=== PATIENT | female | born 1960 | race Caucasian/White ===

== ENCOUNTER 2019-12-18 11:04 | Emergency (ER) | payer OTHER, SELFPAY ==
--- NOTE | ~2019-12-18 | XR_ITS ---
EXAMINATION: XR chest 2V DATE: 12/18/2019 12:10 INDICATION: Cough and fever. TECHNIQUE: Frontal and lateral views of the chest were obtained. COMPARISON: Chest 2 views 09/20/2019 FINDINGS: The chest demonstrates clear lungs without pneumonia, pleural effusion, or pneumothorax. Th e heart size is normal. Surgical clips in the right upper quadrant are likely from cholecystectomy. IMPRESSION: 1. No acute cardiopulmonary disease. Reviewed, dictated and finalized at location A.
[2019-12-18 11:15] VITALS: BP 146/87; PULSE 72; RESP 18; TEMP 37.2; O2SAT 100
--- NOTE | 2019-12-18 12:04 | ED.URI ---
HPI - URI/Sore Throat General Chief Complaint: Upper Respiratory Infection Stated Complaint: Cough and URI Symptoms Source: patient Mode of arrival: ambulatory Limitations: no limitations History of Present Illness HPI Narrative: Patient is a 59-year-old female who presents with complaints of cough, congestion, shortness of breath, fever, chills, body aches x2 days. Patient reports boss diagnosis of influenza A. Patient reports taking Tylenol with limited relief. Patient reports a history of PE, asthma and bronchitis. MD elicited complaint: fever and cough Related Data Home Medications Medication Instructions Recorded Confirmed albuterol sulfate 90 mcg/actuation 1 puff INHALATION Q4H PRN 09/04/19 aerosol inhaler atorvastatin 20 mg tablet 20 mg PO DAILY 09/04/19 fluticasone furoate 100 1 inhalation INHALATION Q24H 09/04/19 mcg-vilanterol 25 mcg/dose inhalation powder isometheptene 65 mg-caffeine 100 cap PO 09/04/19 mg-acetaminophen 325 mg capsule omeprazole 40 mg capsule,delayed 40 mg PO BID 09/04/19 release amitriptyline 12/18/19 fluticasone furoate-vilanterol INHALATION 12/18/19 [Breo Ellipta] montelukast mg 12/18/19 rivaroxaban [Xarelto] mg 12/18/19 triamterene-hydrochlorothiazid tablet 12/18/19 Allergies Allergy/AdvReac Type Severity Reaction Status Date / Time divalproex sodium [Depakote] Allergy Unknown Psychosis Verified 12/18/19 11:07 morphine Allergy Unknown unk Verified 12/18/19 11:07 mycophenolate mofetil Allergy Unknown unk Verified 12/18/19 11:07 Penicillins Allergy Unknown unk Verified 12/18/19 11:07 prednisone Allergy Unknown Psychosis Verified 12/18/19 11:07 Sulfa (Sulfonamide Allergy Unknown unk Verified 12/18/19 11:07 Antibiotics) Review of Systems Review of Systems: Narrative: CONSTITUTIONAL: Reports fever, chills, or sweats. EYES: Denies visual changes, redness, or discharge. ENT: Reports rhinorrhea, congestion, denies sore throat, or otalgia. CARDIOVASCULAR: Denies chest pain, palpitations, or edema. RESPIRATORY: Reports cough and dyspnea. GASTROINTESTINAL: Denies abdominal pain, nausea, vomiting, or diarrhea. GENITOURINARY: Denies dysuria or hematuria. SKIN: Denies rash or itching. MUSCULOSKELETAL: Denies back pain, joint pain, or myalgia. NEUROLOGIC: Denies headache, numbness, dizziness, or weakness. PSYCHIATRIC: Denies anxiety or depression. [facility] Past Medical History Medical History Protein C deficiency Protein S deficiency Pulmonary embolus (2003) with DVT Surgical History Surgical History H/O: hysterectomy (1997) Hx of cholecystectomy (2009) Family History Family History Mother Diabetes mellitus Family history of primary malignant neoplasm of liver Asthma Family history of chronic obstructive pulmonary disease Father Family history of cardiovascular disease Family history of chronic obstructive pulmonary disease Family history of lung cancer Family history of primary malignant neoplasm of liver Grandparent Family history of lung cancer Family history of coronary artery disease Acute myocardial infarction Social History Social History Smoking status: Never smoker Alcohol intake: current Exam Narrative: Exam Narrative: GENERAL: Well-appearing, well-nourished, and in no acute distress. HEAD: Normocephalic, atraumatic. EYES: EOMI. No redness or drainage. Conjunctiva are normal. ENT: Mucous membranes pink and moist. Nares clear. No rhinorrhea. TMs normal bilaterally. Throat normal. Uvula midline. NECK: AROM. Supple. No lymphadenopathy. CHEST: No respiratory distress. Decreased lung sounds on right lower lobe HEART: Regular rate and rhythm. No murmur appreciated. Normal peripheral pulses. EXTREMITIES
[2019-12-18 12:45] VITALS: PULSE 80; RESP 18; TEMP 36.7
[2019-12-18] MEDS: ALBUTEROL SULFATE NEB 2.5 MG/3 ML INH INHALATION (13:12)
[2019-12-18] MEDS: IPRATROPIUM BR 0.02% INH SOLN 0.5 MG/2.5 ML VIAL INHALATION (13:12)
[2019-12-18 13:30] VITALS: PULSE 77; O2SAT 100
[2019-12-18 14:17] VITALS: PULSE 77; RESP 18; O2SAT 100
== END 2019-12-18 14:00 | disposition home or self-care (01) ==
PROVIDERS: Emergency Provider Nurse Practitioner; PCP Physician Assistant
DX: R05 Cough (principal); R06.02 Shortness of breath; R50.9 Fever, unspecified; R52 Pain, unspecified; J45.909 Unspecified asthma, uncomplicated; Z86.711 Personal history of pulmonary embolism; D68.59 Other primary thrombophilia
CPT/HCPCS: 71046; 87804; 94640; 99213; G0463

== ENCOUNTER 2019-12-22 08:05 | Outpatient (CLI) | payer OTHER, SELFPAY ==
[2019-12-22 08:54] LABS: Alanine Aminotransferase 49 U/L (4-35); Aspartate Amino Transferase 39 U/L (14-36); Blood Urea Nitrogen 14 mg/dL (7-17); Calcium 9.1 mg/dL (8.4-10.2); Carbon Dioxide 30 mmol/L (22-30); Chloride 100 mmol/L (98-107); Cholesterol 156 mg/dL (0-200); Estimated Glomerular Filt Rate > 60; Glucose 105 mg/dL (65-105); HDL Direct 51 mg/dL; Potassium 3.5 mmol/L (3.4-5.0); Sodium 138 mmol/L (137-145); Triglycerides 128 mg/dL (<150)
[2019-12-22 09:04] LABS: LDL Cholesterol Direct 83 mg/dL
== END 2019-12-22 08:06 | disposition home or self-care (01) ==
PROVIDERS: PCP Physician Assistant; Visit Provider Physician Assistant
DX: I10 Essential (primary) hypertension (principal); E78.5 Hyperlipidemia, unspecified; Z79.899 Other long term (current) drug therapy
CPT/HCPCS: 36415; 80048; 80061; 84450; 84460

== ENCOUNTER 2020-01-04 11:15 | Outpatient (CLI) | payer OTHER, SELFPAY ==
--- NOTE | ~2020-01-04 | MMUS_ITS ---
CORRECTED REPORT Order corrected. 01/04/20 sef EXAMINATION: MM diagnostic mammo BI, US breast RT limited HISTORY: Palpable right breast lump TECHNIQUE: Additional 3-D tomosynthesis images of were performed and synthetic 2-D images were generated. CAD analysis was submitted and interpreted. High resolution right breast ultrasound was performed. COMPARISON: Comparison to multiple prior studies sequentially, with oldest reviewed study dated 01/14/2015. FINDINGS: MAMMOGRAPHIC FINDINGS: Breast composed of scattered areas of fibroglandular density. There are no suspicious masses, calcifications or architectural distortion in either breast to suggest malignancy. ULTRASOUND: In the area of palpable concern in the right breast at 9:00, 8 cm from the nipple there is normal heterogeneous soft tissue. No discrete mass. Superior to the area of palpable concern at 10:00, 9 cm from the nipple are 2 normal- appearing intramammary lymph nodes measuring 1.9 and 1.7 cm respectively. IMPRESSION: 1. No evidence for malignancy in either breast. 2. Routine yearly screening mammogram and regular clinical breast examination are recommended. BI-RADS Category 2: Benign finding(s). Reviewed, dictated and finalized at location A. MTDD IMPRESSION: 1. No evidence for malignancy in either breast. 2. Routine yearly screening mammogram and regular clinical breast examination a re recommended. BI-RADS Category 2: Benign finding(s).
== END 2020-01-04 11:16 | disposition home or self-care (01) ==
PROVIDERS: PCP Physician Assistant; Visit Provider Physician Assistant
DX: N63.10 Unspecified lump in the right breast, unspecified quadrant (principal)
CPT/HCPCS: 76642; 77066

== ENCOUNTER 2020-01-19 07:10 | Outpatient (CLI) | payer OTHER, SELFPAY ==
[2020-01-19 07:33] LABS: Alanine Aminotransferase 28 U/L (4-35); Albumin Level 4.1 g/dL (3.5-5.1); Alkaline Phosphatase 97 U/L (38-126); Aspartate Amino Transferase 26 U/L (14-36); Bilirubin,Total 0.3 mg/dL (0.2-1.3)
== END 2020-01-19 07:11 | disposition home or self-care (01) ==
PROVIDERS: PCP Physician Assistant; Visit Provider Physician Assistant
DX: R74.8 Abnormal levels of other serum enzymes (principal)
CPT/HCPCS: 36415; 80076

== ENCOUNTER 2020-03-05 07:21 | Outpatient (CLI) | payer OTHER, SELFPAY ==
[2020-03-05 08:00] LABS: Alanine Aminotransferase 33 U/L (4-35); Albumin Level 4.2 g/dL (3.5-5.1); Alkaline Phosphatase 89 U/L (38-126); Aspartate Amino Transferase 31 U/L (14-36); Bilirubin,Total 0.4 mg/dL (0.2-1.3); Blood Urea Nitrogen 17 mg/dL (7-17); Calcium 9.3 mg/dL (8.4-10.2); Carbon Dioxide 33 mmol/L (22-30); Chloride 100 mmol/L (98-107); Cholesterol 162 mg/dL (0-200); Estimated Glomerular Filt Rate 57; Glucose 105 mg/dL (65-105); HDL Direct 48 mg/dL; Potassium 3.7 mmol/L (3.4-5.0); Sodium 137 mmol/L (137-145); Triglycerides 182 mg/dL (<150)
[2020-03-05 08:11] LABS: LDL Cholesterol Direct 77 mg/dL
[2020-03-07 09:28] LABS: Vitamin D 1,25 (OH)2 Total 41 pg/mL (18-72); Vitamin D2 1,25 (OH)2 <8 pg/mL; Vitamin D3 1,25 (OH)2 41 pg/mL
== END 2020-03-05 07:22 | disposition home or self-care (01) ==
PROVIDERS: PCP Physician Assistant; Visit Provider Family Medicine
DX: E55.9 Vitamin D deficiency, unspecified (principal); E78.2 Mixed hyperlipidemia; I10 Essential (primary) hypertension; Z79.899 Other long term (current) drug therapy
CPT/HCPCS: 36415; 80053; 80061; 82652

== ENCOUNTER 2020-03-21 12:54 | Outpatient (CLI) | payer OTHER, SELFPAY ==
--- NOTE | ~2020-03-21 | CT_ITS ---
EXAMINATION:CT chest wo con DATE: 03/21/2020 13:26 INDICATION: Chronic bronchitis. TECHNIQUE: Computed tomography (CT) of the chest was performed without intravenous contrast. Automate d exposure control and iterative reconstruction technique were employed. The dose-length product (DLP ) was 85.52 mGy-cm. COMPARISON: Chest CT 10/12/2019 FINDINGS: There is mild scarring at the lung apices. A calcified right lung nodule and calcified righ t hilar and mediastinal lymph nodes are consistent with old granulomatous disease. There is mild scar ring in paraspinal right lower lobe. There is mild bronchiectasis in lingula. There is mild atelectas is bilaterally. No pleural effusion. The heart size is normal. There are coronary artery calcificatio ns. No pericardial effusion. There is a small sliding hiatal hernia. There are changes of cholecystec leonidas. Calcifications in the spleen are consistent with old granulomatous disease. There is severe cer vical and thoracic spondylosis. IMPRESSION: 1. Mild scarring in the lungs. Mild bronchiectasis in lingula. 2. Small sliding hiatal hernia. Reviewed, dictated and finalized at location A.
== END 2020-03-21 12:55 | disposition home or self-care (01) ==
PROVIDERS: PCP Family Medicine
DX: J42 Unspecified chronic bronchitis (principal); R91.8 Other nonspecific abnormal finding of lung field; K44.9 Diaphragmatic hernia without obstruction or gangrene
CPT/HCPCS: 71250

== ENCOUNTER 2020-04-15 10:14 | Outpatient (CLI) | payer OTHER, SELFPAY ==
--- NOTE | 2020-04-17 11:08 | PFT_ITS ---
This report was moved to the correct visit, [id number], on April 26, 2020. Original report was signed by Dr. Solorzano on April 17, 2020 at 1210. PFT Interpretation PFT Interpretation: DOS: 04/15/2020 REQUESTING: Ariel Valera REASON FOR TESTING: Chronic bronchitis PULMONARY FUNCTION TESTS The results are reliable and reproducible. Spirometry: FEV1 is 95%, 1.68 L, normal. FVC is 88%, normal. FEV1% is normal 79% predicted. No bronchodilator was given. Lung volumes: TLC 89%, normal. RV 86%, normal Normal airway resistance. Diffusion: DLCO is mildly decreased 67%. Flow volume loop: attenuation of the second portion of the inspiratory loop. IMPRESSION: This study shows normal spirometry, lung volumes with a mild decrease in diffusion. Compared to a prior study 12/27/2018, values are similar. ON the prior study, air trapping was noted with and increased RV/TLC ration 48%, and this is not seen on the current study. The DLCO is similar, now 69%, previously 67%. The change in the flow volume loop is new. Love Solorzano MD Report Initialized date/time: Love Solorzano MD 04/17/20 / 1108 Electronically signed by: Love Solorzano MD 04/17/20 1210 [facility]
== END 2020-04-15 10:15 | disposition home or self-care (01) ==
PROVIDERS: PCP Family Medicine
DX: J42 Unspecified chronic bronchitis (principal); R91.8 Other nonspecific abnormal finding of lung field
CPT/HCPCS: 94375; 94726; 94729

== ENCOUNTER 2020-05-30 07:32 | Outpatient (RCR) | payer OTHER, SELFPAY ==
[2020-04-15 11:53] LABS: Hematocrit 41.5 % (37.0-47.0); Hemoglobin 13.9 g/dL (12.0-15.0); Mean Corpuscular HGB Conc 33.5 g/dl (32-36); Mean Corpuscular Hemoglobin 30.1 pg (26-34); Mean Corpuscular Volume 89.8 fl (80-100); Mean Platelet Volume 9.4 fl (7.4-10.4); Platelet Count Result 227 k/mm3 (150-375); Red Blood Count 4.62 M/mm3 (4.2-5.4); Red Cell Distribution Width 13.1 % (11.5-14.5); White Blood Count 5.8 K/mm3 (4.5-10.0)
[2020-04-15 12:08] LABS: Albumin Level 4.6 g/dL (3.5-5.1); Blood Urea Nitrogen 12 mg/dL (7-17); Calcium 9.4 mg/dL (8.4-10.2); Carbon Dioxide 31 mmol/L (22-30); Chloride 99 mmol/L (98-107); Estimated Glomerular Filt Rate > 60; Glucose 95 mg/dL (65-105); Phosphorus 4.1 mg/dL (2.5-4.5); Potassium 3.9 mmol/L (3.4-5.0); Sodium 135 mmol/L (137-145)
--- NOTE | 2020-04-17 11:06 | WPDPFTINT ---
PFT Interpretation PFT Interpretation: DOS: 04/15/2020 REQUESTING: Ariel Valera REASON FOR TESTING: Chronic bronchitis PULMONARY FUNCTION TESTS The results are reliable and reproducible. Spirometry: FEV1 is 95%, 1.68 L, normal. FVC is 88%, normal. FEV1% is normal 79% predicted. No bronchodilator was given. Lung volumes: TLC 89%, normal. RV 86%, normal Normal airway resistance. Diffusion: DLCO is mildly decreased 67%. Flow volume loop: attenuation of the second portion of the inspiratory loop. IMPRESSION: This study shows normal spirometry, lung volumes with a mild decrease in diffusion. Compared to a prior study 12/27/2018, values are similar. ON the prior study, air trapping was noted with and increased RV/TLC ration 48%, and this is not seen on the current study. The DLCO is similar, now 69%, previously 67%. The change in the flow volume loop is new. Love Solorzano MD
[2020-04-26 07:30] LABS: Hematocrit 39.9 % (37.0-47.0); Hemoglobin 13.4 g/dL (12.0-15.0); Mean Corpuscular HGB Conc 33.6 g/dl (32-36); Mean Corpuscular Hemoglobin 29.9 pg (26-34); Mean Corpuscular Volume 89.1 fl (80-100); Mean Platelet Volume 9.6 fl (7.4-10.4); Platelet Count Result 209 k/mm3 (150-375); Red Blood Count 4.48 M/mm3 (4.2-5.4); Red Cell Distribution Width 13.3 % (11.5-14.5); White Blood Count 4.5 K/mm3 (4.5-10.0)
[2020-04-26 07:46] LABS: Alanine Aminotransferase 19 U/L (4-35); Alkaline Phosphatase 82 U/L (38-126); Aspartate Amino Transferase 24 U/L (14-36); Bilirubin,Total 0.2 mg/dL (0.2-1.3); Blood Urea Nitrogen 15 mg/dL (7-17); Calcium 9.1 mg/dL (8.4-10.2); Carbon Dioxide 30 mmol/L (22-30); Chloride 103 mmol/L (98-107); Estimated Glomerular Filt Rate > 60; Glucose 103 mg/dL (65-105); Phosphorus 3.5 mg/dL (2.5-4.5); Potassium 4.2 mmol/L (3.4-5.0); Sodium 138 mmol/L (137-145)
[2020-05-10 07:27] LABS: Hematocrit 38.3 % (37.0-47.0); Mean Corpuscular HGB Conc 33.9 g/dl (32-36); Mean Corpuscular Hemoglobin 30.2 pg (26-34); Mean Corpuscular Volume 89.1 fl (80-100); Mean Platelet Volume 9.4 fl (7.4-10.4); Platelet Count Result 203 k/mm3 (150-375); Red Cell Distribution Width 13.4 % (11.5-14.5); White Blood Count 4.9 K/mm3 (4.5-10.0)
[2020-05-10 07:38] LABS: Albumin Level 4.1 g/dL (3.5-5.1); Blood Urea Nitrogen 13 mg/dL (7-17); Calcium 9.1 mg/dL (8.4-10.2); Carbon Dioxide 33 mmol/L (22-30); Chloride 101 mmol/L (98-107); Estimated Glomerular Filt Rate > 60; Glucose 108 mg/dL (65-105); Phosphorus 3.7 mg/dL (2.5-4.5); Sodium 137 mmol/L (137-145)
[2020-05-30 08:23] LABS: Alanine Aminotransferase 21 U/L (4-35); Albumin Level 3.9 g/dL (3.5-5.1); Alkaline Phosphatase 74 U/L (38-126); Anion Gap 4 mmol/L (8-16); Aspartate Amino Transferase 25 U/L (14-36); Bilirubin,Total 0.2 mg/dL (0.2-1.3); Blood Urea Nitrogen 14 mg/dL (7-17); Calcium 9.1 mg/dL (8.4-10.2); Carbon Dioxide 31 mmol/L (22-30); Chloride 103 mmol/L (98-107); Estimated Glomerular Filt Rate > 60; Glucose 102 mg/dL (65-105); Potassium 4.3 mmol/L (3.4-5.0); Sodium 138 mmol/L (137-145)
== END 2020-07-14 23:59 | disposition home or self-care (01) ==
LOC: ANHLAB 07:32
PROVIDERS: PCP Family Medicine
DX: Z51.81 Encounter for therapeutic drug level monitoring (principal); N03.9 Chronic nephritic syndrome with unspecified morphologic changes; Z79.899 Other long term (current) drug therapy
CPT/HCPCS: 36415; 80053; 80069; 84100; 85027

== ENCOUNTER 2020-07-12 06:42 | Outpatient (CLI) | payer OTHER, SELFPAY ==
[2020-07-12 07:30] LABS: Alanine Aminotransferase 20 U/L (4-35); Albumin Level 4.2 g/dL (3.5-5.1); Alkaline Phosphatase 83 U/L (38-126); Anion Gap 3 mmol/L (8-16); Aspartate Amino Transferase 25 U/L (14-36); Bilirubin,Total 0.3 mg/dL (0.2-1.3); Blood Urea Nitrogen 16 mg/dL (7-17); Calcium 9.4 mg/dL (8.4-10.2); Carbon Dioxide 36 mmol/L (22-30); Chloride 102 mmol/L (98-107); Cholesterol 174 mg/dL (0-200); Estimated Glomerular Filt Rate > 60; Glucose 109 mg/dL (65-105); HDL Direct 51 mg/dL; Potassium 4.3 mmol/L (3.4-5.0); Sodium 141 mmol/L (137-145); Triglycerides 127 mg/dL (<150)
[2020-07-12 07:41] LABS: LDL Cholesterol Direct 87 mg/dL
== END 2020-07-12 06:43 | disposition home or self-care (01) ==
PROVIDERS: PCP Family Medicine; Visit Provider Physician Assistant
DX: E78.2 Mixed hyperlipidemia (principal); E88.81 Metabolic syndrome and other insulin resistance
CPT/HCPCS: 36415; 80053; 80061

== ENCOUNTER 2020-09-24 10:18 | Outpatient (CLI) | payer OTHER, SELFPAY ==
[2020-09-24 07:43] LABS: Add Urine Microscopic? NO; Appearance Urine Clear (Clear); Bilirubin Urine Negative (Negative); Blood Urine Negative (Negative); Color Urine Yellow (Yellow); Creatinine Urine 126.4 mg/dL; Glucose Urine UA Negative (Negative); Ketones Urine Negative (Negative); Leukocyte Esterase Ur Negative LEU/UL (Negative); Nitrate Urine Negative (Negative); Protein Urine Negative (Negative); Specific Grav Ur 1.015 (1.001-1.035); Total Protein Urine Random 11 mg/dL; Ur Ttl Prot Creatinine Ratio 0.09 mg/mg (0-0.20); Urobilinogen Urine Negative mg/dL (<2.0)
[2020-09-24 07:45] LABS: Anion Gap 4 mmol/L (8-16); Blood Urea Nitrogen 16 mg/dL (7-17); Calcium 9.4 mg/dL (8.4-10.2); Carbon Dioxide 36 mmol/L (22-30); Chloride 100 mmol/L (98-107); Estimated Glomerular Filt Rate > 60; Glucose 103 mg/dL (65-105); Phosphorus 4.2 mg/dL (2.5-4.5); Potassium 3.9 mmol/L (3.4-5.0); Sodium 140 mmol/L (137-145)
== END 2020-09-24 10:19 | disposition home or self-care (01) ==
PROVIDERS: PCP Family Medicine
DX: N03.9 Chronic nephritic syndrome with unspecified morphologic changes (principal)
CPT/HCPCS: 36415; 80069; 81003; 82570; 84156

== ENCOUNTER 2020-09-25 15:43 | Outpatient (CLI) | payer OTHER, SELFPAY ==
--- NOTE | ~2020-09-25 | XR_ITS ---
EXAMINATION: XR hand RT min 3V EXAM DATE: 09/25/2020 16:13 INDICATION: Right thumb pain, vomiting. TECHNIQUE: Right hand frontal, lateral and oblique projections obtained and reviewed. There is no pr ior study for comparison. FINDINGS: Right metacarpal bones are unremarkable. There is mild to moderate 1st CMC, MCP and IP [place] osteoarthritis. There is mild to moderate 2nd and 3rd DIP primary osteoarthritis. Subchondral c ysts in the right 1st proximal phalangeal base and in the lunate. Scapholunate joint space is normal. The soft tissue is unremarkable. There are no acute fractures identified. No radiopaque foreign bodi es identified. 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 Reviewed, dictated and finalized at location A. [employer]
== END 2020-09-25 15:44 | disposition home or self-care (01) ==
PROVIDERS: PCP Family Medicine; Visit Provider Orthopaedic Surgery Hand Surgery
DX: M18.11 Unilateral primary osteoarthritis of first carpometacarpal joint, right hand (principal); M19.041 Primary osteoarthritis, right hand
CPT/HCPCS: 73130

== ENCOUNTER 2020-10-26 13:31 | Emergency (ER) | payer OTHER, SELFPAY ==
--- NOTE | 2020-10-26 13:35 | ED.SKABFB ---
HPI - Skin/Abscess/Foreign Bdy General Chief complaint: Skin/Abscess/Foreign Body Stated complaint: rash Time Seen by Provider: 10/26/20 13:36 Source: patient and RN notes reviewed History of Present Illness HPI narrative: Patient is a 60-year-old female who presents the urgent care with complaints of an itchy rash. Patient states that it started yesterday on bilateral arms and is now traveled to her upper thighs, torso and back. Patient denies any new use of detergents, creams, lotions, foods. States that she is used [id number] Benadryl and hydrocortisone cream without any relief. No other acute complaints. No acute distress noted. Patient aware of the plan of care. Some parts of this dictation were generated by voice recognition software and may contain typographical and/or grammatical inaccuracies. Related Data Home Medications Medication Instructions Recorded Confirmed isometheptene 65 mg-caffeine 100 cap PO 09/04/19 07/15/20 mg-acetaminophen 325 mg capsule omeprazole 40 mg capsule,delayed 40 mg PO BID 09/04/19 07/15/20 release amitriptyline 12/18/19 07/15/20 rivaroxaban [Xarelto] mg 12/18/19 07/15/20 azithromycin 500 mg tablet 500 mg PO .COMPLEX 07/15/20 07/15/20 ethambutol 400 mg tablet 1,600 mg PO tablet 07/15/20 07/15/20 rifampin 300 mg capsule 600 mg PO .COMPLEX cap 07/15/20 07/15/20 Allergies Allergy/AdvReac Type Severity Reaction Status Date / Time divalproex sodium [Depakote] Allergy Unknown Psychosis Verified 07/15/20 09:11 morphine Allergy Unknown unk Verified 07/15/20 09:11 mycophenolate mofetil Allergy Unknown unk Verified 07/15/20 09:11 Penicillins Allergy Unknown unk Verified 07/15/20 09:11 prednisone Allergy Unknown Psychosis Verified 07/15/20 09:11 Sulfa (Sulfonamide Allergy Unknown unk Verified 07/15/20 09:11 Antibiotics) Review of Systems Review of Systems: Narrative: CONSTITUTIONAL: Denies fever, chills, or sweats. EYES: Denies visual changes, redness, or discharge. ENT: Denies rhinorrhea, congestion, sore throat, or otalgia. CARDIOVASCULAR: Denies chest pain, palpitations, or edema. RESPIRATORY: Denies cough or dyspnea. GASTROINTESTINAL: Denies abdominal pain, nausea, vomiting, or diarrhea. GENITOURINARY: Denies dysuria or hematuria. SKIN: Reports of itchy red rash to torso, back, bilateral arms and inner thighs MUSCULOSKELETAL: Denies back pain, joint pain, or myalgia. NEUROLOGIC: Denies headache, numbness, or weakness. All other systems reviewed are negative, except as documented in HPI. [facility] Past Medical History Medical History (Updated 10/26/20 @ 13:51 by VANNESA Ackerman) Protein C deficiency Protein S deficiency Pulmonary embolus (2003) with DVT Surgical History Surgical History H/O: hysterectomy (1997) Hx of cholecystectomy (2009) Family History Family History Mother Diabetes mellitus Family history of primary malignant neoplasm of liver Asthma Family history of chronic obstructive pulmonary disease Father Family history of cardiovascular disease Family history of chronic obstructive pulmonary disease Family history of lung cancer Family history of primary malignant neoplasm of liver Grandparent Family history of lung cancer Family history of coronary artery disease Acute myocardial infarction Social History Social History Smoking status: Never smoker Alcohol intake: current Gender identity (if verbalized by the patient): Female Comments At the time of my signature, I reviewed and agree with the nursing past medical, surgical, social, and family history. There is no relevant family history pertinent to the patient complaint. Exam Narrative: Exam Narrative: GENERAL: This is a well-nourished, well-developed patient, in no apparent distress. HEAD: normocephal
[2020-10-26 13:39] VITALS: BP 123/67; PULSE 67; RESP 20; TEMP 36.6; O2SAT 98
== END 2020-10-26 13:55 | disposition home or self-care (01) ==
PROVIDERS: Emergency Provider Nurse Practitioner Family
DX: L23.9 Allergic contact dermatitis, unspecified cause (principal); D68.59 Other primary thrombophilia; Z86.711 Personal history of pulmonary embolism; Z86.718 Personal history of other venous thrombosis and embolism; Z79.01 Long term (current) use of anticoagulants
CPT/HCPCS: 99213; G0463

== ENCOUNTER 2021-01-06 08:29 | Outpatient (CLI) | payer OTHER, SELFPAY ==
--- NOTE | ~2021-01-06 | MM_ITS ---
EXAMINATION: MM screening [facility] BI w [place] HISTORY: Screening mammogram TECHNIQUE: Craniocaudal and mediolateral oblique 3-D tomosynthesis images were obtained and synthetic 2-D images were generated. CAD analysis was submitted and interpreted. COMPARISON: 01/04/2020, 01/11/2019, 01/06/2018 BREAST PARENCHYMAL COMPOSITION: There are scattered areas of fibroglandular density. FINDINGS: There is no evidence of suspicious mass, calcification, or architectural distortion to sugg est malignancy in either breast. There has been no suspicious interval change. IMPRESSION: 1. No mammographic evidence of malignancy. 2. Recommend routine screening mammography in one year. BI-RADS Category 1: Negative Reviewed, dictated and finalized at location A.
== END 2021-01-06 08:30 | disposition home or self-care (01) ==
LOC: ANHIMG 08:33
PROVIDERS: PCP Family Medicine; Visit Provider Family Medicine
DX: Z12.31 Encounter for screening mammogram for malignant neoplasm of breast (principal)
CPT/HCPCS: 77063; 77067

== ENCOUNTER 2021-01-29 12:55 | Outpatient (CLI) | payer OTHER, SELFPAY ==
--- NOTE | 2021-01-29 | ECG_ITS ---
Measurements Intervals [place] Rate: 66 P: 34 CT: 136 QRS: -23 QRSD: 93 T: 42 QT: 402 QTc: 422 Interpretive Statements SINUS RHYTHM RSR' IN V1 OR V2, CONSIDER RIGHT VENTRICULAR HYPERTROPHY OR RIGHT VCD DELAYED PRECORDIAL R/S TRANSITION MINIMAL Q WAVES- HIGH LATERAL LEADS BASELINE ARTIFACT- V2 BORDERLINE ECG Electronically Signed On 01-29-2021 14:53:40 CDT by Skip Sterling D.O.
[2021-01-29 13:38] LABS: Anion Gap 6 mmol/L (8-16); Blood Urea Nitrogen 16 mg/dL (7-17); Calcium 9.5 mg/dL (8.4-10.2); Carbon Dioxide 33 mmol/L (22-30); Chloride 100 mmol/L (98-107); Estimated Glomerular Filt Rate > 60; Glucose 123 mg/dL (65-105); Potassium 3.5 mmol/L (3.4-5.0); Sodium 139 mmol/L (137-145)
== END 2021-01-29 12:56 | disposition home or self-care (01) ==
PROVIDERS: PCP Family Medicine; Visit Provider Specialist
DX: G56.02 Carpal tunnel syndrome, left upper limb (principal); I10 Essential (primary) hypertension; R94.31 Abnormal electrocardiogram [ECG] [EKG]
CPT/HCPCS: 36415; 80048; 93005

== ENCOUNTER → 2021-02-03 06:40 | Outpatient (CLI) | payer OTHER, SELFPAY ==
[2021-02-03 19:58] LABS: SARS-CoV-2 RNA PCR Negative
== END ==
PROVIDERS: PCP Family Medicine; Visit Provider Orthopaedic Surgery Hand Surgery
DX: Z01.812 Encounter for preprocedural laboratory examination (principal); Z20.822 Contact with and (suspected) exposure to COVID-19
CPT/HCPCS: C9803; U0003; U0005

== ENCOUNTER 2021-03-11 07:25 | Outpatient (CLI) | payer OTHER, SELFPAY ==
[2021-03-11 08:16] LABS: Alanine Aminotransferase 27 U/L (4-35); Albumin Level 4.1 g/dL (3.5-5.1); Alkaline Phosphatase 75 U/L (38-126); Anion Gap 5 mmol/L (8-16); Aspartate Amino Transferase 27 U/L (14-36); Bilirubin,Total 0.4 mg/dL (0.2-1.3); Blood Urea Nitrogen 13 mg/dL (7-17); Calcium 9.5 mg/dL (8.4-10.2); Carbon Dioxide 31 mmol/L (22-30); Chloride 104 mmol/L (98-107); Cholesterol 205 mg/dL (0-200); Estimated Glomerular Filt Rate > 60; Glucose 103 mg/dL (65-105); HDL Direct 67 mg/dL; Potassium 3.8 mmol/L (3.4-5.0); Sodium 140 mmol/L (137-145); Triglycerides 124 mg/dL (<150)
[2021-03-11 08:26] LABS: Hemoglobin A1C 5.6 % (<5.7)
[2021-03-11 08:27] LABS: LDL Cholesterol Direct 86 mg/dL
== END 2021-03-11 07:26 | disposition home or self-care (01) ==
PROVIDERS: PCP Family Medicine; Visit Provider Family Medicine
DX: R73.03 Prediabetes (principal); Z79.899 Other long term (current) drug therapy; E88.81 Metabolic syndrome and other insulin resistance; E78.2 Mixed hyperlipidemia; I10 Essential (primary) hypertension
CPT/HCPCS: 36415; 80053; 80061; 83036

== ENCOUNTER 2021-03-14 12:14 | Outpatient (CLI) | payer OTHER, SELFPAY ==
--- NOTE | ~2021-03-14 | XR_ITS ---
EXAMINATION: XR chest 2V DATE: 03/14/2021 12:36 INDICATION: Abnormal weight loss. TECHNIQUE: Frontal and lateral views of the chest were obtained. COMPARISON: Chest 2 views 12/18/2019 FINDINGS: Again seen is eventration of anterior right hemidiaphragm. Calcified pulmonary nodules are consistent with old granulomatous disease. No pleural effusion or pneumothorax. The heart size is nor mal. Surgical clips in the right upper quadrant are likely from cholecystectomy. There are surgical c hanges in right shoulder. IMPRESSION: 1. No acute cardiopulmonary disease. Reviewed, dictated and finalized at location A.
== END 2021-03-14 12:15 | disposition home or self-care (01) ==
PROVIDERS: PCP Family Medicine; Visit Provider Family Medicine
DX: R63.4 Abnormal weight loss (principal); Z80.1 Family history of malignant neoplasm of trachea, bronchus and lung
CPT/HCPCS: 71046

== ENCOUNTER 2021-03-24 08:35 | Outpatient (CLI) | payer OTHER, SELFPAY ==
--- NOTE | 2021-03-28 15:13 | WPDPFTINT ---
PFT Procedure Performed PFT Procedure Performed Spirometry with Pre/Post Bronchodilator Plethysmography (Lung Vol) Diffusing Cap (DLCO) PFT Interpretation DOS: 03/24/2021 REQUESTING: Dr Valera REASON FOR TESTING: Mycobacterium avium PULMONARY FUNCTION TESTS Results are reliable and reproducible. Spirometry: FEV1 is 86% predicted, 1.73 L. FVC is 87% predicted. FEV1/FVC ratio is 79% normal. There is no significant response to bronchodilator. Lung volumes: Total lung capacity 85% normal. Residual volume 77% normal. There is no air trapping. Airway resistance is 114%, normal. Diffusion: DLCO 61%. Flow volume loop: Unremarkable. IMPRESSION: Normal spirometry, normal lung volumes, mild decrease in diffusion. The diffusion on a previous study 12/27/2018 showed DLCO 69%, and now is 61%. This may not be statistically significant. TLC was 117%, now 85%, still normal however closer to lower limit of normal. Air trapping was present on the prior study, and now this is gone. This might be a results of decreasing lung volumes. Love Solorzano MD
== END 2021-03-24 08:36 | disposition home or self-care (01) ==
PROVIDERS: PCP Family Medicine; Visit Provider Student in an Organized Health Care Education/Training Program
DX: A31.0 Pulmonary mycobacterial infection (principal)
CPT/HCPCS: 94060; 94726; 94729

== ENCOUNTER 2021-04-25 07:08 | Outpatient (CLI) | payer OTHER, SELFPAY ==
[2021-04-25 08:05] LABS: Alanine Aminotransferase 22 U/L (4-35); Albumin Level 4.1 g/dL (3.5-5.1); Alkaline Phosphatase 73 U/L (38-126); Anion Gap 4 mmol/L (8-16); Aspartate Amino Transferase 30 U/L (14-36); Bilirubin,Total 0.4 mg/dL (0.2-1.3); Blood Urea Nitrogen 12 mg/dL (7-17); Calcium 9.3 mg/dL (8.4-10.2); Carbon Dioxide 30 mmol/L (22-30); Chloride 104 mmol/L (98-107); Estimated Glomerular Filt Rate > 60; Glucose 100 mg/dL (65-105); Potassium 3.4 mmol/L (3.4-5.0); Sodium 138 mmol/L (137-145)
[2021-04-25 08:11] LABS: Immunoglobulin A 120 mg/dL (70-400); Immunoglobulin G 953 mg/dL (700-1600); Immunoglobulin M 50 mg/dL (40-230)
[2021-04-25 08:45] LABS: Absolute Eosinophil Count 0.2 K/mm3 (0.0-0.3)
[2021-04-27 12:06] LABS: Immunoglobulin G, Serum 881 mg/dL (600-1640); Immunoglobulin G1 542 mg/dL (382-929); Immunoglobulin G2 236 mg/dL (241-700); Immunoglobulin G3 22 mg/dL (22-178); Immunoglobulin G4 21.8 mg/dL (4.0-86.0)
== END 2021-04-25 07:09 | disposition home or self-care (01) ==
PROVIDERS: PCP Family Medicine; Visit Provider Student in an Organized Health Care Education/Training Program
DX: J30.89 Other allergic rhinitis (principal); A31.0 Pulmonary mycobacterial infection; J42 Unspecified chronic bronchitis
CPT/HCPCS: 36415; 80053; 82784; 82785; 82787; 85048; 86003

== ENCOUNTER 2021-06-24 07:56 | Outpatient (CLI) | payer OTHER, SELFPAY ==
[2021-06-24 10:03] LABS: Add Urine Microscopic? YES; Appearance Urine Clear (Clear); Bilirubin Urine Negative (Negative); Blood Urine 1+ (Negative); Color Urine Colorless (Yellow); Glucose Urine UA Negative (Negative); Ketones Urine Negative (Negative); Leukocyte Esterase Ur Negative LEU/UL (NEGATIVE); Nitrate Urine Negative (Negative); Protein Urine Negative (Negative); RBC Urine 0-2 /hpf (0-2); Specific Grav Ur 1.009 (1.001-1.035); Urobilinogen Urine Negative mg/dL (<2.0)
== END 2021-06-24 07:57 | disposition home or self-care (01) ==
LOC: ANHLAB 08:00
PROVIDERS: PCP Family Medicine; Visit Provider Family Medicine
DX: R30.0 Dysuria (principal)
CPT/HCPCS: 81001

== ENCOUNTER 2021-07-11 07:07 | Outpatient (CLI) | payer OTHER, SELFPAY ==
[2021-07-11 08:12] LABS: Alanine Aminotransferase 35 U/L (4-35); Albumin Level 4.5 g/dL (3.5-5.1); Alkaline Phosphatase 74 U/L (38-126); Anion Gap 5 mmol/L (8-16); Aspartate Amino Transferase 33 U/L (14-36); Bilirubin,Total 0.6 mg/dL (0.2-1.3); Blood Urea Nitrogen 17 mg/dL (7-17); Calcium 9.6 mg/dL (8.4-10.2); Carbon Dioxide 33 mmol/L (22-30); Chloride 102 mmol/L (98-107); Cholesterol 158 mg/dL (0-200); Estimated Glomerular Filt Rate > 60; Glucose 105 mg/dL (65-110); HDL Direct 53 mg/dL; Potassium 4.3 mmol/L (3.4-5.0); Sodium 140 mmol/L (137-145); Triglycerides 115 mg/dL (<150)
[2021-07-11 08:23] LABS: LDL Cholesterol Direct 76 mg/dL
[2021-07-11 08:34] LABS: Add Urine Microscopic? YES; Appearance Urine Clear (Clear); Bilirubin Urine Negative (Negative); Blood Urine 1+ (Negative); Color Urine Yellow (Yellow); Glucose Urine UA Negative (Negative); Ketones Urine Negative (Negative); Leukocyte Esterase Ur Trace LEU/UL (NEGATIVE); Mucus Urine Rare /lpf; Nitrate Urine Negative (Negative); Protein Urine Negative (Negative); Squamous Epithelial Cell Urine Moderate /hpf (Few); Urobilinogen Urine Negative mg/dL (<2.0); WBC Urine 0-3 /hpf (0-3)
== END 2021-07-11 07:08 | disposition home or self-care (01) ==
PROVIDERS: PCP Family Medicine; Visit Provider Family Medicine
DX: E78.2 Mixed hyperlipidemia (principal); E88.81 Metabolic syndrome and other insulin resistance; I10 Essential (primary) hypertension; R30.0 Dysuria
CPT/HCPCS: 36415; 80053; 80061; 81001

== ENCOUNTER 2021-12-24 07:17 | Outpatient (CLI) | payer OTHER, SELFPAY ==
[2021-12-24 07:54] LABS: Alanine Aminotransferase 44 U/L (4-35); Albumin Level 4.4 g/dL (3.5-5.1); Alkaline Phosphatase 82 U/L (38-126); Anion Gap 4 mmol/L (8-16); Aspartate Amino Transferase 39 U/L (14-36); Bilirubin,Total 0.5 mg/dL (0.2-1.3); Blood Urea Nitrogen 17 mg/dL (7-17); Calcium 9.2 mg/dL (8.4-10.2); Carbon Dioxide 35 mmol/L (22-30); Chloride 100 mmol/L (98-107); Cholesterol 167 mg/dL (0-200); Estimated Glomerular Filt Rate > 60; Glucose 102 mg/dL (65-110); HDL Direct 49 mg/dL; Potassium 3.6 mmol/L (3.4-5.0); Sodium 139 mmol/L (137-145); Triglycerides 120 mg/dL (<150)
[2021-12-24 08:05] LABS: LDL Cholesterol Direct 74 mg/dL
== END 2021-12-24 07:18 | disposition home or self-care (01) ==
LOC: ANHLAB 07:19
PROVIDERS: PCP Family Medicine; Visit Provider Family Medicine
DX: E78.2 Mixed hyperlipidemia (principal); E88.81 Metabolic syndrome and other insulin resistance; I10 Essential (primary) hypertension
CPT/HCPCS: 36415; 80053; 80061

== ENCOUNTER 2022-01-12 07:36 | Outpatient (CLI) | payer OTHER, SELFPAY ==
--- NOTE | ~2022-01-12 | MR_ITS ---
EXAMINATION: MR hip RT wo con DATE: 01/12/2022 08:44 INDICATION: Right hip pain TECHNIQUE: Magnetic resonance imaging (MRI) of the right hip was performed without intravenous contr ast. Sequences included full-field axial PD-weighted FS FSE and T1-weighted FSE, coronal of the pelvi s with PD-weighted FS FSE, T2-weighted FSE and T1-weighted FSE, small field of view of the right hip with axial PD-weighted FS FSE, sagittal PD-weighted FS FSE, coronal PD-weighted FS FSE and coronal T2 weighted FSE. Additional radial T1-weighted FGR oriented orthogonal to the acetabular rim were obt ained for evaluation of the labrum. COMPARISON: None FINDINGS: Bones/labrum/cartilage: Alignment is normal. No fracture, avascular necrosis or pathologic marrow replacing process. Tear of the anterosuperior to posterior superior right acetabular labrum. Mild right hip osteoarthritis with relatively preserved cartilage thickness but with chondral surface regularity at the anterosuperior aspect of the joint space. Tiny subarticular cyst at the posterior superior rim of the acetabulum. Se ana disc height loss at L5-S1 with fibrofatty degenerative endplate changes. Fluid: Symmetric physiologic amount of fluid within both hip joints. Soft tissues: No asymmetric muscular atrophy in the pelvis and proximal thighs. Mild tendinopathy without discrete tear at the bilateral ischial tuberosity origins of the proximal hamstring tendons on both the left a nd right. There is edema at the bilateral quadratus femoris muscle bellies centered between the anter olateral margins of the ischial tuberosities and the lateral lesser trochanters which can be seen wit h ischiofemoral impingement syndrome. There is mild tendinopathy and small enthesophytes at the great er trochanteric insertions of the left and right gluteus medius and minimus tendons. No discrete tend on tear The uterus is not identified and has likely been surgically resected. Limited evaluation of v isceral organs of the pelvis is otherwise unremarkable. No pathologically enlarged pelvic/inguinal l ymphadenopathy. IMPRESSION: 1. Mild right hip osteoarthritis with labral tear. 2. 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 3. Mild bilateral gluteus minimus and medius tendinopathy with associated greater trochanteric enthes ophytes but without tear. 4. Mild tendinopathy without discrete tear at the bilateral proximal hamstring tendons. Reviewed, dictated and finalized at location B. IMPRESSION: 1. Mild right hip osteoarthritis with labral tear. 2. Edema at the bilateral quadratus femoris muscles with distribution suggestiv e of ischiofemoral impingement syndrome. 3. Mild bilateral gluteus minimus and medius tendinopathy with associated great er trochanteric enthesophytes but without tear. 4. Mild tendinopathy without discrete tear at the bilateral proximal hamstring tendons.
== END 2022-01-12 07:37 | disposition home or self-care (01) ==
LOC: ANHIMG 07:37
PROVIDERS: PCP Family Medicine; Visit Provider Family Medicine
DX: M16.11 Unilateral primary osteoarthritis, right hip (principal)
CPT/HCPCS: 73721

== ENCOUNTER 2022-01-15 07:33 | Outpatient (CLI) | payer OTHER, SELFPAY ==
--- NOTE | ~2022-01-15 | MM_ITS ---
EXAMINATION: MM screening [facility] BI w [place] HISTORY: Screening TECHNIQUE: Craniocaudal and mediolateral oblique 3-D tomosynthesis images were obtained and synthetic 2-D images were generated. CAD analysis was submitted and interpreted. COMPARISON: Comparison to multiple prior studies sequentially, with oldest reviewed study dated 04/2016. BREAST PARENCHYMAL COMPOSITION: There are scattered areas of fibroglandular density. FINDINGS: There is no evidence of suspicious mass, calcification, or architectural distortion to sugg est malignancy in either breast. There has been no suspicious interval change. IMPRESSION: 1. No mammographic evidence of malignancy. 2. Recommend routine screening mammography in one year. BI-RADS Category 1: Negative Reviewed, dictated and finalized at location A.
== END 2022-01-15 07:34 | disposition home or self-care (01) ==
LOC: ANHIMG 07:35
PROVIDERS: PCP Family Medicine; Visit Provider Family Medicine
DX: Z12.31 Encounter for screening mammogram for malignant neoplasm of breast (principal)
CPT/HCPCS: 77063; 77067

== ENCOUNTER 2022-01-18 10:04 | Emergency (ER) | payer OTHER, SELFPAY ==
--- NOTE | 2022-01-18 10:05 | ED.URI ---
HPI - URI/Sore Throat General Chief Complaint: Upper Respiratory Infection Stated Complaint: Cough,Runny Nose Time Seen by Provider: 01/18/22 10:15 Source: patient Mode of arrival: ambulatory Limitations: no limitations History of Present Illness HPI Narrative: is a 61-year-old female patient presenting to the clinic today with complaints of cough and runny nose since . She reports no fever, chills, sinus pressure, or sore throat. No known exposure to anyone with Covid, influenza, or strep. Reports that she is coughing up some green thick sputum. She denies any chest pain or shortness of breath. MD elicited complaint: cough, rhinorrhea and nasal congestion Related Data Home Medications Medication Instructions Recorded Confirmed omeprazole 40 mg capsule,delayed 40 mg PO BID 09/04/19 12/29/21 release rivaroxaban [Xarelto] mg 12/18/19 12/29/21 cetirizine 10 mg tablet 10 mg PO DAILY PRN 03/14/21 12/29/21 Allergies Allergy/AdvReac Type Severity Reaction Status Date / Time divalproex sodium [Depakote] Allergy Unknown Psychosis Verified 01/18/22 10:17 morphine Allergy Unknown unk Verified 01/18/22 10:17 mycophenolate mofetil Allergy Unknown unk Verified 01/18/22 10:17 Penicillins Allergy Unknown unk Verified 01/18/22 10:17 prednisone Allergy Unknown Psychosis Verified 01/18/22 10:17 Sulfa (Sulfonamide Allergy Unknown unk Verified 01/18/22 10:17 Antibiotics) Review of Systems Review of Systems: Pertinent positives per HPI. Patient denies any fever, chills, rash, headache, visual changes, dizziness, sore throat, shortness of breath, chest pain, palpitations, nausea, vomiting, diarrhea, constipation, abdominal pain, or any urinary issues. [facility] Past Medical History Medical History (Updated 01/18/22 @ 10:35 by Santos Kumar APRN) Protein C deficiency Protein S deficiency Pulmonary embolus (2003) with DVT Surgical History Surgical History H/O: hysterectomy (1997) Hx of cholecystectomy (2009) Family History Family History Mother Diabetes mellitus Family history of primary malignant neoplasm of liver Asthma Family history of chronic obstructive pulmonary disease Father Family history of cardiovascular disease Family history of chronic obstructive pulmonary disease Family history of lung cancer Family history of primary malignant neoplasm of liver Grandparent Family history of lung cancer Family history of coronary artery disease Acute myocardial infarction Social History Social History Alcohol intake: current Gender identity (if verbalized by the patient): Female Comments At the time of my signature, I reviewed and agree with the nursing past medical, surgical, social, and family history. There is no relevant family history pertinent to the patient complaint. Exam Narrative: General: Well-developed, well nourished, in no apparent distress Head: Normocephalic, atraumatic Eyes: Pupils equally round and reactive to light bilaterally, EOM intact, sclera and conjunctive clear, no discharge, lids normal Ears: TMs intact and clear, ear canals clear, no drainage, grossly hearing normal. Nose: Nares patent, green nasal discharge, mild inflammation, no sinus tenderness. Mouth: Oral pharynx without lesions or masses, good dentition, MMM. PND Neck: Supple, trachea midline, no enlargement of anterior or posterior cervical nodes, no thyroid masses or goiter palpable. Cardio: Regular rate and rhythm, s1 and s2 normal, no murmur appreciated. Resp: Clear to auscultation bilaterally, no rhonchi, rales, wheezing or rubs Course Course Emergency Course: Portions of this record may have been created with voice recognition software. Level of Care: Express Care Visit Vital Signs Vital signs: V
[2022-01-18 10:13] VITALS: BP 130/82; PULSE 72; RESP 18; TEMP 37.2; O2SAT 96
== END 2022-01-18 10:39 | disposition home or self-care (01) ==
PROVIDERS: Emergency Provider Nurse Practitioner Family; PCP Family Medicine
DX: R09.82 Postnasal drip (principal); J06.9 Acute upper respiratory infection, unspecified; Z86.718 Personal history of other venous thrombosis and embolism; Z86.711 Personal history of pulmonary embolism; D68.59 Other primary thrombophilia
CPT/HCPCS: 99211; G0463

== ENCOUNTER 2022-01-21 08:23 | Outpatient (CLI) | payer OTHER, SELFPAY | END 2022-01-21 08:24 | disposition home or self-care (01) | LOC: ANHLAB 08:26 | PROVIDERS: PCP Family Medicine; Visit Provider Student in an Organized Health Care Education/Training Program | DX: A31.0 Pulmonary mycobacterial infection (principal) | CPT/HCPCS: 87015; 87070; 87116; 87205; 87206 ==

== ENCOUNTER 2022-02-02 12:42 | Outpatient (CLI) | payer OTHER, SELFPAY ==
--- NOTE | ~2022-02-02 | DEXA_ITS ---
Bone Density Report Name: BRYCE BALLARD Age: 61 Sex: Female Ethnicity: White Date of : 1960 Indication: postmenopausal; screening for osteoporosis; height loss; prior fracture; asthma or emphysema; hysterectomy; Referring Provider: JONATHON GUILLORY Study: Bone densitometry was performed. Exam Date: February 02, 2022 Accession number: [id number] Bone Density: Region BMD T-score Z-score Classification AP Spine(L1-L4) 0.937 -1.0 0.5 Normal Femoral Neck (Left) 0.762 -0.8 0.6 Normal Total Hip (Left) 0.969 0.2 1.3 Normal Femoral Neck (Right) 0.777 -0.6 0.7 Normal Total Hip (Right) 0.936 0.0 1.0 Normal Total Hip Mean 0.952 0.1 1.2 Normal World Health Organization criteria for BMD impression classify patients as: Normal (T-score at or above -1.0), Osteopenia (T-score between -1.0 and -2.5), or Osteoporosis (T-score at or below -2.5). 10-year Fracture Risk: FRAX not reported because: All T-scores for Spine Total, Hip Total, Femoral Neck at or above -1.0 Treated for osteoporosis Clinical Information Provided by Patient: Has had a low trauma fracture Is being treated for osteoporosis Has used the following medications: Forteo (i.e. parathyroid hormone), Reclast (i.e. zoledronate) Has the following medical conditions: Asthma or Emphysema, Hysterectomy Patient maximum height was 60 Menopause Age: 28 Drinks caffeinated beverages Onset of menses at age 10 Number of children 2 Impression: The patient has normal bone mass. The patient has risk factors, including: previous fracture. Discussion: It is important to ask patients whether they are taking their medications and to encourage continued and appropriate compliance with their osteoporosis therapies to reduce fracture risk. It is also important to review their risk factors and encourage appropriate calcium and vitamin D intakes, exercise, fall prevention and other lifestyle measures. Follow-Up: Consider a repeat BMD and Vertebral Fracture Assessment (VFA) exam in 2 years or sooner if medically necessary, to reassess this patient's status. Reported by: ADDIS on 02/10/2022 12:51:00 PM. Reviewed, dictated and finalized at location A.
== END 2022-02-02 12:43 | disposition home or self-care (01) ==
LOC: ANHIMG 12:45
PROVIDERS: PCP Family Medicine; Visit Provider Family Medicine
DX: Z13.820 Encounter for screening for osteoporosis (principal); Z78.0 Asymptomatic menopausal state
CPT/HCPCS: 77080

== ENCOUNTER 2022-03-02 07:03 | Outpatient (CLI) | payer OTHER, SELFPAY ==
--- NOTE | 2022-03-02 | ECG_ITS ---
Measurements Intervals [place] Rate: 59 P: 31 OR: 135 QRS: -11 QRSD: 93 T: 20 QT: 413 QTc: 411 Interpretive Statements SINUS BRADYCARDIA RSR' IN V1 OR V2, CONSIDER RIGHT VENTRICULAR HYPERTROPHY OR RIGHT VCD MINIMAL Q WAVES- HIGH LATERAL LEADS BORDERLINE T WAVE ABNORMALITY- ANTERIOR LEADS BASELINE ARTIFACT- II, III, AVR, AVF BORDERLINE ECG Electronically Signed On 03-02-2022 7:58:13 CDT by Skip Sterling D.O.
[2022-03-02 08:07] LABS: Anion Gap 7 mmol/L (8-16); Blood Urea Nitrogen 16 mg/dL (7-17); Calcium 8.9 mg/dL (8.4-10.2); Carbon Dioxide 30 mmol/L (22-30); Chloride 101 mmol/L (98-107); Estimated Glomerular Filt Rate > 60; Glucose 108 mg/dL (65-110); Sodium 138 mmol/L (137-145)
== END 2022-03-02 07:04 | disposition home or self-care (01) ==
PROVIDERS: PCP Family Medicine; Visit Provider Orthopaedic Surgery Hand Surgery
DX: I10 Essential (primary) hypertension (principal); Z01.818 Encounter for other preprocedural examination; R94.31 Abnormal electrocardiogram [ECG] [EKG]
CPT/HCPCS: 36415; 80048; 93005

== ENCOUNTER 2022-07-30 07:12 | Outpatient (CLI) | payer OTHER, SELFPAY ==
[2022-07-30 07:56] LABS: Alanine Aminotransferase 39 U/L (6-35); Albumin Level 4.4 g/dL (3.5-5.1); Alkaline Phosphatase 92 U/L (38-126); Anion Gap 6 mmol/L (8-16); Aspartate Amino Transferase 36 U/L (14-36); Bilirubin,Total 0.7 mg/dL (0.2-1.3); Blood Urea Nitrogen 18 mg/dL (7-17); Calcium 9.3 mg/dL (8.4-10.2); Carbon Dioxide 30 mmol/L (22-30); Chloride 103 mmol/L (98-107); Cholesterol 166 mg/dL (0-200); Estimated Glomerular Filt Rate > 60; Glucose 108 mg/dL (65-110); HDL Direct 53 mg/dL; Potassium 4.2 mmol/L (3.4-5.0); Sodium 139 mmol/L (137-145); Triglycerides 133 mg/dL (<150)
[2022-07-30 08:07] LABS: LDL Cholesterol Direct 77 mg/dL
== END 2022-07-30 07:13 | disposition home or self-care (01) ==
PROVIDERS: PCP Family Medicine; Visit Provider Family Medicine
DX: E78.2 Mixed hyperlipidemia (principal); I10 Essential (primary) hypertension; E88.81 Metabolic syndrome and other insulin resistance
CPT/HCPCS: 36415; 80053; 80061

== ENCOUNTER 2022-09-06 10:01 | Emergency (ER) | payer OTHER, SELFPAY ==
--- NOTE | ~2022-09-06 | XR_ITS ---
XR foot RT min 3V DATE: 09/06/2022 10:28 INDICATION: Dropped a cutting board on the distal fourth and fifth metatarsal area of the foot TECHNIQUE: 4 views COMPARISON: None FINDINGS: Mild osteoarthritis at first metatarsophalangeal joint. No fracture or dislocation, periosteal reaction or bone destruction. IMPRESSION: No fracture or dislocation Reviewed, dictated and finalized at location A. [employer] DES[employer] IMPRESSION: No fracture or dislocation
[2022-09-06 10:12] VITALS: BP 145/89; PULSE 73; RESP 18; TEMP 36.1; O2SAT 99
--- NOTE | 2022-09-06 10:21 | ED.LOWEXIN ---
HPI - Extremity Injury (Lower) General Chief Complaint: Extremity Injury, Lower Stated Complaint: rt foot injury Time Seen by Provider: 09/06/22 10:17 Source: patient Mode of arrival: ambulatory Limitations: no limitations History of Present Illness HPI Narrative: Patient presents today complaining of right foot pain. Two days ago she dropped a cutting board on her foot. Reports some tingling in her 5th toe. She is on a blood thinner. Currently rates pain 5/10 and has been taking Tylenol without relief. She has been ambulatory since the injury. Related Data Home Medications Medication Instructions Recorded Confirmed omeprazole 40 mg capsule,delayed 40 mg PO BID 09/04/19 09/06/22 release rivaroxaban 20 mg tablet (Xarelto) 20 mg PO DAILY 12/18/19 09/06/22 cetirizine 10 mg tablet (Zyrtec) 10 mg PO DAILY 03/14/21 09/06/22 Allergies Allergy/AdvReac Type Severity Reaction Status Date / Time divalproex sodium [Depakote] Allergy Unknown Psychosis Verified 09/06/22 10:10 morphine Allergy Unknown unk Verified 09/06/22 10:10 mycophenolate mofetil Allergy Unknown unk Verified 09/06/22 10:10 Penicillins Allergy Unknown unk Verified 09/06/22 10:10 prednisone Allergy Unknown Psychosis Verified 09/06/22 10:10 Sulfa (Sulfonamide Allergy Unknown unk Verified 09/06/22 10:10 Antibiotics) Review of Systems Review of Systems: CONSTITUTIONAL: Denies body aches, fever, chills, or sweats. EYES: Denies visual changes, redness, or discharge. ENT: Denies rhinorrhea, congestion, sore throat, or otalgia. CARDIOVASCULAR: Denies chest pain, palpitations, or edema. RESPIRATORY: Denies cough or dyspnea. GASTROINTESTINAL: Denies abdominal pain, nausea, vomiting, or diarrhea. GENITOURINARY: Denies dysuria or hematuria. SKIN: Denies rash, itching, or wounds. MUSCULOSKELETAL: Denies back pain, or myalgia.+ Right foot injury NEUROLOGIC: Denies headache, numbness, or weakness.+ tingling to right 5th toe PSYCH: Denies depression or anxiety. PMFSH Past Medical History Medical History Protein C deficiency Protein S deficiency Pulmonary embolus (2003) with DVT Surgical History Surgical History H/O: hysterectomy (1997) Hx of cholecystectomy (2009) Family History Family History Mother Diabetes mellitus Family history of primary malignant neoplasm of liver Asthma Family history of chronic obstructive pulmonary disease Father Family history of cardiovascular disease Family history of chronic obstructive pulmonary disease Family history of lung cancer Family history of primary malignant neoplasm of liver Grandparent Family history of lung cancer Family history of coronary artery disease Acute myocardial infarction Social History Social History Smoking status: Never smoker Alcohol intake: current Lack of Transportation: No Lack of Food: Never True Current Housing: I Have Housing Concerned About Future Housing: No Difficulty Paying Gas/Electric Bills: No Difficulty Paying for Meds: No Currently Unemployed: No Education: Trade/Vocational Certificate Difficulty w/ Childcare or Family Care: No Gender identity (if verbalized by the patient): Female Comments At time of signature, I have reviewed and agree with nursing past medical, surgical, social and family history unless otherwise noted. Please see nursing chart for further information. There is no relevant family history pertinent to the presenting complaint Exam Narrative: GENERAL: Well-appearing, well-nourished, and in no acute distress. HEAD: Normocephalic, atraumatic. EYES: EOMI. No redness or drainage. Conjunctivae normal. ENT: Mucous membranes pink and moist. NECK: Normal AROM. CHEST: No
== END 2022-09-06 10:35 | disposition home or self-care (01) ==
PROVIDERS: Emergency Provider Nurse Practitioner; PCP Family Medicine
DX: S90.31XA Contusion of right foot, initial encounter (principal); W20.8XXA Other cause of strike by thrown, projected or falling object, initial encounter; D68.59 Other primary thrombophilia; Z86.711 Personal history of pulmonary embolism; Z79.01 Long term (current) use of anticoagulants
CPT/HCPCS: 73630; 99213; G0463

== ENCOUNTER 2022-09-08 12:21 | Outpatient (CLI) | payer OTHER, SELFPAY ==
--- NOTE | ~2022-09-08 | MMUS_ITS ---
EXAMINATION: MM diagnostic levon RT w salvador, US breast RT limited HISTORY: Pain and itching in the lateral aspect of the right breast TECHNIQUE: Craniocaudal, mediolateral, and mediolateral oblique 3-D tomosynthesis images of the right breast were performed and synthetic 2-D images were generated. CAD analysis was submitted and interp reted. High resolution limited right breast ultrasound was performed. COMPARISON: 01/15/2022, 01/06/2021, 01/04/2020 BREAST PARENCHYMAL COMPOSITION: There are scattered areas of fibroglandular density. FINDINGS: MAMMOGRAPHIC FINDINGS: No suspicious mass, calcification, or architectural distortion are identified to suggest malignancy. There has been no suspicious interval change. No mammographic correlate is identified for the patient 's reported right breast pain. ULTRASOUND: There is no evidence of focal abnormal solid or cystic mass in the vicinity of the patient's right br east pain. IMPRESSION: 1. No specific mammographic or sonographic correlate is identified for the patient's right breast patricia n. Further evaluation at this time should be based on clinical assessment. Continued follow-up physic al examination is recommended. 2. Routine screening mammography is recommended. BI-RADS Category 1: Negative Reviewed, dictated and finalized at location F. TUTOR IMPRESSION: 1. No specific mammographic or sonographic correlate is identified for the meena ent's right breast pain. Further evaluation at this time should be based on cli nical assessment. Continued follow-up physical examination is recommended. 2. Routine screening mammography is recommended. BI-RADS Category 1: Negative
== END 2022-09-08 12:22 | disposition home or self-care (01) ==
LOC: ANHIMG 12:25
PROVIDERS: PCP Family Medicine; Visit Provider Family Medicine
DX: N64.4 Mastodynia (principal); N64.59 Other signs and symptoms in breast
CPT/HCPCS: 76642; 77061; 77065; G0279

== ENCOUNTER 2022-11-13 07:02 | Outpatient (CLI) | payer OTHER, SELFPAY ==
[2022-11-13 08:15] LABS: Hematocrit 39.2 % (37.0-47.0); Hemoglobin 12.8 g/dL (12.0-15.0); Mean Corpuscular HGB Conc 32.7 g/dl (32-36); Mean Corpuscular Hemoglobin 29.2 pg (26-34); Mean Corpuscular Volume 89.3 fl (80-100); Platelet Count Result 221 k/mm3 (150-375); Red Blood Count 4.39 M/mm3 (4.2-5.4); Red Cell Distribution Width 14.1 % (11.5-14.5); White Blood Count 4.8 K/mm3 (4.5-10.0)
[2022-11-13 08:30] LABS: Alanine Aminotransferase 73 U/L (6-35); Albumin Level 4.1 g/dL (3.5-5.1); Alkaline Phosphatase 86 U/L (38-126); Anion Gap 4 mmol/L (8-16); Aspartate Amino Transferase 50 U/L (14-36); Bilirubin,Total 0.7 mg/dL (0.2-1.3); Blood Urea Nitrogen 17 mg/dL (7-17); Calcium 8.9 mg/dL (8.4-10.2); Carbon Dioxide 33 mmol/L (22-30); Chloride 104 mmol/L (98-107); Cholesterol 158 mg/dL (0-200); Estimated Glomerular Filt Rate > 60; Glucose 99 mg/dL (65-110); HDL Direct 50 mg/dL; Sodium 141 mmol/L (137-145); Triglycerides 102 mg/dL (<150)
[2022-11-13 08:36] LABS: LDL Cholesterol Direct 71 mg/dL
[2022-11-17 11:59] LABS: Vitamin D 1,25 (OH)2 Total 49 pg/mL (18-72); Vitamin D2 1,25 (OH)2 <8 pg/mL; Vitamin D3 1,25 (OH)2 49 pg/mL
== END 2022-11-13 07:03 | disposition home or self-care (01) ==
LOC: ANHLAB 07:04
PROVIDERS: PCP Family Medicine; Visit Provider Family Medicine
DX: E55.9 Vitamin D deficiency, unspecified (principal); E78.2 Mixed hyperlipidemia; E88.81 Metabolic syndrome and other insulin resistance; I10 Essential (primary) hypertension
CPT/HCPCS: 36415; 80053; 80061; 82652; 84443; 85027

== ENCOUNTER 2022-12-24 23:02 | Outpatient (NON) | payer OTHER, SELFPAY | END 2022-12-24 23:03 | disposition home or self-care (01) | LOC: ANHLAB 23:04 | PROVIDERS: PCP Family Medicine; Visit Provider Family Medicine | DX: N39.0 Urinary tract infection, site not specified (principal); R35.0 Frequency of micturition | CPT/HCPCS: 87086; 87088 ==

== ENCOUNTER 2023-01-12 09:09 | Outpatient (CLI) | payer OTHER, SELFPAY ==
--- NOTE | ~2023-01-12 | XR_ITS ---
EXAMINATION: XR foot RT min 3V DATE: 01/12/2023 09:33 INDICATION: Right foot pain TECHNIQUE: Dorsoplantar, lateral, and 2 oblique views of the right foot were obtained. COMPARISON: 09/06/2022 FINDINGS: Bone alignment is normal. There is no fracture. There is mild osteoarthritis of multiple in terphalangeal joints. There is chronic fusion of the fourth and fifth distal interphalangeal joints. IMPRESSION: 1. No acute osseous abnormality. Reviewed, dictated and finalized at location L.
--- NOTE | ~2023-01-12 | MR_ITS ---
EXAMINATION: MR cervical spine wo con DATE: 01/12/2023 10:14 INDICATION: Right arm numbness. TECHNIQUE: Magnetic resonance imaging (MRI) of the cervical spine was performed without intravenous c ontrast. COMPARISON: None FINDINGS: Bone alignment is normal. Vertebral body heights are normal. There is mildly decreased disc height at C3-C4, moderately decreased disc height at C4-C5, severely decreased disc height at C5-C6 and C6-C7. The spinal cord signal intensity is normal. The following disc levels are specifically dis cussed: C2-C3: There is a left central extrusion. There is no uncovertebral joint osteoarthritis. There is se ana bilateral facet joint osteoarthritis. There is mild left neural foraminal stenosis. There is no central canal stenosis. C3-C4: The disc is bulging. There is mild right and moderate left uncovertebral joint osteoarthritis. There is severe bilateral facet joint osteoarthritis. There is moderate left neural foraminal stenos is. There is mild central canal stenosis. C4-C5: There is a left central protrusion. There is severe bilateral uncovertebral joint osteoarthrit is. There is severe bilateral facet joint osteoarthritis. There is mild bilateral neural foraminal st enosis. There is mild central canal stenosis. C5-C6: The disc is bulging. There is severe bilateral uncovertebral joint osteoarthritis. There is mi ld bilateral facet joint osteoarthritis. There is mild right and moderate left neural foraminal steno sis. There is mild central canal stenosis. C6-C7: The disc is bulging. There is severe bilateral uncovertebral joint osteoarthritis. There is mo derate and mild left facet joint osteoarthritis. There is moderate bilateral neural foraminal stenosi s. There is mild central canal stenosis. C7-T1: There is a central protrusion. There is no uncovertebral joint osteoarthritis. There is modera te right and severe left facet joint osteoarthritis. There is mild left neural foraminal stenosis. Th ere is no central canal stenosis. IMPRESSION: 1. Severe cervical spondylosis. Reviewed, dictated and finalized at location A.
--- NOTE | ~2023-01-12 | US_ITS ---
EXAMINATION: US right upper quadrant DATE: 01/12/2023 09:47 INDICATION: R74.8 - Abnormal levels of other serum enzymes TECHNIQUE: Multiple grayscale and Doppler ultrasound images of the right upper quadrant were obtained . COMPARISON: None available. FINDINGS: The visualized portions of the pancreas are normal. The liver is normal with normal echogen icity and echotexture. No surface nodularity. Normal hepatopetal flow in the main portal vein. The ga llbladder is surgically absent. The common bile duct measures 3 mm. There was no sonographic Chaney s ign. IMPRESSION: Cholecystectomy. Otherwise normal right upper quadrant ultrasound findings. Reviewed, dictated and finalized at location K.
== END 2023-01-12 09:10 | disposition home or self-care (01) ==
LOC: ANHIMG 09:11
PROVIDERS: PCP Family Medicine; Visit Provider Family Medicine
DX: R74.8 Abnormal levels of other serum enzymes (principal); R20.0 Anesthesia of skin; M79.671 Pain in right foot; M47.892 Other spondylosis, cervical region; Z90.49 Acquired absence of other specified parts of digestive tract
CPT/HCPCS: 72141; 73630; 76705

== ENCOUNTER 2023-02-15 13:44 | Outpatient (CLI) | payer OTHER, SELFPAY ==
[2023-02-15 14:36] LABS: Strep Group A RT-PCR NOT DETECTED (Negative)
== END 2023-02-15 13:45 | disposition home or self-care (01) ==
LOC: ANHLAB 13:45
PROVIDERS: PCP Family Medicine; Visit Provider Family Medicine
DX: J02.9 Acute pharyngitis, unspecified (principal)
CPT/HCPCS: 87651

== ENCOUNTER 2023-03-18 15:30 | Outpatient (CLI) | payer OTHER, SELFPAY ==
--- NOTE | ~2023-03-18 | MM_ITS ---
EXAMINATION: MM screening levon BI w salvador HISTORY: Screening TECHNIQUE: Craniocaudal and mediolateral oblique 3-D tomosynthesis images were obtained and synthetic 2-D images were generated. CAD analysis was submitted and interpreted. COMPARISON: Comparison to multiple prior studies sequentially, with oldest reviewed study dated 01/06. BREAST PARENCHYMAL COMPOSITION: There are scattered areas of fibroglandular density. FINDINGS: There is no evidence of suspicious mass, calcification, or architectural distortion to sugg est malignancy in either breast. There has been no suspicious interval change. IMPRESSION: 1. No mammographic evidence of malignancy. 2. Recommend routine screening mammography in one year. BI-RADS Category 1: Negative Reviewed, dictated and finalized at location A.
== END 2023-03-18 15:31 | disposition home or self-care (01) ==
PROVIDERS: PCP Family Medicine; Visit Provider Family Medicine
DX: Z12.31 Encounter for screening mammogram for malignant neoplasm of breast (principal)
CPT/HCPCS: 77063; 77067

== ENCOUNTER 2023-03-26 07:03 | Outpatient (CLI) | payer OTHER, SELFPAY ==
[2023-03-26 07:38] LABS: Hematocrit 37.7 % (37.0-47.0); Hemoglobin 12.2 g/dL (12.0-15.0); Mean Corpuscular HGB Conc 32.4 g/dl (32-36); Mean Corpuscular Hemoglobin 28.4 pg (26-34); Mean Corpuscular Volume 87.7 fl (80-100); Mean Platelet Volume 9.6 fl (7.4-10.4); Platelet Count Result 213 k/mm3 (150-375); Red Cell Distribution Width 13.7 % (11.5-14.5); White Blood Count 4.5 K/mm3 (4.5-10.0)
[2023-03-26 07:55] LABS: Alanine Aminotransferase 53 U/L (6-35); Alkaline Phosphatase 75 U/L (38-126); Anion Gap 4 mmol/L (8-16); Aspartate Amino Transferase 48 U/L (14-36); Bilirubin,Total 0.6 mg/dL (0.2-1.3); Blood Urea Nitrogen 18 mg/dL (7-17); Calcium 8.9 mg/dL (8.4-10.2); Carbon Dioxide 35 mmol/L (22-30); Chloride 101 mmol/L (98-107); Estimated Glomerular Filt Rate > 60; Glucose 97 mg/dL (65-110); Potassium 3.1 mmol/L (3.4-5.0); Sodium 140 mmol/L (137-145)
== END 2023-03-26 07:04 | disposition home or self-care (01) ==
LOC: ANHLAB 07:05
PROVIDERS: PCP Family Medicine; Visit Provider Family Medicine
DX: R53.83 Other fatigue (principal); I10 Essential (primary) hypertension
CPT/HCPCS: 36415; 80053; 84443; 85027

== ENCOUNTER 2023-03-30 14:57 | Outpatient (CLI) | payer OTHER, SELFPAY ==
--- NOTE | ~2023-03-30 | XR_ITS ---
AP and lateral views of the neck CLINICAL HISTORY: Swelling/mass FINDINGS: There is moderate to advanced degenerative disc narrowing at C5-C6 and C6-C7. There are ext ensive anterior osteophytes extending from C3 through C7. No prevertebral soft tissue swelling. No de finite radiopaque foreign body seen. Visualized aerodigestive tract grossly unremarkable. No definite soft tissue abnormality seen. Epiglottis unremarkable. IMPRESSION: Moderate degenerative spondylosis of the cervical spine, as noted above. No other significant findings identified. Consider cross-sectional imaging to further evaluate for so ft tissue mass. Reviewed, dictated and finalized at location . IMPRESSION: Moderate degenerative spondylosis of the cervical spine, as noted above. No other significant findings identified. Consider cross-sectional imaging to f urther evaluate for soft tissue mass.
--- NOTE | ~2023-03-30 | US_ITS ---
US soft tissue head and neck INDICATION: Left neck swelling TECHNIQUE: Real-time sonographic images of the thyroid gland were obtained. COMPARISON: No prior studies for comparison. FINDINGS: The right thyroid lobe measures 4.3 x 1.1 x 1.4 cm. The left thyroid lobe measures 4.1 x 0 .6 x 1.4 cm. There is normal echotexture and echogenicity throughout the thyroid gland. In the right lobe there is an oval solid hypoechoic, wider than tall, smoothly marginated mass without echogenic f oci measuring 9 mm, TR 4. Left thyroid gland is unremarkable. No extrathyroidal soft tissue masses or fluid collections are seen. Normal vascular flow is present. IMPRESSION: 1. Right thyroid mass measuring 9 mm, TR 4, likely benign. Reviewed, dictated and finalized at location []
== END 2023-03-30 14:58 | disposition home or self-care (01) ==
LOC: ANHIMG 14:59
PROVIDERS: PCP Family Medicine; Visit Provider Family Medicine
DX: R22.1 Localized swelling, mass and lump, neck (principal); M47.892 Other spondylosis, cervical region
CPT/HCPCS: 70360; 76536

== ENCOUNTER 2023-04-07 14:58 | Outpatient (CLI) | payer OTHER, SELFPAY ==
--- NOTE | ~2023-04-07 | CT_ITS ---
CT scan of the Neck Technique: 2.5 mm axial scans were obtained through the neck after intravenous administration of 75 c c Omnipaque 350. Coronal and sagittal reconstructions of the neck were obtained. Dose reduction techn ique was used on this scan by utilizing automated exposure control and iterative reconstruction techn ique. The dose-length product (DLP) was 617.87 mGy-cm. Clinical History: Thyroid nodule Findings: There is no evidence of any significant cervical lymphadenopathy. Several small, nonenlarged jugulo- digastric and posterior cervical lymph nodes are noted bilaterally. Parapharyngeal spaces appear norm al bilaterally. The parotid and submandibular glands appear normal. The pharyngeal mucosal spaces appear normal. No soft tissue masses are seen in the neck. There are probably 2 subcentimeter hypodense thyroid nodules, measuring up to 4 mm in maximum diamete r.. Images of the lung apices reveal no abnormalities. Impression: Tiny right thyroid lobe nodules, as detailed above. Reviewed, dictated and finalized at location . Impression: Tiny right thyroid lobe nodules, as detailed above.
== END 2023-04-07 14:59 | disposition home or self-care (01) ==
LOC: ANHIMG 14:59
PROVIDERS: PCP Family Medicine; Visit Provider Family Medicine
DX: E04.1 Nontoxic single thyroid nodule (principal); R22.1 Localized swelling, mass and lump, neck
CPT/HCPCS: 70491; Q9967

== ENCOUNTER 2023-04-08 07:06 | Outpatient (CLI) | payer OTHER, SELFPAY ==
[2023-04-08 07:36] LABS: Alanine Aminotransferase 50 U/L (6-35); Albumin Level 4.2 g/dL (3.5-5.1); Alkaline Phosphatase 71 U/L (38-126); Anion Gap 4 mmol/L (8-16); Aspartate Amino Transferase 42 U/L (14-36); Bilirubin,Total 0.5 mg/dL (0.2-1.3); Blood Urea Nitrogen 14 mg/dL (7-17); Calcium 9.4 mg/dL (8.4-10.2); Carbon Dioxide 33 mmol/L (22-30); Chloride 102 mmol/L (98-107); Cholesterol 145 mg/dL (0-200); Estimated Glomerular Filt Rate > 60; Glucose 107 mg/dL (65-110); HDL Direct 51 mg/dL; Potassium 3.6 mmol/L (3.4-5.0); Sodium 139 mmol/L (137-145); Triglycerides 92 mg/dL (<150)
[2023-04-08 07:46] LABS: LDL Cholesterol Direct 70 mg/dL
== END 2023-04-08 07:07 | disposition home or self-care (01) ==
LOC: ANHLAB 07:07
PROVIDERS: PCP Family Medicine; Visit Provider Family Medicine
DX: E78.2 Mixed hyperlipidemia (principal); I10 Essential (primary) hypertension; E87.6 Hypokalemia
CPT/HCPCS: 36415; 80053; 80061

== ENCOUNTER 2023-04-30 07:10 | Outpatient (CLI) | payer OTHER, SELFPAY ==
[2023-04-30 08:26] LABS: Iron 59 ug/dL (37-170)
[2023-04-30 08:27] LABS: Percent Iron Saturation 15 % (20-50)
== END 2023-04-30 07:11 | disposition home or self-care (01) ==
PROVIDERS: PCP Family Medicine; Referring Provider Nurse Practitioner; Visit Provider Family Medicine
DX: D64.9 Anemia, unspecified (principal)
CPT/HCPCS: 36415; 83540; 83550; 84132

== ENCOUNTER 2023-06-15 06:47 | Outpatient (CLI) | payer OTHER, SELFPAY ==
[2023-06-15 07:17] LABS: Appearance Urine Clear (Clear); Bacteria Urine None Seen /hpf; Bilirubin Urine Negative (Negative); Blood Urine Trace (Negative); Color Urine Yellow (Yellow); Glucose Urine UA Negative (Negative); Ketones Urine Negative (Negative); Leukocyte Esterase Ur Negative LEU/UL (NEGATIVE); Nitrate Urine Negative (Negative); Non Pathogenic Casts 0-2; Protein Urine Negative (Negative); RBC Urine 0-2 /hpf (0-2); Specific Grav Ur 1.015 (1.001-1.035); Squamous Epithelial Cell Urine Occasional /hpf (Few); Urobilinogen Urine 0.2 mg/dL (<2.0); WBC Urine 0-5 /hpf (0-3)
[2023-06-15 07:18] LABS: Add Urine Microscopic? YES
== END 2023-06-15 06:48 | disposition home or self-care (01) ==
PROVIDERS: PCP Family Medicine; Visit Provider Family Medicine
DX: N23 Unspecified renal colic (principal); N39.0 Urinary tract infection, site not specified
CPT/HCPCS: 81001

== ENCOUNTER 2023-06-23 07:08 | Outpatient (CLI) | payer OTHER, SELFPAY ==
[2023-06-23 08:52] LABS: Hematocrit 38.7 % (37.0-47.0); Hemoglobin 12.4 g/dL (12.0-15.0); Mean Corpuscular Hemoglobin 29.3 pg (26-34); Mean Corpuscular Volume 91.5 fl (80-100); Mean Platelet Volume 10.2 fl (7.4-10.4); Platelet Count Result 244 k/mm3 (150-375); Red Blood Count 4.23 M/mm3 (4.2-5.4); Red Cell Distribution Width 14.8 % (11.5-14.5)
[2023-06-23 09:07] LABS: Alanine Aminotransferase 53 U/L (6-35); Albumin Level 4.3 g/dL (3.5-5.1); Alkaline Phosphatase 83 U/L (38-126); Anion Gap 2 mmol/L (8-16); Aspartate Amino Transferase 46 U/L (14-36); Bilirubin,Total 0.4 mg/dL (0.2-1.3); Blood Urea Nitrogen 16 mg/dL (7-17); Calcium 9.1 mg/dL (8.4-10.2); Carbon Dioxide 32 mmol/L (22-30); Chloride 105 mmol/L (98-107); Estimated Glomerular Filt Rate > 60; Glucose 94 mg/dL (65-110); Potassium 3.5 mmol/L (3.4-5.0); Sodium 139 mmol/L (137-145)
[2023-06-23 09:10] LABS: Iron 130 ug/dL (37-170)
[2023-06-23 09:20] LABS: Percent Iron Saturation 37 % (20-50)
== END 2023-06-23 07:09 | disposition home or self-care (01) ==
PROVIDERS: PCP Family Medicine; Visit Provider Family Medicine
DX: D64.9 Anemia, unspecified (principal); Z79.899 Other long term (current) drug therapy
CPT/HCPCS: 36415; 80053; 82728; 83540; 83550; 85027

== ENCOUNTER 2023-06-28 16:05 | Outpatient (NON) | payer OTHER, SELFPAY | END 2023-06-28 16:06 | disposition home or self-care (01) | PROVIDERS: PCP Family Medicine; Visit Provider Nurse Practitioner | DX: N23 Unspecified renal colic (principal) | CPT/HCPCS: 87086 ==

== ENCOUNTER 2023-07-06 08:03 | Outpatient (CLI) | payer OTHER, SELFPAY ==
--- NOTE | ~2023-07-06 | US_ITS ---
EXAMINATION: US renal BI DATE: 07/06/2023 08:36 INDICATION: Unspecified renal colic. TECHNIQUE: Multiple ultrasound grayscale images of the kidneys were obtained. COMPARISON: None. FINDINGS: The right kidney measures 9.6 x 4.4 x 4.5 cm. The left kidney measures 10.5 x 5.3 x 4.3 cm. The kidne ys demonstrate normal parenchymal echogenicity. There is no hydronephrosis. The bladder is normal. IMPRESSION: 1. Normal kidneys. No hydronephrosis. Reviewed, dictated and finalized at location A.
== END 2023-07-06 08:04 | disposition home or self-care (01) ==
LOC: ANHIMG 08:04
PROVIDERS: PCP Family Medicine; Visit Provider Nurse Practitioner
DX: N23 Unspecified renal colic (principal)
CPT/HCPCS: 76775

== ENCOUNTER 2023-08-02 06:35 | Outpatient (CLI) | payer OTHER, SELFPAY ==
--- NOTE | ~2023-08-02 | CT_ITS ---
EXAMINATION: CT abdomen pelvis wo con DATE: 08/02/2023 07:11 INDICATION: Abdominal pain TECHNIQUE: Computed tomography (CT) of the abdomen and pelvis was performed without intravenous contr ast. The dose-length product was 346.76 mGy-cm. Automated exposure control and iterative reconstructi on technique were employed. COMPARISON: None. FINDINGS: There is developing bibasilar atelectasis. There is small hiatal hernia. Heart size normal. No significant pleural or pericardial effusion. Status post cholecystectomy. The liver, spleen, panc reas, adrenal glands and right kidney are unremarkable. Small exophytic left renal cyst colonic diver ticulosis without evidence for diverticulitis. No abnormal pelvic masses or fluid collections. Mild a therosclerosis. No aneurysm. No lymphadenopathy. No free air or free fluid. Moderate lower thoracic a nd lumbar spondylosis. IMPRESSION: 1. No acute abdominal abnormality. Reviewed, dictated and finalized at location B.
== END 2023-08-02 06:36 | disposition home or self-care (01) ==
PROVIDERS: PCP Family Medicine; Visit Provider Nurse Practitioner
DX: R10.9 Unspecified abdominal pain (principal)
CPT/HCPCS: 74176

== ENCOUNTER 2023-09-07 07:03 | Outpatient (CLI) | payer OTHER, SELFPAY ==
[2023-09-07 07:39] LABS: Basophils Absolute Auto 0.1 K/mm3 (0.0-0.1); Basophils Percent Auto 1.4 % (0.2-1.2); Eosinophils Absolute Auto 0.2 K/mm3 (0-0.3); Eosinophils Percent Auto 3.9 % (0-4.4); Immature Granulocyte Absolute 0.01 K/mm3 (0.00-0.031); Immature Granulocyte Percent A 0.2 % (0-0.5); Lymphocytes Absolute Auto 1.02 K/mm3 (0.9-3.2); Mean Corpuscular HGB Conc 32.5 g/dl (32-36); Mean Corpuscular Hemoglobin 29.2 pg (26-34); Mean Corpuscular Volume 89.9 fl (80-100); Mean Platelet Volume 9.3 fl (7.4-10.4); Monocytes Absolute Auto 0.4 K/mm3 (0.1-0.6); Monocytes Percent Auto 8.6 % (2.6-8.5); Neutrophils Absolute Auto 3.4 K/mm3 (1.3-6.7); Neutrophils Percent Auto 65.9 % (45.5-73.1); Platelet Count Result 261 k/mm3 (150-375); Red Blood Count 4.45 M/mm3 (4.2-5.4); Red Cell Distribution Width 13.2 % (11.5-14.5); White Blood Count 5.1 K/mm3 (4.5-10.0)
[2023-09-07 07:54] LABS: Alanine Aminotransferase 46 U/L (6-35); Albumin Level 4.4 g/dL (3.5-5.1); Alkaline Phosphatase 83 U/L (38-126); Anion Gap 7 mmol/L (8-16); Aspartate Amino Transferase 48 U/L (14-36); Bilirubin,Total 0.6 mg/dL (0.2-1.3); Blood Urea Nitrogen 16 mg/dL (7-17); Calcium 9.5 mg/dL (8.4-10.2); Carbon Dioxide 32 mmol/L (22-30); Chloride 100 mmol/L (98-107); Estimated Glomerular Filt Rate > 60; Glucose 107 mg/dL (65-110); Potassium 3.6 mmol/L (3.4-5.0); Sodium 139 mmol/L (137-145)
[2023-09-07 08:50] LABS: Appearance Urine Clear (Clear); Bacteria Urine None Seen /hpf; Bilirubin Urine Negative (Negative); Blood Urine Negative (Negative); Color Urine Dark Yellow (Yellow); Glucose Urine UA Negative (Negative); Ketones Urine Negative (Negative); Leukocyte Esterase Ur 1+ LEU/UL (Negative); Nitrate Urine Negative (Negative); Non Pathogenic Casts 0-2; Protein Urine Negative (Negative); Squamous Epithelial Cell Urine Few /hpf (Few); Urobilinogen Urine 0.2 mg/dL (<2.0); WBC Urine 0-5 /hpf
[2023-09-07 08:58] LABS: Add Urine Microscopic? YES
[2023-09-07 10:28] LABS: Iron 164 ug/dL (37-170)
[2023-09-07 10:45] LABS: Percent Iron Saturation 52 % (20-50)
[2023-09-07 12:52] LABS: Hemoglobin A1C 5.4 % (<5.7)
== END 2023-09-07 07:04 | disposition home or self-care (01) ==
PROVIDERS: PCP Family Medicine; Visit Provider Nurse Practitioner
DX: R53.83 Other fatigue (principal); R30.0 Dysuria; R73.01 Impaired fasting glucose
CPT/HCPCS: 36415; 80053; 81001; 82607; 83036; 83540; 83550; 85025

== ENCOUNTER 2023-11-29 11:40 | Outpatient (CLI) | payer OTHER, SELFPAY ==
[2023-11-29 13:06] LABS: Alanine Aminotransferase 45 U/L (6-35); Albumin Level 4.4 g/dL (3.5-5.1); Alkaline Phosphatase 84 U/L (38-126); Anion Gap 3 mmol/L (8-16); Aspartate Amino Transferase 51 U/L (14-36); Bilirubin,Total 0.5 mg/dL (0.2-1.3); Blood Urea Nitrogen 20 mg/dL (7-17); Calcium 9.7 mg/dL (8.4-10.2); Carbon Dioxide 34 mmol/L (22-30); Chloride 99 mmol/L (98-107); Estimated Glomerular Filt Rate > 60; Glucose 80 mg/dL (65-110); Potassium 3.5 mmol/L (3.4-5.0); Sodium 136 mmol/L (137-145)
== END 2023-11-29 11:41 | disposition home or self-care (01) ==
PROVIDERS: PCP Family Medicine; Visit Provider Family Medicine
DX: Z79.899 Other long term (current) drug therapy (principal)
CPT/HCPCS: 36415; 80053

== ENCOUNTER 2023-11-29 14:56 | Outpatient (CLI) | payer OTHER, SELFPAY ==
[2023-11-29 16:31] LABS: Hepatitis B Surface Antigen Negative (Negative)
[2023-11-29 16:37] LABS: HAV RESULT Negative (Negative); Hepatitis B Core IgM Result Negative (Negative)
[2023-11-29 16:49] LABS: Hepatitis C Virus Antibody Negative (Negative)
[2023-12-07 08:33] LABS: Reference Lab Test Name Autoimmune Hepatitis
== END 2023-11-29 14:57 | disposition home or self-care (01) ==
LOC: ANHLAB 14:57
PROVIDERS: PCP Family Medicine; Visit Provider Family Medicine
DX: R74.8 Abnormal levels of other serum enzymes (principal); Z79.899 Other long term (current) drug therapy
CPT/HCPCS: 36415; 80053; 80074

== ENCOUNTER 2023-12-18 09:53 | Emergency (ER) | payer OTHER, SELFPAY ==
--- NOTE | ~2023-12-18 | XR_ITS ---
XR foot RT min 3V DATE: 12/18/2023 10:35 INDICATION: Lateral right foot pain. No injury. TECHNIQUE: 4 views COMPARISON: January 12, 2023 right foot FINDINGS: No fracture or dislocation, periosteal reaction or bone destruction. IMPRESSION: Negative Reviewed, dictated and finalized at location A. PATROL DIRECTOR IMPRESSION: Negative
[2023-12-18 10:01] VITALS: BP 134/71; PULSE 84; RESP 16; TEMP 36.9; O2SAT 100
--- NOTE | 2023-12-18 10:03 | ED.LOWEXIN ---
HPI - Extremity Injury (Lower) General Chief Complaint: Extremity Problem,Nontraumatic Stated Complaint: Rt Ankle Pain Time Seen by Provider: 12/18/23 09:55 Source: patient Mode of arrival: ambulatory Limitations: no limitations History of Present Illness HPI Narrative: Patient is a 63-year-old female that presents with right but pain that started Wednesday. Denies any trauma to foot. States this started on the bottom of her foot then moved to lateral and medial side of foot. Reports tenderness on palpation to the lateral side and sharp shooting pain when rotating foot medially. Has been is a physical therapist and has tried different treatments with no relief. Reports mild swelling but no redness or bruising. Patient able to walk with cane. Related Data Home Medications Medication Instructions Recorded Confirmed omeprazole 40 mg capsule,delayed 40 mg PO BID 09/04/19 12/18/23 release rivaroxaban 20 mg tablet (Xarelto) 20 mg PO DAILY 12/18/19 12/18/23 cetirizine 10 mg tablet (Zyrtec) 10 mg PO DAILY 03/14/21 12/18/23 cholecalciferol (vitamin D3) 10 10 mcg PO DAILY 11/03/22 12/18/23 mcg (400 unit) capsule gabapentin 100 mg capsule 100 mg PO HS 03/25/23 12/18/23 ferrous sulfate 325 mg (65 mg 325 mg PO DAILY 06/28/23 12/18/23 iron) tablet hydrochlorothiazide 12.5 mg tablet 25 mg PO DAILY 11/29/23 12/18/23 sumatriptan succinate 50 mg tablet 50 mg PO DAILY 12/18/23 12/18/23 Allergies Allergy/AdvReac Type Severity Reaction Status Date / Time morphine AdvReac Intermediate Nausea and Verified 12/18/23 10:57 Vomiting Penicillins AdvReac Intermediate Headache Verified 12/18/23 10:57 mycophenolate mofetil AdvReac Mild Rash Verified 12/18/23 10:57 Sulfa (Sulfonamide AdvReac Mild Rash Verified 12/18/23 10:57 Antibiotics) divalproex sodium [Depakote] AdvReac Unknown Psychosis Verified 12/18/23 10:57 prednisone AdvReac Unknown Other Verified 12/18/23 10:57 Review of Systems Review of Systems: All systems reviewed & are unremarkable except as noted in HPI and below Constitutional: Constitutional: Denies body ache(s), Denies chills, Denies fatigue, Denies fever(s), Denies headache(s), Denies malaise and Denies weakness Eyes: Eyes: Denies blurry vision, Denies irritation and Denies loss of vision ENT: Denies otalgia, Denies headache(s), Denies nasal discharge, Denies sinus pain and Denies sore throat Cardiovascular: Cardiovascular: Denies chest pain, Denies irregular heart rhythm and Denies dyspnea Respiratory: Respiratory: Denies dyspnea Gastrointestinal: Gastrointestinal: Denies abdominal pain, Denies melena, Denies hematochezia, Denies diarrhea, Denies nausea and Denies vomiting Musculoskeletal: Musculoskeletal: Denies back pain, Denies myalgias and Reports arthralgias Integumentary/Breasts: Skin/Breast: Denies pruritus and Denies rash Neurologic: Denies headache(s), Denies loss of vision and Denies weakness Psychiatric: Psychiatric: Reports no additional psychiatric complaints Endocrine: Endocrine: Denies fatigue PMFSH Past Medical History Medical History Blood clots in biliary tract following procedure Kidney disease Protein C deficiency Protein S deficiency Pulmonary embolus (2003) with DVT Surgical History Surgical History H/O: hysterectomy (1997) Hx of cholecystectomy (2009) Family History Family History Mother Diabetes mellitus Family history of primary malignant neoplasm of liver Asthma Family history of chronic obstructive pulmonary disease Thyroid disorder Father Family history of cardiovascular disease Family history of chronic obstructive pulmonary disease Family history of lung cancer Family history of primary malignant neoplasm of liver Grandparent Family history of lung cancer Family history of coronary
== END 2023-12-18 11:05 | disposition home or self-care (01) ==
PROVIDERS: Emergency Provider Nurse Practitioner Family; PCP Family Medicine
DX: M10.9 Gout, unspecified (principal); D68.59 Other primary thrombophilia; N28.9 Disorder of kidney and ureter, unspecified; Z86.711 Personal history of pulmonary embolism; Z86.718 Personal history of other venous thrombosis and embolism; Z86.2 Personal history of diseases of the blood and blood-forming organs and certain disorders involving the immune mechanism
CPT/HCPCS: 73630; 99213; G0463

== ENCOUNTER 2023-12-22 06:56 | Outpatient (CLI) | payer OTHER, SELFPAY ==
[2023-12-22 08:07] LABS: Uric Acid 4.5 mg/dL (2.5-7.5)
== END 2023-12-22 06:57 | disposition home or self-care (01) ==
LOC: ANHLAB 06:59
PROVIDERS: PCP Family Medicine; Visit Provider Nurse Practitioner
DX: M10.9 Gout, unspecified (principal)
CPT/HCPCS: 36415; 84550

== ENCOUNTER 2023-12-24 06:48 | Outpatient (CLI) | payer OTHER, SELFPAY ==
[2023-12-24 07:27] LABS: LDL Cholesterol Direct 85 mg/dL
[2023-12-24 07:50] LABS: Hematocrit 38.3 % (37.0-47.0); Hemoglobin 12.7 g/dL (12.0-15.0); Mean Corpuscular HGB Conc 33.2 g/dl (32-36); Mean Corpuscular Hemoglobin 29.7 pg (26-34); Mean Corpuscular Volume 89.5 fl (80-100); Mean Platelet Volume 9.8 fl (7.4-10.4); Platelet Count Result 278 k/mm3 (150-375); Red Blood Count 4.28 M/mm3 (4.2-5.4); White Blood Count 6.9 K/mm3 (4.5-10.0)
[2023-12-24 08:13] LABS: Alanine Aminotransferase 47 U/L (6-35); Alkaline Phosphatase 112 U/L (38-126); Anion Gap 5 mmol/L (8-16); Aspartate Amino Transferase 30 U/L (14-36); Bilirubin,Total 0.4 mg/dL (0.2-1.3); Blood Urea Nitrogen 21 mg/dL (7-17); Calcium 9.7 mg/dL (8.4-10.2); Carbon Dioxide 33 mmol/L (22-30); Chloride 100 mmol/L (98-107); Cholesterol 158 mg/dL (0-200); Estimated Glomerular Filt Rate > 60; Glucose 96 mg/dL (65-110); HDL Direct 51 mg/dL; Potassium 2.6 mmol/L (3.4-5.0); Sodium 138 mmol/L (137-145); Triglycerides 164 mg/dL (<150)
[2023-12-24 08:30] LABS: Iron 247 ug/dL (37-170)
[2023-12-24 08:44] LABS: Percent Iron Saturation 82 % (20-50)
[2023-12-24 08:55] LABS: Vitamin D 25 Hydroxy 61.5 ng/mL
== END 2023-12-24 06:49 | disposition home or self-care (01) ==
LOC: ANHLAB 06:49
PROVIDERS: PCP Family Medicine; Visit Provider Nurse Practitioner
DX: Z00.00 Encounter for general adult medical examination without abnormal findings (principal); E55.9 Vitamin D deficiency, unspecified
CPT/HCPCS: 36415; 80053; 80061; 82306; 83540; 83550; 84443; 85027

== ENCOUNTER 2023-12-27 06:38 | Outpatient (CLI) | payer OTHER, SELFPAY | END 2023-12-27 06:39 | disposition home or self-care (01) | LOC: ANHLAB 06:39 | PROVIDERS: PCP Family Medicine; Visit Provider Family Medicine | DX: E87.6 Hypokalemia (principal) | CPT/HCPCS: 36415; 84132 ==

== ENCOUNTER 2023-12-29 06:43 | Outpatient (NON) | payer OTHER, SELFPAY ==
[2024-01-05 14:44] LABS: Uric Acid, 24-Hour Urine 440 mg/24 h (65-630)
== END 2023-12-29 06:44 | disposition home or self-care (01) ==
LOC: ANHLAB 06:45
PROVIDERS: PCP Family Medicine; Visit Provider Family Medicine
DX: M10.9 Gout, unspecified (principal); N05.1 Unspecified nephritic syndrome with focal and segmental glomerular lesions
CPT/HCPCS: 84560

== ENCOUNTER 2023-12-30 06:38 | Outpatient (CLI) | payer OTHER, SELFPAY ==
[2023-12-30 10:09] LABS: Potassium 3.7 mmol/L (3.4-5.0)
== END 2023-12-30 06:39 | disposition home or self-care (01) ==
PROVIDERS: PCP Family Medicine; Visit Provider Family Medicine
DX: E87.6 Hypokalemia (principal)
CPT/HCPCS: 36415; 84132

== ENCOUNTER 2024-01-02 09:51 | Emergency (ER) | payer OTHER, SELFPAY ==
[2024-01-02 10:05] VITALS: BP 115/70; PULSE 99; RESP 16; TEMP 36.3; O2SAT 98
--- NOTE | 2024-01-02 10:44 | ED.URI ---
HPI - URI/Sore Throat General Chief Complaint: Upper Respiratory Infection Stated Complaint: Head Congestion, Cough, Trouble Breathing Time Seen by Provider: 01/02/24 10:12 Source: patient and RN notes reviewed Mode of arrival: ambulatory Limitations: no limitations History of Present Illness HPI Narrative: Patient presents today complaining of productive cough, chills and sweats, body aches, headache, rhinorrhea, sore throat, fatigue, and mild shortness of breath. Symptoms began yesterday. Denies fever, nausea or vomiting. She has been taking Mucinex, Delsym, Zyrtec without much relief. States she was exposed to an ill co-worker at work for 3 days last week. History of asthma for which she takes a Breo inhaler and has a rescue albuterol inhaler. She has not had to use her rescue inhaler yet. Related Data Home Medications Medication Instructions Recorded Confirmed omeprazole 40 mg capsule,delayed 40 mg PO BID 09/04/19 01/02/24 release rivaroxaban 20 mg tablet (Xarelto) 20 mg PO DAILY 12/18/19 01/02/24 cetirizine 10 mg tablet (Zyrtec) 10 mg PO DAILY 03/14/21 01/02/24 cholecalciferol (vitamin D3) 10 10 mcg PO DAILY 11/03/22 01/02/24 mcg (400 unit) capsule gabapentin 100 mg capsule 100 mg PO HS 03/25/23 01/02/24 ferrous sulfate 325 mg (65 mg 325 mg PO DAILY 06/28/23 01/02/24 iron) tablet hydrochlorothiazide 12.5 mg tablet 25 mg PO DAILY 11/29/23 01/02/24 sumatriptan succinate 50 mg tablet 50 mg PO DAILY 12/18/23 01/02/24 Allergies Allergy/AdvReac Type Severity Reaction Status Date / Time divalproex sodium [Depakote] AdvReac Severe Psychosis Verified 01/02/24 09:59 morphine AdvReac Intermediate Nausea and Verified 01/02/24 09:59 Vomiting Penicillins AdvReac Intermediate Headache Verified 01/02/24 09:59 prednisone AdvReac Intermediate Other Verified 01/02/24 09:59 mycophenolate mofetil AdvReac Mild Rash Verified 01/02/24 09:59 Sulfa (Sulfonamide AdvReac Mild Rash Verified 01/02/24 09:59 Antibiotics) Review of Systems Review of Systems: CONSTITUTIONAL: Denies fever.+ chills, sweats, fatigue EYES: Denies visual changes, redness, or discharge. ENT: Denies congestion, or otalgia.+ rhinorrhea, sore throat CARDIOVASCULAR: Denies chest pain, palpitations, or edema. RESPIRATORY: + cough, shortness of breath GASTROINTESTINAL: Denies abdominal pain, nausea, vomiting, or diarrhea. GENITOURINARY: Denies dysuria or hematuria. SKIN: Denies rash, itching, or wounds. MUSCULOSKELETAL: Denies back pain, joint pain, or myalgia. NEUROLOGIC: Denies numbness, tingling, or weakness.+ headache PSYCH: Denies depression or anxiety. [facility] Past Medical History Medical History Blood clots in biliary tract following procedure Kidney disease Protein C deficiency Protein S deficiency Pulmonary embolus (2003) with DVT Surgical History Surgical History H/O: hysterectomy (1997) Hx of cholecystectomy (2009) Family History Family History Mother Diabetes mellitus Family history of primary malignant neoplasm of liver Asthma Family history of chronic obstructive pulmonary disease Thyroid disorder Father Family history of cardiovascular disease Family history of chronic obstructive pulmonary disease Family history of lung cancer Family history of primary malignant neoplasm of liver Grandparent Family history of lung cancer Family history of coronary artery disease Acute myocardial infarction Diabetes mellitus Sibling Family history of cardiovascular disease Social History Social History Social History: Caffeine-coffee Smoking status: Never smoker Alcohol intake: current Alcohol use details: occasionally Substance use: never Substance use type: does not
== END 2024-01-02 10:29 | disposition home or self-care (01) ==
PROVIDERS: Emergency Provider Nurse Practitioner; PCP Family Medicine
DX: U07.1 COVID-19 (principal); D68.59 Other primary thrombophilia; Z86.718 Personal history of other venous thrombosis and embolism; Z86.711 Personal history of pulmonary embolism; Z86.2 Personal history of diseases of the blood and blood-forming organs and certain disorders involving the immune mechanism; Z79.01 Long term (current) use of anticoagulants
CPT/HCPCS: 87081; 87426; 87804; 87880; 99213; G0463

== ENCOUNTER 2024-01-10 06:48 | Outpatient (CLI) | payer OTHER, SELFPAY ==
[2024-01-10 08:09] LABS: Potassium 2.8 mmol/L (3.4-5.0)
== END 2024-01-10 06:49 | disposition home or self-care (01) ==
LOC: ANHLAB 06:50
PROVIDERS: PCP Family Medicine; Visit Provider Family Medicine
DX: E87.6 Hypokalemia (principal)
CPT/HCPCS: 36415; 84132

== ENCOUNTER 2024-01-13 06:43 | Outpatient (CLI) | payer OTHER, SELFPAY ==
[2024-01-13 07:07] LABS: Potassium 4.1 mmol/L (3.4-5.0)
== END 2024-01-13 06:44 | disposition home or self-care (01) ==
LOC: ANHLAB 06:45
PROVIDERS: PCP Family Medicine; Visit Provider Family Medicine
DX: E87.6 Hypokalemia (principal)
CPT/HCPCS: 36415; 84132

== ENCOUNTER 2024-01-20 06:43 | Outpatient (CLI) | payer OTHER, SELFPAY ==
[2024-01-20 07:07] LABS: Potassium 3.9 mmol/L (3.4-5.0)
== END 2024-01-20 06:44 | disposition home or self-care (01) ==
LOC: ANHLAB 06:44
PROVIDERS: PCP Family Medicine; Visit Provider Family Medicine
DX: E87.6 Hypokalemia (principal)
CPT/HCPCS: 36415; 84132

== ENCOUNTER 2024-01-21 14:57 | Outpatient (CLI) | payer OTHER, SELFPAY ==
--- NOTE | ~2024-01-21 | US_ITS ---
EXAMINATION: US thyroid DATE: 01/21/2024 15:24 INDICATION: Nontoxic single thyroid nodule TECHNIQUE: Multiple ultrasound images of the thyroid were obtained. COMPARISON: None. FINDINGS: The right thyroid lobe measures 3.8 x 1.5 x 1.8 cm. The left thyroid lobe measures 3.8 x 0.9 x 1.3 c m. 8 mm wider than tall solid hypoechoic nodule with lobular margins and a few punctate internal ech ogenic foci (TI-RADS 5, highly suspicious , FNA if >=1.0 cm, annual followup is >0.5 cm) in the deep mid right thyroid. There is a second 6 mm TI-RADS 1 cystic right thyroid nodule with a couple periphe ral echogenic foci with comet tailing suggesting inspissated colloid. There are several additional <3 mm nodules scattered throughout both thyroid lobes. There is heterogeneous echogenicity with coarsen ed echotexture and mildly increased vascular flow on color Doppler throughout the remainder of the th yroid. Incidentally noted is a 1.5 x 0.8 x 0.8 cm left jugular chain lymph node which remains within normal limits in size with typical central echogenic fatty hilum. IMPRESSION: 1. Multinodular goiter. Recommend annual ultrasound follow-up for the innominate TI RADS 5 right thyr oid nodule. Reviewed, dictated and finalized at location A. IMPRESSION: 1. Multinodular goiter. Recommend annual ultrasound follow-up for the innominat e TI RADS 5 right thyroid nodule.
== END 2024-01-21 14:58 | disposition home or self-care (01) ==
PROVIDERS: PCP Family Medicine; Visit Provider Family Medicine
DX: E04.2 Nontoxic multinodular goiter (principal)
CPT/HCPCS: 76536

== ENCOUNTER 2024-01-25 11:35 | Outpatient (CLI) | payer OTHER, SELFPAY ==
--- NOTE | ~2024-01-25 | XR_ITS ---
Clinical Indication: Cough PA and lateral views of the chest: Comparison: None Findings: The lungs are clear, without evidence of focal consolidation or pleural effusion. Cardiome diastinal silhouette is within normal limits. Bones and soft tissues are unremarkable. Impression: Normal chest. Reviewed, dictated and finalized at location . Impression: Normal chest.
== END 2024-01-25 11:36 | disposition home or self-care (01) ==
PROVIDERS: PCP Family Medicine; Visit Provider Family Medicine
DX: R06.02 Shortness of breath (principal)
CPT/HCPCS: 71046

== ENCOUNTER 2024-02-03 06:45 | Outpatient (CLI) | payer OTHER, SELFPAY ==
[2024-02-03 07:28] LABS: Potassium 3.8 mmol/L (3.4-5.0)
== END 2024-02-03 06:46 | disposition home or self-care (01) ==
LOC: ANHLAB 06:46
PROVIDERS: PCP Family Medicine; Visit Provider Family Medicine
DX: E87.6 Hypokalemia (principal)
CPT/HCPCS: 36415; 84132

== ENCOUNTER 2024-03-20 07:51 | Outpatient (CLI) | payer OTHER, SELFPAY ==
--- NOTE | ~2024-03-20 | MM_ITS ---
EXAMINATION: MM screening [facility] BI w [place] HISTORY: Screening TECHNIQUE: Craniocaudal and mediolateral oblique 3-D tomosynthesis images were obtained and synthetic 2-D images were generated. CAD analysis was submitted and interpreted. COMPARISON: Comparison to multiple prior studies sequentially, with oldest reviewed study dated 12/2018. BREAST PARENCHYMAL COMPOSITION: There are scattered areas of fibroglandular density. FINDINGS: There is no evidence of suspicious mass, calcification, or architectural distortion to sugg est malignancy in either breast. There has been no suspicious interval change. IMPRESSION: 1. No mammographic evidence of malignancy. 2. Recommend routine screening mammography in one year. BI-RADS Category 1: Negative Reviewed, dictated and finalized at location B.
== END 2024-03-20 07:52 | disposition home or self-care (01) ==
LOC: ANHIMG 07:54
PROVIDERS: PCP Family Medicine; Visit Provider Family Medicine
DX: Z12.31 Encounter for screening mammogram for malignant neoplasm of breast (principal)
CPT/HCPCS: 77063; 77067

== ENCOUNTER 2024-03-23 15:33 | Outpatient (CLI) | payer OTHER, SELFPAY ==
--- NOTE | ~2024-03-23 | XR_ITS ---
EXAMINATION: XR ribs RT 2V DATE: 03/23/2024 15:50 INDICATION: Lateral right rib cage pain post fall TECHNIQUE: 3 views of the right ribs were obtained. COMPARISON: Chest radiograph dated 01/25/2024 FINDINGS: Nondisplaced fracture of the anterior right fourth rib. No other rib fractures identified. Right lung and visualized portions of the left lung are clear. No right pleural effusion or pneumothorax. Calci fied mediastinal lymph nodes consistent with old granulomatous disease. Postoperative changes at the right shoulder with suture material projecting over the anterior aspect of the right humeral head in the region of either the long head biceps and subscapularis tendons. Cholecystectomy clips at the rig ht upper quadrant. IMPRESSION: 1. Nondisplaced fracture of the anterior right fourth rib. No associated no pneumothorax or other acu te cardiopulmonary disease. Reviewed, dictated and finalized at location A. IMPRESSION: 1. Nondisplaced fracture of the anterior right fourth rib. No associated no pne umothorax or other acute cardiopulmonary disease.
== END 2024-03-23 15:34 | disposition home or self-care (01) ==
LOC: ANHIMG 15:34
PROVIDERS: PCP Family Medicine; Visit Provider Family Medicine
DX: S22.31XA Fracture of one rib, right side, initial encounter for closed fracture (principal); W19.XXXA Unspecified fall, initial encounter
CPT/HCPCS: 71100

== ENCOUNTER 2024-04-04 07:47 | Outpatient (CLI) | payer OTHER, SELFPAY ==
--- NOTE | ~2024-04-04 | DEXA_ITS ---
? Bone Density Report? Name:? BRYCE BALLARD Patient ID:??? [id number] Age:? 63 Sex:? Female Ethnicity:? White Date of : 1960 Indication: postmenopausal; screening for osteoporosis; height loss; prior fracture; asthma or emphysema; end stage renal disease; hysterectomy; Referring Provider: JONATHON GUILLORY Study: Bone densitometry was performed. Exam Date: April 04, 2024 Accession number: [id number] Bone Density: Region? BMD??? T-score? Z-score?? Classification AP Spine(L1-L4)? 0.938?? -1.0?0.7? Normal Femoral Neck (Left)? 0.786?? -0.6? 0.9? Normal Total Hip (Left)? 0.960??? 0.1? 1.3? Normal Femoral Neck (Right)? 0.749?? -0.9? 0.6? Normal Total Hip (Right)? 0.912?? -0.2? 0.9? Normal Femoral Neck Mean? 0.767?? -0.7? 0.7? Normal Total Hip Mean? 0.936?? -0.1? 1.1? Normal World Health Organization criteria for BMD impression classify patients as: Normal (T-score at or above -1.0), Osteopenia (T-score between -1.0 and -2.5), or Osteoporosis (T-score at or below -2.5). 10-year Fracture Risk: FRAX not reported because: ? All T-scores for Spine Total, Hip Total, Femoral Neck at or above -1.0 Clinical Information Provided by Patient: Has had a low trauma fracture Has used the following medications: Vitamin D Has the following medical conditions: Asthma or Emphysema, End stage renal disease, Hysterectomy Patient maximum height was 59 Menopause Age: 29 No regular weight bearing exercise Drinks caffeinated beverages Onset of menses at age 10 Number of children 2 Impression:The patient has normal bone mass. The patient has risk factors, including: previous fracture. Discussion:BONE DENSITY IS ABOVE THE MINIMUM DESIRABLE LEVEL AT ALL SKELETAL SITES TESTED. This patient?s bone mineral density is above the minimum desirable level (T- score -1.0 or better) at all sites measured. The patient should follow a healthful lifestyle (good nutrition with adequate calcium and vitamin D, and appropriate weight-bearing exercise). Follow-Up: Consider repeating this study in 5 years or sooner if there is some new clinical indication. Reported by: Dr. Raymon Laboy on 04/04/2024 8:25:00 AM. GARCIA
== END 2024-04-04 07:48 | disposition home or self-care (01) ==
LOC: CHSIMG 07:50
PROVIDERS: PCP Family Medicine; Visit Provider Family Medicine
DX: S22.39XA Fracture of one rib, unspecified side, initial encounter for closed fracture (principal); M85.88 Other specified disorders of bone density and structure, other site
CPT/HCPCS: 77080

== ENCOUNTER 2024-04-14 15:33 | Outpatient (CLI) | payer OTHER, SELFPAY ==
[2024-04-14 16:08] LABS: Hematocrit 31.2 % (37.0-47.0); Hemoglobin 9.9 g/dL (12.0-15.0); Mean Corpuscular HGB Conc 31.7 g/dl (32-36); Mean Corpuscular Hemoglobin 27.9 pg (26-34); Mean Corpuscular Volume 87.9 fl (80-100); Mean Platelet Volume 9.6 fl (7.4-10.4); Platelet Count Result 233 k/mm3 (150-375); Red Blood Count 3.55 M/mm3 (4.2-5.4); Red Cell Distribution Width 14.7 % (11.5-14.5); White Blood Count 5.6 K/mm3 (4.5-10.0)
[2024-04-14 16:22] LABS: Alanine Aminotransferase 33 U/L (6-35); Albumin Level 4.4 g/dL (3.5-5.1); Alkaline Phosphatase 95 U/L (38-126); Anion Gap 8 mmol/L (4-12); Aspartate Amino Transferase 31 U/L (14-36); Bilirubin,Total 0.4 mg/dL (0.2-1.3); Blood Urea Nitrogen 17 mg/dL (7-17); Calcium 8.9 mg/dL (8.4-10.2); Carbon Dioxide 29 mmol/L (22-30); Chloride 103 mmol/L (98-107); Estimated Glomerular Filt Rate > 60; Glucose 89 mg/dL (65-110); Potassium 3.6 mmol/L (3.4-5.0); Sodium 140 mmol/L (137-145)
[2024-04-14 16:29] LABS: Iron 149 ug/dL (37-170)
[2024-04-14 16:38] LABS: Percent Iron Saturation 39 % (20-50)
== END 2024-04-14 15:34 | disposition home or self-care (01) ==
PROVIDERS: PCP Family Medicine; Visit Provider Family Medicine
DX: D64.9 Anemia, unspecified (principal); Z79.899 Other long term (current) drug therapy
CPT/HCPCS: 36415; 80053; 82728; 83540; 83550; 85027

== ENCOUNTER 2024-04-24 07:09 | Outpatient (CLI) | payer OTHER, SELFPAY ==
[2024-04-24 10:01] LABS: IFOB Positive Control Positive; Immunochemical Fecal Occult Bl Positive (N)
== END 2024-04-24 07:10 | disposition home or self-care (01) ==
LOC: ANHLAB 07:10
PROVIDERS: PCP Family Medicine; Visit Provider Family Medicine
DX: D64.9 Anemia, unspecified (principal)
CPT/HCPCS: 82274

== ENCOUNTER 2024-07-10 06:59 | Outpatient (CLI) | payer OTHER, SELFPAY ==
[2024-07-10 07:20] LABS: Basophils Absolute Auto 0.1 K/mm3 (0.0-0.1); Basophils Percent Auto 1.2 % (0.2-1.2); Eosinophils Absolute Auto 0.3 K/mm3 (0-0.3); Eosinophils Percent Auto 5.2 % (0-4.4); Hematocrit 38.5 % (37.0-47.0); Immature Granulocyte Absolute 0.01 K/mm3 (0.00-0.031); Immature Granulocyte Percent A 0.2 % (0-0.5); Lymphocytes Absolute Auto 1.08 K/mm3 (0.9-3.2); Lymphocytes Percent Auto 20.8 % (18.3-44.2); Mean Corpuscular HGB Conc 31.2 g/dl (32-36); Mean Corpuscular Hemoglobin 27.8 pg (26-34); Mean Corpuscular Volume 89.1 fl (80-100); Mean Platelet Volume 9.7 fl (7.4-10.4); Monocytes Absolute Auto 0.6 K/mm3 (0.1-0.6); Monocytes Percent Auto 12.1 % (2.6-8.5); Neutrophils Absolute Auto 3.2 K/mm3 (1.3-6.7); Neutrophils Percent Auto 60.5 % (45.5-73.1); Platelet Count Result 224 k/mm3 (150-375); Red Blood Count 4.32 M/mm3 (4.2-5.4); Red Cell Distribution Width 16.8 % (11.5-14.5); White Blood Count 5.2 K/mm3 (4.5-10.0)
== END 2024-07-10 07:00 | disposition home or self-care (01) ==
PROVIDERS: PCP Family Medicine
DX: D50.0 Iron deficiency anemia secondary to blood loss (chronic) (principal)
CPT/HCPCS: 36415; 85025

== ENCOUNTER 2024-07-21 06:59 | Outpatient (CLI) | payer OTHER, SELFPAY ==
[2024-07-21 07:28] LABS: Hematocrit 39.4 % (37.0-47.0); Hemoglobin 12.5 g/dL (12.0-15.0); Mean Corpuscular HGB Conc 31.7 g/dl (32-36); Mean Corpuscular Hemoglobin 27.8 pg (26-34); Mean Corpuscular Volume 87.6 fl (80-100); Mean Platelet Volume 9.4 fl (7.4-10.4); Platelet Count Result 247 k/mm3 (150-375); Red Cell Distribution Width 16.7 % (11.5-14.5); White Blood Count 4.7 K/mm3 (4.5-10.0)
[2024-07-21 07:39] LABS: Alanine Aminotransferase 27 U/L (6-35); Albumin Level 4.3 g/dL (3.5-5.1); Alkaline Phosphatase 81 U/L (38-126); Anion Gap 7 mmol/L (4-12); Aspartate Amino Transferase 30 U/L (14-36); Bilirubin,Total 0.3 mg/dL (0.2-1.3); Blood Urea Nitrogen 15 mg/dL (7-17); Calcium 9.4 mg/dL (8.4-10.2); Carbon Dioxide 32 mmol/L (22-30); Chloride 102 mmol/L (98-107); Cholesterol 163 mg/dL (0-200); Estimated Glomerular Filt Rate > 60; Glucose 103 mg/dL (65-110); HDL Direct 50 mg/dL; Sodium 141 mmol/L (137-145); Triglycerides 145 mg/dL (<150)
[2024-07-21 07:50] LABS: LDL Cholesterol Direct 78 mg/dL
[2024-07-21 07:58] LABS: Iron 56 ug/dL (37-170)
[2024-07-21 08:08] LABS: Percent Iron Saturation 16 % (20-50)
[2024-07-27 15:12] LABS: Vitamin D 1,25 (OH)2 Total 45 pg/mL (18-72); Vitamin D2 1,25 (OH)2 <8 pg/mL; Vitamin D3 1,25 (OH)2 45 pg/mL
== END 2024-07-21 07:00 | disposition home or self-care (01) ==
LOC: ANHLAB 07:01
PROVIDERS: PCP Family Medicine; Visit Provider Family Medicine
DX: D64.9 Anemia, unspecified (principal); E55.9 Vitamin D deficiency, unspecified; E78.2 Mixed hyperlipidemia; I10 Essential (primary) hypertension; R73.01 Impaired fasting glucose; R74.8 Abnormal levels of other serum enzymes; Z79.899 Other long term (current) drug therapy
CPT/HCPCS: 36415; 80053; 80061; 82652; 82728; 83540; 83550; 84443; 85027

== ENCOUNTER 2024-10-13 07:38 | Outpatient (CLI) | payer OTHER, SELFPAY ==
[2024-10-13 08:06] LABS: Hematocrit 40.9 % (37.0-47.0); Hemoglobin 13.4 g/dL (12.0-15.0); Mean Corpuscular HGB Conc 32.8 g/dl (32-36); Mean Corpuscular Hemoglobin 29.1 pg (26-34); Mean Corpuscular Volume 88.9 fl (80-100); Mean Platelet Volume 10.1 fl (7.4-10.4); Platelet Count Result 224 k/mm3 (150-375); Red Cell Distribution Width 17.2 % (11.5-14.5); White Blood Count 5.3 K/mm3 (4.5-10.0)
== END 2024-10-13 07:39 | disposition home or self-care (01) ==
LOC: ANHLAB 07:40
PROVIDERS: PCP Family Medicine; Visit Provider Family Medicine
DX: D64.9 Anemia, unspecified (principal)
CPT/HCPCS: 36415; 85027

== ENCOUNTER 2024-10-18 07:07 | Outpatient (CLI) | payer OTHER, SELFPAY ==
[2024-10-18 07:30] LABS: IFOB Positive Control Positive; Immunochemical Fecal Occult Bl Positive (N)
== END 2024-10-18 07:08 | disposition home or self-care (01) ==
LOC: ANHLAB 07:09
PROVIDERS: PCP Family Medicine; Visit Provider Family Medicine
DX: D64.9 Anemia, unspecified (principal)
CPT/HCPCS: 82274

== ENCOUNTER 2024-11-08 11:33 | Outpatient (CLI) | payer OTHER, SELFPAY ==
--- NOTE | ~2024-11-08 | XR_ITS ---
EXAMINATION: XR ankle LT 2V DATE: 11/08/2024 11:48 INDICATION: Left ankle pain TECHNIQUE: Anteroposterior and lateral views of the left ankle were obtained. COMPARISON: 07/14/2005 FINDINGS: Alignment is normal. No acute fracture. There are a couple small heterotopic ossicles near the tip of the medial malleolus likely sequela of chronic deltoid ligament injury. There is a persistent lucenc y with thin sclerotic margins projecting over the metaphyseal region of the distal fibula which may b e related to a since removed screw tract with several additional screw tracks evident on prior fluoro scopic imaging from 07/14/2005. Joint spaces are normal. No cortical erosions. No ankle joint effusion . Mild soft tissue swelling about the lateral malleolus. IMPRESSION: 1. No acute osseous abnormality. Reviewed, dictated and finalized at location B. UCTION TEAM MEMBER
== END 2024-11-08 11:34 | disposition home or self-care (01) ==
LOC: GOSHIMG 11:35
PROVIDERS: PCP Nurse Practitioner; Visit Provider Nurse Practitioner
DX: M25.572 Pain in left ankle and joints of left foot (principal)
CPT/HCPCS: 73600

== ENCOUNTER 2024-11-10 07:12 | Outpatient (CLI) | payer OTHER, SELFPAY ==
--- OUTSIDE RECORDS SUMMARY | 2024-11-10 07:17 | XMS_ITS | Referral Summary ---
Author Organization [facility] Address [address] [place] [address] Care Team Providers Care Filler Sifter Helper Name Role Phone Toshia Price MD Unavailable [phone] Irma Koehler DO Primary Care Provider [phone] Encounters Date Type Department Care Team Description 10/23/2024 Telephone [facility] Gastroenterology at [address] [phone] Vincent Peter MD Test Results 09/18/2024 1:30 PM CASE MANAGEMENT SOCIAL WORKER Infusion [facility] [address] [place] [phone] Iron deficiency (Primary Dx) 09/11/2024 11:30 AM CASE MANAGEMENT SOCIAL WORKER Infusion [facility] [address] [place] [phone] Iron deficiency (Primary Dx) 09/01/[address] [facility] [address] [phone] Toshia Price MD 09/01/2024 1:15 PM CASE MANAGEMENT SOCIAL WORKER Infusion [facility] [address] [place] [phone] Iron deficiency (Primary Dx) 08/17/[address] [facility] [address] [place] [phone] Yulissa Botello RN 08/17/2024 1:30 PM CASE MANAGEMENT SOCIAL WORKER Office Visit [facility] [address] [place] [phone] Toshia Price MD Iron deficiency anemia due to chronic blood loss (Primary Dx) 08/17/2024 1:00 PM CASE MANAGEMENT SOCIAL WORKER Lab [facility] [address] [place] [phone] Iron deficiency anemia due to chronic blood loss from Last 3 Months Allergies Active Allergy Reactions Criticality Noted Date Comments Morphine Vomiting Low Mycophenolate Mofetil Other (See comments) Low 10/02/2014 Causes patient to adrienne Penicillins Headache Low Prednisone Other (See comments) Low Dose above 50 mg causes patient to stutter Scopolamine Other (See comments),Dizziness High 05/21/2023 The patch caused Shakiness, delayed emergence from anesthesia, drowsiness Sulfa (Sulfonamide Antibiotics) Medications cetirizine (ZyrTEC) 10 mg tablet take 1 tablet (10MG) by oral route every day 0 2 Active atorvastatin (LIPITOR) 20 mg tablet take 1 tablet (20MG) by oral route every day 0 2 Active Additional Information Patient taking differently:20 mgDaily, Informant: Self, Reported on 08/17/2024 cholecalciferol (VITAMIN D3) 2,000 unit capsule take 1 by Oral route once 0 0 5 Active albuterol HFA (PROVENTIL HFA,VENTOLIN HFA,PROAIR HFA) 90 mcg/actuation inhaler uses prn Active isometh-dichlor al-acetaminophn (MIDRIN) 65-100-325 mg per capsule as needed 0 8 Active BREO ELLIPTA 200-25 mcg/dose diskus inhaler 9 Active Bifidobacterium infantis (ALIGN) 4 mg capsule Take by mouth daily 8 Active hydroCHLOROthia zide (HYDRODIURIL) 12.5 mg tablet Take 1 tablet (12.5 mg total) by mouth daily 0 Active gabapentin (NEURONTIN) 100 mg capsule Take 1 capsule (100 mg total) by mouth daily Active losartan (COZAAR) 25 mg tablet Take 1 tablet (25 mg total) by mouth daily 4 Active potassium chloride ER 20 mEq CR tablet daily 4 Active allopurinoL (ZYLOPRIM) 100 mg tablet Take 1 tablet (100 mg total) by mouth daily 4 Active ondansetron (ZOFRAN) 8 mg tablet Take 1 tablet (8 mg total) by mouth every 8 (eight) hours as needed for nausea or vomiting 12 tablet 4 Active rivaroxaban (Xarelto) 20 mg tablet Take 1 tablet by mouth once daily 90 tablet 3 4 Active SUMAtriptan (IMITREX) 50 mg tablet 4 Active omeprazole (PriLOSEC) 40 mg capsule Take 1 capsule by mouth twice daily 180 capsule 4 Active Active Problems Problem Noted Date Diagnosed Date Gastric polyp 06/15/2024 AVM (arteriovenous malformation) of colon 2023 CHLOÉ (iron deficiency anemia) 05/15/2024 Assessment & Plan (05/15/2024 2:56 PM CDT): Likely related to chronic blood loss. This could include small-bowel vascular malformations as her endoscopy and colonoscopy done just this past year May 2023 only showed hiatus hernia and 2 small adenomas. She has the positive stool Hemoccult. She denies any visual evidence of bleeding. I recommend small-bowel capsule endoscopy. Depending upon what that shows, if there are vascular malformations will perform a small-bowel enteroscopy. If not then may repeat standard endoscopy possible colonoscopy. Iron deficiency 05/12/2024 Polyp of descending colon 05/24/2023 Diverticulosis of colon 05/24/2023 Pulmonary embolism 03/18/2020 Abnormal finding on lung imaging 03/18/2020 Chronic bronchitis 03/18/2020 Diastolic dysfunction 03/18/2020 ANGEL (mycobacterium avium-intracellulare) ([facility]) 03/18/2020 Vocal fold polyp 03/07/2019 Assessment & Plan (03/07/2019 9:56 AM CDT): Right-sided lesion that is subepithelial and may be polyp vs cyst vs reactive lesion. Would recommend therapy first. Hard to know if muscle tension dysphonia caused the lesion or the lesion caused the muscle tension. 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 Gastroesophageal reflux disease without esophagi tis 01/30/2019 Overview (01/30/2019): Added automatically from request for surgery [id number] Assessment & Plan (07/15/2020 1:35 PM CDT): Much improved on the Dexilant 60 mg once daily. Continue this indefinitely. Have given her 1 month a samples and 9 months of refills. I would like to see her again approximately 6 months. Call for any new symptoms. She will have the chest CT report sent over from March regarding her intermittent left upper quadrant discomfort which may be a splenic flexure syndrome Assessment & Plan (05/14/2020 11:15 PM CDT): Patient has had a history of significant laryngeal reflux. I can continue to recommend anti-reflux measures. Will try her on samples of Dexilant for 2 months once daily. The patient's previous problem was that she had to take her proton pump inhibitor 2 hours before other medications as there is an interaction with the anti tuberculosis medications. Dexilant can be taken with or without meals. She will take it once a day due to its dual release mechanism of action. If she does not respond she has let me know. 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 She has small stools which are formed but sometimes frequent and urgent. She had blood in her stool twice but she is on Xarelto. Her colonoscopy in 2016 showed 1 adenomatous polyp and diverticulosis. Microscopic biopsies for colitis were negative. I would rule out colitis. Recommend complete colonoscopy now as she was already going to require one soon regarding her follow-up of the appendiceal orifice polyp tthat was removed in 2016.. Then decide upon treatment and follow-up. If colonoscopy is negative consider CT. Also consider anorectal motility dysfunction. History of colon polyps 05/05/2018 Overview (05/06/2018): Added automatically from request for surgery [id number] Assessment & Plan (12/10/2022 2:19 PM CASE MANAGEMENT SOCIAL WORKER): Due for colonoscopy. Last exam May 2019. Had an adenomatous polyp history. We would have to coordinate with heme oncology Oncology regarding her anticoagulation. Will stop the Xarelto for 1 day. 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 Proteinuria 11/02/2012 Overview (12/28/2018): Converted unresolved ICD9, potential mismatch. Hematuria 11/02/2012 Other and unspecified hyperlipidemia 10/24/2012 Overview (12/28/2018): Converted unresolved ICD9, potential mismatch. Gastroesophageal reflux disease 08/22/2012 Overview (01/14/2017): GERD (gastroesophageal reflux disease) Assessment & Plan (12/10/2022 2:18 PM CASE MANAGEMENT SOCIAL WORKER): Has significant laryngeal reflux. We discussed that she is on omeprazole 40 milligrams twice a day has previously been on multiple other proton pump inhibitors that were not effective. Dexilant is not affordable. \we discussed surgical treatment with hiatus hernia repair and fundoplication. She would like to continue on medical therapy for now. Will also continue anti- reflux measures. Will see her at the time of endoscopy. Laryngopharyngeal reflux 11/28/2009 Assessment & Plan (01/30/2019 11:11 AM CDT): The patient has significant hoarseness still. She is on omeprazole 40 mg twice a day. I suspect she may need more time for this to recover as in the past that took up to 6 months for this to improve. The reflux symptoms are improved but not hoarseness. I feel that she should have examination by ENT and also repeat examination by myself for upper endoscopy. Social History Tobacco Use Types Packs/Day Years Used Date Smoking Tobacco: Never Smokeless Tobacco: Never Tobacco Cessation:Counseling Given: Not Answered Alcohol Use Standard Drinks/Week Comments Yes 0 (1 standard drink = 0.6 oz pur e alcohol) social AUDIT-C Answer Date Recorded Q1: How often do you have a drink containing alc ohol? Monthly or less 06/02/2024 Q2: How many drinks containi ng alcohol do you have on a typical day when you are drinking? 1 or 2 06/02/2024 Q3: How often do you have si x or more drinks on one occasion? Never 06/02/2024 Personal Safety Answer Date Recorded Have you ever been in or are you currently in a harmful physical or emotional relationship or is someone making you feel afraid or unsafe? Denies 06/15/2024 Comments No Sex and Gender Information Value Date Recorded Sex Assigned at Not on file Legal Sex Female 2:03 AM CASE MANAGEMENT SOCIAL WORKER Gender Identity Not on file Sexual Orientation Not on file Last Filed Vital Signs Vital Sign Reading Time Taken Comments Blood Pressure 116/56 09/18/2024 1:30 PM CASE MANAGEMENT SOCIAL WORKER Pulse 61 09/18/2024 1:30 PM CASE MANAGEMENT SOCIAL WORKER Temperature 36.3 ??C (97.3 ??F) 09/18/2024 1:30 PM CS T Respiratory Rate 20 09/11/2024 11:4 6 AM CASE MANAGEMENT SOCIAL WORKER Oxygen Saturation 96% 09/18/2024 1:30 PM CASE MANAGEMENT SOCIAL WORKER Inhaled Oxygen Concentration - - Weight 65.2 kg (143 lb 11.2 oz) 08/17/2024 1:26 PM CASE MANAGEMENT SOCIAL WORKER Height 145.4 cm (4' 9.25 ) 06/15/2024 1 2:04 PM CDT Body Mass Index 30.83 06/15/2024 12:04 PM CDT Plan of Treatment Not on file Procedures Procedure Name Priority Date/Time Associated Diagnosis Comments DIFFERENTIAL AUTO Routine 08/17/2024 1:0 1 PM CASE MANAGEMENT SOCIAL WORKER Iron deficiency anemia due to chronic blood loss CBC WITH AUTO DIFFERENTIAL Routine 08/17/2024 1:01 PM CASE MANAGEMENT SOCIAL WORKER Iron deficiency anemia due to chronic blood loss IRON PROFILE W/ IBC Routine 08/17/2024 1 :01 PM CASE MANAGEMENT SOCIAL WORKER Iron deficiency anemia due to chronic blood loss FERRITIN Routine 08/17/2024 1:01 PM CASE MANAGEMENT SOCIAL WORKER Iron deficiency anemia due to chronic blood loss COLONOSCOPY 06/15/2024 11:58 AM CDT from Last 3 Months or Most Recently Relevant to Health Maintenance Results * Differential, auto (08/17/2024 1:01 PM CASE MANAGEMENT SOCIAL WORKER) Neutrophil abs 4.4 1.5 - 6.5 K/cumm Imm gran abs 0.0 0.0 - 0.1 K/cumm [facility] Lymphocyte abs 1.2 0.8 - 3.3 K/cumm [facility] Monocyte abs 0.6 0.2 - 0.8 K/cumm [facility] Eosinophil abs 0.2 0.0 - 0.5 K/cumm [facility] Basophil abs 0.1 0.0 - 0.1 K/cumm [facility] Neutrophil pct 67.8 % [facility] Comment: Interpretive Data Percent cell count reference ranges are not reported, since discordance with absolute values may lead to misinterpretation of CBC data. Current Interpretive Data was last revised on 2018. Imm gran pct 0.2 % [facility] Comment: Interpretive Data Percent cell count reference ranges are not reported, since discordance with absolute values may lead to misinterpretation of CBC data. Current Interpretive Data was last revised on 2018. Lymphocyte pct 17.9 % [facility] Comment: Interpretive Data Percent cell count reference ranges are not reported, since discordance with absolute values may lead to misinterpretation of CBC data. Current Interpretive Data was last revised on 2018. Monocyte pct 9.9 % [facility] Comment: Interpretive Data Percent cell count reference ranges are not reported, since discordance with absolute values may lead to misinterpretation of CBC data. Current Interpretive Data was last revised on 2018. Eosinophil pct 3.1 % [facility] Comment: Interpretive Data Percent cell count reference ranges are not reported, since discordance with absolute values may lead to misinterpretation of CBC data. Current Interpretive Data was last revised on 2018. Basophil pct 1.1 % [facility] Comment: Interpretive Data Percent cell count reference ranges are not reported, since discordance with absolute values may lead to misinterpretation of CBC data. Current Interpretive Data was last revised on 2018. Blood 08/17/2024 1:01 PM CASE MANAGEMENT SOCIAL WORKER 08/17/2024 1:01 PM CASE MANAGEMENT SOCIAL WORKER Toshia Price MD LAB BLOOD ORDERABLES Fin al Result Performing Organization Address [facility] Co de Phone Number [facility] [address] [facility] [place] [employer] [place] [address] * (ABNORMAL) Iron profile w/ IBC (08/17/2024 1:01 PM CASE MANAGEMENT SOCIAL WORKER) [facility] Iron 51 35 - 145 mcg/dL TIBC 341 250 - 400 mcg/dL [facility] Transferrin saturation 15(L) 20 - 50 % [facility] Blood 08/17/2024 1:01 PM CASE MANAGEMENT SOCIAL WORKER 08/17/2024 1:22 PM CASE MANAGEMENT SOCIAL WORKER Toshia Price MD LAB BLOOD ORDERABLES Fin al Result Performing Organization Address [facility] de Phone Number [facility] [address] Department [place] [employer] [place] [address] * (ABNORMAL) CBC with auto differential (08/17/2024 1:01 PM CASE MANAGEMENT SOCIAL WORKER) [facility] WBC 6.4 3.8 - 9.9 K/cumm Hgb 12.1 11.9 - 15.5 g/dL [facility] Hct 37.0 35.6 - 45.5 % [facility] Plt 249 150 - 400 K/cumm [facility] MPV 9.3 9.1 - 12.3 fL [facility] RBC 4.40 3.90 - 5.20 M/cumm [facility] MCV 84.1 81.3 - 96.4 fL [facility] MCH 27.5 27.1 - 33.3 pg [facility] MCHC 32.7 32.3 - 35.7 g/dL [facility] RDW CV 16.1(H) 11.1 - 14.9 % [facility] RDW SD 50.1(H) 35.7 - 48.1 fL [facility] NRBC abs 0.00 0.00 - 0.01 K/cumm [facility] Blood 08/17/2024 1:01 PM CASE MANAGEMENT SOCIAL WORKER 08/17/2024 1:01 PM CASE MANAGEMENT SOCIAL WORKER Toshia Price MD LAB BLOOD ORDERABLES Fin al Result Performing Organization Address [facility]/ZIP Co de Phone Number [facility] [address] [facility] [employer] [place] [address] * Ferritin (08/17/2024 1:01 PM CASE MANAGEMENT SOCIAL WORKER) Ferritin 50 15 - 150 ng/mL Blood 08/17/2024 1:01 PM CASE MANAGEMENT SOCIAL WORKER 08/17/2024 1:22 PM CASE MANAGEMENT SOCIAL WORKER Toshia Price MD LAB BLOOD ORDERABLES Fin al Result Performing Organization Address [facility] de Phone Number [facility] [address] Department [place] [place] [address] * Colonoscopy (06/15/2024 11:58 AM CDT) Anatomical Region Laterality Modality Other Narrative Procedure Note Vincent Peter MD - 06/15/2024 11:58 AM CDT ENDOSCOPY LAB Patient Name: Vanesa Awad Procedure Date: 06/15/2024 11:58 AM Admit Type: Outpatient Room: [facility] Date of : 1960 Instrument Name: [id number] Gender: Female Note Status: Finalized Procedure: Colonoscopy Indications: Iron deficiency anemia Providers: Vincent Peter M.D. Referring MD: Irma Koehler D.O., Toshia Price M.D. Medicines: Propofol per Anesthesia Complications: No immediate complications. Estimated Blood Loss: Estimated blood loss was minimal. Procedure: Pre-Anesthesia Assessment: - The risks and benefits of the procedure and the sedation options and risks were discussed with the patient. All questions were answered and informed consent was obtained. The benefits, risks and alternatives of theprocedure and sedation were discussed and informed consentwas obtained. All questions were answered. Please referto the signed informed consent document in the medical record. The scope was passed under direct vision.The Colonoscope was introduced through the anus and advanced to the the terminal ileum, with identification of the appendiceal orifice and IC valve. The colonoscopy was performed without difficulty. The patient tolerated the procedurewell. The quality of the bowel preparation was good. The quality of the bowel preparation was evaluatedusing the BBPS ([place] Bowel Preparation Scale) withscores of: Right Colon = 3 (entire mucosa seen well withno residual staining, small fragments of stool oropaque liquid), Transverse Colon = 3 (entire mucosa seenwell with no residual staining, small fragments of stoolor opaque liquid) and Left Colon = 3 (entire mucosaseen well with no residual staining, small fragments of stool or opaque liquid). The total BBPS scoreequals 9. The quality of the bowel preparation wasexcellent. The bowel preparation used was polyethylene glycol (PEG) via split dose instruction. AI Technology was utilized during the procedure to aid in polyp detection. Findings: A single large angiodysplastic lesion without bleeding was found inthe proximal ascending colon. Coagulation for bleeding prevention using argon plasma was successful. To prevent bleeding post-maneuver, one hemostatic clip was successfully placed (MR conditional). There wasno bleeding at the end of the procedure. The terminal ileum appeared normal. The exam was otherwise without abnormality on direct and retroflexion views. Impression: - A single non-bleeding colonic angiodysplastic lesion. Treated with argon plasma coagulation(APC). Clip (MR conditional) was placed. This was likelythe source of recent blood loss - The examined portion of the ileum was normal. - The examination was otherwise normal on directand retroflexion views. - No specimens collected. Recommendation: Followup blood counts within the next month. Restart Xarelto tomorrow. - Repeat colonoscopy in 5 years for surveillancedue to past history of polyps Electronically signed by Vincent Peter MD Vincent Peter M.D. 06/15/2024 1:54:10 PM This document was signed electronically. Number of Addenda: 0 Note Initiated On: 06/15/2024 11:58 AM Scope Withdrawal Time: 0 hours 13 minutes 57 seconds Scope In: 1:14:04 PM Scope Out: 1:37:52 PM Vincent Peter MD ENDOSCOPY PROCEDURES Final Result from Last 3 Months or Most Recently Relevant to Health Maintenance Insurance [employer] [facility] [employer] [employer] Member Subscriber Plan / Payer (Ef fective 2017-Present) Name:Vanesa Awad Relation to Subscriber:Self Name:Vanesa Awad Payer ID:[id number] (NAIC) Type:[employer] H[employer]/PPO Address: [place] [phone] Advance Directives For more information, please contact: [phone] * Full Code (Latest Code Status on File) Date Activated Date Inactivated Comments 06/15/2024 12:07 PM 06/15/2024 6:45 PM * Full Code Date Activated Date Inactivated Comments 05/24/2023 7:46 AM 05/24/2023 1:54 PM * Full Code Date Activated Date Inactivated Comments 02/08/2019 11:03 AM 02/08/2019 5:19 PM * Full Code Date Activated Date Inactivated Comments 06/01/2018 11:13 AM 06/01/2018 2:52 PM Care Teams Filler Sifter Helper Relationship Specialty Start Date End Date Irma Koehler DO [address] [place] [address] PCP - General Family Medicine 12/10/22 Toshia Price MD [address] [place] [address] Medical Oncologist/Financial Institution President Hematology and Oncology 08/28/22
--- OUTSIDE RECORDS SUMMARY | 2024-11-10 07:17 | XMS_ITS | Clinical Summary ---
Author Organization [facility] Emilee alvarado Address [address] [address] Phone Care Team Providers Care Hasher Operator Name Role Phone Dimas Vale MD Primary Care Provider [phone] Medications Medication Sig Dispensed Refills Start Date End Date Status amitriptyline (ELAVIL) 25 MG tablet TAKE 1 TABLET BY MOUTH AT BEDTIME 2 11/15/2018 Active Probiotic Product (ALIGN) capsule 1 po qd 0 06/24/2018 Active Magnesium 250 MG tablet 1qd 09/19/2015 Active montelukast (SINGULAIR) 10 MG tablet 1qd 05/14/2014 Active albuterol HFA (PROAIR HFA) 108 (90 Base) MCG/ACT inhaler prn 05/14/2014 Active multivitamine, geriatric, (CENTRUM SILVER) tablet 1qd 05/14/2014 Active Calcium Citrate 150 MG capsule 1bid 05/14/2014 Active rivaroxaban (XARELTO) 20 MG tablet 1qd 05/14/2014 Active traMADol (ULTRAM) 50 MG tablet BID PRN for pain 2 07/17/2016 Active Ascorbic Acid (VITAMIN C) 250 MG tablet 1qd 05/14/2014 Active atorvastatin (LIPITOR) 20 MG tablet 1qd 05/14/2014 Active cetirizine (ZyrTEC ALLERGY) 10 MG tablet 1qd 05/14/2014 Act joey lansoprazole (PREVACID) [address] capsule 1bid 05/14/2014 Active cholecalciferol (VITAMIN D-3) 2000 units tablet 1qd 05/14/2014 Active zolpidem (AMBIEN) 5 MG tablet hs prn 3 09/14/2013 Active fluticasone-salmeterol (ADVAIR DISKUS) 250-50 MCG/DOSE diskus inhaler bid 05/14/2014 Active Isometheptene-Caffeine -APAP (PRODRIN) 130-20-500 MG tablet prn 05/14/2014 Acti ve triamterene-hydroCHLOR Othiazide (DYAZIDE) 37.5-25 MG per capsule Take 1 capsule by mouth 1 (one) time each day in the morning Active hydroCHLOROthiazide (HYDRODIURIL) 25 MG tablet Take 25 mg by mouth 1 (one) time each day Active Active Problems Problem Noted Date Diagnosed Date Focal segmental glomerulosclerosis 10/09/2019 Other primary thrombophilia 06/24/2018 Anesthesia of skin 12/17/2017 Nephritic syndrome with morphologic changes 01/09 Other nonspecific abnormal serum enzyme levels 0 02/28/2015 Overview (12/24/2018): Converted unresolved ICD9, potential mismatch. 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 Disorder of bone and cartilage, unspecified 06/11 Overview (12/24/2018): Converted unresolved ICD9, potential mismatch. 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 Hematuria 11/02/2012 Proteinuria 11/02/2012 Overview (12/24/2018): Converted unresolved ICD9, potential mismatch. Other and unspecified hyperlipidemia 11/02/2012 Overview (12/24/2018): Converted unresolved ICD9, potential mismatch. Primary hypercoagulable state 11/02/2012 Overview (12/24/2018): Converted unresolved ICD9, potential mismatch. Family History Medical History Relation Comments Kidney stone Child Coronary arteriosclerosis Father Heart disease Father Malignant neoplastic disease Father Anemia Mother Diabetes mellitus Sibling Dyslipidemia Sibling Hypertensive disorder Sibling Cerebrovascular accident Neg Hx Kidney disease Neg Hx Relation Status Comments Child Father Mother Sibling Social History Tobacco Use Types Packs/Day Years Used Date Smoking Tobacco: Never Sex and Gender Information Value Date Recorded Sex Assigned at Not on file Gender Identity Not on file Sexual Orientation Not on file Last Filed Vital Signs Vital Sign Reading Time Taken Comments Blood Pressure 124/70 10/09/2019 3:38 PM WEBBING TACKER Pulse 76 06/24/2018 12:01 AM CDT Temperature - - Respiratory Rate - - Oxygen Saturation - - Inhaled Oxygen Concentration - - Weight 67.6 kg (149 lb) 10/09/2019 3:38 PM WEBBING TACKER Height 144.8 cm (4' 9 ) 10/09/2019 3:38 PM WEBBING TACKER Body Mass Index 32.24 10/09/2019 3:38 PM WEBBING TACKER Plan of Treatment Health Maintenance Due Date Last Done Comments Pneumococcal PPSV23 Highest Risk Adult (1 of 3 - PCV13 ) 1979 Influenza Vaccine (#1) 2024 Care Teams Hasher Operator Relationship Specialty Start Date End Date Dimas Vale MD [address] [place] [id number] PCP - General Family Medicine 10/09/19
--- OUTSIDE RECORDS SUMMARY | 2024-11-10 07:17 | XMS_ITS | Clinical Summary ---
Author Organization [facility] Address [address] [place] [address] Care Team Providers Care Deck Scaler Name Role Phone Toshia Price MD Unavailable [phone] Irma Koehler DO Primary Care Provider [phone] Allergies Active Allergy Reactions Criticality Noted Date [...] 03/18/2020 Diastolic dysfunction 03/18/2020 ANGEL (mycobacterium avium-intracellulare) ([facility]) 03/18/2020 Vocal fold polyp 03/07/2019 Assessment [...] have recommended voice therapy here at the [facility] in order to improve the biomechanics of the patient's voice, which will improve the patient's associated symptoms. Gastroesophageal reflux disease without esophagi tis 01/30/2019 Overview (01/30/2019): Added automatically from request for surgery [id number] Assessment & Plan (07/15/2020 1:35 PM CDT): [...] she is on Xarelto. Her colonoscopy in 2015 showed 1 adenomatous polyp and diverticulosis. Microscopic [...] (05/06/2018): Added automatically from request for surgery [id number] Assessment & Plan (12/10/2022 2:19 PM SAWMILL HAND): Due for colonoscopy. Last exam May 2019. [...] glomerularsclerosis nephrotic syndrome, in remission since 2016 2005 fracture skiing Long-term current use of steroids [...] disease) Assessment & Plan (12/10/2022 2:18 PM SAWMILL HAND): Has significant laryngeal reflux. We discussed that [...] repeat examination by myself for upper endoscopy. Encounters Date Type Department Care Team Description 10/23/2024 Telephone [facility] Gastroenterology at [address] [id number] Vincent Peter MD Test Results 09/18/2024 1:30 PM SAWMILL HAND Infusion [facility] [address] [address] Iron deficiency (Primary Dx) 09/11/2024 11:30 AM SAWMILL HAND Infusion [facility] [address] [phone] Iron deficiency (Primary Dx) 09/01/2024 1:15 PM SAWMILL HAND Infusion [facility] [address] [address] Iron deficiency (Primary Dx) 09/01/2024 Orders Only [address] [phone] Toshia Price MD 08/17/2024 1:30 PM SAWMILL HAND Office Visit [address] [phone] Toshia Price MD Iron deficiency anemia due to chronic blood loss (Primary Dx) 08/17/2024 1:00 PM SAWMILL HAND Lab [facility] [address] [place] [phone] Iron deficiency anemia due to chronic blood loss 08/17/2024 Orders Only [address] [address] Yulissa Botello RN from Last 3 Months Surgical History Surgery Date Site/Laterality Comments HYSTERECTOMY 10/11/1988 - 10/10/1989 Hysterectomy TONSILLECTOMY 10/11/2007 - 10/10/2008 ANKLE FRACTURE SURGERY 10/11/2003 - 10/10/2004 Left BREAST BIOPSY 04/10/2010 - 05/10/2010 Right Negative CHOLECYSTECTOMY 05/11/2010 - 06/10/2010 REDUCTION MAMMAPLASTY 10/11/1999 - 10/10/2000 KNEE SURGERY 10/11/1986 - 10/10/1987 DILATION AND CURETTAGE OF UTERUS 10/11/1983 - 10/10/1984 OPEN ANTERIOR SHOULDER RECONSTRUCTION 1972 - 1979 5 shoulder reconstruction surgeries COLONOSCOPY W/ BIOPSIES 12/04/2015 Tubular adenoma UPPER GASTROINTESTINAL ENDOSCOPY 04/20/2012 Small 1.5 cm hiatus hernia COLONOSCOPY W/ BIOPSIES 04/20/2012 Benign resident lymphoid nodule TUBAL LIGATION 10/11/1984 - 10/10/1985 Bilateral FRACTURE SURGERY 10/11/2003 - 10/10/2004 Left Ankle OOPHORECTOMY 10/11/1988 - 10/10/1989 SHOULDER SURGERY 10/11/1976 - 10/10/1977 Right COLONOSCOPY W/ BIOPSIES 04/17/2009 Polyps, few left-sided diverticula, internal hemorrhoids UPPER GASTROINTESTINAL ENDOSCOPY 04/17/2009 No complications COLONOSCOPY W/ BIOPSIES 06/01/2018 Sigmoid diverticulosis, random biopsies were negative for microscopic colitis. Repeat 5 years. COLONOSCOPY 2017 UPPER GASTROINTESTINAL ENDOSCOPY 02/08/2019 2 cm Hiatal hernia. UPPER GASTROINTESTINAL ENDOSCOPY 05/24/2023 2 cm hiatal hernia. The examination was otherwise normal. No specimens collected. COLONOSCOPY W/ POLYPECTOMY 05/24/2023 Diverticulosis in the sigmoid colon. Multiple fragments of tubular adenomas in the ascending colon. Benign polypoid colonic mucosa, no evidence of adenoma in the sigmoid colon. Repeat in 5 years. Medical History Medical History Date Comments Tonsillitis Tonsillitis Cyst of ovary 1985 ovarian cyst Asthma Asthma Migraine History of bladder suspensio n procedure 1996 bladder suspension Pulmonary embolism (HCC) 2003 Protein C /Protein S Deficiency GERD (gastroesophageal reflu x disease) Chronic diarrhea Diverticulosis Chronic bronchitis (HCC) Focal segmental glomerulosclerosis Arthritis Hypertension Pulmonary embolism ([facility]) 2004 FSGS (focal segmental glomerulosclerosis) Remission 2017 Personal history of colonic polyps Diastolic dysfunction 03/18/2020 Protein S deficiency (HCC) 10/01/2015 Prote in S deficiency ?? Protein C deficiency (HCC) 10/01/2015 Prote in C deficiency ?? Primary hypercoagulable state ([facility]) 11/02/2012 Converted unresolved ICD9, potential mismatch. Other primary thrombophilia (HCC) 06/24/2018 Protein deficiency disease ( CMS/HCC) ([facility]) 12/28/2018 Overview: s and c Age-related osteoporosis wit alfred current pathological fracture 10/25/2014 Conservative, MVI, vitam in-D 2000 IU daily Zoledronic acid November 2015, prior teriparatide 1 year, Hx of steroids (off now) for focal glomerularsclerosis nephrotic syndrome, in remission since 2016 2004 fracture skiing Vocal fold polyp 03/07/2019 Muscle tension dysphonia 03/07/2019 Polyp of descending colon 05/24/2023 Laryngopharyngeal reflux 11/28/2009 History of colon polyps 05/05/2018 Added au tomatically from request for surgery [id number] Hiatal hernia 12/28/2018 Gastroesophageal reflux dise ase without esophagitis 01/30/2019 Added automatically from req uest for surgery [id number] Gastroesophageal reflux disease 08/22/2012 GERD (gastroesophageal reflux disease) ?? Diverticulosis of colon 05/24/2023 Change in bowel habits 05/05/2018 Acid reflux 12/28/2018 Proteinuria 11/02/2012 Converted unreso lved ICD9, potential mismatch. 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 ANGEL (mycobacterium avium-intracellulare) ([facility]) ([facility]) 03/18/2020 Paresthesia 08/18/2017 Anesthesia of skin 12/17/2017 Abnormal finding on lung imaging 03/18/2020 Abnormal levels of other ser um enzymes 02/28/2015 Converted unresolved ICD9, p otential mismatch. Family History Medical History Relation Name Comments COPD Father [facility] COPD; Cancer Father [facility] Colon polyps [facility] Early Father [facility] Heart attack [facility] Liver disease [facility] Liver disease; Lung cancer Father [facility] Cancer, lung; Other Father [facility] hypercoagulable ; Asthma Mother [facility] Asthma; COPD Mother [facility] COPD; Diabetes type II Mother [facility] Diabetes me llitus type 2; Osteoporosis Mother [facility] Thyroid disease Mother [facility] Thyroid dise ase; Colon cancer Mother's Sister Relation Name Status Comments Father [facility] Heart Attack Mother [facility] Mother's Sister Social History Tobacco Use Types Packs/Day Years [...] on file Legal Sex Female 2:03 AM SAWMILL HAND Gender Identity Not on file Sexual Orientation Not on file Obstetrics History Last Filed Vital Signs Vital Sign Reading Time Taken Comments Blood Pressure 116/56 09/18/2024 1:30 PM SAWMILL HAND Pulse 61 09/18/2024 1:30 PM SAWMILL HAND Temperature 36.3 ??C (97.3 ??F) 09/18/2024 1:30 PM CS T Respiratory Rate 20 09/11/2024 11:4 6 AM SAWMILL HAND Oxygen Saturation 96% 09/18/2024 1:30 PM SAWMILL HAND Inhaled Oxygen Concentration - - Weight 65.2 kg (143 lb 11.2 oz) 08/17/2024 1:26 PM SAWMILL HAND Height 145.4 cm (4' 9.25 ) 06/15/2024 1 2:04 PM CDT Body Mass Index 30.83 06/15/2024 12:04 PM CDT Plan of Treatment Health Maintenance Due Date Last Done Comments Breast Cancer Screening-Mammogram 1960 Depression Screening 1960 Hepatitis C Screening 1960 Pneumococcal vaccine <65 (1 of 2 - PCV) 1966 Hepatitis B Screening 1978 Regular Well Visit/Exam 18-64 1978 Zoster Vaccine (1 of 2) 2010 DTaP/Tdap/Td Vaccine (2 - Td or Tdap) 07/14/2021 07/14/2011 Covid-19 Vaccine ( - 2023-2 5 season) 2024 07/25/2021, 10/18/2020, 09/27/2020 Influenza Vaccine (#1) 2024 , 07/23/2015, 05/24/2012, Additional history exists Colon Cancer Screening-Colonoscopy 06/15/2034 06/15/2024, 05/24/2023, 06/01/2018, Additional history exists Colon Cancer Screening-CT Colonography Discontinued 06/15/2024, 05/24/2023, 06/01/2018, Additional history exists Colon Cancer Screening-DNA Stool Discontinued 06/15/2024, 05/24/2023, 06/01/2018, Additional history exists Colon Cancer Screening-FIT Discontinued 06/15, 05/24/2023, 06/01/2018, Additional history exists Colon Cancer Screening-Sigmoidoscopy Discontinued 06/15/2024, 05/24/2023, 06/01/2018, Additional history exists Procedures Procedure Name Priority Date/Time Associated Diagnosis Comments DIFFERENTIAL AUTO Routine 08/17/2024 1:0 1 PM SAWMILL HAND Iron deficiency anemia due to chronic blood loss CBC WITH AUTO DIFFERENTIAL Routine 08/17/2024 1:01 PM SAWMILL HAND Iron deficiency anemia due to chronic blood loss IRON PROFILE W/ IBC Routine 08/17/2024 1 :01 PM SAWMILL HAND Iron deficiency anemia due to chronic blood loss FERRITIN Routine 08/17/2024 1:01 PM SAWMILL HAND Iron deficiency anemia due to chronic blood loss COLONOSCOPY 06/15/2024 11:58 AM CDT from Last 3 Months or Most Recently Relevant to Health Maintenance Results * Differential, auto (08/17/2024 1:01 PM SAWMILL HAND) Neutrophil abs 4.4 1.5 - 6.5 K/cumm Imm gran abs 0.0 0.0 - 0.1 K/cumm [facility] Lymphocyte abs 1.2 0.8 - 3.3 K/cumm [facility] Monocyte abs 0.6 0.2 - 0.8 K/cumm [facility] Eosinophil abs 0.2 0.0 - 0.5 K/cumm [facility] Basophil abs 0.1 0.0 - 0.1 K/cumm [facility] Neutrophil pct 67.8 % [facility] Comment: Interpretive Data Percent cell count reference ranges are not reported, since discordance with absolute values may lead to misinterpretation of CBC data. Current Interpretive Data was last revised on 2018. Imm gran pct 0.2 % [facility] Comment: Interpretive Data Percent cell count reference ranges are not reported, since discordance with absolute values may lead to misinterpretation of CBC data. Current Interpretive Data was last revised on 2018. Lymphocyte pct 17.9 % [facility] Comment: Interpretive Data Percent cell count reference ranges are not reported, since discordance with absolute values may lead to misinterpretation of CBC data. Current Interpretive Data was last revised on 2018. Monocyte pct 9.9 % [facility] Comment: Interpretive Data Percent cell count reference ranges are not reported, since discordance with absolute values may lead to misinterpretation of CBC data. Current Interpretive Data was last revised on 2018. Eosinophil pct 3.1 % [facility] Comment: Interpretive Data Percent cell count reference ranges are not reported, since discordance with absolute values may lead to misinterpretation of CBC data. Current Interpretive Data was last revised on 2018. Basophil pct 1.1 % [facility] Comment: Interpretive Data Percent cell count reference ranges are not reported, since discordance with absolute values may lead to misinterpretation of CBC data. Current Interpretive Data was last revised on 2018. Blood 08/17/2024 1:01 PM SAWMILL HAND 08/17/2024 1:01 PM SAWMILL HAND us Toshia Price MD LAB BLOOD ORDERABLES Fin al Result [facility] [address] [place] [address] * (ABNORMAL) Iron profile w/ IBC (08/17/2024 1:01 PM SAWMILL HAND) [facility] Iron 51 35 - 145 mcg/dL TIBC 341 250 - 400 mcg/dL [facility] Transferrin saturation 15(L) 20 - 50 % [facility] Blood 08/17/2024 1:01 PM SAWMILL HAND 08/17/2024 1:22 PM SAWMILL HAND Toshia Price MD LAB BLOOD ORDERABLES Fin al Result Performing Organization Address City/[facility]/ZIP Co de Phone Number [facility] [address] [employer], [place] [id number] * (ABNORMAL) CBC with auto differential (08/17/2024 1:01 PM SAWMILL HAND) [facility] WBC 6.4 3.8 - 9.9 K/cumm Hgb 12.1 11.9 - 15.5 g/dL [facility] Hct 37.0 35.6 - 45.5 % [facility] Plt 249 150 - 400 K/cumm [facility] MPV 9.3 9.1 - 12.3 fL [facility] RBC 4.40 3.90 - 5.20 M/cumm [facility] MCV 84.1 81.3 - 96.4 fL [facility] MCH 27.5 27.1 - 33.3 pg [facility] MCHC 32.7 32.3 - 35.7 g/dL [facility] RDW CV 16.1(H) 11.1 - 14.9 % [facility] RDW SD 50.1(H) 35.7 - 48.1 fL [facility] NRBC abs 0.00 0.00 - 0.01 K/cumm [facility] Blood 08/17/2024 1:01 PM SAWMILL HAND 08/17/2024 1:01 PM SAWMILL HAND Toshia Price MD LAB BLOOD ORDERABLES Fin al Result Performing Organization Address City/[facility]/ZIP Co de Phone Number [facility] [address] [place] [address] * Ferritin (08/17/2024 1:01 PM SAWMILL HAND) Ferritin 50 15 - 150 ng/mL Blood 08/17/2024 1:01 PM SAWMILL HAND 08/17/2024 1:22 PM SAWMILL HAND Toshia Price MD LAB BLOOD ORDERABLES Fin al Result [facility] [address] [place] [address] * Colonoscopy (06/15/2024 11:58 AM CDT) Anatomical Region Laterality Modality Other Narrative Procedure Note Vnicent Peter MD - 06/15/2024 11:58 AM CDT ENDOSCOPY LAB Patient Name: Vanesa Awad Procedure Date: 06/15/2024 11:58 AM Admit Type: Outpatient Room: [facility] Date of : 1960 Instrument Name: [id number] Gender: Female Note Status: Finalized Procedure: Colonoscopy Indications: Iron deficiency anemia Providers: Vincent Peter M.D. Referring MD: Irma Koehler D.O., Toshia K. Malecek, M.D. Medicines: Propofol per Anesthesia Complications: No [...] the bowel preparation was evaluatedusing the BBPS ([place] Bowel Preparation Scale) withscores of: Right Colon [...] Most Recently Relevant to Health Maintenance Insurance [facility] Advance Directives For more information, please contact: [phone] * Full Code (Latest Code Status on File) Date Activated Date Inactivated Comments 06/15/2024 12:07 PM 06/15/2024 6:45 PM * Full Code Date Activated Date Inactivated Comments 05/24/2023 7:46 AM 05/24/2023 1:54 PM * Full Code Date Activated Date Inactivated Comments 02/08/2019 11:03 AM 02/08/2019 5:19 PM * Full Code Date Activated Date Inactivated Comments 06/01/2018 11:13 AM 06/01/2018 2:52 PM Care Teams Deck Scaler Relationship Specialty Start Date End Date Irma Koehler DO [address] [place] [address] PCP - General Family Medicine 12/10/22 Toshia Price MD [address] [place] [address] Medical Oncologist/Or Assistant Hematology and Oncology 08/28/22
--- OUTSIDE RECORDS SUMMARY | 2024-11-10 07:17 | XMS_ITS | Clinical Summary ---
Author Organization [facility] Address [address] [place] [address] Phone Care Team Providers Care Line Tester Name Role Phone Dimas Vale MD Primary Care Provider [phone] Allergies Active Allergy Reactions Criticality Noted Date Comments Penicillins Headache Low 06/19/2010 Sulfa (Sulfonamide Antibiotics) Rash Low 06/2010 Medications Cetirizine (ZYRTEC) 10 mg Oral Cap Take by mouth. Activ e montelukast (SINGULAIR) 10 mg Oral tablet Take 10 mg by mouth daily. Active escitalopram (LEXAPRO) 10 mg Oral tablet Take 10 mg by mouth daily. Active MULTIVITAMINS W-MINERALS/LUT (CENTRUM SILVER ORAL) Take by mouth. Activ e CALCIUM ORAL Take by mouth. Ac tive fluticasone-mitch meterol (ADVAIR DISKUS) 250-50 mcg/Dose Inhalation DsDv Take 1 Puff by inhalation 2 times daily. Active dexlansoprazole delayed release (KAPIDEX) 60 mg Oral capsule Take 60 mg by mouth daily. bid Active ferrous gluconate 325 mg Oral Tab Take 325 mg by mouth daily. Bid Active warfarin (COUMADIN) 4 mg Oral tablet Take 4 mg by mouth daily. Active atorvastatin (LIPITOR) 20 mg Oral tablet Take 20 mg by mouth Daily LATE. Active amitriptyline (ELAVIL) 25 mg Oral tablet Take 25 mg by mouth daily at bedtime. Active POLYETHYLENE GLYCOL 3350 (MIRALAX ORAL) Take by mouth. Active ISOMETHEPTENE MUCATE ORAL Take by mouth. Act joey ALBUTEROL SULFATE (PROAIR HFA INHALATION) Take by inhalation. Active Active Problems Patient Care Coordination No te Formatting of this note migh t be different from the original. Primary Care: Dimas Vale MD Referring Provider: Dimas Vale [address] [place] [address] Other: Problem Noted Date Diagnosed Date Asthma Acid reflux Protein deficiencies Overview (06/19/2010): s and c Hiatal hernia Family History Medical History Relation Name Comments Heart Disease Father Lung Cancer Father Breast Cancer Maternal Aunt dx @ age 40 Other Maternal Aunt diabetes Stroke Maternal Aunt Other Maternal Grandmother diabete s Stroke Maternal Grandmother Other Maternal Uncle diabetes Other Mother diabetes Heart Disease Paternal Grandfather Lung Cancer Paternal Grandmother Relation Name Status Comments Father Maternal Aunt Maternal Grandmother Maternal Uncle Mother Paternal Grandfather Paternal Grandmother Social History Tobacco Use Types Packs/Day Years Used Date Smoking Tobacco: Never Alcohol Use Standard Drinks/Week Comments Yes 0 (1 standard drink = 0.6 oz pur e alcohol) rare Comments No Sex and Gender Information Value Date Recorded Sex Assigned at Not on file Legal 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 Gender Identity Not on file Sexual Orientation Not on file Last Filed Vital Signs Vital Sign Reading Time Taken Comments Blood Pressure 108/80 06/19/2010 9:50 AM CDT Pulse - - Temperature - - Respiratory Rate - - Oxygen Saturation - - Inhaled Oxygen Concentration - - Weight 73 kg (161 lb) 06/19/2010 9:50 AM CDT Height 148.6 cm (4' 10.5 ) 06/19/2010 9:50 AM CD T Body Mass Index 33.08 06/19/2010 9:50 AM CDT Plan of Treatment Health Maintenance Due Date Last Done Comments DTAP/TDAP/TD VACCINES (1 - Tdap) 1979 CERVICAL CANCER SCREENING 1990 COLORECTAL SCREENING 2005 Colorectal Cancer Screening 2005 FIT-DNA Q 3 years 2005 FIT/FOBT Q 1 year 2005 Flex Sig/CT Colonography Q 5 years 2005 ZOSTER VACCINE (1 of 2) 2010 BREAST CANCER SCREENING 09/15/2011 09/15/2010 INFLUENZA VACCINE (#1) 2024 RSV VACCINE (60+ or ) (1 - 1-dose 75+ series) 2035 PNEUMOCOCCAL VACCINE 0-64 YEARS Aged Out No longer eligible based on patient's age to complete this topic Procedures Procedure Name Priority Date/Time Associated Diagnosis Comments MAMMO DIAGNOSTIC BILATERAL W OR WO CAD Routine 09/15/2010 10:04 AM INDUSTRIAL SPRAYPAINTER Lump or mass in breast from Last 3 Months or Most Recently Relevant to Health Maintenance Results * MAMMO DIGITAL DIAG BILAT (09/15/2010 10:04 AM INDUSTRIAL SPRAYPAINTER) Anatomical Region Laterality Modality Breast Bilateral Mammography Narrative 09/15/2010 5:15 PM INDUSTRIAL SPRAYPAINTER BILATERAL DIAGNOSTIC DIGITAL MAMMOGRAMS WITH COMPUTER ASSISTED DIAGNOSIS DATE OF EXAM: ??09/15/2010 ?? HISTORY: Benign biopsy in April 2010. TECHNIQUE: Bilateral full field digital diagnostic mammogram was obtained. CAD was utilized. Comparison is made with previous studies dated 04/2010, 03/2010, 08/2009 and 08/2008. ?? BREAST COMPOSITION: Scattered fibroglandular densities. FINDINGS: Postreduction changes are identified bilaterally, stable. No new dominant masses, areas of asymmetry or suspicious cluster microcalcifications are identified. ??CAD was utilized. OVERALL ASSESSMENT: ??BIRADS category 1 - Negative RECOMMENDATION: Annual mammography is recommended. Procedure Note Renetta Chandler - 09/15/2010 BILATERAL DIAGNOSTIC DIGITAL MAMMOGRAMS WITH COMPUTER ASSISTED DIAGNOSIS DATE OF EXAM: 09/15/2010 HISTORY: Benign biopsy in April 2010. TECHNIQUE: Bilateral full field digital diagnostic mammogram was obtained.CAD was utilized. Comparison is made with previous studies dated 04/2010,03/2010, 08/2009 and 08/2008. BREAST COMPOSITION: Scattered fibroglandular densities. FINDINGS: Postreduction changes are identified bilaterally, stable. No newdominant masses, areas of asymmetry or suspicious clustermicrocalcifications are identified. CAD was utilized. OVERALL ASSESSMENT: BIRADS category 1 - Negative RECOMMENDATION: Annual mammography is recommended. Snow iDa MD MAMMO ORDERABLES Final Result from Last 3 Months or Most Recently Relevant to Health Maintenance Care Teams Line Tester Relationship Specialty Start Date End Date Dimas Vale MD [address] [place] [address] PCP - General Family Practice 06/19/10
--- OUTSIDE RECORDS SUMMARY | 2024-11-10 07:17 | XMS_ITS | Clinical Summary ---
Author Organization [facility] Address [address] [place] [address]. [place] [address] [place] [address] Care Team Providers Care Care Technician Name Role Phone BernadettegloriaIrma gonzales Primary Care Provider [phone] Allergies Active Allergy Reactions Criticality Noted Date Comments Morphine Nausea Only 03/18/2020 Mycophenolate Unknown 10/02/2014 Penicillins Headache 06/19/2010 Prednisone Unknown 03/18/2020 Sulfa Antibiotics Rash Low 06/19/2010 Medications amitriptyline 25 MG tablet Take 25 mg by mouth nightly at bedtime. at bedtime. 10/29/19 20 Active atorvastatin 20 MG tablet Take 1 tablet (20 mg total) by mouth daily. 10/26/19 20 Active famotidine 20 MG tablet Take 20 mg by mouth 2 (two) times daily. 07/13/20 19 Active hydroCHLOROthi azide 12.5 MG tablet Take 1 tablet (12.5 mg total) by mouth daily. 10/13/19 20 Active omeprazole 40 MG capsule Take 1 capsule (40 mg total) by mouth 2 (two) times daily. 11/04/19 20 Active XARELTO 20 MG Tab tablet Take 1 tablet (20 mg total) by mouth daily. 11/04/19 20 Active sucralfate 1 G tablet TAKE 1 TABLET BY MOUTH 4 TIMES DAILY ON AN EMPTY STOMACH 1 HOUR BEFORE MEALS AND AT BEDTIME 07/13/20 19 Active vitamin C 250 MG tablet 05/14/20 14 Active Calcium Citrate 150 MG Cap 05/14/20 14 Active cetirizine (ZYRTEC) 10 MG tablet 08/22/20 12 Active Cholecalcifero l (VITAMIN D) 50 MCG (1999) Tab 05/14/20 14 Active escitalopram 10 MG tablet Take 10 mg by mouth daily. Active Isometheptene- dichloralphena zone-acetamino phen 65-100-325 mg 65-100-325 MG capsule as needed 07/05/20 18 Active lansoprazole 30 MG capsule 05/14/20 14 Active zolpidem (AMBIEN) 5 MG tablet 09/14/20 13 Active albuterol (2.5 MG/3ML) 0.083% nebulizer solutionIndica tions:Chronic bronchitis, unspecified chronic bronchitis type (CMS/HCC HHS/HCC) Take 3 mLs (2.5 mg total) by nebulization every 6 (six) hours as needed for Wheezing. Use with Nebulizer machine/supplie s 360 mL 2 03/29/20 20 Active Respiratory Therapy Supplies (NEBULIZER/TUB ING/MOUTHPIECE ) KitIndications :Chronic bronchitis, unspecified chronic bronchitis type (CMS/HCC HHS/HCC) Use with Nebulizer machine for Treatments 1 kit 03/29/20 20 Active NEBULIZER DEVICE, DME,Indication s:Chronic bronchitis, unspecified chronic bronchitis type (CMS/HCC HHS/HCC) Use with Nebulizer treatments 1 Device 03/29/20 20 Active AZITHROMYCIN 500 MG tabletIndicati ons:Chronic bronchitis, unspecified chronic bronchitis type (CMS/HCC HHS/HCC) TAKE ONE TABLET BY MOUTH THREE TIMES A WEEK ON WEDNESDAY, WEDNESDAY, AND WEDNESDAY 12 tablet 03/31/20 21 Active Additional Information Patient not taking.Reported on 08/19/2023 RIFAMPIN 300 MG capsuleIndicat ions:Chronic bronchitis, unspecified chronic bronchitis type (CMS/HCC HHS/HCC) TAKE TWO CAPSULES BY MOUTH THREE TIMES PER WEEK ON WEDNESDAY, WEDNESDAY, AND WEDNESDAY 24 capsule 03/31/20 21 Active Additional Information Patient not taking.Reported on 08/19/2023 ETHAMBUTOL 400 MG tabletIndicati ons:Chronic bronchitis, unspecified chronic bronchitis type (CMS/HCC HHS/HCC) TAKE 4 TABLETS BY MOUTH THREE TIMES PER WEEK ON WEDNESDAY, WEDNESDAY, AND WEDNESDAY 48 tablet 03/31/20 21 Active Additional Information Patient not taking.Reported on 08/19/2023 albuterol sulfate HFA 108 (90 Base) MCG/ACT inhalerIndicat ions:Chronic bronchitis, unspecified chronic bronchitis type ([facility]) Inhale 2 puffs into the lungs every 4 (four) hours as needed for Wheezing. 18 g 3 08/19/20 23 Active BREO ELLIPTA 200-25 MCG/ACT inhalerIndicat ions:Chronic bronchitis, unspecified chronic bronchitis type ([facility]) Inhale 1 puff by mouth once daily 60 each 2 10/30/19 25 Active BREO ELLIPTA 200-25 MCG/ACT inhalerIndicat ions:Chronic bronchitis, unspecified chronic bronchitis type ([facility]) Inhale 1 puff by mouth once daily 60 each 10/02/20 24 025 Discontinued Active Problems Problem Noted Date Diagnosed Date Chronic bronchitis, unspecif ied chronic bronchitis type ([facility]) 03/18/2020 ANGEL (mycobacterium avium-intracellulare) ([facility]) 03/18/2020 Pulmonary embolism, other, u nspecified chronicity, unspecified whether acute cor pulmonale present ([facility]) 03/18/2020 Gastroesophageal reflux dise ase, esophagitis presence not specified 03/18/2020 Vocal cord polyp 03/18/2020 Diastolic dysfunction 03/18/2020 FSGS (focal segmental glomerulosclerosis) 2019 Abnormal finding on lung imaging 03/18/2020 Immunizations Name Administration Dates Next Due Influenza (Generic) 07/15/2020, 5,05/24/2012, 011,07/04/2010,07/02/2009,08/11/2007, PFIZER COVID-19 (ORIGINAL FORMULATION, PURPLE CAP) mRNA, LNP-S, PF, 30 MCG/0.3 ML DOSE 10/18/2020,09/27/2020 Tdap (Generic) 07/14/2011 Family History Medical History Relation Comments COPD Father Cancer Father COPD Mother Relation Status Comments Father Mother Social History Tobacco Use Types Packs/Day Years Used Date Smoking Tobacco: Never Smokeless Tobacco: Never Tobacco Cessation:Counseling Given: Yes Alcohol Use Standard Drinks/Week Comments Yes 0 (1 standard drink = 0.6 oz pur e alcohol) AUDIT-C Answer Date Recorded Frequency of Alcohol Consumption Monthly or less 03/18/2020 Average Number of Drinks Not on file 020 Frequency of Binge Drinking Not on file 05/2020 PHQ-2 Answer Date Recorded Patient Health Questionnaire-2 Score 0 08/19/2023 Comments No Sex and Gender Information Value Date Recorded Sex Assigned at Not on file Legal Sex Female 7:54 PM CDT Gender Identity Not on file Sexual Orientation Not on file Last Filed Vital Signs Vital Sign Reading Time Taken Comments Blood Pressure 136/86 08/19/2023 7:57 AM WORKFLOW DEVELOPER Pulse 82 08/19/2023 7:57 AM WORKFLOW DEVELOPER Temperature 36.3 ??C (97.4 ??F) 08/19/2023 7:57 AM CS T Respiratory Rate 12 08/19/2023 7:57 AM WORKFLOW DEVELOPER Oxygen Saturation 97% 08/19/2023 7:57 AM WORKFLOW DEVELOPER ra Inhaled Oxygen Concentration - - Weight 65.8 kg (145 lb) 08/19/2023 7:57 AM WORKFLOW DEVELOPER Height 147.3 cm (4' 10 ) 08/19/2023 7:57 AM WORKFLOW DEVELOPER Body Mass Index 30.31 08/19/2023 7:57 AM WORKFLOW DEVELOPER Plan of Treatment Upcoming Encounters Date Type Department Care Team (Late st Contact Info) Description 01/17/2025 8:00 AM CDT Office Visit [facility] - [address] [place] [phone] Ariel Valera MD [address] [place] [address] [place] [id number] Health Maintenance Due Date Last Done Comments Cervical Cancer Screening Pap Smear (Age 30 to 64) Every 3 Years 1960 Colorectal Cancer Screening Colonoscopy (10 Years) 1960 Annual Physical 1963 Hepatitis C 1978 Cervical Cancer Screening Pap with HPV Testing (Age 30 to 64) Every 5 Years 1990 Cervical Cancer Screening with HPV 1990 Mammogram Screening 2000 Zoster Vaccines (1 of 2) 2010 DTaP, Tdap and Td Vaccines (2 - Td or Tdap) 07/14/2021 07/14/2011 COVID-19 Vaccine ( season) 2024 10/18/2020, 09/27/2020 Influenza Adult (#1) 2024 07/15/2020, 07/23/2015, 05/24/2012, Additional history exists PHQ-2 (Physician [place]) 08/19/2024 08/19/2023 PHQ-2 (Physician [place]) 10/11/2024 08/19/2023 RSV Immunization or 60+ Years (1 - 1-dose 75+ series) 2035 Meningococcal B Vaccine Aged Out No l onger eligible based on patient's age to complete this topic Meningococcal Vaccine Aged Out No jo carla eligible based on patient's age to complete this topic Pneumococcal Vaccine: Pediatrics (0 to 5 Years) and At-Risk Patients (6 to 64 Years) Aged Out No longer eligible based on patient's age to complete this topic RSV Immunizations Under 20 Months Aged Out No longer eligible based on patient's age to complete this topic Care Teams Care Technician Relationship Specialty Start Date End Date Irma Koehler DO [address] [place] [address] PCP - General FAMILY PRACTICE 03/22/20
[2024-11-10 08:03] LABS: Add Urine Microscopic? YES; Appearance Urine Cloudy (Clear); Bacteria Urine None Seen /hpf; Bilirubin Urine Negative (Negative); Blood Urine 1+ (Negative); Color Urine Yellow (Yellow); Glucose Urine UA Negative (Negative); Ketones Urine Negative (Negative); Leukocyte Esterase Ur Trace LEU/UL (Negative); Nitrate Urine Negative (Negative); Non Pathogenic Casts 0-2; Protein Urine Trace mg/dL (Negative); RBC Urine 0-2 /hpf (0-2); Specific Grav Ur 1.024 (1.001-1.035); Squamous Epithelial Cell Urine Occasional /hpf (Few); Urobilinogen Urine 0.2 mg/dL (<2.0); WBC Urine 0-5 /hpf (0-3); pH Urine 5.5 (5.0-9.0)
== END 2024-11-10 07:13 | disposition home or self-care (01) ==
LOC: ANHLAB 07:14
PROVIDERS: PCP Nurse Practitioner; Visit Provider Family Medicine
DX: R82.90 Unspecified abnormal findings in urine (principal)
CPT/HCPCS: 81001

== ENCOUNTER 2024-12-04 06:56 | Outpatient (CLI) | payer OTHER, SELFPAY ==
--- OUTSIDE RECORDS SUMMARY | 2024-12-04 07:00 | XMS_ITS | Clinical Summary ---
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 Gender Identity Not on file Sexual Orientation [...] ) (1 - 1-dose 75+ series) 2035 Procedures Procedure Name Priority Date/Time Associated Diagnosis Comments MAMMO DIAGNOSTIC BILATERAL W OR WO CAD Routine 09/15/2010 10:04 AM MANUFACTURING TECHNOLOGY PROFESSOR Lump or mass in breast from Last 3 Months or Most Recently Relevant to Health Maintenance Results * MAMMO DIGITAL DIAG BILAT (09/15/2010 10:04 AM MANUFACTURING TECHNOLOGY PROFESSOR) Anatomical Region Laterality Modality Breast Bilateral Mammography Narrative 09/15/2010 5:15 PM MANUFACTURING TECHNOLOGY PROFESSOR BILATERAL DIAGNOSTIC DIGITAL MAMMOGRAMS WITH COMPUTER ASSISTED DIAGNOSIS DATE OF EXAM: 09/15/2010 HISTORY: Benign biopsy in April 2010. TECHNIQUE: Bilateral full field digital diagnostic mammogram was obtained. CAD was utilized. Comparison is made with previous studies dated 04/2010, 03/2010, 08/2009 and 08/2008. BREAST COMPOSITION: Scattered fibroglandular densities. FINDINGS: Postreduction changes are identified bilaterally, stable. No new dominant masses, areas of asymmetry or suspicious cluster microcalcifications are identified. CAD was utilized. OVERALL ASSESSMENT: [...] Negative RECOMMENDATION: Annual mammography is recommended. Snow Dia MD MAMMO ORDERABLES Final Result from Last 3 Months or Most Recently Relevant to Health Maintenance Care Teams Behavioral Services Tech Relationship Specialty Start Date End Date Dimas Vale MD [address] [place] [address] PCP - General Family Practice 06/19/10
--- OUTSIDE RECORDS SUMMARY | 2024-12-04 07:00 | XMS_ITS | Referral Summary ---
Author Organization [facility] Address [facility] [place] [address] Care Team Providers Care Abalone Processor Name Role Phone Toshia Price MD Unavailable [phone] Irma Koehler DO Primary Care Provider [phone] Encounters Date Type Department Care Team Description 11/16/2024 2:00 PM COCOA ROOM OPERATOR Lab [facility] Lab [address] [place] [phone] Iron deficiency anemia due to chronic blood loss 11/16/2024 2:15 PM COCOA ROOM OPERATOR Office Visit [facility] [address] [phone] Toshia Price MD Iron deficiency anemia due to chronic blood loss (Primary Dx) 10/23/2024 Telephone [facility] Gastroenterology at [facility] [address] [facility] [address] [address] Vincent Peter MD Test Results 09/18/2024 1:30 PM COCOA ROOM OPERATOR Infusion [facility] [address] [place] [phone] Iron deficiency (Primary Dx) 09/11/2024 11:30 AM COCOA ROOM OPERATOR Infusion [facility] [address] [place] [phone] Iron deficiency (Primary Dx) from Last 3 Months Allergies Active Allergy [...] (10MG) by oral route every day 0 08/22/2012 Active atorvastatin (LIPITOR) 20 mg tablet take 1 tablet (20MG) by oral route every day 0 08/22/2012 Active cholecalciferol (VITAMIN D3) 2,000 unit capsule take 1 by Oral route once 0 0 10/01/2015 Active albuterol HFA (PROVENTIL HFA,VENTOLIN HFA,PROAIR HFA) 90 mcg/actuation inhaler uses prn Active isometh-dichlor al-acetaminophn (MIDRIN) 65-100-325 mg per capsule as needed 0 07/05/2018 Active BREO ELLIPTA 200-25 mcg/dose diskus inhaler 11/25/2018 Acti ve Bifidobacterium infantis (ALIGN) 4 mg capsule Take by mouth daily 06/24/2018 Active hydroCHLOROthia zide (HYDRODIURIL) 12.5 mg tablet Take 1 tablet (12.5 mg total) by mouth daily 05/03/2020 Active gabapentin (NEURONTIN) 100 mg capsule Take 1 capsule (100 mg total) by mouth daily Active losartan (COZAAR) 25 mg tablet Take 2 tablets (50 mg total) by mouth daily 01/11/2024 Active potassium chloride ER 20 mEq CR tablet daily 05/11/2024 Activ e allopurinoL (ZYLOPRIM) 100 mg tablet Take 1 tablet (100 mg total) by mouth daily 05/07/2024 Active ondansetron (ZOFRAN) 8 mg tablet Take 1 tablet (8 mg total) by mouth every 8 (eight) hours as needed for nausea or vomiting 12 tablet 2024 Active rivaroxaban (Xarelto) 20 mg tablet Take 1 tablet by mouth once daily 90 tablet 3 07/18/2024 Active SUMAtriptan (IMITREX) 50 mg tablet 06/27/2024 Active omeprazole (PriLOSEC) 40 mg capsule Take 1 capsule by mouth twice daily 180 capsule 10/06/2024 Active Active Problems Problem Noted Date Diagnosed [...] 03/18/2020 Diastolic dysfunction 03/18/2020 ANGEL (mycobacterium avium-intracellulare) ([facility]) 03/18/2020 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 Gastroesophageal reflux disease without esophagi tis 01/30/2019 Overview (01/30/2019): Added automatically from request for surgery [id number] Assessment & Plan (07/15/2020 1:35 PM CDT): [...] has let me know. 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 Last exam May 2019. [...] disease) Assessment & Plan (12/10/2022 2:18 PM COCOA ROOM OPERATOR): Has significant laryngeal reflux. We discussed that [...] on file Legal Sex Female 2:03 AM COCOA ROOM OPERATOR Gender Identity Not on file Sexual Orientation Not on file Last Filed Vital Signs Vital Sign Reading Time Taken Comments Blood Pressure 149/64 11/16/2024 2:25 PM COCOA ROOM OPERATOR Pulse 95 11/16/2024 2:25 PM COCOA ROOM OPERATOR Temperature 36.3 C (97.3 F) 11/16/2024 2:25 PM COCOA ROOM OPERATOR Respiratory Rate 18 11/16/2024 2:25 PM COCOA ROOM OPERATOR Oxygen Saturation 99% 11/16/2024 2:25 PM COCOA ROOM OPERATOR Inhaled Oxygen Concentration - - Weight 66.2 kg (146 lb) 11/16/2024 2:25 PM COCOA ROOM OPERATOR Height 145.4 cm (4' 9.25 ) 06/15/2024 12:04 PM C DT Body Mass Index 31.32 06/15/2024 12:04 PM CDT Plan of Treatment Not on file Procedures Procedure Name Priority Date/Time Associated Diagnosis Comments DIFFERENTIAL AUTO Routine 11/16/2024 2:2 0 PM COCOA ROOM OPERATOR Iron deficiency anemia due to chronic blood loss CBC WITH AUTO DIFFERENTIAL Routine 11/16/2024 2:20 PM COCOA ROOM OPERATOR Iron deficiency anemia due to chronic blood loss IRON PROFILE W/ IBC Routine 11/16/2024 2 :20 PM COCOA ROOM OPERATOR Iron deficiency anemia due to chronic blood loss FERRITIN Routine 11/16/2024 2:20 PM COCOA ROOM OPERATOR Iron deficiency anemia due to chronic blood loss COLONOSCOPY 06/15/2024 11:58 AM CDT from Last 3 Months or Most Recently Relevant to Health Maintenance Results * (ABNORMAL) Differential, auto (11/16/2024 2:20 PM COCOA ROOM OPERATOR) Neutrophil abs 6.6(H) 1.5 - 6.5 K/cumm Imm gran abs 0.0 0.0 - 0.1 K/cumm [facility] Lymphocyte abs 1.5 0.8 - 3.3 K/cumm [facility] Monocyte abs 0.8 0.2 - 0.8 K/cumm [facility] Eosinophil abs 0.3 0.0 - 0.5 K/cumm [facility] Basophil abs 0.1 0.0 - 0.1 K/cumm [facility] Neutrophil pct 71.1 % [facility] Comment: Interpretive Data Percent cell count reference ranges are not reported, since discordance with absolute values may lead to misinterpretation of CBC data. Current Interpretive Data was last revised on 2018. Imm gran pct 0.3 % [facility] Comment: Interpretive Data Percent cell count reference ranges are not reported, since discordance with absolute values may lead to misinterpretation of CBC data. Current Interpretive Data was last revised on 2018. Lymphocyte pct 15.8 % [facility] Comment: Interpretive Data Percent cell count reference ranges are not reported, since discordance with absolute values may lead to misinterpretation of CBC data. Current Interpretive Data was last revised on 2018. Monocyte pct 8.8 % [facility] Comment: Interpretive Data Percent cell count reference ranges are not reported, since discordance with absolute values may lead to misinterpretation of CBC data. Current Interpretive Data was last revised on 2018. Eosinophil pct 2.9 % [facility] Comment: Interpretive Data Percent cell count reference ranges are not reported, since discordance with absolute values may lead to misinterpretation of CBC data. Current Interpretive Data was last revised on 2018. Basophil pct 1.1 % [facility] Comment: Interpretive Data Percent cell count reference ranges are not reported, since discordance with absolute values may lead to misinterpretation of CBC data. Current Interpretive Data was last revised on 2018. Blood 11/16/2024 2:20 PM COCOA ROOM OPERATOR 11/16/2024 2:22 PM COCOA ROOM OPERATOR Toshia Price MD LAB BLOOD ORDERABLES Fin al Result [facility] [address] [place] [address] * (ABNORMAL) Iron profile w/ IBC (11/16/2024 2:20 PM COCOA ROOM OPERATOR) Iron 48 35 - 145 mcg/dL TIBC 271 250 - 400 mcg/dL [facility] Transferrin saturation 18(L) 20 - 50 % [facility] Blood 11/16/2024 2:20 PM COCOA ROOM OPERATOR 11/16/2024 2:52 PM COCOA ROOM OPERATOR Toshia Price MD LAB BLOOD ORDERABLES Fin al Result Performing Organization Address [facility] Co de Phone Number [facility] [address] [place] [address] * CBC with auto differential (11/16/2024 2:20 PM COCOA ROOM OPERATOR) WBC 9.3 3.8 - 9.9 K/cumm Hgb 14.3 11.9 - 15.5 g/dL [facility] Hct 42.3 35.6 - 45.5 % [facility] Plt 223 150 - 400 K/cumm [facility] MPV 9.4 9.1 - 12.3 fL [facility] RBC 4.75 3.90 - 5.20 M/cumm [facility] MCV 89.1 81.3 - 96.4 fL [facility] MCH 30.1 27.1 - 33.3 pg [facility] MCHC 33.8 32.3 - 35.7 g/dL [facility] RDW CV 14.6 11.1 - 14.9 % [facility] RDW SD 47.9 35.7 - 48.1 fL [facility] NRBC abs 0.00 0.00 - 0.01 K/cumm [facility] Blood 11/16/2024 2:20 PM COCOA ROOM OPERATOR 11/16/2024 2:22 PM COCOA ROOM OPERATOR Toshia Price MD LAB BLOOD ORDERABLES Fin al Result Performing Organization Address City/[facility]/ZIP Co de Phone Number [facility] [address] [employer] [place], [place] [id number] * (ABNORMAL) Ferritin (11/16/2024 2:20 PM COCOA ROOM OPERATOR) Ferritin 368(H) 15 - 150 ng/mL Blood 11/16/2024 2:20 PM COCOA ROOM OPERATOR 11/16/2024 2:52 PM COCOA ROOM OPERATOR us Toshia Price MD LAB BLOOD ORDERABLES Fin al Result [facility] [address] [place] [address] * Colonoscopy (06/15/2024 11:58 AM CDT) Anatomical Region Laterality Modality Other Narrative Procedure Note Vincent Peter MD - 06/15/2024 11:58 AM CDT ENDOSCOPY LAB Patient Name: Vanesa Awad Procedure Date: 06/15/2024 11:58 AM Admit Type: Outpatient Room: [facility] Date of : 1960 Instrument Name: [id number] [...] the bowel preparation was evaluatedusing the BBPS ([place] Bowel Preparation Scale) withscores of: Right Colon [...] history of polyps Electronically signed by Vincent Peetr MD Vincent Peter M.D. 06/15/2024 1:54:10 PM This document was signed electronically. Number of Addenda: 0 Note Initiated On: 06/15/2024 11:58 AM Scope Withdrawal Time: 0 hours 13 minutes 57 seconds Scope In: 1:14:04 PM Scope Out: 1:37:52 PM us Vincent Peter MD ENDOSCOPY PROCEDURES Final Result from Last 3 Months or Most Recently Relevant to Health Maintenance Insurance [facility] Advance Directives For more information, please contact: [phone] * Full Code (Latest Code Status on File) Date Activated Date Inactivated Comments 06/15/2024 12:07 PM 06/15/2024 6:45 PM * Full Code Date Activated Date Inactivated Comments 05/24/2023 7:46 AM 05/24/2023 1:54 PM * Full Code Date Activated Date Inactivated Comments 02/08/2019 11:03 AM 02/08/2019 5:19 PM * Full Code Date Activated Date Inactivated Comments 06/01/2018 11:13 AM 06/01/2018 2:52 PM Care Teams Abalone Processor Relationship Specialty Start Date End Date Irma Koehler DO [address] [place] [address] PCP - General Family Medicine 12/10/22 Toshia Price MD [address] [place] [address] Medical Oncologist/[facility] 08/28/22
--- OUTSIDE RECORDS SUMMARY | 2024-12-04 07:00 | XMS_ITS | Clinical Summary ---
Author Organization [facility] Address [address] [place] [address] Care Team Providers Care Egg Worker Name Role Phone Irma Koehler Primary Care Provider [phone] Allergies Active Allergy Reactions Criticality Noted Date Comments Morphine Nausea Only 03/18/2020 Mycophenolate Unknown 10/02/2014 Penicillins Headache 06/19/2010 Prednisone Unknown 03/18/2020 Sulfa Antibiotics Rash Low 06/19/2010 Medications amitriptyline 25 MG tablet Take 25 mg by mouth nightly at bedtime. at bedtime. 0 Active atorvastatin 20 MG tablet Take 1 tablet (20 mg total) by mouth daily. 0 Active famotidine 20 MG tablet Take 20 mg by mouth 2 (two) times daily. 9 Active hydroCHLOROthia zide 12.5 MG tablet Take 1 tablet (12.5 mg total) by mouth daily. 0 Active omeprazole 40 MG capsule Take 1 capsule (40 mg total) by mouth 2 (two) times daily. 0 Active XARELTO 20 MG Tab tablet Take 1 tablet (20 mg total) by mouth daily. 0 Active sucralfate 1 G tablet TAKE 1 TABLET BY MOUTH 4 TIMES DAILY ON AN EMPTY STOMACH 1 HOUR BEFORE MEALS AND AT BEDTIME 9 Active vitamin C 250 MG tablet 4 Active Calcium Citrate 150 MG Cap 4 Active cetirizine (ZYRTEC) 10 MG tablet 2 Active Cholecalciferol (VITAMIN D) 50 MCG (1999) Tab 4 Active escitalopram 10 MG tablet Take 10 mg by mouth daily. Active Isometheptene-d ichloralphenazo ne-acetaminophe n 65-100-325 mg 65-100-325 MG capsule as needed 8 Active lansoprazole 30 MG capsule 4 Active zolpidem (AMBIEN) 5 MG tablet 3 Active albuterol (2.5 MG/3ML) 0.083% nebulizer solutionIndicat ions:Chronic bronchitis, unspecified chronic bronchitis type (CMS/HCC HHS/HCC) Take 3 mLs (2.5 mg total) by nebulization every 6 (six) hours as needed for Wheezing. Use with Nebulizer machine/supplies 360 mL 2 0 Active Respiratory Therapy Supplies (NEBULIZER/TUBI NG/MOUTHPIECE) KitIndications: Chronic bronchitis, unspecified chronic bronchitis type (CMS/HCC HHS/HCC) Use with Nebulizer machine for Treatments 1 kit 0 Active NEBULIZER DEVICE, DME,Indications :Chronic bronchitis, unspecified chronic bronchitis type (CMS/HCC HHS/HCC) Use with Nebulizer treatments 1 Device 0 Active AZITHROMYCIN 500 MG tabletIndicatio ns:Chronic bronchitis, unspecified chronic bronchitis type (CMS/HCC HHS/HCC) TAKE ONE TABLET BY MOUTH THREE TIMES A WEEK ON WEDNESDAY, WEDNESDAY, AND WEDNESDAY 12 tablet 1 Active Additional Information Patient not taking.Reported on 08/19/2023 RIFAMPIN 300 MG capsuleIndicati ons:Chronic bronchitis, unspecified chronic bronchitis type (CMS/HCC HHS/HCC) TAKE TWO CAPSULES BY MOUTH THREE TIMES PER WEEK ON WEDNESDAY, WEDNESDAY, AND WEDNESDAY 24 capsule 1 Active Additional Information Patient not taking.Reported on 08/19/2023 ETHAMBUTOL 400 MG tabletIndicatio ns:Chronic bronchitis, unspecified chronic bronchitis type (CMS/HCC HHS/HCC) TAKE 4 TABLETS BY MOUTH THREE TIMES PER WEEK ON WEDNESDAY, WEDNESDAY, AND WEDNESDAY 48 tablet 1 Active Additional Information Patient not taking.Reported on 08/19/2023 albuterol sulfate HFA 108 (90 Base) MCG/ACT inhalerIndicati ons:Chronic bronchitis, unspecified chronic bronchitis type ([facility]) Inhale 2 puffs into the lungs every 4 (four) hours as needed for Wheezing. 18 g 3 3 Active BREO ELLIPTA 200-25 MCG/ACT inhalerIndicati ons:Chronic bronchitis, unspecified chronic bronchitis type ([facility]) Inhale 1 puff by mouth once daily 60 each 2 5 Active Active Problems Problem Noted Date Diagnosed Date Chronic bronchitis, unspecif ied chronic bronchitis type ([facility]) 03/18/2020 ANGEL (mycobacterium avium-intracellulare) ([facility]) 03/18/2020 Pulmonary embolism, other, u nspecified chronicity, unspecified whether acute cor pulmonale present ([facility]) 03/18/2020 Gastroesophageal reflux dise ase, esophagitis [...] Comments Blood Pressure 136/86 08/19/2023 7:57 AM MULTIPLE DRUM SANDER Pulse 82 08/19/2023 7:57 AM MULTIPLE DRUM SANDER Temperature 36.3 C (97.4 F) 08/19/2023 7:57 AM MULTIPLE DRUM SANDER Respiratory Rate 12 08/19/2023 7:57 AM MULTIPLE DRUM SANDER Oxygen Saturation 97% 08/19/2023 7:57 AM MULTIPLE DRUM SANDER ra Inhaled Oxygen Concentration - - Weight 65.8 kg (145 lb) 08/19/2023 7:57 AM MULTIPLE DRUM SANDER Height 147.3 cm (4' 10 ) 08/19/2023 7:57 AM MULTIPLE DRUM SANDER Body Mass Index 30.31 08/19/2023 7:57 AM MULTIPLE DRUM SANDER Plan of Treatment Upcoming Encounters Date Type Department Care Team (Late st Contact Info) Description 01/17/2025 8:00 AM CDT Office Visit [facility] Multispecialty Care - [address] [place] [address] Ariel Valera MD [address] [place] [address] [place] [address] Health Maintenance Due Date Last Done Comments [...] Td or Tdap) 07/14/2021 07/14/2011 COVID-19 Vaccine (3 - season) 2024 10/18/2020, 09/27/2020 Influenza Adult (#1) 2024 07/15/2020, 07/23/2015, 05/24/2012, Additional history exists PHQ-2 (Physician Algaaciq) 08/19/2024 08/19/2023 PHQ-2 (Physician Algaaciq) 10/11/2024 08/19/2023 RSV Immunization or 60+ Years [...] age to complete this topic Care Teams Egg Worker Relationship Specialty Start Date End Date Irma Koehler DO [address] [place] [address] PCP - General FAMILY PRACTICE 03/22/20
--- OUTSIDE RECORDS SUMMARY | 2024-12-04 07:00 | XMS_ITS | Clinical Summary ---
Author Organization [facility] Address [address], [place] [address] Phone Care Team Providers Care Sports Photographer Name Role Phone Dimas Vale MD Primary Care Provider [phone] Medications Medication Sig Dispensed Refills Start Date [...] Comments Blood Pressure 124/70 10/09/2019 3:38 PM SAS PROGRAMMER ANALYST Pulse 76 06/24/2018 12:01 AM CDT Temperature - - Respiratory Rate - - Oxygen Saturation - - Inhaled Oxygen Concentration - - Weight 67.6 kg (149 lb) 10/09/2019 3:38 PM SAS PROGRAMMER ANALYST Height 144.8 cm (4' 9 ) 10/09/2019 3:38 PM SAS PROGRAMMER ANALYST Body Mass Index 32.24 10/09/2019 3:38 PM SAS PROGRAMMER ANALYST Plan of Treatment Health Maintenance Due Date Last Done Comments Pneumococcal PPSV23 Highest Risk Adult (1 of 3 - PCV13 ) 1979 Influenza Vaccine (#1) 2024 Care Teams Sports Photographer Relationship Specialty Start Date End Date Dimas Vale MD [address] [place] [id number] PCP - General Family Medicine 10/09/19
--- OUTSIDE RECORDS SUMMARY | 2024-12-04 07:00 | XMS_ITS | Clinical Summary ---
Author Organization [facility] Address [address] [place] [address] Care Team Providers Care Automobile Damage Field Appraiser Name Role Phone Toshia Price MD Unavailable [phone] Irma Koehler DO Primary Care Provider [phone] Allergies Active Allergy Reactions Criticality Noted Date [...] 03/18/2020 Diastolic dysfunction 03/18/2020 ANGEL (mycobacterium avium-intracellulare) (CMS/HC C) 03/18/2020 Vocal fold polyp 03/07/2019 Assessment [...] have recommended voice therapy here at the [facility] in order to improve the biomechanics of the patient's voice, which will improve the patient's associated symptoms. Gastroesophageal reflux disease without esophagi tis 01/30/2019 Overview (01/30/2019): Added automatically from request for surgery [id number] Assessment & Plan (07/15/2020 1:35 PM CDT): [...] appendiceal orifice polyp tthat was removed in 2015.. Then decide upon treatment and follow-up. If colonoscopy is negative consider CT. Also consider anorectal motility dysfunction. History of colon polyps 05/05/2018 Overview (05/06/2018): Added automatically from request for surgery [id number] Assessment & Plan (12/10/2022 2:19 PM CREATIVE SERVICES MANAGER): Due for colonoscopy. Last exam May 2019. [...] disease) Assessment & Plan (12/10/2022 2:18 PM CREATIVE SERVICES MANAGER): Has significant laryngeal reflux. We discussed that [...] Date Type Department Care Team Description 11/16/2024 2:15 PM CREATIVE SERVICES MANAGER Office Visit [facility] [address] [place] [address] Toshia Price MD Iron deficiency anemia due to chronic blood loss (Primary Dx) 11/16/2024 2:00 PM CREATIVE SERVICES MANAGER Lab [facility] Lab [address] [place] [phone] Iron deficiency anemia due to chronic blood loss 10/23/[address] [facility] Gastroenterology at [facility] [address], [place] [address] Vincent Peter MD Test Results 09/18/2024 1:30 PM CREATIVE SERVICES MANAGER Infusion [facility] [address] [place] [phone] Iron deficiency (Primary Dx) 09/11/2024 11:30 AM CREATIVE SERVICES MANAGER Infusion [facility] [address] [place] [phone] Iron deficiency (Primary Dx) from Last 3 Months Surgical History Surgery [...] procedure 1996 bladder suspension Pulmonary embolism (HCC) 2002 Protein C /Protein S Deficiency GERD (gastroesophageal reflu x disease) Chronic diarrhea Diverticulosis Chronic bronchitis (HCC) Focal segmental glomerulosclerosis Arthritis Hypertension Pulmonary embolism ([facility]) 2003 FSGS (focal segmental glomerulosclerosis) Remission 2016 Personal history of colonic polyps Diastolic dysfunction 03/18/2020 Protein S deficiency (HCC) 10/01/2015 Prote in S deficiency Protein C deficiency (HCC) 10/01/2015 Prote in C deficiency Primary hypercoagulable state ([facility]) 11/02/2012 Converted unresolved ICD9, potential mismatch. Other primary thrombophilia ([facility]) 06/24/2018 Protein deficiency disease ( CMS/HCC) (HCC) 12/28/2018 Overview: s and c Age-related osteoporosis wit hout current pathological fracture 10/25/2014 Conservative, MVI, vitam in-D 2000 IU daily Zoledronic acid November 2015, prior teriparatide 1 year, Hx of steroids (off now) for focal glomerularsclerosis nephrotic syndrome, in remission since 2017 2004 fracture skiing Vocal fold polyp 03/07/2019 Muscle tension dysphonia 03/07/2019 Polyp of descending colon 05/24/2023 Laryngopharyngeal reflux 11/28/2009 History of colon polyps 05/05/2018 Added au tomatically from request for surgery [id number] Hiatal hernia 12/28/2018 Gastroesophageal reflux dise ase without esophagitis 01/30/2019 Added automatically from req uest for surgery [id number] Gastroesophageal reflux disease 08/22/2012 GERD (gastroesophageal reflux disease) Diverticulosis of colon 05/24/2023 Change in bowel habits 05/05/2018 Acid reflux 12/28/2018 Proteinuria 11/02/2012 Converted unreso lved ICD9, potential mismatch. 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 ANGEL (mycobacterium avium-intracellulare) (CMS/HCC) (HCC) 03/18/2020 Paresthesia 08/18/2017 Anesthesia of skin 12/17/2017 Abnormal finding on lung imaging 03/18/2020 Abnormal levels of other ser um enzymes 02/28/2015 Converted unresolved ICD9, p otential mismatch. Family History Medical History Relation Name Comments COPD Father [facility] COPD; Cancer Father [facility] Colon polyps [facility] Early Father [facility] Heart attack Father [facility] Liver disease Father [facility] Liver disease; Lung cancer Father [facility] Cancer, lung; Other Father [facility] hypercoagulable ; Asthma Mother [facility] Asthma; COPD Mother [facility] COPD; Diabetes type II Mother [facility] Diabetes me llitus type 2; Osteoporosis Mother [facility] Thyroid disease Mother [facility] Thyroid dise ase; Colon cancer Mother's Sister Relation Name Status Comments Father [facility] Heart Attack Mother [facility] Mother's Sister Social History Tobacco Use Types [...] on file Legal Sex Female 2:03 AM CREATIVE SERVICES MANAGER Gender Identity Not on file Sexual Orientation Not on file Obstetrics History Last Filed Vital Signs Vital Sign Reading Time Taken Comments Blood Pressure 149/64 11/16/2024 2:25 PM CREATIVE SERVICES MANAGER Pulse 95 11/16/2024 2:25 PM CREATIVE SERVICES MANAGER Temperature 36.3 C (97.3 F) 11/16/2024 2:25 PM CREATIVE SERVICES MANAGER Respiratory Rate 18 11/16/2024 2:25 PM CREATIVE SERVICES MANAGER Oxygen Saturation 99% 11/16/2024 2:25 PM CREATIVE SERVICES MANAGER Inhaled Oxygen Concentration - - Weight 66.2 kg (146 lb) 11/16/2024 2:25 PM CREATIVE SERVICES MANAGER Height 145.4 cm (4' 9.25 ) 06/15/2024 12:04 PM C DT Body Mass Index 31.32 06/15/2024 12:04 PM CDT Plan of Treatment Health Maintenance Due Date Last Done Comments Breast Cancer Screening-Mammogram 1960 Depression Screening 1960 Hepatitis C Screening 1960 Hepatitis B Screening 1978 Regular Well Visit/Exam 18-64 1978 Pneumococcal vaccine <65 (1 of 2 - PCV) 1979 Zoster Vaccine (1 of 2) 2010 DTaP/Tdap/Td Vaccine (2 - Td or Tdap) 07/14/2021 07/14/2011 Covid-19 Vaccine (4 - 2023-2 5 season) 2024 07/25/2021, 10/18/2020, [...] DIFFERENTIAL AUTO Routine 11/16/2024 2:2 0 PM CREATIVE SERVICES MANAGER Iron deficiency anemia due to chronic blood loss CBC WITH AUTO DIFFERENTIAL Routine 11/16/2024 2:20 PM CREATIVE SERVICES MANAGER Iron deficiency anemia due to chronic blood loss IRON PROFILE W/ IBC Routine 11/16/2024 2 :20 PM CREATIVE SERVICES MANAGER Iron deficiency anemia due to chronic blood loss FERRITIN Routine 11/16/2024 2:20 PM CREATIVE SERVICES MANAGER Iron deficiency anemia due to chronic blood loss COLONOSCOPY 06/15/2024 11:58 AM CDT from Last 3 Months or Most Recently Relevant to Health Maintenance Results * (ABNORMAL) Differential, auto (11/16/2024 2:20 PM CREATIVE SERVICES MANAGER) Neutrophil abs 6.6(H) 1.5 - 6.5 K/cumm Imm gran abs 0.0 0.0 - 0.1 K/cumm [facility] Lymphocyte abs 1.5 0.8 - 3.3 K/cumm [facility] Monocyte abs 0.8 0.2 - 0.8 K/cumm [facility] Eosinophil abs 0.3 0.0 - 0.5 K/cumm [facility] Basophil abs 0.1 0.0 - 0.1 K/cumm [facility] Neutrophil pct 71.1 % [facility] Comment: Interpretive Data Percent cell count reference ranges are not reported, since discordance with absolute values may lead to misinterpretation of CBC data. Current Interpretive Data was last revised on 2018. Imm gran pct 0.3 % [facility] Comment: Interpretive Data Percent cell count reference ranges are not reported, since discordance with absolute values may lead to misinterpretation of CBC data. Current Interpretive Data was last revised on 2018. Lymphocyte pct 15.8 % [facility] Comment: Interpretive Data Percent cell count reference ranges are not reported, since discordance with absolute values may lead to misinterpretation of CBC data. Current Interpretive Data was last revised on 2018. Monocyte pct 8.8 % [facility] Comment: Interpretive Data Percent cell count reference ranges are not reported, since discordance with absolute values may lead to misinterpretation of CBC data. Current Interpretive Data was last revised on 2018. Eosinophil pct 2.9 % [facility] Comment: Interpretive Data Percent cell count reference ranges are not reported, since discordance with absolute values may lead to misinterpretation of CBC data. Current Interpretive Data was last revised on 2018. Basophil pct 1.1 % [facility] Comment: Interpretive Data Percent cell count reference ranges are not reported, since discordance with absolute values may lead to misinterpretation of CBC data. Current Interpretive Data was last revised on 2018. Blood 11/16/2024 2:20 PM CREATIVE SERVICES MANAGER 11/16/2024 2:22 PM CREATIVE SERVICES MANAGER Toshia Price MD LAB BLOOD ORDERABLES Fin al Result Performing Organization Address City/[facility]/ZIP Co de Phone Number [facility] [address] [place] [place] [address] * (ABNORMAL) Iron profile w/ IBC (11/16/2024 2:20 PM CREATIVE SERVICES MANAGER) Pathologist [facility] Iron 48 35 - 145 mcg/dL TIBC 271 250 - 400 mcg/dL [facility] Transferrin saturation 18(L) 20 - 50 % [facility] Blood 11/16/2024 2:20 PM CREATIVE SERVICES MANAGER 11/16/2024 2:52 PM CREATIVE SERVICES MANAGER Toshia Price MD LAB BLOOD ORDERABLES Fin al Result [facility] [address] Department [employer] [place], [place] [id number] * CBC with auto differential (11/16/2024 2:20 PM CREATIVE SERVICES MANAGER) Pathologist [facility] WBC 9.3 3.8 - 9.9 K/cumm Hgb 14.3 11.9 - 15.5 g/dL [facility] Hct 42.3 35.6 - 45.5 % [facility] Plt 223 150 - 400 K/cumm [facility] MPV 9.4 9.1 - 12.3 fL [facility] RBC 4.75 3.90 - 5.20 M/cumm [facility] MCV 89.1 81.3 - 96.4 fL [facility] MCH 30.1 27.1 - 33.3 pg [facility] MCHC 33.8 32.3 - 35.7 g/dL [facility] RDW CV 14.6 11.1 - 14.9 % [facility] RDW SD 47.9 35.7 - 48.1 fL [facility] NRBC abs 0.00 0.00 - 0.01 K/cumm [facility] Blood 11/16/2024 2:20 PM CREATIVE SERVICES MANAGER 11/16/2024 2:22 PM CREATIVE SERVICES MANAGER Toshia Price MD LAB BLOOD ORDERABLES Fin al Result [facility] [address] [employer] [place], [place] [phone] * (ABNORMAL) Ferritin (11/16/2024 2:20 PM CREATIVE SERVICES MANAGER) Ferritin 368(H) 15 - 150 ng/mL Blood 11/16/2024 2:20 PM CREATIVE SERVICES MANAGER 11/16/2024 2:52 PM CREATIVE SERVICES MANAGER Toshia Price MD LAB BLOOD ORDERABLES Fin al Result Performing Organization Address City/[facility]/ZIP Co de Phone Number [facility] [address] [facility] [place] [place] [address] * Colonoscopy (06/15/2024 11:58 AM CDT) Anatomical Region Laterality Modality Other Narrative Procedure Note Vincent Peter MD - 06/15/2024 11:58 AM CDT ENDOSCOPY LAB Patient Name: Vanesa Awad Procedure Date: 06/15/2024 11:58 AM Admit Type: Outpatient Room: [facility] Date of : 1960 Instrument Name: [...] the bowel preparation was evaluatedusing the BBPS ([place] Bowel Preparation Scale) withscores of: Right Colon [...] Most Recently Relevant to Health Maintenance Insurance [facility] H[facility]/PPO Address: [place] [address] [facility] HMO/PPO Address: [place] [address] [facility] HMO/PPO Address: [facility] [address] [place] [address] Advance Directives For more information, please contact: [phone] * Full Code (Latest Code Status on File) Date Activated Date Inactivated Comments 06/15/2024 12:07 PM 06/15/2024 6:45 PM * Full Code Date Activated Date Inactivated Comments 05/24/2023 7:46 AM 05/24/2023 1:54 PM * Full Code Date Activated Date Inactivated Comments 02/08/2019 11:03 AM 02/08/2019 5:19 PM * Full Code Date Activated Date Inactivated Comments 06/01/2018 11:13 AM 06/01/2018 2:52 PM Care Teams Automobile Damage Field Appraiser Relationship Specialty Start Date End Date Irma Koehler DO [address] [place] [address] PCP - General Family Medicine 12/10/22 Toshia Price MD [address] [place] [address] Medical Oncologist/Mushroom Grower Hematology and Oncology 08/28/22
[2024-12-04 08:05] LABS: Hematocrit 39.5 % (37.0-47.0); Hemoglobin 13.3 g/dL (12.0-15.0); Mean Corpuscular HGB Conc 33.7 g/dl (32-36); Mean Corpuscular Hemoglobin 30.6 pg (26-34); Mean Platelet Volume 9.7 fl (7.4-10.4); Platelet Count Result 184 k/mm3 (150-375); Red Blood Count 4.34 M/mm3 (4.2-5.4); Red Cell Distribution Width 13.8 % (11.5-14.5)
[2024-12-04 08:11] LABS: Add Urine Microscopic? YES; Appearance Urine Clear (Clear); Bacteria Urine None Seen /hpf; Bilirubin Urine Negative (Negative); Blood Urine 1+ (Negative); Color Urine Yellow (Yellow); Glucose Urine UA Negative (Negative); Ketones Urine Negative (Negative); Leukocyte Esterase Ur Trace LEU/UL (Negative); Nitrate Urine Negative (Negative); Non Pathogenic Casts 0-2; Protein Urine Negative (Negative); RBC Urine 0-2 /hpf (0-2); Specific Grav Ur 1.018 (1.001-1.035); Squamous Epithelial Cell Urine Occasional /hpf (Few); Urobilinogen Urine 0.2 mg/dL (<2.0); WBC Urine 0-5 /hpf (0-3)
[2024-12-04 08:19] LABS: Iron 81 ug/dL (37-170)
[2024-12-04 08:24] LABS: Alanine Aminotransferase 30 U/L (6-35); Alkaline Phosphatase 91 U/L (38-126); Anion Gap 7 mmol/L (4-12); Aspartate Amino Transferase 24 U/L (14-36); Bilirubin,Total 0.5 mg/dL (0.2-1.3); Blood Urea Nitrogen 18 mg/dL (7-17); Calcium 9.4 mg/dL (8.4-10.2); Carbon Dioxide 32 mmol/L (22-30); Chloride 103 mmol/L (98-107); Cholesterol 158 mg/dL (0-200); Estimated Glomerular Filt Rate > 60; Glucose 96 mg/dL (65-110); HDL Direct 48 mg/dL; Potassium 4.1 mmol/L (3.4-5.0); Sodium 142 mmol/L (137-145); Triglycerides 154 mg/dL (<150)
[2024-12-04 08:35] LABS: LDL Cholesterol Direct 73 mg/dL
[2024-12-04 08:43] LABS: Percent Iron Saturation 30 % (20-50)
== END 2024-12-04 06:57 | disposition home or self-care (01) ==
LOC: ANHLAB 06:58
PROVIDERS: PCP Family Medicine; Visit Provider Family Medicine
DX: E55.9 Vitamin D deficiency, unspecified (principal); Z79.899 Other long term (current) drug therapy; D64.9 Anemia, unspecified; R74.8 Abnormal levels of other serum enzymes; I10 Essential (primary) hypertension; E78.2 Mixed hyperlipidemia; R80.9 Proteinuria, unspecified
CPT/HCPCS: 36415; 80053; 80061; 81001; 82652; 82728; 83540; 83550; 84443; 85027

== ENCOUNTER 2024-12-20 10:56 | Outpatient (CLI) | payer OTHER, SELFPAY ==
--- NOTE | ~2024-12-20 | US_ITS ---
EXAMINATION: US thyroid DATE: 12/20/2024 11:42 INDICATION: Nontoxic single thyroid nodule. TECHNIQUE: Multiple ultrasound images of the thyroid were obtained. COMPARISON: Ultrasound 01/21/2024, 03/30/2023 FINDINGS: The right thyroid lobe measures 3.4 x 1.3 x 2.1 cm. The left thyroid lobe measures 3.5 x 1.2 x 0.9 c m. In the left thyroid lobe, there is a 5 mm solid, hypoechoic, wider than tall nodule with smooth m argin without echogenic foci (TI-RADS TR4). In the left thyroid lobe, there is a 6 mm solid, hypoecho ic, wider than tall nodule with ill-defined margin without echogenic foci (TR4). In the right thyroid lobe, there is a 9 mm mixed cystic and solid, hypoechoic, wider than tall nodule with smooth margin without echogenic foci (TR3). In the right thyroid lobe, there is a 7 mm almost entirely cystic nodul e (TR1). IMPRESSION: 1. Small thyroid nodules, likely not clinically significant. No follow-up is needed. Reviewed, dictated and finalized at location B. IMPRESSION: 1. Small thyroid nodules, likely not clinically significant. No follow-up is ne eded.
--- OUTSIDE RECORDS SUMMARY | 2024-12-20 12:36 | XMS_ITS | Clinical Summary ---
Author Organization [facility] Address [address], [place] [address] Phone Care Team Providers Care Surgery Scheduler Name Role Phone Dimas Vale MD Primary Care Provider [phone] Medications Medication Sig Dispensed Refills Start Date [...] Comments Blood Pressure 124/70 10/09/2019 3:38 PM NEEDLE STRAIGHTENER Pulse 76 06/24/2018 12:01 AM CDT Temperature - - Respiratory Rate - - Oxygen Saturation - - Inhaled Oxygen Concentration - - Weight 67.6 kg (149 lb) 10/09/2019 3:38 PM NEEDLE STRAIGHTENER Height 144.8 cm (4' 9 ) 10/09/2019 3:38 PM NEEDLE STRAIGHTENER Body Mass Index 32.24 10/09/2019 3:38 PM NEEDLE STRAIGHTENER Plan of Treatment Health Maintenance Due Date Last Done Comments Pneumococcal PPSV23 Highest Risk Adult (1 of 3 - PCV13 ) 1979 Influenza Vaccine (#1) 2024 Care Teams Surgery Scheduler Relationship Specialty Start Date End Date Dimas Vale MD [address] [place] [id number] PCP - General Family Medicine 10/09/19
--- OUTSIDE RECORDS SUMMARY | 2024-12-20 12:36 | XMS_ITS | Clinical Summary ---
Author Organization [facility] [place] Address [address] [place] [address] Phone Care Team Providers Care Dampener Name Role Phone Dimas Vale MD Primary Care Provider [phone] Allergies Active Allergy Reactions Criticality Noted Date [...] ISOMETHEPTENE MUCATE ORAL Take by mouth. Act jeoy ALBUTEROL SULFATE (PROAIR HFA INHALATION) Take by inhalation. Active Active Problems Patient Care Coordination No te Formatting of this note migh t be different from the original. Primary Care: Dimas Vale MD Referring Provider: Dimas Vale [address] [place] [address] Other: Problem Noted Date Diagnosed Date Asthma [...] on file Legal Sex Female 5:55 AM MOTEL FRONT DESK ATTENDANT Gender Identity Not on file Sexual Orientation [...] OR WO CAD Routine 09/15/2010 10:04 AM MOTEL FRONT DESK ATTENDANT Lump or mass in breast from Last 3 Months or Most Recently Relevant to Health Maintenance Results * MAMMO DIGITAL DIAG BILAT (09/15/2010 10:04 AM MOTEL FRONT DESK ATTENDANT) Anatomical Region Laterality Modality Breast Bilateral Mammography Narrative 09/15/2010 5:15 PM MOTEL FRONT DESK ATTENDANT BILATERAL DIAGNOSTIC DIGITAL MAMMOGRAMS WITH COMPUTER ASSISTED [...] Recently Relevant to Health Maintenance Care Teams Dampener Relationship Specialty Start Date End Date Dimas Vale MD [address] [place] [address] PCP - General Family Practice 06/19/10
--- OUTSIDE RECORDS SUMMARY | 2024-12-20 12:36 | XMS_ITS | Clinical Summary ---
Author Organization [facility] Address [address] [place] [address] Care Team Providers Care Management Trainee Marketing Name Role Phone Irma Koehler Primary Care Provider [phone] Allergies Active Allergy Reactions Criticality Noted Date [...] inhalerIndicati ons:Chronic bronchitis, unspecified chronic bronchitis type ([facility]) Inhale 2 puffs into the lungs every 4 (four) hours as needed for Wheezing. 18 g 3 3 Active BREO ELLIPTA 200-25 MCG/ACT inhalerIndicati ons:Chronic bronchitis, unspecified chronic bronchitis type ([facility]) Inhale 1 puff by mouth once daily 60 each 2 5 Active Active Problems Problem Noted Date Diagnosed Date Chronic bronchitis, unspecif ied chronic bronchitis type ([facility]) 03/18/2020 ANGEL (mycobacterium avium-intracellulare) ([facility]) 03/18/2020 Pulmonary embolism, other, u nspecified chronicity, unspecified whether acute cor pulmonale present ([facility]) 03/18/2020 Gastroesophageal reflux dise ase, esophagitis presence [...] Comments Blood Pressure 136/86 08/19/2023 7:57 AM WOOD PATTERNMAKER APPRENTICE Pulse 82 08/19/2023 7:57 AM WOOD PATTERNMAKER APPRENTICE Temperature 36.3 C (97.4 F) 08/19/2023 7:57 AM WOOD PATTERNMAKER APPRENTICE Respiratory Rate 12 08/19/2023 7:57 AM WOOD PATTERNMAKER APPRENTICE Oxygen Saturation 97% 08/19/2023 7:57 AM WOOD PATTERNMAKER APPRENTICE ra Inhaled Oxygen Concentration - - Weight 65.8 kg (145 lb) 08/19/2023 7:57 AM WOOD PATTERNMAKER APPRENTICE Height 147.3 cm (4' 10 ) 08/19/2023 7:57 AM WOOD PATTERNMAKER APPRENTICE Body Mass Index 30.31 08/19/2023 7:57 AM WOOD PATTERNMAKER APPRENTICE Plan of Treatment Upcoming Encounters Date Type Department Care Team (Late st Contact Info) Description 01/17/2025 8:00 AM CDT Office Visit [facility] Mult[facility]ty [facility] - [address] [place] [address] Ariel Valera MD [address] [place] [address] [place] [phone] Health Maintenance Due Date Last Done Comments [...] 07/23/2015, 05/24/2012, Additional history exists PHQ-2 ([facility]) 08/19/2024 08/19/2023 PHQ-2 (Physician [facility]) 10/11/2024 08/19/2023 RSV Immunization or 60+ Years [...] age to complete this topic Care Teams Management Trainee Marketing Relationship Specialty Start Date End Date Irma Koehler DO [address] [place] [address] PCP - General FAMILY PRACTICE 03/22/20
--- OUTSIDE RECORDS SUMMARY | 2024-12-20 12:36 | XMS_ITS | Referral Summary ---
Author Organization [facility] Center Address [facility] [place] [address] Care Team Providers Care Knitting Supervisor Name Role Phone Toshia Price MD Unavailable [phone] Irma Koehler DO Primary Care Provider [phone] Encounters Date Type Department Care Team Description 11/16/2024 2:00 PM TUNNEL HEADING SUPERVISOR Lab [facility] Lab [address] [place] [phone] Iron deficiency anemia due to chronic blood loss 11/16/2024 2:15 PM TUNNEL HEADING SUPERVISOR Office Visit [address] [address] Toshia Price MD Iron deficiency anemia due to chronic blood loss (Primary Dx) 10/23/2024 Telephone [facility] Gastroenterology at [facility] [address] [address] Vincent Peter MD Test Results from Last 3 Months Allergies Active Allergy [...] 03/18/2020 Diastolic dysfunction 03/18/2020 ANGEL (mycobacterium avium-intracellulare) 020 Vocal fold polyp 03/07/2019 Assessment & Plan [...] have recommended voice therapy here at the [facility] in order to improve the biomechanics of the patient's voice, which will improve the patient's associated symptoms. Gastroesophageal reflux disease without esophagi tis 01/30/2019 Overview (01/30/2019): Added automatically from request for surgery [id number] Assessment & Plan (07/15/2020 1:35 PM CDT): [...] has let me know. 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 Last exam May 2019. [...] disease) Assessment & Plan (12/10/2022 2:18 PM TUNNEL HEADING SUPERVISOR): Has significant laryngeal reflux. We discussed that [...] on file Legal Sex Female 2:03 AM TUNNEL HEADING SUPERVISOR Gender Identity Not on file Sexual Orientation Not on file Last Filed Vital Signs Vital Sign Reading Time Taken Comments Blood Pressure 149/64 11/16/2024 2:25 PM TUNNEL HEADING SUPERVISOR Pulse 95 11/16/2024 2:25 PM TUNNEL HEADING SUPERVISOR Temperature 36.3 C (97.3 F) 11/16/2024 2:25 PM TUNNEL HEADING SUPERVISOR Respiratory Rate 18 11/16/2024 2:25 PM TUNNEL HEADING SUPERVISOR Oxygen Saturation 99% 11/16/2024 2:25 PM TUNNEL HEADING SUPERVISOR Inhaled Oxygen Concentration - - Weight 66.2 kg (146 lb) 11/16/2024 2:25 PM TUNNEL HEADING SUPERVISOR Height 145.4 cm (4' 9.25 ) 06/15/2024 12:04 PM C DT Body Mass Index 31.32 06/15/2024 12:04 PM CDT Plan of Treatment Not on file Procedures Procedure Name Priority Date/Time Associated Diagnosis Comments DIFFERENTIAL AUTO Routine 11/16/2024 2:2 0 PM TUNNEL HEADING SUPERVISOR Iron deficiency anemia due to chronic blood loss CBC WITH AUTO DIFFERENTIAL Routine 11/16/2024 2:20 PM TUNNEL HEADING SUPERVISOR Iron deficiency anemia due to chronic blood loss IRON PROFILE W/ IBC Routine 11/16/2024 2 :20 PM TUNNEL HEADING SUPERVISOR Iron deficiency anemia due to chronic blood loss FERRITIN Routine 11/16/2024 2:20 PM TUNNEL HEADING SUPERVISOR Iron deficiency anemia due to chronic blood loss COLONOSCOPY 06/15/2024 11:58 AM CDT from Last 3 Months or Most Recently Relevant to Health Maintenance Results * (ABNORMAL) Differential, auto (11/16/2024 2:20 PM TUNNEL HEADING SUPERVISOR) Neutrophil abs 6.6(H) 1.5 - 6.5 K/cumm Imm gran abs 0.0 0.0 - 0.1 K/cumm [facility] Lymphocyte abs 1.5 0.8 - 3.3 K/cumm [facility] Monocyte abs 0.8 0.2 - 0.8 K/cumm [facility] Eosinophil abs 0.3 0.0 - 0.5 K/cumm [facility] Basophil abs 0.1 0.0 - 0.1 K/cumm [facility] Neutrophil pct 71.1 % [facility] Comment: Interpretive Data Percent cell count reference ranges are not reported, since discordance with absolute values may lead to misinterpretation of CBC data. Current Interpretive Data was last revised on 2018. Imm gran pct 0.3 % [facility] Comment: Interpretive Data Percent cell count reference ranges are not reported, since discordance with absolute values may lead to misinterpretation of CBC data. Current Interpretive Data was last revised on 2018. Lymphocyte pct 15.8 % [facility] Comment: Interpretive Data Percent cell count reference ranges are not reported, since discordance with absolute values may lead to misinterpretation of CBC data. Current Interpretive Data was last revised on 2018. Monocyte pct 8.8 % [facility] Comment: Interpretive Data Percent cell count reference ranges are not reported, since discordance with absolute values may lead to misinterpretation of CBC data. Current Interpretive Data was last revised on 2018. Eosinophil pct 2.9 % [facility] Comment: Interpretive Data Percent cell count reference ranges are not reported, since discordance with absolute values may lead to misinterpretation of CBC data. Current Interpretive Data was last revised on 2018. Basophil pct 1.1 % [facility] Comment: Interpretive Data Percent cell count reference ranges are not reported, since discordance with absolute values may lead to misinterpretation of CBC data. Current Interpretive Data was last revised on 2018. Blood 11/16/2024 2:20 PM TUNNEL HEADING SUPERVISOR 11/16/2024 2:22 PM TUNNEL HEADING SUPERVISOR Toshia Price MD LAB BLOOD ORDERABLES Fin al Result Performing Organization Address City/[facility]/ZIP Co de Phone Number [facility] [address] [place] [employer] [place] [address] * (ABNORMAL) Iron profile w/ IBC (11/16/2024 2:20 PM TUNNEL HEADING SUPERVISOR) [facility] Iron 48 35 - 145 mcg/dL TIBC 271 250 - 400 mcg/dL [facility] Transferrin saturation 18(L) 20 - 50 % [facility] Blood 11/16/2024 2:20 PM TUNNEL HEADING SUPERVISOR 11/16/2024 2:52 PM TUNNEL HEADING SUPERVISOR Toshia Price MD LAB BLOOD ORDERABLES Fin al Result [facility] [address] Department [place] [address] * CBC with auto differential (11/16/2024 2:20 PM TUNNEL HEADING SUPERVISOR) [facility] WBC 9.3 3.8 - 9.9 K/cumm Hgb 14.3 11.9 - 15.5 g/dL [facility] Hct 42.3 35.6 - 45.5 % [facility] Plt 223 150 - 400 K/cumm [facility] MPV 9.4 9.1 - 12.3 fL [facility] RBC 4.75 3.90 - 5.20 M/cumm [facility] MCV 89.1 81.3 - 96.4 fL [facility] MCH 30.1 27.1 - 33.3 pg [facility] MCHC 33.8 32.3 - 35.7 g/dL [facility] RDW CV 14.6 11.1 - 14.9 % [facility] RDW SD 47.9 35.7 - 48.1 fL [facility] NRBC abs 0.00 0.00 - 0.01 K/cumm [facility] Blood 11/16/2024 2:20 PM TUNNEL HEADING SUPERVISOR 11/16/2024 2:22 PM TUNNEL HEADING SUPERVISOR Toshia Price MD LAB BLOOD ORDERABLES Fin al Result [facility] [address] [facility] [place] [address] * (ABNORMAL) Ferritin (11/16/2024 2:20 PM TUNNEL HEADING SUPERVISOR) [facility] Ferritin 368(H) 15 - 150 ng/mL Blood 11/16/2024 2:20 PM TUNNEL HEADING SUPERVISOR 11/16/2024 2:52 PM TUNNEL HEADING SUPERVISOR Toshia Price MD LAB BLOOD ORDERABLES Fin al Result Performing Organization Address City/[facility]/ZIP Co de Phone Number [facility] [address] [facility] [place] [employer] [place] [address] * Colonoscopy (06/15/2024 11:58 AM CDT) Anatomical Region Laterality Modality Other Narrative Procedure Note Brittani, Vincent K., MD - 06/15/2024 11:58 AM CDT ENDOSCOPY LAB Patient Name: Vanesa Awad Procedure Date: 06/15/2024 11:58 AM Admit Type: Outpatient Room: [facility] Date of : 1960 Instrument [...] the bowel preparation was evaluatedusing the BBPS ([place] Bowel Preparation Scale) withscores of: Right Colon [...] Most Recently Relevant to Health Maintenance Insurance [facility] Advance Directives For more information, please contact: [phone] * Full Code (Latest Code Status on File) Date Activated Date Inactivated Comments 06/15/2024 12:07 PM 06/15/2024 6:45 PM * Full Code Date Activated Date Inactivated Comments 05/24/2023 7:46 AM 05/24/2023 1:54 PM * Full Code Date Activated Date Inactivated Comments 02/08/2019 11:03 AM 02/08/2019 5:19 PM * Full Code Date Activated Date Inactivated Comments 06/01/2018 11:13 AM 06/01/2018 2:52 PM Care Teams Knitting Supervisor Relationship Specialty Start Date End Date Irma Koehler DO [address] [place] [address] PCP - General Family Medicine 12/10/22 Toshia Price MD [address] [place] [address] Medical Oncologist/Business Analytics Analyst Hematology and Oncology 08/28/22
--- OUTSIDE RECORDS SUMMARY | 2024-12-20 12:36 | XMS_ITS | Clinical Summary ---
Author Organization [facility] Address [address] [place] [address] Care Team Providers Care Mysql Dba Name Role Phone Toshia Price MD Unavailable [phone] Irma Koehler DO Primary Care Provider [phone] Allergies Active Allergy Reactions Criticality Noted Date [...] have recommended voice therapy here at the [facility] in order to improve the biomechanics of the patient's voice, which will improve the patient's associated symptoms. Gastroesophageal reflux disease without esophagi tis 01/30/2019 Overview (01/30/2019): Added automatically from request for surgery [id number] Assessment & Plan (07/15/2020 1:35 PM CDT): [...] (05/06/2018): Added automatically from request for surgery [id number] Assessment & Plan (12/10/2022 2:19 PM LITHOGRAPH PRINTER): Due for colonoscopy. Last exam May 2019. [...] glomerularsclerosis nephrotic syndrome, in remission since 2017 2005 fracture skiing Long-term current use of [...] disease) Assessment & Plan (12/10/2022 2:18 PM LITHOGRAPH PRINTER): Has significant laryngeal reflux. We discussed that [...] Department Care Team Description 11/16/2024 2:15 PM LITHOGRAPH PRINTER Office Visit [facility] [address] [place], [place] [phone] Toshia Price MD Iron deficiency anemia due to chronic blood loss (Primary Dx) 11/16/2024 2:00 PM LITHOGRAPH PRINTER Lab [facility] Lab [address] [place] [phone] Iron deficiency anemia due to chronic blood loss 10/23/2024 Telephone [facility] Gastroenterology at [facility] [address] [place] [address] Vincent Peter MD Test Results from Last 3 Months Surgical History Surgery [...] n procedure 1996 bladder suspension Pulmonary embolism ([facility]) 2002 Protein C /Protein S Deficiency GERD (gastroesophageal reflu x disease) Chronic diarrhea Diverticulosis Chronic bronchitis ([facility]) Focal segmental glomerulosclerosis Arthritis Hypertension Pulmonary embolism ([facility]) 2003 FSGS (focal segmental glomerulosclerosis) Remission 2017 Personal history of colonic polyps Diastolic dysfunction 03/18/2020 Protein S deficiency 10/01/2015 Protein S d eficiency Protein C deficiency 10/01/2015 Protein C d eficiency Primary hypercoagulable state 11/02/2012 Co nverted unresolved ICD9, potential mismatch. Other primary thrombophilia 06/24/2018 Protein deficiency disease 12/28/2018 Overv iew: s and c Age-related osteoporosis wit hout [...] Added au tomatically from request for surgery [id number] Hiatal hernia 12/28/2018 Gastroesophageal reflux dise ase without esophagitis 01/30/2019 Added automatically from req uest for surgery [id number] Gastroesophageal reflux disease 08/22/2012 GERD (gastroesophageal reflux [...] ICD9, p otential mismatch. ANGEL (mycobacterium avium-intracellulare) ([facility]) 03/18/2020 Paresthesia 08/18/2017 Anesthesia of skin 12/17/2017 Abnormal finding on lung imaging 03/18/2020 Abnormal levels of other ser um enzymes 02/28/2015 Converted unresolved ICD9, p otential mismatch. Family History Medical History Relation Name Comments COPD Father [facility] COPD; Cancer Father [facility] Colon polyps Father [facility] Early Father [facility] Heart attack Father [facility] Liver disease Father [facility] Liver disease; Lung cancer Father [facility] Cancer, lung; Other Father [facility] hypercoagulable ; Asthma Mother [facility] Asthma; COPD Mother [facility] COPD; Diabetes type II Mother [facility] Diabetes me llitus type 2; Osteoporosis Mother [facility] Thyroid disease Mother [facility] Thyroid dise ase; Colon cancer Mother's Sister Relation Name Status Comments Father [facility] Heart Attack Mother [facility] Mother's Sister Social History Tobacco [...] on file Legal Sex Female 2:03 AM LITHOGRAPH PRINTER Gender Identity Not on file Sexual Orientation Not on file Obstetrics History Last Filed Vital Signs Vital Sign Reading Time Taken Comments Blood Pressure 149/64 11/16/2024 2:25 PM LITHOGRAPH PRINTER Pulse 95 11/16/2024 2:25 PM LITHOGRAPH PRINTER Temperature 36.3 C (97.3 F) 11/16/2024 2:25 PM LITHOGRAPH PRINTER Respiratory Rate 18 11/16/2024 2:25 PM LITHOGRAPH PRINTER Oxygen Saturation 99% 11/16/2024 2:25 PM LITHOGRAPH PRINTER Inhaled Oxygen Concentration - - Weight 66.2 kg (146 lb) 11/16/2024 2:25 PM LITHOGRAPH PRINTER Height 145.4 cm (4' 9.25 ) 06/15/2024 [...] Td or Tdap) 07/14/2021 07/14/2011 Covid-19 Vaccine (2023-2 5 season) 2024 07/25/2021, 10/18/2020, 09/27/2020 Influenza [...] DIFFERENTIAL AUTO Routine 11/16/2024 2:2 0 PM LITHOGRAPH PRINTER Iron deficiency anemia due to chronic blood loss CBC WITH AUTO DIFFERENTIAL Routine 11/16/2024 2:20 PM LITHOGRAPH PRINTER Iron deficiency anemia due to chronic blood loss IRON PROFILE W/ IBC Routine 11/16/2024 2 :20 PM LITHOGRAPH PRINTER Iron deficiency anemia due to chronic blood loss FERRITIN Routine 11/16/2024 2:20 PM LITHOGRAPH PRINTER Iron deficiency anemia due to chronic blood loss COLONOSCOPY 06/15/2024 11:58 AM CDT from Last 3 Months or Most Recently Relevant to Health Maintenance Results * (ABNORMAL) Differential, auto (11/16/2024 2:20 PM LITHOGRAPH PRINTER) Neutrophil abs 6.6(H) 1.5 - 6.5 K/cumm Imm gran abs 0.0 0.0 - 0.1 K/cumm [facility] Lymphocyte abs 1.5 0.8 - 3.3 K/cumm [facility] Monocyte abs 0.8 0.2 - 0.8 K/cumm [facility] Eosinophil abs 0.3 0.0 - 0.5 K/cumm [facility] Basophil abs 0.1 0.0 - 0.1 K/cumm [facility] Neutrophil pct 71.1 % [facility] Comment: Interpretive Data Percent cell count reference ranges are not reported, since discordance with absolute values may lead to misinterpretation of CBC data. Current Interpretive Data was last revised on 2018. Imm gran pct 0.3 % [facility] Comment: Interpretive Data Percent cell count reference ranges are not reported, since discordance with absolute values may lead to misinterpretation of CBC data. Current Interpretive Data was last revised on 2018. Lymphocyte pct 15.8 % [facility] Comment: Interpretive Data Percent cell count reference ranges are not reported, since discordance with absolute values may lead to misinterpretation of CBC data. Current Interpretive Data was last revised on 2018. Monocyte pct 8.8 % [facility] Comment: Interpretive Data Percent cell count reference ranges are not reported, since discordance with absolute values may lead to misinterpretation of CBC data. Current Interpretive Data was last revised on 2018. Eosinophil pct 2.9 % [facility] Comment: Interpretive Data Percent cell count reference ranges are not reported, since discordance with absolute values may lead to misinterpretation of CBC data. Current Interpretive Data was last revised on 2018. Basophil pct 1.1 % [facility] Comment: Interpretive Data Percent cell count reference ranges are not reported, since discordance with absolute values may lead to misinterpretation of CBC data. Current Interpretive Data was last revised on 2018. Blood 11/16/2024 2:20 PM LITHOGRAPH PRINTER 11/16/2024 2:22 PM LITHOGRAPH PRINTER Toshia Price MD LAB BLOOD ORDERABLES Fin al Result Performing Organization Address [facility] Co de Phone Number [facility] [address] Department of [employer] [place], [place] [phone] * (ABNORMAL) Iron profile w/ IBC (11/16/2024 2:20 PM LITHOGRAPH PRINTER) [facility] Iron 48 35 - 145 mcg/dL TIBC 271 250 - 400 mcg/dL [facility] Transferrin saturation 18(L) 20 - 50 % [facility] Blood 11/16/2024 2:20 PM LITHOGRAPH PRINTER 11/16/2024 2:52 PM LITHOGRAPH PRINTER Toshia Price MD LAB BLOOD ORDERABLES Fin al Result Performing Organization Address [facility] Co de Phone Number [facility] [address] [place] [address] * CBC with auto differential (11/16/2024 2:20 PM LITHOGRAPH PRINTER) Pathologist [facility] WBC 9.3 3.8 - 9.9 K/cumm Hgb 14.3 11.9 - 15.5 g/dL [facility] Hct 42.3 35.6 - 45.5 % [facility] Plt 223 150 - 400 K/cumm [facility] MPV 9.4 9.1 - 12.3 fL [facility] RBC 4.75 3.90 - 5.20 M/cumm [facility] MCV 89.1 81.3 - 96.4 fL [facility] MCH 30.1 27.1 - 33.3 pg [facility] MCHC 33.8 32.3 - 35.7 g/dL [facility] RDW CV 14.6 11.1 - 14.9 % [facility] RDW SD 47.9 35.7 - 48.1 fL [facility] NRBC abs 0.00 0.00 - 0.01 K/cumm [facility] Blood 11/16/2024 2:20 PM LITHOGRAPH PRINTER 11/16/2024 2:22 PM LITHOGRAPH PRINTER Toshia Price MD LAB BLOOD ORDERABLES Fin al Result Performing Organization Address City/[facility]/ZIP Co de Phone Number [facility] [address] [facility] [employer] [place], [place] [phone] * (ABNORMAL) Ferritin (11/16/2024 2:20 PM LITHOGRAPH PRINTER) Ferritin 368(H) 15 - 150 ng/mL Blood 11/16/2024 2:20 PM LITHOGRAPH PRINTER 11/16/2024 2:52 PM LITHOGRAPH PRINTER Toshia Price MD LAB BLOOD ORDERABLES Fin al Result Performing Organization Address City/[facility] Co de Phone Number [facility] [address] [place] [address] * Colonoscopy (06/15/2024 11:58 AM CDT) Anatomical Region Laterality Modality Other Narrative Procedure Note Vincent Peter MD - 06/15/2024 11:58 AM CDT ENDOSCOPY LAB Patient Name: Vanesa Awad Procedure Date: 06/15/2024 11:58 AM Admit Type: Outpatient Room: [facility] Date of : 1960 Instrument Name: [id number] Gender: Female Note Status: Finalized Procedure: Colonoscopy [...] the bowel preparation was evaluatedusing the BBPS ([place] Bowel Preparation Scale) withscores of: Right Colon [...] Most Recently Relevant to Health Maintenance Insurance [facility] Advance Directives For more information, please contact: [phone] * Full Code (Latest Code Status on File) Date Activated Date Inactivated Comments 06/15/2024 12:07 PM 06/15/2024 6:45 PM * Full Code Date Activated Date Inactivated Comments 05/24/2023 7:46 AM 05/24/2023 1:54 PM * Full Code Date Activated Date Inactivated Comments 02/08/2019 11:03 AM 02/08/2019 5:19 PM * Full Code Date Activated Date Inactivated Comments 06/01/2018 11:13 AM 06/01/2018 2:52 PM Care Teams Mysql Dba Relationship Specialty Start Date End Date Irma Koehler DO [address] [place] [address] PCP - General Family Medicine 12/10/22 Toshia Price MD [address] [place] [address] Medical Oncologist/Night Stocker Hematology and Oncology 08/28/22
== END 2024-12-20 10:57 | disposition home or self-care (01) ==
LOC: ANHIMG 10:59
PROVIDERS: PCP Family Medicine; Visit Provider Family Medicine
DX: E04.2 Nontoxic multinodular goiter (principal)
CPT/HCPCS: 76536

== ENCOUNTER 2025-01-02 12:34 | Outpatient (CLI) | payer OTHER, SELFPAY ==
--- OUTSIDE RECORDS SUMMARY | 2025-01-02 14:28 | XMS_ITS | Clinical Summary ---
Author Organization [facility] Address [address] [place] [address] Care Team Providers Care Concrete Pipe Plant Supervisor Name Role Phone Toshia Price MD Unavailable [phone] Irma Koehler DO Primary Care Provider [phone] Allergies Active Allergy Reactions Criticality Noted Date [...] (10MG) by oral route every day 0 08/22/20 12 Active atorvastatin (LIPITOR) 20 mg tablet take 1 tablet (20MG) by oral route every day 0 08/22/20 12 Active cholecalcifero l (VITAMIN D3) 2,000 unit capsule take 1 by Oral route once 0 0 10/01/20 15 Active albuterol HFA (PROVENTIL HFA,VENTOLIN HFA,PROAIR HFA) 90 mcg/actuation inhaler uses prn Active isometh-dichlo ral-acetaminop hn (MIDRIN) 65-100-325 mg per capsule as needed 0 07/05/20 18 Active BREO ELLIPTA 200-25 mcg/dose diskus inhaler 11/25/19 19 Active Bifidobacteriu m infantis (ALIGN) 4 mg capsule Take by mouth daily 06/24/20 18 Active hydroCHLOROthi azide (HYDRODIURIL) 12.5 mg tablet Take 1 tablet (12.5 mg total) by mouth daily 05/03/20 20 Active gabapentin (NEURONTIN) 100 mg capsule Take 1 capsule (100 mg total) by mouth daily Active losartan (COZAAR) 25 mg tablet Take 2 tablets (50 mg total) by mouth daily 01/11/20 24 Active potassium chloride ER 20 mEq CR tablet daily 05/11/20 24 Active allopurinoL (ZYLOPRIM) 100 mg tablet Take 1 tablet (100 mg total) by mouth daily 05/07/20 24 Active ondansetron (ZOFRAN) 8 mg tablet Take 1 tablet (8 mg total) by mouth every 8 (eight) hours as needed for nausea or vomiting 12 tablet 05/18/20 24 Active rivaroxaban (Xarelto) 20 mg tablet Take 1 tablet by mouth once daily 90 tablet 3 07/18/20 24 Active SUMAtriptan (IMITREX) 50 mg tablet 06/27/20 24 Active omeprazole (PriLOSEC) 40 mg capsule Take 1 capsule (40 mg total) by mouth 2 (two) times a day 180 capsule 3 12/28/19 25 Active omeprazole (PriLOSEC) 40 mg capsule Take 1 capsule by mouth twice daily 180 capsule 10/06/20 24 025 Discontinued(Re order) omeprazole (PriLOSEC) 40 mg capsule Take 1 capsule (40 mg total) by mouth 2 (two) times a day 180 capsule 12/28/19 25 025 Discontinued Active Problems Problem Noted Date [...] have recommended voice therapy here at the [facility] in order to improve the biomechanics of the patient's voice, which will improve the patient's associated symptoms. Gastroesophageal reflux disease without esophagi tis 01/30/2019 Overview (01/30/2019): Added automatically from request for surgery [id number] Assessment & Plan (07/15/2020 1:35 PM CDT): [...] (05/06/2018): Added automatically from request for surgery [id number] Assessment & Plan (12/10/2022 2:19 PM WATER TREATMENT PLANT OPERATOR): Due for colonoscopy. Last exam May [...] disease) Assessment & Plan (12/10/2022 2:18 PM WATER TREATMENT PLANT OPERATOR): Has significant laryngeal reflux. We discussed [...] Department Care Team Description 11/16/2024 2:15 PM WATER TREATMENT PLANT OPERATOR Office Visit [id number] [place] [address] Toshia Price MD Iron deficiency anemia due to chronic blood loss (Primary Dx) 11/16/2024 2:00 PM WATER TREATMENT PLANT OPERATOR Lab [facility] [address] [place] [address] Iron deficiency anemia due to chronic blood loss 10/23/2024 Telephone [facility] Medical [facility] Gastroenterology at [facility] [address], [place] [address] Vincent Peter MD Test Results [...] Focal segmental glomerulosclerosis Arthritis Hypertension Pulmonary embolism (HCC) 2003 FSGS (focal segmental glomerulosclerosis) Remission 2016 [...] Added au tomatically from request for surgery [id number] Hiatal hernia 12/28/2018 Gastroesophageal reflux dise ase without esophagitis 01/30/2019 Added automatically from req uest for surgery [id number] Gastroesophageal reflux disease 08/22/2012 GERD (gastroesophageal reflux [...] ICD9, p otential mismatch. 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 Family History Medical History Relation Name Comments COPD [facility]; Cancer Father [facility] Colon polyps Father [facility] Early Father [facility] Heart attack Father [facility] Liver disease Father [facility] Liver disease; Lung cancer Father [facility] Cancer, lung; Other Father [facility] hypercoagulable ; Asthma Mother [facility] Asthma; COPD Mother [facility] COPD; Diabetes type II Mother [facility] Diabetes me llitus type 2; Osteoporosis Mother [facility] Thyroid disease Mother [facility] Thyroid dise ase; Colon cancer Mother's Sister Relation Name Status Comments Father [facility] Heart Attack Mother [facility] Mother's Sister Social History Tobacco [...] on file Legal Sex Female 2:03 AM WATER TREATMENT PLANT OPERATOR Gender Identity Not on file Sexual Orientation Not on file Obstetrics History Last Filed Vital Signs Vital Sign Reading Time Taken Comments Blood Pressure 149/64 11/16/2024 2:25 PM WATER TREATMENT PLANT OPERATOR Pulse 95 11/16/2024 2:25 PM WATER TREATMENT PLANT OPERATOR Temperature 36.3 C (97.3 F) 11/16/2024 2:25 PM WATER TREATMENT PLANT OPERATOR Respiratory Rate 18 11/16/2024 2:25 PM WATER TREATMENT PLANT OPERATOR Oxygen Saturation 99% 11/16/2024 2:25 PM WATER TREATMENT PLANT OPERATOR Inhaled Oxygen Concentration - - Weight 66.2 kg (146 lb) 11/16/2024 2:25 PM WATER TREATMENT PLANT OPERATOR Height 145.4 cm (4' 9.25 ) [...] DIFFERENTIAL AUTO Routine 11/16/2024 2:2 0 PM WATER TREATMENT PLANT OPERATOR Iron deficiency anemia due to chronic blood loss CBC WITH AUTO DIFFERENTIAL Routine 11/16/2024 2:20 PM WATER TREATMENT PLANT OPERATOR Iron deficiency anemia due to chronic blood loss IRON PROFILE W/ IBC Routine 11/16/2024 2 :20 PM WATER TREATMENT PLANT OPERATOR Iron deficiency anemia due to chronic blood loss FERRITIN Routine 11/16/2024 2:20 PM WATER TREATMENT PLANT OPERATOR Iron deficiency anemia due to chronic blood loss COLONOSCOPY 06/15/2024 11:58 AM CDT from Last 3 Months or Most Recently Relevant to Health Maintenance Results * (ABNORMAL) Differential, auto (11/16/2024 2:20 PM WATER TREATMENT PLANT OPERATOR) Neutrophil abs 6.6(H) 1.5 - 6.5 K/cumm Imm gran abs 0.0 0.0 - 0.1 K/cumm [facility] Lymphocyte abs 1.5 0.8 - 3.3 K/cumm [facility] Monocyte abs 0.8 0.2 - 0.8 K/cumm [facility] Eosinophil abs 0.3 0.0 - 0.5 K/cumm [facility] Basophil abs 0.1 0.0 - 0.1 K/cumm [facility] Neutrophil pct 71.1 % [facility] Comment: Interpretive Data Percent cell count reference ranges are not reported, since discordance with absolute values may lead to misinterpretation of CBC data. Current Interpretive Data was last revised on 2018. Imm gran pct 0.3 % [facility] Comment: Interpretive Data Percent cell count reference ranges are not reported, since discordance with absolute values may lead to misinterpretation of CBC data. Current Interpretive Data was last revised on 2018. Lymphocyte pct 15.8 % [facility] Comment: Interpretive Data Percent cell count reference ranges are not reported, since discordance with absolute values may lead to misinterpretation of CBC data. Current Interpretive Data was last revised on 2018. Monocyte pct 8.8 % [facility] Comment: Interpretive Data Percent cell count reference ranges are not reported, since discordance with absolute values may lead to misinterpretation of CBC data. Current Interpretive Data was last revised on 2018. Eosinophil pct 2.9 % [facility] Comment: Interpretive Data Percent cell count reference ranges are not reported, since discordance with absolute values may lead to misinterpretation of CBC data. Current Interpretive Data was last revised on 2018. Basophil pct 1.1 % [facility] Comment: Interpretive Data Percent cell count reference ranges are not reported, since discordance with absolute values may lead to misinterpretation of CBC data. Current Interpretive Data was last revised on 2018. Blood 11/16/2024 2:20 PM WATER TREATMENT PLANT OPERATOR 11/16/2024 2:22 PM WATER TREATMENT PLANT OPERATOR Toshia Price MD LAB BLOOD ORDERABLES Fin al Result Performing Organization Address City/[facility]/ZIP Co de Phone Number [facility] [address] Department of [employer] [place], [place] [id number] * (ABNORMAL) Iron profile w/ IBC (11/16/2024 2:20 PM WATER TREATMENT PLANT OPERATOR) Pathologist [facility] Iron 48 35 - 145 mcg/dL TIBC 271 250 - 400 mcg/dL [facility] Transferrin saturation 18(L) 20 - 50 % [facility] Blood 11/16/2024 2:20 PM WATER TREATMENT PLANT OPERATOR 11/16/2024 2:52 PM WATER TREATMENT PLANT OPERATOR Toshia Price MD LAB BLOOD ORDERABLES Fin al Result [facility] [address] Department of [employer] [place], [place] [id number] * CBC with auto differential (11/16/2024 2:20 PM WATER TREATMENT PLANT OPERATOR) Pathologist [facility] WBC 9.3 3.8 - 9.9 K/cumm Hgb 14.3 11.9 - 15.5 g/dL [facility] Hct 42.3 35.6 - 45.5 % [facility] Plt 223 150 - 400 K/cumm [facility] MPV 9.4 9.1 - 12.3 fL [facility] RBC 4.75 3.90 - 5.20 M/cumm [facility] MCV 89.1 81.3 - 96.4 fL [facility] MCH 30.1 27.1 - 33.3 pg [facility] MCHC 33.8 32.3 - 35.7 g/dL [facility] RDW CV 14.6 11.1 - 14.9 % [facility] RDW SD 47.9 35.7 - 48.1 fL [facility] NRBC abs 0.00 0.00 - 0.01 K/cumm [facility] Blood 11/16/2024 2:20 PM WATER TREATMENT PLANT OPERATOR 11/16/2024 2:22 PM WATER TREATMENT PLANT OPERATOR Toshia Price MD LAB BLOOD ORDERABLES Fin al Result Performing Organization Address [facility]/ZIP Co de Phone Number [facility] [address] Department [place] [address] * (ABNORMAL) Ferritin (11/16/2024 2:20 PM WATER TREATMENT PLANT OPERATOR) Ferritin 368(H) 15 - 150 ng/mL Blood 11/16/2024 2:20 PM WATER TREATMENT PLANT OPERATOR 11/16/2024 2:52 PM WATER TREATMENT PLANT OPERATOR Toshia Price MD LAB BLOOD ORDERABLES Fin al Result [facility] [address] Department [place] [place] [address] * Colonoscopy (06/15/2024 11:58 AM CDT) Anatomical Region Laterality Modality Other Narrative Procedure Note Vincent Peter MD - 06/15/2024 11:58 AM CDT ENDOSCOPY LAB Patient Name: Vanesa Awad Procedure Date: 06/15/2024 11:58 AM Admit Type: Outpatient Room: [facility] Date of : 1960 Instrument Name: [id number] [...] the bowel preparation was evaluatedusing the BBPS ([place] Bowel Preparation Scale) withscores of: Right Colon [...] Most Recently Relevant to Health Maintenance Insurance [facility] H[facility]/PPO Address: [address] [place] [address] [facility] H[facility]/PPO Address: [address] [place] [address] [facility] HMO/PPO Address: [address] [place] [address] Advance Directives For more information, please contact: [phone] * Full Code (Latest Code Status on File) Date Activated Date Inactivated Comments 06/15/2024 12:07 PM 06/15/2024 6:45 PM * Full Code Date Activated Date Inactivated Comments 05/24/2023 7:46 AM 05/24/2023 1:54 PM * Full Code Date Activated Date Inactivated Comments 02/08/2019 11:03 AM 02/08/2019 5:19 PM * Full Code Date Activated Date Inactivated Comments 06/01/2018 11:13 AM 06/01/2018 2:52 PM Care Teams Concrete Pipe Plant Supervisor Relationship Specialty Start Date End Date Irma Koehler DO [address] [place] [address] PCP - General Family Medicine 12/10/22 Toshia Price MD [address] [place] [address] Medical Oncologist/Steam Table Attendant Hematology and Oncology 08/28/22
--- OUTSIDE RECORDS SUMMARY | 2025-01-02 14:28 | XMS_ITS | Clinical Summary ---
Author Organization [facility] Address [address], [place] [address] Phone Care Team Providers Care Tunnel Heading Inspector Name Role Phone Dimas Vale MD Primary Care Provider [phone] Medications Medication Sig Dispensed Refills Start Date [...] Comments Blood Pressure 124/70 10/09/2019 3:38 PM LEGAL ADMINISTRATIVE ASSISTANT Pulse 76 06/24/2018 12:01 AM CDT Temperature - - Respiratory Rate - - Oxygen Saturation - - Inhaled Oxygen Concentration - - Weight 67.6 kg (149 lb) 10/09/2019 3:38 PM LEGAL ADMINISTRATIVE ASSISTANT Height 144.8 cm (4' 9 ) 10/09/2019 3:38 PM LEGAL ADMINISTRATIVE ASSISTANT Body Mass Index 32.24 10/09/2019 3:38 PM LEGAL ADMINISTRATIVE ASSISTANT Plan of Treatment Health Maintenance Due Date Last Done Comments Pneumococcal PPSV23 Highest Risk Adult (1 of 3 - PCV13 ) 1979 Influenza Vaccine (#1) 2024 Care Teams Tunnel Heading Inspector Relationship Specialty Start Date End Date Dimas Vale MD [address] [place] [id number] PCP - General Family Medicine 10/09/19
--- OUTSIDE RECORDS SUMMARY | 2025-01-02 14:28 | XMS_ITS | Referral Summary ---
Author Organization [facility] Address [facility] [place] [address] Care Team Providers Care Closing Machine Operator Name Role Phone Toshia Price MD Unavailable [phone] Irma Koehler DO Primary Care Provider [phone] Encounters Date Type Department Care Team Description 11/16/2024 2:00 PM OVERHEAD CRANE TRUCK LOADER Lab [facility] [address] [place] [phone] Iron deficiency anemia due to chronic blood loss 11/16/2024 2:15 PM OVERHEAD CRANE TRUCK LOADER Office Visit [address] [address] Toshia Price MD Iron deficiency anemia due to chronic blood loss (Primary Dx) 10/23/[address] [facility] Medical Group Gastroenterology at [facility] [address], [place] [address] Vincent Peter MD Test Results [...] have recommended voice therapy here at the [facility] in order to improve the biomechanics of the patient's voice, which will improve the patient's associated symptoms. Gastroesophageal reflux disease without esophagi tis 01/30/2019 Overview (01/30/2019): Added automatically from request for surgery [id number] Assessment & Plan (07/15/2020 1:35 PM CDT): [...] (05/06/2018): Added automatically from request for surgery [id number] Assessment & Plan (12/10/2022 2:19 PM OVERHEAD CRANE TRUCK LOADER): Due for colonoscopy. Last exam May 2019. [...] disease) Assessment & Plan (12/10/2022 2:18 PM OVERHEAD CRANE TRUCK LOADER): Has significant laryngeal reflux. We discussed that [...] on file Legal Sex Female 2:03 AM OVERHEAD CRANE TRUCK LOADER Gender Identity Not on file Sexual Orientation Not on file Last Filed Vital Signs Vital Sign Reading Time Taken Comments Blood Pressure 149/64 11/16/2024 2:25 PM OVERHEAD CRANE TRUCK LOADER Pulse 95 11/16/2024 2:25 PM OVERHEAD CRANE TRUCK LOADER Temperature 36.3 C (97.3 F) 11/16/2024 2:25 PM OVERHEAD CRANE TRUCK LOADER Respiratory Rate 18 11/16/2024 2:25 PM OVERHEAD CRANE TRUCK LOADER Oxygen Saturation 99% 11/16/2024 2:25 PM OVERHEAD CRANE TRUCK LOADER Inhaled Oxygen Concentration - - Weight 66.2 kg (146 lb) 11/16/2024 2:25 PM OVERHEAD CRANE TRUCK LOADER Height 145.4 cm (4' 9.25 ) 06/15/2024 12:04 PM C DT Body Mass Index 31.32 06/15/2024 12:04 PM CDT Plan of Treatment Not on file Procedures Procedure Name Priority Date/Time Associated Diagnosis Comments DIFFERENTIAL AUTO Routine 11/16/2024 2:2 0 PM OVERHEAD CRANE TRUCK LOADER Iron deficiency anemia due to chronic blood loss CBC WITH AUTO DIFFERENTIAL Routine 11/16/2024 2:20 PM OVERHEAD CRANE TRUCK LOADER Iron deficiency anemia due to chronic blood loss IRON PROFILE W/ IBC Routine 11/16/2024 2 :20 PM OVERHEAD CRANE TRUCK LOADER Iron deficiency anemia due to chronic blood loss FERRITIN Routine 11/16/2024 2:20 PM OVERHEAD CRANE TRUCK LOADER Iron deficiency anemia due to chronic blood loss COLONOSCOPY 06/15/2024 11:58 AM CDT from Last 3 Months or Most Recently Relevant to Health Maintenance Results * (ABNORMAL) Differential, auto (11/16/2024 2:20 PM OVERHEAD CRANE TRUCK LOADER) Pathologist [facility] Neutrophil abs 6.6(H) 1.5 - 6.5 K/cumm Imm gran abs 0.0 0.0 - 0.1 K/cumm [facility] Lymphocyte abs 1.5 0.8 - 3.3 K/cumm [facility] Monocyte abs 0.8 0.2 - 0.8 K/cumm [facility] Eosinophil abs 0.3 0.0 - 0.5 K/cumm [facility] Basophil abs 0.1 0.0 - 0.1 K/cumm [facility] Neutrophil pct 71.1 % [facility] Comment: Interpretive Data Percent cell count reference ranges are not reported, since discordance with absolute values may lead to misinterpretation of CBC data. Current Interpretive Data was last revised on 2018. Imm gran pct 0.3 % [facility] Comment: Interpretive Data Percent cell count reference ranges are not reported, since discordance with absolute values may lead to misinterpretation of CBC data. Current Interpretive Data was last revised on 2018. Lymphocyte pct 15.8 % [facility] Comment: Interpretive Data Percent cell count reference ranges are not reported, since discordance with absolute values may lead to misinterpretation of CBC data. Current Interpretive Data was last revised on 2018. Monocyte pct 8.8 % [facility] Comment: Interpretive Data Percent cell count reference ranges are not reported, since discordance with absolute values may lead to misinterpretation of CBC data. Current Interpretive Data was last revised on 2018. Eosinophil pct 2.9 % [facility] Comment: Interpretive Data Percent cell count reference ranges are not reported, since discordance with absolute values may lead to misinterpretation of CBC data. Current Interpretive Data was last revised on 2018. Basophil pct 1.1 % [facility] Comment: Interpretive Data Percent cell count reference ranges are not reported, since discordance with absolute values may lead to misinterpretation of CBC data. Current Interpretive Data was last revised on 2018. Blood 11/16/2024 2:20 PM OVERHEAD CRANE TRUCK LOADER 11/16/2024 2:22 PM OVERHEAD CRANE TRUCK LOADER Toshia Price MD LAB BLOOD ORDERABLES Fin al Result [facility] [address] Department [place] [address] * (ABNORMAL) Iron profile w/ IBC (11/16/2024 2:20 PM OVERHEAD CRANE TRUCK LOADER) Iron 48 35 - 145 mcg/dL TIBC 271 250 - 400 mcg/dL [facility] Transferrin saturation 18(L) 20 - 50 % [facility] Blood 11/16/2024 2:20 PM OVERHEAD CRANE TRUCK LOADER 11/16/2024 2:52 PM OVERHEAD CRANE TRUCK LOADER Result [facility] Toshai Price MD LAB BLOOD ORDERABLES Fin al Result Performing Organization Address [facility] Co de Phone Number [facility] [address] [place] [address] * CBC with auto differential (11/16/2024 2:20 PM OVERHEAD CRANE TRUCK LOADER) [facility] WBC 9.3 3.8 - 9.9 K/cumm Hgb 14.3 11.9 - 15.5 g/dL [facility] Hct 42.3 35.6 - 45.5 % [facility] Plt 223 150 - 400 K/cumm [facility] MPV 9.4 9.1 - 12.3 fL [facility] RBC 4.75 3.90 - 5.20 M/cumm [facility] MCV 89.1 81.3 - 96.4 fL [facility] MCH 30.1 27.1 - 33.3 pg [facility] MCHC 33.8 32.3 - 35.7 g/dL [facility] RDW CV 14.6 11.1 - 14.9 % [facility] RDW SD 47.9 35.7 - 48.1 fL [facility] NRBC abs 0.00 0.00 - 0.01 K/cumm [facility] Blood 11/16/2024 2:20 PM OVERHEAD CRANE TRUCK LOADER 11/16/2024 2:22 PM OVERHEAD CRANE TRUCK LOADER Result [facility] Toshia Price MD LAB BLOOD ORDERABLES Fin al Result Performing Organization Address [facility] Co de Phone Number [facility] [address] [place] [address] * (ABNORMAL) Ferritin (11/16/2024 2:20 PM OVERHEAD CRANE TRUCK LOADER) [facility] Ferritin 368(H) 15 - 150 ng/mL Blood 11/16/2024 2:20 PM OVERHEAD CRANE TRUCK LOADER 11/16/2024 2:52 PM OVERHEAD CRANE TRUCK LOADER Toshia Price MD LAB BLOOD ORDERABLES Fin al Result [facility] [address] [place] [address] * Colonoscopy (06/15/2024 11:58 AM CDT) Anatomical Region Laterality Modality Other Narrative Procedure Note Vincent Peter MD - 06/15/2024 11:58 AM CDT ENDOSCOPY LAB Patient Name: Vanesa Awad Procedure Date: 06/15/2024 11:58 AM Admit Type: Outpatient Room: [facility] Date of : 1960 Instrument [...] the bowel preparation was evaluatedusing the BBPS ([place] Bowel Preparation Scale) withscores of: Right Colon [...] Most Recently Relevant to Health Maintenance Insurance [facility] Member Subscriber Plan / Payer (Ef fective 2014-Present) Name:Vanesa Awad Relation to Subscriber:Self Name:VANESA AWAD Payer ID:[id number] (NAIC) Type:[facility] H[facility]/PPO Address: [place] [phone] [facility] Advance Directives For more information, please contact: [phone] * Full Code (Latest Code Status on File) Date Activated Date Inactivated Comments 06/15/2024 12:07 PM 06/15/2024 6:45 PM * Full Code Date Activated Date Inactivated Comments 05/24/2023 7:46 AM 05/24/2023 1:54 PM * Full Code Date Activated Date Inactivated Comments 02/08/2019 11:03 AM 02/08/2019 5:19 PM * Full Code Date Activated Date Inactivated Comments 06/01/2018 11:13 AM 06/01/2018 2:52 PM Care Teams Closing Machine Operator Relationship Specialty Start Date End Date Irma Koehler DO [address] [place] [address] PCP - General Family Medicine 12/10/22 Toshia Price MD [address] [place] [address] Medical Oncologist/Reinsurance Claims Analyst Hematology and Oncology 08/28/22
--- OUTSIDE RECORDS SUMMARY | 2025-01-02 14:28 | XMS_ITS | Clinical Summary ---
Author Organization [facility] Address [address] [place] [address] Care Team Providers Care Bench Mover Name Role Phone Irma Koehler Primary Care Provider [phone] Allergies Active Allergy Reactions Criticality Noted Date [...] inhalerIndicati ons:Chronic bronchitis, unspecified chronic bronchitis type ([facility]) Inhale 2 puffs into the lungs every 4 (four) hours as needed for Wheezing. 18 g 3 3 Active BREO ELLIPTA 200-25 MCG/ACT inhalerIndicati ons:Chronic bronchitis, unspecified chronic bronchitis type ([facility]) Inhale 1 puff by mouth once daily 60 each 2 5 Active Active Problems Problem Noted Date Diagnosed Date Chronic bronchitis, unspecif ied chronic bronchitis type ([facility]) 03/18/2020 ANGEL (mycobacterium avium-intracellulare) ([facility]) 03/18/2020 Pulmonary embolism, other, u nspecified chronicity, unspecified whether acute cor pulmonale present ([facility]) 03/18/2020 Gastroesophageal reflux dise ase, esophagitis presence [...] Comments Blood Pressure 136/86 08/19/2023 7:57 AM UTILITY PLANT OPERATIVE Pulse 82 08/19/2023 7:57 AM UTILITY PLANT OPERATIVE Temperature 36.3 C (97.4 F) 08/19/2023 7:57 AM UTILITY PLANT OPERATIVE Respiratory Rate 12 08/19/2023 7:57 AM UTILITY PLANT OPERATIVE Oxygen Saturation 97% 08/19/2023 7:57 AM UTILITY PLANT OPERATIVE ra Inhaled Oxygen Concentration - - Weight 65.8 kg (145 lb) 08/19/2023 7:57 AM UTILITY PLANT OPERATIVE Height 147.3 cm (4' 10 ) 08/19/2023 7:57 AM UTILITY PLANT OPERATIVE Body Mass Index 30.31 08/19/2023 7:57 AM UTILITY PLANT OPERATIVE Plan of Treatment Upcoming Encounters Date Type Department Care Team (Late st Contact Info) Description 01/17/2025 8:00 AM CDT Office Visit [facility] Medical Group Multispecialty Care - [address] [place] [address] Ariel Valera MD [address] [place] [address] [place] [address] Health Maintenance Due Date Last Done Comments Cervical Cancer Screening Pap Smear (Age 30 to 64) Every 3 Years 1960 Colorectal Cancer Screening Colonoscopy (10 Years) 1960 Annual Physical 1963 Pneumococcal Vaccine: Pediatrics (0 to 5 Years) and At-Risk Patients (6 to 64 Years) (1 of 2 - PCV) 1966 Hepatitis C 1978 Cervical Cancer Screening Pap with HPV Testing (Age 30 to 64) Every 5 Years 1990 Cervical Cancer Screening with HPV 1990 Mammogram Screening 2000 Zoster Vaccines (1 of 2) 2010 RSV Immunization or 60+ Years (1 - Risk 60-74 years 1-dose series) 2020 DTaP, Tdap and Td Vaccines (2 - Td or Tdap) 07/14/2021 07/14/2011 COVID-19 Vaccine (3 - 4-25 season) 2024 10/18/2020, 09/27/2020 Influenza Adult (#1) 2024 07/15/2020, 07/23/2015, 05/24/2012, Additional history exists PHQ-2 (Physician [place]) 10/11/2024 08/19/2023 Meningococcal B Vaccine Aged Out No l onger eligible based on patient's age to complete this topic Meningococcal Vaccine Aged Out No jo carla eligible based on patient's age to complete this topic RSV Immunizations Under 20 Months Aged Out No longer eligible based on patient's age to complete this topic Insurance [facility] Care Teams Bench Mover Relationship Specialty Start Date End Date Irma Koehler DO [address] [place], [place] [id number] PCP - General FAMILY PRACTICE 03/22/20
--- OUTSIDE RECORDS SUMMARY | 2025-01-02 14:28 | XMS_ITS | Clinical Summary ---
Author Organization [facility] [place] Address [address] [place] [address] Phone Care Team Providers Care Customer Services Coordinator Name Role Phone Dimas Vale MD Primary Care Provider [phone] Allergies Active Allergy Reactions Criticality Noted Date [...] Dimas Vale [address] [place] [address] Other: Problem Noted Date Diagnosed Date Asthma [...] on file Legal Sex Female 5:55 AM SCALP TREATMENT SPECIALIST Gender Identity Not on file Sexual Orientation [...] Comments DTAP/TDAP/TD VACCINES (1 - Tdap) 1979 PAP SMEAR 1981 CERVICAL CANCER SCREENING 1990 HPV/Cotest 1990 PAP SMEAR 1990 COLORECTAL SCREENING 2005 Colorectal Cancer Screening [...] OR WO CAD Routine 09/15/2010 10:04 AM SCALP TREATMENT SPECIALIST Lump or mass in breast from Last 3 Months or Most Recently Relevant to Health Maintenance Results * MAMMO DIGITAL DIAG BILAT (09/15/2010 10:04 AM SCALP TREATMENT SPECIALIST) Anatomical Region Laterality Modality Breast Bilateral Mammography Narrative 09/15/2010 5:15 PM SCALP TREATMENT SPECIALIST BILATERAL DIAGNOSTIC DIGITAL MAMMOGRAMS WITH COMPUTER ASSISTED [...] Recently Relevant to Health Maintenance Care Teams Customer Services Coordinator Relationship Specialty Start Date End Date Dimas Vale MD [address] [place] [address] PCP - General Family Practice 06/19/10
--- NOTE | 2025-01-03 10:04 | WPDPFTINT ---
PFT Procedure Performed PFT Procedure Performed Spirometry with Pre/Post Bronchodilator Plethysmography (Lung Vol) Diffusing Cap (DLCO) Flow Vol Loop PFT Interpretation Lung volumes were measured with the body plethysmography method. Lung volumes are unremarkable. Spirometry showed normal expiratory flow rates and a normal FEV1 to FVC ratio 79%. Following administration of a bronchodilator there was no significant increase in expiratory flow rates. Lung diffusion capacity is mildly reduced at 63% predicted. In comparison to previous study in 20,21 there has been no significant change in spirometric, lung volume, or lung diffusion capacity measurements. Impression: Spirometry and lung volumes within the normal range. Mild reduction in lung diffusion capacity.
== END 2025-01-02 12:35 | disposition home or self-care (01) ==
LOC: ANHPFT 12:35
PROVIDERS: PCP Family Medicine; Visit Provider Student in an Organized Health Care Education/Training Program
DX: J42 Unspecified chronic bronchitis (principal)
CPT/HCPCS: 94060; 94726; 94729

== ENCOUNTER 2025-01-04 06:59 | Outpatient (CLI) | payer OTHER, SELFPAY ==
--- OUTSIDE RECORDS SUMMARY | 2025-01-04 07:03 | XMS_ITS | Clinical Summary ---
Author Organization [facility] [place] Address [address] [place] [address] Phone Care Team Providers Care Logging Superintendent Name Role Phone Dimas Vale MD Primary Care Provider [phone] Allergies Active Allergy Reactions Criticality Noted Date [...] Dimas Vale [address] [place] [address] Other: Problem Noted Date Diagnosed Date Asthma [...] on file Legal Sex Female 5:55 AM COUPLER Gender Identity Not on file Sexual Orientation [...] OR WO CAD Routine 09/15/2010 10:04 AM COUPLER Lump or mass in breast from Last 3 Months or Most Recently Relevant to Health Maintenance Results * MAMMO DIGITAL DIAG BILAT (09/15/2010 10:04 AM COUPLER) Anatomical Region Laterality Modality Breast Bilateral Mammography Narrative 09/15/2010 5:15 PM COUPLER BILATERAL DIAGNOSTIC DIGITAL MAMMOGRAMS WITH COMPUTER ASSISTED [...] Recently Relevant to Health Maintenance Care Teams Logging Superintendent Relationship Specialty Start Date End Date Dimas Vale MD [address] [place] [place] [address] PCP - General Family Practice 06/19/10
--- OUTSIDE RECORDS SUMMARY | 2025-01-04 07:03 | XMS_ITS | Clinical Summary ---
Author Organization [facility] Address [address], [place] [address] Phone Care Team Providers Care Pen Rider Name Role Phone Dimas Vale MD Primary Care Provider Medications Medication Sig Dispensed Refills Start Date [...] Comments Blood Pressure 124/70 10/09/2019 3:38 PM CLOTH MERCERIZING SUPERVISOR Pulse 76 06/24/2018 12:01 AM CDT Temperature - - Respiratory Rate - - Oxygen Saturation - - Inhaled Oxygen Concentration - - Weight 67.6 kg (149 lb) 10/09/2019 3:38 PM CLOTH MERCERIZING SUPERVISOR Height 144.8 cm (4' 9 ) 10/09/2019 3:38 PM CLOTH MERCERIZING SUPERVISOR Body Mass Index 32.24 10/09/2019 3:38 PM CLOTH MERCERIZING SUPERVISOR Plan of Treatment Health Maintenance Due Date Last Done Comments Pneumococcal PPSV23 Highest Risk Adult (1 of 3 - PCV13 ) 1979 Influenza Vaccine (#1) 2024 Care Teams Pen Rider Relationship Specialty Start Date End Date Dimas Vale MD [address] [place] [id number] PCP - General Family Medicine 10/09/19
--- OUTSIDE RECORDS SUMMARY | 2025-01-04 07:03 | XMS_ITS | Clinical Summary ---
Author Organization [facility] Address [address] [place] [address] Care Team Providers Care School Bus Operator Name Role Phone Irma Koehler Primary Care Provider [phone] Allergies Active Allergy Reactions Criticality Noted Date [...] inhalerIndicati ons:Chronic bronchitis, unspecified chronic bronchitis type ([facility]) Inhale 2 puffs into the lungs every 4 (four) hours as needed for Wheezing. 18 g 3 3 Active BREO ELLIPTA 200-25 MCG/ACT inhalerIndicati ons:Chronic bronchitis, unspecified chronic bronchitis type ([facility]) Inhale 1 puff by mouth once daily 60 each 2 5 Active Active Problems Problem Noted Date Diagnosed Date Chronic bronchitis, unspecif ied chronic bronchitis type ([facility]) 03/18/2020 ANEGL (mycobacterium avium-intracellulare) ([facility]) 03/18/2020 Pulmonary embolism, other, u nspecified chronicity, unspecified whether acute cor pulmonale present ([facility]) 03/18/2020 Gastroesophageal reflux dise ase, esophagitis [...] Comments Blood Pressure 136/86 08/19/2023 7:57 AM FOOD SERVICE EMPLOYEE Pulse 82 08/19/2023 7:57 AM FOOD SERVICE EMPLOYEE Temperature 36.3 C (97.4 F) 08/19/2023 7:57 AM FOOD SERVICE EMPLOYEE Respiratory Rate 12 08/19/2023 7:57 AM FOOD SERVICE EMPLOYEE Oxygen Saturation 97% 08/19/2023 7:57 AM FOOD SERVICE EMPLOYEE ra Inhaled Oxygen Concentration - - Weight 65.8 kg (145 lb) 08/19/2023 7:57 AM FOOD SERVICE EMPLOYEE Height 147.3 cm (4' 10 ) 08/19/2023 7:57 AM FOOD SERVICE EMPLOYEE Body Mass Index 30.31 08/19/2023 7:57 AM FOOD SERVICE EMPLOYEE Plan of Treatment Upcoming Encounters Date Type Department Care Team (Late st Contact Info) Description 01/17/2025 8:00 AM CDT Office Visit [facility] Medical Group Multispecialty Care - [address] [place] [address] Ariel Valera MD [address] [place] [address] [place] [address] Health Maintenance Due Date Last Done Comments [...] 07/23/2015, 05/24/2012, Additional history exists PHQ-2 (Physician [place]) 10/11/2024 08/19/2023 Meningococcal B Vaccine Aged Out No l onger eligible based on patient's age to complete this topic Meningococcal Vaccine Aged Out No jo carla eligible based on patient's age to complete this topic RSV Immunizations Under 20 Months Aged Out No longer eligible based on patient's age to complete this topic Insurance [facility] Care Teams School Bus Operator Relationship Specialty Start Date End Date Irma Koehler DO [address] [place], [place] [phone] PCP - General FAMILY PRACTICE 03/22/20
--- OUTSIDE RECORDS SUMMARY | 2025-01-04 07:04 | XMS_ITS | Clinical Summary ---
Author Organization [facility] Address [address] [place] [address] Care Team Providers Care Warehouse Shipping Supervisor Name Role Phone Toshia Price MD Unavailable [phone] Irma Koehler DO Primary Care Provider [phone] Allergies Active Allergy Reactions Criticality Noted Date [...] have recommended voice therapy here at the [facility] in order to improve the biomechanics of the patient's voice, which will improve the patient's associated symptoms. Gastroesophageal reflux disease without esophagi tis 01/30/2019 Overview (01/30/2019): Added automatically from request for surgery [id number] Assessment & Plan (07/15/2020 1:35 PM CDT): [...] (05/06/2018): Added automatically from request for surgery [id number] Assessment & Plan (12/10/2022 2:19 PM CLIENT SUPPORT COORDINATOR): Due for colonoscopy. Last exam May 2019. [...] disease) Assessment & Plan (12/10/2022 2:18 PM CLIENT SUPPORT COORDINATOR): Has significant laryngeal reflux. We discussed that [...] Department Care Team Description 11/16/2024 2:15 PM CLIENT SUPPORT COORDINATOR Office Visit [facility] [address] [place] [address] Toshia Price MD Iron deficiency anemia due to chronic blood loss (Primary Dx) 11/16/2024 2:00 PM CLIENT SUPPORT COORDINATOR Lab [facility] [address] [place] [address] Iron deficiency anemia due to chronic blood loss 10/23/[address] [facility] G[facility]ology at [facility] [address] [facility] [address] [address] Vincent Peter MD Test Results [...] Added au tomatically from request for surgery [id number] Hiatal hernia 12/28/2018 Gastroesophageal reflux dise ase without esophagitis 01/30/2019 Added automatically from req uest for surgery [id number] Gastroesophageal reflux disease 08/22/2012 GERD (gastroesophageal reflux [...] Medical History Relation Name Comments COPD [facility]; Cancer Father [facility] Colon polyps Father [facility] Early Father [facility] Heart attack Father [facility] Liver disease Father [facility] Liver disease; Lung cancer Father [facility] Cancer, lung; Other Father [facility] hypercoagulable ; Asthma Mother [facility] Asthma; COPD Mother [facility] COPD; Diabetes type II Mother [facility] Diabetes me llitus type 2; Osteoporosis Mother [facility] Thyroid disease Mother [facility] Thyroid dise ase; Colon cancer Mother's Sister Relation Name Status Comments Father [facility] Heart Attack Mother [facility] Mother's Sister Social History Tobacco Use [...] on file Legal Sex Female 2:03 AM CLIENT SUPPORT COORDINATOR Gender Identity Not on file Sexual Orientation Not on file Obstetrics History Last Filed Vital Signs Vital Sign Reading Time Taken Comments Blood Pressure 149/64 11/16/2024 2:25 PM CLIENT SUPPORT COORDINATOR Pulse 95 11/16/2024 2:25 PM CLIENT SUPPORT COORDINATOR Temperature 36.3 C (97.3 F) 11/16/2024 2:25 PM CLIENT SUPPORT COORDINATOR Respiratory Rate 18 11/16/2024 2:25 PM CLIENT SUPPORT COORDINATOR Oxygen Saturation 99% 11/16/2024 2:25 PM CLIENT SUPPORT COORDINATOR Inhaled Oxygen Concentration - - Weight 66.2 kg (146 lb) 11/16/2024 2:25 PM CLIENT SUPPORT COORDINATOR Height 145.4 cm (4' 9.25 ) 06/15/2024 [...] DIFFERENTIAL AUTO Routine 11/16/2024 2:2 0 PM CLIENT SUPPORT COORDINATOR Iron deficiency anemia due to chronic blood loss CBC WITH AUTO DIFFERENTIAL Routine 11/16/2024 2:20 PM CLIENT SUPPORT COORDINATOR Iron deficiency anemia due to chronic blood loss IRON PROFILE W/ IBC Routine 11/16/2024 2 :20 PM CLIENT SUPPORT COORDINATOR Iron deficiency anemia due to chronic blood loss FERRITIN Routine 11/16/2024 2:20 PM CLIENT SUPPORT COORDINATOR Iron deficiency anemia due to chronic blood loss COLONOSCOPY 06/15/2024 11:58 AM CDT from Last 3 Months or Most Recently Relevant to Health Maintenance Results * (ABNORMAL) Differential, auto (11/16/2024 2:20 PM CLIENT SUPPORT COORDINATOR) Neutrophil abs 6.6(H) 1.5 - 6.5 K/cumm Imm gran abs 0.0 0.0 - 0.1 K/cumm [facility] Lymphocyte abs 1.5 0.8 - 3.3 K/cumm [facility] Monocyte abs 0.8 0.2 - 0.8 K/cumm [facility] Eosinophil abs 0.3 0.0 - 0.5 K/cumm [facility] Basophil abs 0.1 0.0 - 0.1 K/cumm [facility] Neutrophil pct 71.1 % [facility] Comment: Interpretive Data Percent cell count reference ranges are not reported, since discordance with absolute values may lead to misinterpretation of CBC data. Current Interpretive Data was last revised on 2018. Imm gran pct 0.3 % [facility] Comment: Interpretive Data Percent cell count reference ranges are not reported, since discordance with absolute values may lead to misinterpretation of CBC data. Current Interpretive Data was last revised on 2018. Lymphocyte pct 15.8 % [facility] Comment: Interpretive Data Percent cell count reference ranges are not reported, since discordance with absolute values may lead to misinterpretation of CBC data. Current Interpretive Data was last revised on 2018. Monocyte pct 8.8 % [facility] Comment: Interpretive Data Percent cell count reference ranges are not reported, since discordance with absolute values may lead to misinterpretation of CBC data. Current Interpretive Data was last revised on 2018. Eosinophil pct 2.9 % [facility] Comment: Interpretive Data Percent cell count reference ranges are not reported, since discordance with absolute values may lead to misinterpretation of CBC data. Current Interpretive Data was last revised on 2018. Basophil pct 1.1 % [facility] Comment: Interpretive Data Percent cell count reference ranges are not reported, since discordance with absolute values may lead to misinterpretation of CBC data. Current Interpretive Data was last revised on 2018. Blood 11/16/2024 2:20 PM CLIENT SUPPORT COORDINATOR 11/16/2024 2:22 PM CLIENT SUPPORT COORDINATOR Toshia Price MD LAB BLOOD ORDERABLES Fin al Result Performing Organization Address City/[facility]/ZIP Co de Phone Number [facility] [address] Department [employer] [place], [place] [id number] * (ABNORMAL) Iron profile w/ IBC (11/16/2024 2:20 PM CLIENT SUPPORT COORDINATOR) Pathologist [facility] Iron 48 35 - 145 mcg/dL TIBC 271 250 - 400 mcg/dL [facility] Transferrin saturation 18(L) 20 - 50 % [facility] Blood 11/16/2024 2:20 PM CLIENT SUPPORT COORDINATOR 11/16/2024 2:52 PM CLIENT SUPPORT COORDINATOR Toshia Price MD LAB BLOOD ORDERABLES Fin al Result [facility] [address] [employer] [place], [place] [id number] * CBC with auto differential (11/16/2024 2:20 PM CLIENT SUPPORT COORDINATOR) Pathologist [facility] WBC 9.3 3.8 - 9.9 K/cumm Hgb 14.3 11.9 - 15.5 g/dL [facility] Hct 42.3 35.6 - 45.5 % [facility] Plt 223 150 - 400 K/cumm [facility] MPV 9.4 9.1 - 12.3 fL [facility] RBC 4.75 3.90 - 5.20 M/cumm [facility] MCV 89.1 81.3 - 96.4 fL [facility] MCH 30.1 27.1 - 33.3 pg [facility] MCHC 33.8 32.3 - 35.7 g/dL [facility] RDW CV 14.6 11.1 - 14.9 % [facility] RDW SD 47.9 35.7 - 48.1 fL [facility] NRBC abs 0.00 0.00 - 0.01 K/cumm [facility] Blood 11/16/2024 2:20 PM CLIENT SUPPORT COORDINATOR 11/16/2024 2:22 PM CLIENT SUPPORT COORDINATOR Toshia Price MD LAB BLOOD ORDERABLES Fin al Result Performing Organization Address [facility]/ZIP Co de Phone Number [facility] [address] [place] [address] * (ABNORMAL) Ferritin (11/16/2024 2:20 PM CLIENT SUPPORT COORDINATOR) Ferritin 368(H) 15 - 150 ng/mL Blood 11/16/2024 2:20 PM CLIENT SUPPORT COORDINATOR 11/16/2024 2:52 PM CLIENT SUPPORT COORDINATOR Toshia Price MD LAB BLOOD ORDERABLES Fin al Result [facility] [address] [employer] [place] [place] [address] * Colonoscopy (06/15/2024 11:58 AM CDT) Anatomical Region Laterality Modality Other Narrative Procedure Note Vincent Peter MD - 06/15/2024 11:58 AM CDT ENDOSCOPY LAB Patient Name: Vanesa Awad Procedure Date: 06/15/2024 11:58 AM Admit Type: Outpatient Room: [facility] Date of : 1960 Instrument Name: [...] the bowel preparation was evaluatedusing the BBPS ([place] Bowel Preparation Scale) withscores of: Right Colon [...] Most Recently Relevant to Health Maintenance Insurance [facility] Advance Directives For more information, please contact: [phone] * Full Code (Latest Code Status on File) Date Activated Date Inactivated Comments 06/15/2024 12:07 PM 06/15/2024 6:45 PM * Full Code Date Activated Date Inactivated Comments 05/24/2023 7:46 AM 05/24/2023 1:54 PM * Full Code Date Activated Date Inactivated Comments 02/08/2019 11:03 AM 02/08/2019 5:19 PM * Full Code Date Activated Date Inactivated Comments 06/01/2018 11:13 AM 06/01/2018 2:52 PM Care Teams Warehouse Shipping Supervisor Relationship Specialty Start Date End Date Irma Koehler DO [address] [place] [address] PCP - General Family Medicine 12/10/22 Toshia Price MD [address] [place] [address] Medical Oncologist/Continuity Person Hematology and Oncology 08/28/22
--- OUTSIDE RECORDS SUMMARY | 2025-01-04 07:04 | XMS_ITS | Referral Summary ---
Author Organization [facility] Address [facility] [place] [address] Care Team Providers Care Box Strapper Name Role Phone Toshia Price MD Unavailable [phone] Irma Koehler DO Primary Care Provider [phone] Encounters Date Type Department Care Team Description 11/16/2024 2:00 PM MACHINE GUNNER Lab [facility] Lab [address] [place] [address] Iron deficiency anemia due to chronic blood loss 11/16/2024 2:15 PM MACHINE GUNNER Office Visit [address] [address] Toshia Price MD Iron deficiency anemia due to chronic blood loss (Primary Dx) 10/23/2024 Telephone [facility] Gastroenterology at [facility] [address] [facility] [address] [address] Vincent Peter MD Test [...] have recommended voice therapy here at the [facility] in order to improve the biomechanics of the patient's voice, which will improve the patient's associated symptoms. Gastroesophageal reflux disease without esophagi tis 01/30/2019 Overview (01/30/2019): Added automatically from request for surgery [id number] Assessment & Plan (07/15/2020 1:35 PM CDT): [...] (05/06/2018): Added automatically from request for surgery [id number] Assessment & Plan (12/10/2022 2:19 PM MACHINE GUNNER): Due for colonoscopy. Last exam May 2019. [...] disease) Assessment & Plan (12/10/2022 2:18 PM MACHINE GUNNER): Has significant laryngeal reflux. We discussed that [...] on file Legal Sex Female 2:03 AM MACHINE GUNNER Gender Identity Not on file Sexual Orientation Not on file Last Filed Vital Signs Vital Sign Reading Time Taken Comments Blood Pressure 149/64 11/16/2024 2:25 PM MACHINE GUNNER Pulse 95 11/16/2024 2:25 PM MACHINE GUNNER Temperature 36.3 C (97.3 F) 11/16/2024 2:25 PM MACHINE GUNNER Respiratory Rate 18 11/16/2024 2:25 PM MACHINE GUNNER Oxygen Saturation 99% 11/16/2024 2:25 PM MACHINE GUNNER Inhaled Oxygen Concentration - - Weight 66.2 kg (146 lb) 11/16/2024 2:25 PM MACHINE GUNNER Height 145.4 cm (4' 9.25 ) 06/15/2024 12:04 PM C DT Body Mass Index 31.32 06/15/2024 12:04 PM CDT Plan of Treatment Not on file Procedures Procedure Name Priority Date/Time Associated Diagnosis Comments DIFFERENTIAL AUTO Routine 11/16/2024 2:2 0 PM MACHINE GUNNER Iron deficiency anemia due to chronic blood loss CBC WITH AUTO DIFFERENTIAL Routine 11/16/2024 2:20 PM MACHINE GUNNER Iron deficiency anemia due to chronic blood loss IRON PROFILE W/ IBC Routine 11/16/2024 2 :20 PM MACHINE GUNNER Iron deficiency anemia due to chronic blood loss FERRITIN Routine 11/16/2024 2:20 PM MACHINE GUNNER Iron deficiency anemia due to chronic blood loss COLONOSCOPY 06/15/2024 11:58 AM CDT from Last 3 Months or Most Recently Relevant to Health Maintenance Results * (ABNORMAL) Differential, auto (11/16/2024 2:20 PM MACHINE GUNNER) Pathologist [facility] Neutrophil abs 6.6(H) 1.5 - 6.5 K/cumm Imm gran abs 0.0 0.0 - 0.1 K/cumm [facility] Lymphocyte abs 1.5 0.8 - 3.3 K/cumm [facility] Monocyte abs 0.8 0.2 - 0.8 K/cumm [facility] Eosinophil abs 0.3 0.0 - 0.5 K/cumm [facility] Basophil abs 0.1 0.0 - 0.1 K/cumm [facility] Neutrophil pct 71.1 % [facility] Comment: Interpretive Data Percent cell count reference ranges are not reported, since discordance with absolute values may lead to misinterpretation of CBC data. Current Interpretive Data was last revised on 2018. Imm gran pct 0.3 % [facility] Comment: Interpretive Data Percent cell count reference ranges are not reported, since discordance with absolute values may lead to misinterpretation of CBC data. Current Interpretive Data was last revised on 2018. Lymphocyte pct 15.8 % [facility] Comment: Interpretive Data Percent cell count reference ranges are not reported, since discordance with absolute values may lead to misinterpretation of CBC data. Current Interpretive Data was last revised on 2018. Monocyte pct 8.8 % [facility] Comment: Interpretive Data Percent cell count reference ranges are not reported, since discordance with absolute values may lead to misinterpretation of CBC data. Current Interpretive Data was last revised on 2018. Eosinophil pct 2.9 % [facility] Comment: Interpretive Data Percent cell count reference ranges are not reported, since discordance with absolute values may lead to misinterpretation of CBC data. Current Interpretive Data was last revised on 2018. Basophil pct 1.1 % [facility] Comment: Interpretive Data Percent cell count reference ranges are not reported, since discordance with absolute values may lead to misinterpretation of CBC data. Current Interpretive Data was last revised on 2018. Blood 11/16/2024 2:20 PM MACHINE GUNNER 11/16/2024 2:22 PM MACHINE GUNNER Toshia Price MD LAB BLOOD ORDERABLES Fin al Result [facility] [address] Department [place] [address] * (ABNORMAL) Iron profile w/ IBC (11/16/2024 2:20 PM MACHINE GUNNER) Iron 48 35 - 145 mcg/dL TIBC 271 250 - 400 mcg/dL [facility] Transferrin saturation 18(L) 20 - 50 % [facility] Blood 11/16/2024 2:20 PM MACHINE GUNNER 11/16/2024 2:52 PM MACHINE GUNNER Result [facility] Toshia Price MD LAB BLOOD ORDERABLES Fin al Result Performing Organization Address [facility] Co de Phone Number [facility] [address] [place] [address] * CBC with auto differential (11/16/2024 2:20 PM MACHINE GUNNER) [facility] WBC 9.3 3.8 - 9.9 K/cumm Hgb 14.3 11.9 - 15.5 g/dL [facility] Hct 42.3 35.6 - 45.5 % [facility] Plt 223 150 - 400 K/cumm [facility] MPV 9.4 9.1 - 12.3 fL [facility] RBC 4.75 3.90 - 5.20 M/cumm [facility] MCV 89.1 81.3 - 96.4 fL [facility] MCH 30.1 27.1 - 33.3 pg [facility] MCHC 33.8 32.3 - 35.7 g/dL [facility] RDW CV 14.6 11.1 - 14.9 % [facility] RDW SD 47.9 35.7 - 48.1 fL [facility] NRBC abs 0.00 0.00 - 0.01 K/cumm [facility] Blood 11/16/2024 2:20 PM MACHINE GUNNER 11/16/2024 2:22 PM MACHINE GUNNER Result [facility] Toshia Price MD LAB BLOOD ORDERABLES Fin al Result Performing Organization Address [facility] Co de Phone Number [facility] [address] [place] [address] * (ABNORMAL) Ferritin (11/16/2024 2:20 PM MACHINE GUNNER) [facility] Ferritin 368(H) 15 - 150 ng/mL Blood 11/16/2024 2:20 PM MACHINE GUNNER 11/16/2024 2:52 PM MACHINE GUNNER Toshia Price MD LAB BLOOD ORDERABLES Fin al Result [facility] [address] Department [place] [address] * Colonoscopy (06/15/2024 11:58 AM CDT) Anatomical Region Laterality Modality Other Narrative Procedure Note Vincent Peter MD - 06/15/2024 11:58 AM CDT ENDOSCOPY LAB Patient Name: Vanesa Awad Procedure Date: 06/15/2024 11:58 AM Admit Type: Outpatient Room: [facility] Date of : 1960 Instrument Name: [...] the bowel preparation was evaluatedusing the BBPS ([place] Bowel Preparation Scale) withscores of: Right Colon [...] Most Recently Relevant to Health Maintenance Insurance [facility] H[facility]/PPO Address: [place] [address] [facility] H[facility]/PPO Address: [place] [phone] [facility] HMO/PPO Address: [facility] [address] [place] [address] Advance Directives For more information, please contact: [phone] * Full Code (Latest Code Status on File) Date Activated Date Inactivated Comments 06/15/2024 12:07 PM 06/15/2024 6:45 PM * Full Code Date Activated Date Inactivated Comments 05/24/2023 7:46 AM 05/24/2023 1:54 PM * Full Code Date Activated Date Inactivated Comments 02/08/2019 11:03 AM 02/08/2019 5:19 PM * Full Code Date Activated Date Inactivated Comments 06/01/2018 11:13 AM 06/01/2018 2:52 PM Care Teams Box Strapper Relationship Specialty Start Date End Date Irma Koehler DO [address] [place] [address] PCP - General Family Medicine 12/10/22 Toshia Price MD [address] [place] [address] Medical Oncologist/Flower Shop Manager Hematology and Oncology 08/28/22
[2025-01-04 07:46] LABS: Hematocrit 42.2 % (37.0-47.0); Mean Corpuscular HGB Conc 33.2 g/dl (32-36); Mean Corpuscular Hemoglobin 30.6 pg (26-34); Mean Corpuscular Volume 92.3 fl (80-100); Mean Platelet Volume 9.3 fl (7.4-10.4); Platelet Count Result 201 k/mm3 (150-375); Red Blood Count 4.57 M/mm3 (4.2-5.4); Red Cell Distribution Width 13.3 % (11.5-14.5); White Blood Count 5.2 K/mm3 (4.5-10.0)
[2025-01-04 08:29] LABS: Free T4 Free Thyroxine 1.18 ng/dL (0.78-2.19)
== END 2025-01-04 07:00 | disposition home or self-care (01) ==
LOC: ANHLAB 07:00
PROVIDERS: PCP Family Medicine; Visit Provider Family Medicine
DX: R79.89 Other specified abnormal findings of blood chemistry (principal); D72.819 Decreased white blood cell count, unspecified
CPT/HCPCS: 36415; 84439; 84443; 85027

== ENCOUNTER 2025-01-10 16:00 | Outpatient (CLI) | payer OTHER, SELFPAY ==
--- NOTE | ~2025-01-10 | XR_ITS ---
EXAMINATION: XR chest 2V 01/10/2025 16:10 INDICATION: Shortness of breath PROCEDURE: 2 view chest COMPARISON: Comparison to multiple prior studies sequentially, with oldest reviewed study dated 06/2020. FINDINGS: The lungs are clear. The cardiomediastinal silhouette is within normal limits. There are no pleural effusions. There is no pneumothorax suspected. There is ectasia of the aorta. There are cholecystectomy clips. IMPRESSION: 1: NO ACUTE CARDIOPULMONARY DISEASE. Reviewed, dictated and finalized at location A.
== END 2025-01-10 16:01 | disposition home or self-care (01) ==
LOC: GOSHIMG 16:01
PROVIDERS: PCP Nurse Practitioner; Visit Provider Nurse Practitioner
DX: R06.02 Shortness of breath (principal)
CPT/HCPCS: 71046

== ENCOUNTER 2025-01-20 10:36 | Outpatient (CLI) | payer OTHER, SELFPAY ==
--- OUTSIDE RECORDS SUMMARY | 2025-01-20 10:39 | XMS_ITS | Encounter Summary ---
Author Organization [facility] Address [address] [place] [address] Care Team Providers Care Keeper Helper Name Role Phone Irma Koehler DO Primary Care Provider [phone] Reason for Visit * Reason Onset Date Comments Orders 01/19/2025 Encounter Details Date Type Department Care Team (Late st Contact Info) Description 01/19/2025 Telephone [facility] Pul[facility] [address] [address] Ariel Valera MD [address] [place] [address] Orders Social History Tobacco Use Types Packs/Day Years Used Date Smoking Tobacco: Never Smokeless Tobacco: Never Alcohol Use Standard Drinks/Week Comments Not Currently 1.7 (1 standard drink = 0.6 oz p ure alcohol) Occassional AUDIT-C Answer Date Recorded Frequency of Alcohol [...] on file Sexual Orientation Not on file Travel History Travel Start Travel End [place] 12/22/2024 12/25/2024 documented as of this encounter Progress Notes * Jemima Oh - 01/19/2025 1:29 PM CDTSummary: pt r/c She also inquired about the CT order. Armani confirmed yes, it was sent also. Pt v/u and gave thanks. * Armani Lara MA - 01/19/2025 12:58 PM CDT Called pt at this time no answer vm left to call back. -PFT and 6MWT and CT scan faxed to number below. (If pt calls back inform her it was sent to the fax number below) * Clare Carrillo - 01/19/2025 10:37 AM CDT Patient was in the office on 01/17/25 Patient wants to know if the order for her to have the CT scan done has been sent to [facility]. Fax to the number below that goes to this patient's office and she will walk the order over documented in this encounter Plan of Treatment Upcoming Encounters Date Type Department Care Team (Late st Contact Info) Description 08/02/2025 8:00 AM CDT Office Visit [facility] Multispecialty Care - [facility] [address] [place] [address] Ariel Valera MD [address] [place] [address] documented as of this encounter Visit Diagnoses Not on filedocumented in this encounter Additional Health Concerns Assessment Noted Time PHQ-9 Depression Total Score: 0 04/21/20 21 9:09 AM CDT documented as of this encounter Care Teams Keeper Helper Relationship Specialty Start Date End Date Irma Koehler DO [address] [place] [address] PCP - General FAMILY PRACTICE 03/22/20 documented as of this encounter
--- OUTSIDE RECORDS SUMMARY | 2025-01-20 10:39 | XMS_ITS | Referral Summary ---
Author Organization [facility] Address [facility] [place] [address] Care Team Providers Care Under Ground Miner Name Role Phone Toshia Price MD Unavailable [phone] Irma Koehler DO Primary Care Provider [phone] Encounters Date Type Department Care Team Description 11/16/2024 2:00 PM METAL PRODUCTS VIEWER Lab [facility] Lab [address] [place] [address] Iron deficiency anemia due to chronic blood loss 11/16/2024 2:15 PM METAL PRODUCTS VIEWER Office Visit [address] [address] Toshia Price MD Iron deficiency anemia due to chronic blood loss (Primary Dx) 10/23/2024 Telephone [facility] Gastroenterology at [facility] [address], [place] [address] Vincent Peter MD Test Results [...] have recommended voice therapy here at the [facility] in order to improve the biomechanics of the patient's voice, which will improve the patient's associated symptoms. Gastroesophageal reflux disease without esophagi tis 01/30/2019 Overview (01/30/2019): Added automatically from request for surgery [id number] Assessment & Plan (07/15/2020 1:35 PM CDT): [...] (05/06/2018): Added automatically from request for surgery [id number] Assessment & Plan (12/10/2022 2:19 PM METAL PRODUCTS VIEWER): Due for colonoscopy. Last exam May 2019. [...] disease) Assessment & Plan (12/10/2022 2:18 PM METAL PRODUCTS VIEWER): Has significant laryngeal reflux. We discussed that [...] on file Legal Sex Female 2:03 AM METAL PRODUCTS VIEWER Gender Identity Not on file Sexual Orientation Not on file Last Filed Vital Signs Vital Sign Reading Time Taken Comments Blood Pressure 149/64 11/16/2024 2:25 PM METAL PRODUCTS VIEWER Pulse 95 11/16/2024 2:25 PM METAL PRODUCTS VIEWER Temperature 36.3 C (97.3 F) 11/16/2024 2:25 PM METAL PRODUCTS VIEWER Respiratory Rate 18 11/16/2024 2:25 PM METAL PRODUCTS VIEWER Oxygen Saturation 99% 11/16/2024 2:25 PM METAL PRODUCTS VIEWER Inhaled Oxygen Concentration - - Weight 66.2 kg (146 lb) 11/16/2024 2:25 PM METAL PRODUCTS VIEWER Height 145.4 cm (4' 9.25 ) 06/15/2024 12:04 PM C DT Body Mass Index 31.32 06/15/2024 12:04 PM CDT Plan of Treatment Not on file Procedures Procedure Name Priority Date/Time Associated Diagnosis Comments DIFFERENTIAL AUTO Routine 11/16/2024 2:2 0 PM METAL PRODUCTS VIEWER Iron deficiency anemia due to chronic blood loss CBC WITH AUTO DIFFERENTIAL Routine 11/16/2024 2:20 PM METAL PRODUCTS VIEWER Iron deficiency anemia due to chronic blood loss IRON PROFILE W/ IBC Routine 11/16/2024 2 :20 PM METAL PRODUCTS VIEWER Iron deficiency anemia due to chronic blood loss FERRITIN Routine 11/16/2024 2:20 PM METAL PRODUCTS VIEWER Iron deficiency anemia due to chronic blood loss COLONOSCOPY 06/15/2024 11:58 AM CDT from Last 3 Months or Most Recently Relevant to Health Maintenance Results * (ABNORMAL) Differential, auto (11/16/2024 2:20 PM METAL PRODUCTS VIEWER) Pathologist [facility] Neutrophil abs 6.6(H) 1.5 - 6.5 K/cumm Imm gran abs 0.0 0.0 - 0.1 K/cumm [facility] Lymphocyte abs 1.5 0.8 - 3.3 K/cumm [facility] Monocyte abs 0.8 0.2 - 0.8 K/cumm [facility] Eosinophil abs 0.3 0.0 - 0.5 K/cumm [facility] Basophil abs 0.1 0.0 - 0.1 K/cumm [facility] Neutrophil pct 71.1 % [facility] Comment: Interpretive Data Percent cell count reference ranges are not reported, since discordance with absolute values may lead to misinterpretation of CBC data. Current Interpretive Data was last revised on 2018. Imm gran pct 0.3 % [facility] Comment: Interpretive Data Percent cell count reference ranges are not reported, since discordance with absolute values may lead to misinterpretation of CBC data. Current Interpretive Data was last revised on 2018. Lymphocyte pct 15.8 % [facility] Comment: Interpretive Data Percent cell count reference ranges are not reported, since discordance with absolute values may lead to misinterpretation of CBC data. Current Interpretive Data was last revised on 2018. Monocyte pct 8.8 % [facility] Comment: Interpretive Data Percent cell count reference ranges are not reported, since discordance with absolute values may lead to misinterpretation of CBC data. Current Interpretive Data was last revised on 2018. Eosinophil pct 2.9 % [facility] Comment: Interpretive Data Percent cell count reference ranges are not reported, since discordance with absolute values may lead to misinterpretation of CBC data. Current Interpretive Data was last revised on 2018. Basophil pct 1.1 % [facility] Comment: Interpretive Data Percent cell count reference ranges are not reported, since discordance with absolute values may lead to misinterpretation of CBC data. Current Interpretive Data was last revised on 2018. Blood 11/16/2024 2:20 PM METAL PRODUCTS VIEWER 11/16/2024 2:22 PM METAL PRODUCTS VIEWER Toshia Price MD LAB BLOOD ORDERABLES Fin al Result [facility] [address] Department [place] [address] * (ABNORMAL) Iron profile w/ IBC (11/16/2024 2:20 PM METAL PRODUCTS VIEWER) Iron 48 35 - 145 mcg/dL TIBC 271 250 - 400 mcg/dL [facility] Transferrin saturation 18(L) 20 - 50 % [facility] Blood 11/16/2024 2:20 PM METAL PRODUCTS VIEWER 11/16/2024 2:52 PM METAL PRODUCTS VIEWER Result [facility] Toshia Price MD LAB BLOOD ORDERABLES Fin al Result Performing Organization Address [facility] Co de Phone Number [facility] [address] [facility] [employer] [facility] [place] [address] * CBC with auto differential (11/16/2024 2:20 PM METAL PRODUCTS VIEWER) [facility] WBC 9.3 3.8 - 9.9 K/cumm Hgb 14.3 11.9 - 15.5 g/dL [facility] Hct 42.3 35.6 - 45.5 % [facility] Plt 223 150 - 400 K/cumm [facility] MPV 9.4 9.1 - 12.3 fL [facility] RBC 4.75 3.90 - 5.20 M/cumm [facility] MCV 89.1 81.3 - 96.4 fL [facility] MCH 30.1 27.1 - 33.3 pg [facility] MCHC 33.8 32.3 - 35.7 g/dL [facility] RDW CV 14.6 11.1 - 14.9 % [facility] RDW SD 47.9 35.7 - 48.1 fL [facility] NRBC abs 0.00 0.00 - 0.01 K/cumm [facility] Blood 11/16/2024 2:20 PM METAL PRODUCTS VIEWER 11/16/2024 2:22 PM METAL PRODUCTS VIEWER Result [facility] Toshia Price MD LAB BLOOD ORDERABLES Fin al Result Performing Organization Address [facility] Co de Phone Number [facility] [address] Department of [facility] [place] [address] * (ABNORMAL) Ferritin (11/16/2024 2:20 PM METAL PRODUCTS VIEWER) [facility] Ferritin 368(H) 15 - 150 ng/mL Blood 11/16/2024 2:20 PM METAL PRODUCTS VIEWER 11/16/2024 2:52 PM METAL PRODUCTS VIEWER Toshia Price MD LAB BLOOD ORDERABLES Fin al Result [facility] [address] Department [place] [address] * Colonoscopy (06/15/2024 11:58 AM CDT) Anatomical Region Laterality Modality Other Narrative Procedure Note Vincent Peter MD - 06/15/2024 11:58 AM CDT ENDOSCOPY LAB Patient Name: Vanesa Awad Procedure Date: 06/15/2024 11:58 AM Admit Type: Outpatient Room: [facility] Date of : 1960 Instrument [...] the bowel preparation was evaluatedusing the BBPS ([place] Bowel Preparation Scale) withscores of: Right Colon [...] Most Recently Relevant to Health Maintenance Insurance [facility] Member Subscriber Plan / Payer (Ef fective 2014-Present) Name:Vanesa Awad Relation to Subscriber:Self Name:VANESA AWAD Payer ID:[id number] (NAIC) Type:[facility] HMO/PPO Address: [place] [phone] [facility] Advance Directives For more information, please contact: [phone] * Full Code (Latest Code Status on File) Date Activated Date Inactivated Comments 06/15/2024 12:07 PM 06/15/2024 6:45 PM * Full Code Date Activated Date Inactivated Comments 05/24/2023 7:46 AM 05/24/2023 1:54 PM * Full Code Date Activated Date Inactivated Comments 02/08/2019 11:03 AM 02/08/2019 5:19 PM * Full Code Date Activated Date Inactivated Comments 06/01/2018 11:13 AM 06/01/2018 2:52 PM Care Teams Under Ground Miner Relationship Specialty Start Date End Date Irma Koehler DO [address] [place] [address] PCP - General Family Medicine 12/10/22 Toshia Price MD [address] [place] [address] Medical Oncologist/Office Machine Installer Hematology and Oncology 08/28/22
--- OUTSIDE RECORDS SUMMARY | 2025-01-20 10:39 | XMS_ITS | Clinical Summary ---
Author Organization [facility] [place] Address [address] [place] [address] Phone Care Team Providers Care Health Sciences Program Coordinator Name Role Phone Dimas Vale MD Primary Care Provider [phone] Allergies Active Allergy Reactions Criticality Noted Date [...] Dimas Vale [address] [place] [address] Other: Problem Noted Date Diagnosed Date Asthma [...] on file Legal Sex Female 5:55 AM FINANCE SPECIALIST Gender Identity Not on file Sexual [...] Comments DTAP/TDAP/TD VACCINES (1 - Tdap) 1979 HPV/Cotest (21-29) 1981 CERVICAL CANCER SCREENING 1990 HPV/Cotest (30-65) 1990 PAP SMEAR 1990 COLORECTAL SCREENING 2005 [...] OR WO CAD Routine 09/15/2010 10:04 AM FINANCE SPECIALIST Lump or mass in breast from Last 3 Months or Most Recently Relevant to Health Maintenance Results * MAMMO DIGITAL DIAG BILAT (09/15/2010 10:04 AM FINANCE SPECIALIST) Anatomical Region Laterality Modality Breast Bilateral Mammography Narrative 09/15/2010 5:15 PM FINANCE SPECIALIST BILATERAL DIAGNOSTIC DIGITAL MAMMOGRAMS WITH COMPUTER [...] Recently Relevant to Health Maintenance Care Teams Health Sciences Program Coordinator Relationship Specialty Start Date End Date Dimas Vale MD [address] [place] [address] PCP - General Family Practice 06/19/10
--- OUTSIDE RECORDS SUMMARY | 2025-01-20 10:39 | XMS_ITS | Clinical Summary ---
Author Organization [facility] Address [address] [place] [address] Care Team Providers Care Dial Painter Name Role Phone Irma Koehler Primary Care Provider [phone] Allergies Active Allergy Reactions Criticality Noted Date [...] inhalerIndicat ions:Chronic bronchitis, unspecified chronic bronchitis type (CMS/HCC HHS/HCC) Inhale 2 puffs into the lungs every 4 (four) hours as needed for Wheezing. 18 g 3 08/19/20 23 Active BREO ELLIPTA 200-25 MCG/ACT inhalerIndicat ions:Chronic bronchitis, unspecified chronic bronchitis type ([facility]) Inhale 1 puff by mouth once daily 60 each 01/16/20 25 Active BREO ELLIPTA 200-25 MCG/ACT inhalerIndicat ions:Chronic bronchitis, unspecified chronic bronchitis type ([facility]) Inhale 1 puff by mouth once daily 60 each 2 10/30/19 25 025 Discontinued Active Problems Problem Noted Date Diagnosed Date Chronic bronchitis, unspecif ied chronic bronchitis type ([facility]) 03/18/2020 ANGEL (mycobacterium avium-intracellulare) ([facility]) 03/18/2020 Pulmonary embolism, other, u nspecified chronicity, unspecified whether acute cor pulmonale present ([facility]) 03/18/2020 Gastroesophageal reflux dise ase, esophagitis presence not specified 03/18/2020 Vocal cord polyp 03/18/2020 Diastolic dysfunction 03/18/2020 FSGS (focal segmental glomerulosclerosis) 2019 Abnormal finding on lung imaging 03/18/2020 Encounters Date Type Department Care Team Description 01/19/2025 Telephone [facility] - [id number] [place] [address] Ariel Valera MD Orders 01/17/2025 8:00 AM CDT Office Visit [facility] Multispecialty Care - [address], [address] [place] [address] Ariel Valera MD Follow Up 01/17/2025 Travel 01/02/2025 Scan HEALTH INFO SRVCS Scanned, [facility] PFT (SCAN) from Last 3 Months Immunizations Name Administration Dates Next Due Influenza (Generic) 07/15/2020, 5,05/24/2012, 011,07/04/2010,07/02/2009,08/11/2007, PFIZER COVID-19 (ORIGINAL FORMULATION, PURPLE CAP) mRNA, LNP-S, PF, 30 MCG/0.3 ML DOSE 10/18/2020,09/27/2020 Tdap (Generic) 07/14/2011 Family History Medical History Relation Comments COPD Father Cancer Father Heart Disease Father Arthritis Mother Asthma Mother COPD Mother Diabetes Mother Hypertension Mother Miscarriages / Stillbirths Mother Relation Status Comments Father Mother Social History Tobacco Use Types Packs/Day Years Used Date Smoking Tobacco: Never Smokeless Tobacco: Never Tobacco Cessation:Counseling Given: Yes Alcohol Use Standard Drinks/Week Comments Not Currently [...] file Travel History Travel Start Travel End [place] 12/22/2024 12/25/2024 Last Filed Vital Signs Vital Sign Reading Time Taken Comments Blood Pressure 114/76 01/17/2025 7:56 AM CDT Pulse 82 01/17/2025 7:56 AM CDT Temperature 36.3 C (97.4 F) 08/19/2023 7:57 AM CAFETERIA ASSISTANT Respiratory Rate 16 01/17/2025 7:56 AM CDT Oxygen Saturation 97% 01/17/2025 7:56 AM CDT ra Inhaled Oxygen Concentration - - Weight 66.2 kg (146 lb) 01/17/2025 7:56 AM CDT Height 147.3 cm (4' 10 ) 01/17/2025 7:56 AM CDT Body Mass Index 30.51 01/17/2025 7:56 AM CDT Plan of Treatment Upcoming Encounters Date Type Department Care Team (Late st Contact Info) Description 08/02/2025 8:00 AM CDT Office Visit [facility] Multispecialty Care - [address] [place] [phone] Ariel Valera MD [address] [place] [address] [address] [place] [address] Health Maintenance Due Date Last Done Comments Colorectal Cancer Screening Colonoscopy (10 Years) 1960 Annual Physical 1963 Pneumococcal Vaccine: Pediatrics (0 to 5 Years) and At-Risk Patients (6 to 64 Years) (1 of 2 - PCV) 1966 Hepatitis C 1978 Mammogram Screening 2000 Zoster Vaccines (1 of 2) 2010 RSV Immunization or 60+ Years (1 - Risk 60-74 years 1-dose series) 2020 DTaP, Tdap and Td Vaccines ( 2 - Td or Tdap) 07/14/2021 07/14/2011 COVID-19 Vaccine (3 - 2023-2 5 season) 2024 10/18/2020, 09/27/2020 PHQ-2 (Physician [employer]) 10/11/2024 08/19/2023 Meningococcal B Vaccine Aged Out No l onger eligible based on patient's age to complete this topic Meningococcal Vaccine Aged Out No jo carla eligible based on patient's age to complete this topic RSV Immunizations Under 20 Months Aged Out No longer eligible b ased on patient's age to complete this topic Procedures Procedure Name Priority Date/Time Associated Diagnosis Comments PFT GENERIC (SCAN ORDER) 01/02/2025 PFT GENERIC (SCAN ORDER) 01/02/2025 from Last 3 Months Results * PFT GENERIC (SCAN ORDER) (01/02/2025) 01/02/2025 [facility] Scanned SCANNING Final Resu lt * PFT GENERIC (SCAN ORDER) (01/02/2025) 01/02/2025 [facility] Scanned SCANNING Final Resu lt from Last 3 Months Insurance R Care Teams Dial Painter Relationship Specialty Start Date End Date Irma Koehler DO [address] [place] [address] PCP - General FAMILY PRACTICE 03/22/20
--- OUTSIDE RECORDS SUMMARY | 2025-01-20 10:39 | XMS_ITS | Clinical Summary ---
Author Organization [facility] Address [address] [place] [address] Care Team Providers Care Supervisor Doping Name Role Phone Toshia Price MD Unavailable [phone] Irma Koehler DO Primary Care Provider [phone] Allergies Active Allergy Reactions Criticality Noted Date [...] recommended voice therapy here at the [facility] in order to improve the biomechanics of the patient's voice, which will improve the patient's associated symptoms. Gastroesophageal reflux disease without esophagi tis 01/30/2019 Overview (01/30/2019): Added automatically from request for surgery [id number] Assessment & Plan (07/15/2020 1:35 PM CDT): [...] (05/06/2018): Added automatically from request for surgery [id number] Assessment & Plan (12/10/2022 2:19 PM CREDIT ADMINISTRATION OFFICER): Due for colonoscopy. Last exam May 2019. [...] disease) Assessment & Plan (12/10/2022 2:18 PM CREDIT ADMINISTRATION OFFICER): Has significant laryngeal reflux. We discussed that [...] Department Care Team Description 11/16/2024 2:15 PM CREDIT ADMINISTRATION OFFICER Office Visit [id number] [place] [address] Toshia Price MD Iron deficiency anemia due to chronic blood loss (Primary Dx) 11/16/2024 2:00 PM CREDIT ADMINISTRATION OFFICER Lab [facility] Lab [address] [place] [address] Iron deficiency anemia due to chronic blood loss 10/23/2024 Telephone [facility] Gastroenterology at [facility] [address] [facility] [address], [place] [address] Vincent Peter MD Test Results [...] Added au tomatically from request for surgery [id number] Hiatal hernia 12/28/2018 Gastroesophageal reflux dise ase without esophagitis 01/30/2019 Added automatically from req uest for surgery [id number] Gastroesophageal reflux disease 08/22/2012 GERD (gastroesophageal reflux [...] Medical History Relation Name Comments COPD [facility]; Cancer Father [facility] Colon polyps Father [facility] Early Father [facility] Heart attack Father [facility] Liver disease Father [facility] Liver disease; Lung cancer Father [facility] Cancer, lung; Other Father [facility] hypercoagulable ; Asthma Mother [facility] Asthma; COPD Mother [facility] COPD; Diabetes type II Mother [facility] Diabetes me llitus type 2; Osteoporosis Mother [facility] Thyroid disease Mother [facility] Thyroid dise ase; Colon cancer Mother's Sister Relation Name Status Comments Father [facility] Heart Attack Mother [facility] Mother's Sister Social History Tobacco Use [...] on file Legal Sex Female 2:03 AM CREDIT ADMINISTRATION OFFICER Gender Identity Not on file Sexual Orientation Not on file Obstetrics History Last Filed Vital Signs Vital Sign Reading Time Taken Comments Blood Pressure 149/64 11/16/2024 2:25 PM CREDIT ADMINISTRATION OFFICER Pulse 95 11/16/2024 2:25 PM CREDIT ADMINISTRATION OFFICER Temperature 36.3 C (97.3 F) 11/16/2024 2:25 PM CREDIT ADMINISTRATION OFFICER Respiratory Rate 18 11/16/2024 2:25 PM CREDIT ADMINISTRATION OFFICER Oxygen Saturation 99% 11/16/2024 2:25 PM CREDIT ADMINISTRATION OFFICER Inhaled Oxygen Concentration - - Weight 66.2 kg (146 lb) 11/16/2024 2:25 PM CREDIT ADMINISTRATION OFFICER Height 145.4 cm (4' 9.25 ) 06/15/2024 [...] DIFFERENTIAL AUTO Routine 11/16/2024 2:2 0 PM CREDIT ADMINISTRATION OFFICER Iron deficiency anemia due to chronic blood loss CBC WITH AUTO DIFFERENTIAL Routine 11/16/2024 2:20 PM CREDIT ADMINISTRATION OFFICER Iron deficiency anemia due to chronic blood loss IRON PROFILE W/ IBC Routine 11/16/2024 2 :20 PM CREDIT ADMINISTRATION OFFICER Iron deficiency anemia due to chronic blood loss FERRITIN Routine 11/16/2024 2:20 PM CREDIT ADMINISTRATION OFFICER Iron deficiency anemia due to chronic blood loss COLONOSCOPY 06/15/2024 11:58 AM CDT from Last 3 Months or Most Recently Relevant to Health Maintenance Results * (ABNORMAL) Differential, auto (11/16/2024 2:20 PM CREDIT ADMINISTRATION OFFICER) Neutrophil abs 6.6(H) 1.5 - 6.5 K/cumm Imm gran abs 0.0 0.0 - 0.1 K/cumm [facility] Lymphocyte abs 1.5 0.8 - 3.3 K/cumm [facility] Monocyte abs 0.8 0.2 - 0.8 K/cumm [facility] Eosinophil abs 0.3 0.0 - 0.5 K/cumm [facility] Basophil abs 0.1 0.0 - 0.1 K/cumm [facility] Neutrophil pct 71.1 % [facility] Comment: Interpretive Data Percent cell count reference ranges are not reported, since discordance with absolute values may lead to misinterpretation of CBC data. Current Interpretive Data was last revised on 2018. Imm gran pct 0.3 % [facility] Comment: Interpretive Data Percent cell count reference ranges are not reported, since discordance with absolute values may lead to misinterpretation of CBC data. Current Interpretive Data was last revised on 2018. Lymphocyte pct 15.8 % [facility] Comment: Interpretive Data Percent cell count reference ranges are not reported, since discordance with absolute values may lead to misinterpretation of CBC data. Current Interpretive Data was last revised on 2018. Monocyte pct 8.8 % [facility] Comment: Interpretive Data Percent cell count reference ranges are not reported, since discordance with absolute values may lead to misinterpretation of CBC data. Current Interpretive Data was last revised on 2018. Eosinophil pct 2.9 % [facility] Comment: Interpretive Data Percent cell count reference ranges are not reported, since discordance with absolute values may lead to misinterpretation of CBC data. Current Interpretive Data was last revised on 2018. Basophil pct 1.1 % [facility] Comment: Interpretive Data Percent cell count reference ranges are not reported, since discordance with absolute values may lead to misinterpretation of CBC data. Current Interpretive Data was last revised on 2018. Blood 11/16/2024 2:20 PM CREDIT ADMINISTRATION OFFICER 11/16/2024 2:22 PM CREDIT ADMINISTRATION OFFICER Toshia Price MD LAB BLOOD ORDERABLES Fin al Result Performing Organization Address City/[facility]/ZIP Co de Phone Number [facility] [address] Department [employer] [place], [place] [id number] * (ABNORMAL) Iron profile w/ IBC (11/16/2024 2:20 PM CREDIT ADMINISTRATION OFFICER) Pathologist [facility] Iron 48 35 - 145 mcg/dL TIBC 271 250 - 400 mcg/dL [facility] Transferrin saturation 18(L) 20 - 50 % [facility] Blood 11/16/2024 2:20 PM CREDIT ADMINISTRATION OFFICER 11/16/2024 2:52 PM CREDIT ADMINISTRATION OFFICER Toshia Price MD LAB BLOOD ORDERABLES Fin al Result [facility] [address] Department [employer] [place], [place] [id number] * CBC with auto differential (11/16/2024 2:20 PM CREDIT ADMINISTRATION OFFICER) Pathologist [facility] WBC 9.3 3.8 - 9.9 K/cumm Hgb 14.3 11.9 - 15.5 g/dL [facility] Hct 42.3 35.6 - 45.5 % [facility] Plt 223 150 - 400 K/cumm [facility] MPV 9.4 9.1 - 12.[address] [facility] RBC 4.75 3.90 - 5.20 M/cumm [facility] MCV 89.1 81.3 - 96.[address] [facility] MCH 30.1 27.1 - 33.[address] [facility] MCHC 33.8 32.3 - 35.7 g/dL [facility] RDW CV 14.6 11.1 - 14.9 % [facility] RDW SD 47.9 35.7 - 48.[address] [facility] NRBC abs 0.00 0.00 - 0.01 K/cumm [facility] Blood 11/16/2024 2:20 PM CREDIT ADMINISTRATION OFFICER 11/16/2024 2:22 PM CREDIT ADMINISTRATION OFFICER Toshia Price MD LAB BLOOD ORDERABLES Fin al Result Performing Organization Address [facility]/ZIP Co de Phone Number [facility] [address] [employer] [place] [address] * (ABNORMAL) Ferritin (11/16/2024 2:20 PM CREDIT ADMINISTRATION OFFICER) Ferritin 368(H) 15 - 150 ng/mL Blood 11/16/2024 2:20 PM CREDIT ADMINISTRATION OFFICER 11/16/2024 2:52 PM CREDIT ADMINISTRATION OFFICER Toshia Price MD LAB BLOOD ORDERABLES Fin al Result [facility] [address] Department [place] [address] * Colonoscopy (06/15/2024 11:58 AM CDT) Anatomical Region Laterality Modality Other Narrative Procedure Note Vincent Peter MD - 06/15/2024 11:58 AM CDT ENDOSCOPY LAB Patient Name: Vanesa Awad Procedure Date: 06/15/2024 11:58 AM Admit Type: Outpatient Room: [facility] Date of : 1960 Instrument Name: [...] the bowel preparation was evaluatedusing the BBPS ([place] Bowel Preparation Scale) withscores of: Right Colon [...] Most Recently Relevant to Health Maintenance Insurance [facility] H[facility]/PPO Address: [address] [place] [address] [facility] HMO/PPO Address: [address] [place] [address] [facility] HMO/PPO Address: [address] [place] [address] Advance Directives For more information, please contact: [phone] * Full Code (Latest Code Status on File) Date Activated Date Inactivated Comments 06/15/2024 12:07 PM 06/15/2024 6:45 PM * Full Code Date Activated Date Inactivated Comments 05/24/2023 7:46 AM 05/24/2023 1:54 PM * Full Code Date Activated Date Inactivated Comments 02/08/2019 11:03 AM 02/08/2019 5:19 PM * Full Code Date Activated Date Inactivated Comments 06/01/2018 11:13 AM 06/01/2018 2:52 PM Care Teams Supervisor Doping Relationship Specialty Start Date End Date Irma Koehler DO [address] [place] [address] PCP - General Family Medicine 12/10/22 Toshia Price MD [address] [place] [address] Medical Oncologist/[facility] 08/28/22
--- OUTSIDE RECORDS SUMMARY | 2025-01-20 10:39 | XMS_ITS | Clinical Summary ---
Author Organization [facility] Address [address] [place] [address] Phone Care Team Providers Care Weed Sprayer Name Role Phone Dimas Vale MD Primary Care Provider [phone] Medications amitriptyline (ELAVIL) 25 MG tablet TAKE 1 TABLET BY MOUTH AT BEDTIME 2 11/15/2018 Active Probiotic Product (ALIGN) capsule 1 po qd 0 06/24/2018 Active Magnesium 250 MG tablet 1qd 09/19/2015 Active montelukast (SINGULAIR) 10 MG tablet 1qd 05/14/2014 Active albuterol HFA (PROAIR HFA) 108 (90 Base) MCG/ACT inhaler prn 05/14/2014 Act joey multivitamine, geriatric, (CENTRUM SILVER) tablet 1qd 05/14/2014 Acti ve Calcium Citrate 150 MG capsule 1bid 05/14/2014 Acti ve rivaroxaban (XARELTO) 20 MG tablet 1qd 05/14/2014 Active traMADol (ULTRAM) 50 MG tablet BID PRN for pain 2 07/17/2016 Active Ascorbic Acid (VITAMIN C) 250 MG tablet 1qd 05/14/2014 Active atorvastatin (LIPITOR) 20 MG tablet 1qd 05/14/2014 Active cetirizine (ZyrTEC ALLERGY) 10 MG tablet 1qd 05/14/2014 Active lansoprazole (PREVACID) [address] capsule 1bid 05/14/2014 Activ e cholecalciferol (VITAMIN D-3) 2000 units tablet 1qd 05/14/2014 Active zolpidem (AMBIEN) 5 MG tablet hs prn 3 09/14/2013 Active fluticasone-mitch meterol (ADVAIR DISKUS) 250-50 MCG/DOSE diskus inhaler bid 05/14/2014 Active Isometheptene-C affeine-APAP (PRODRIN) 130-20-500 MG tablet prn 05/14/2014 Active triamterene-hyd roCHLOROthiazid e (DYAZIDE) 37.5-25 MG per capsule Take 1 capsule by mouth 1 (one) time each day in the morning Active hydroCHLOROthia zide (HYDRODIURIL) 25 MG tablet Take 25 mg [...] Packs/Day Years Used Date Smoking Tobacco: Never Comments Unknown Sex and Gender Information Value Date Recorded Sex Assigned at Not on file Legal Sex Female 8:41 AM MST Gender Identity Not on file Sexual Orientation Not on file Last Filed Vital Signs Vital Sign Reading Time Taken Comments Blood Pressure 124/70 10/09/2019 3:38 PM ARABIC TEACHER Pulse 76 06/24/2018 12:01 AM CDT Temperature - - Respiratory Rate - - Oxygen Saturation - - Inhaled Oxygen Concentration - - Weight 67.6 kg (149 lb) 10/09/2019 3:38 PM ARABIC TEACHER Height 144.8 cm (4' 9 ) 10/09/2019 3:38 PM ARABIC TEACHER Body Mass Index 32.24 10/09/2019 3:38 PM ARABIC TEACHER Plan of Treatment Health Maintenance Due Date Last Done Comments Pneumococcal PPSV23 Highest Risk Adult (1 of 3 - PCV13 ) 1979 Influenza Vaccine (Season Ended) 2025 Insurance [facility] Care Teams Weed Sprayer Relationship Specialty Start Date End Date Dimas Vale MD [address] [place] [address] PCP - General Family Medicine 10/09/19
== END 2025-01-20 10:37 | disposition home or self-care (01) ==
PROVIDERS: PCP Nurse Practitioner; Visit Provider Student in an Organized Health Care Education/Training Program
DX: J42 Unspecified chronic bronchitis (principal); J47.9 Bronchiectasis, uncomplicated
CPT/HCPCS: 87070; 87205

== ENCOUNTER 2025-01-25 08:09 | Outpatient (CLI) | payer OTHER, SELFPAY ==
--- OUTSIDE RECORDS SUMMARY | 2025-01-25 08:16 | XMS_ITS | Clinical Summary ---
Author Organization [facility] Address [address] [place] [address] Phone Care Team Providers Care Wood Router Hand Name Role Phone Dimas Vale MD Primary Care Provider [phone] Medications amitriptyline (ELAVIL) 25 MG tablet TAKE [...] Comments Blood Pressure 124/70 10/09/2019 3:38 PM LPN INSTRUCTOR Pulse 76 06/24/2018 12:01 AM CDT Temperature - - Respiratory Rate - - Oxygen Saturation - - Inhaled Oxygen Concentration - - Weight 67.6 kg (149 lb) 10/09/2019 3:38 PM LPN INSTRUCTOR Height 144.8 cm (4' 9 ) 10/09/2019 3:38 PM LPN INSTRUCTOR Body Mass Index 32.24 10/09/2019 3:38 PM LPN INSTRUCTOR Plan of Treatment Health Maintenance Due Date Last Done Comments Pneumococcal PPSV23 Highest Risk Adult (1 of 3 - PCV13 ) 1979 Influenza Vaccine (Season Ended) 2025 Insurance [facility] Care Teams Wood Router Hand Relationship Specialty Start Date End Date Dimas Vale MD [address] [place] [address] PCP - General Family Medicine 10/09/19
--- OUTSIDE RECORDS SUMMARY | 2025-01-25 08:16 | XMS_ITS | Clinical Summary ---
Author Organization [facility] Address [address] [place] [address] Care Team Providers Care Environmental Coordinator Name Role Phone Toshia Price MD Unavailable [phone] Irma Koehler DO Primary Care Provider [phone] Allergies Active Allergy Reactions Criticality Noted Date [...] oral route every day 0 2 Active cholecalcifero l (VITAMIN D3) 2,000 unit capsule take 1 by Oral route once 0 0 5 Active albuterol HFA (PROVENTIL HFA,VENTOLIN HFA,PROAIR HFA) 90 mcg/actuation inhaler uses prn Active isometh-dichlo ral-acetaminop hn (MIDRIN) 65-100-325 mg per capsule as needed 0 8 Active BREO ELLIPTA 200-25 mcg/dose diskus inhaler 9 Active Bifidobacteriu m infantis (ALIGN) 4 mg capsule Take by mouth daily 8 Active hydroCHLOROthi azide (HYDRODIURIL) 12.5 mg tablet Take 1 tablet (12.5 mg total) by mouth daily 0 Active gabapentin (NEURONTIN) 100 mg capsule Take 1 capsule (100 mg total) by mouth daily Active losartan (COZAAR) 25 mg tablet Take 2 tablets (50 mg total) by mouth daily 4 Active [...] (two) times a day 180 capsule 3 5 Active omeprazole (PriLOSEC) 40 mg capsule Take 1 capsule (40 mg total) by mouth 2 (two) times a day 180 capsule 5 025 Discontinued Active Problems Problem Noted Date [...] have recommended voice therapy here at the [facility] in order to improve the biomechanics of the patient's voice, which will improve the patient's associated symptoms. Gastroesophageal reflux disease without esophagi tis 01/30/2019 Overview (01/30/2019): Added automatically from request for surgery [id number] Assessment & Plan (07/15/2020 1:35 PM CDT): [...] (05/06/2018): Added automatically from request for surgery [id number] Assessment & Plan (12/10/2022 2:19 PM HEAVY MOBILE EQUIPMENT REPAIRER): Due for colonoscopy. Last exam May 2019. [...] disease) Assessment & Plan (12/10/2022 2:18 PM HEAVY MOBILE EQUIPMENT REPAIRER): Has significant laryngeal reflux. We discussed that [...] Department Care Team Description 11/16/2024 2:15 PM HEAVY MOBILE EQUIPMENT REPAIRER Office Visit [facility] [address] [place] [address] [phone] Toshia Price MD Iron deficiency anemia due to chronic blood loss (Primary Dx) 11/16/2024 2:00 PM HEAVY MOBILE EQUIPMENT REPAIRER Lab [facility] [address] [place] [address] [phone] Iron deficiency anemia due to chronic blood loss from Last 3 Months Surgical History Surgery [...] x disease) Chronic diarrhea Diverticulosis Chronic bronchitis ([facility]) Focal segmental glomerulosclerosis Arthritis Hypertension Pulmonary embolism ([facility]) 2003 FSGS (focal segmental glomerulosclerosis) Remission 2017 [...] Added au tomatically from request for surgery [id number] Hiatal hernia 12/28/2018 Gastroesophageal reflux dise ase without esophagitis 01/30/2019 Added automatically from req uest for surgery [id number] Gastroesophageal reflux disease 08/22/2012 GERD (gastroesophageal reflux [...] ICD9, p otential mismatch. 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 Family History Medical History Relation Name Comments COPD Father [facility] COPD; Cancer Father [facility] Colon polyps Father [facility] Early Father [facility] Heart attack Father [facility] Liver disease Father [facility] Liver disease; Lung cancer Father [facility] Cancer, lung; Other Father [facility] hypercoagulable ; Asthma Mother [facility] Asthma; COPD Mother [facility] COPD; Diabetes type II Mother [facility] Diabetes me llitus type 2; Osteoporosis Mother [facility] Thyroid disease Mother [facility] Thyroid dise ase; Colon cancer Mother's Sister Relation Name Status Comments Father [facility] Heart Attack Mother [facility] Mother's Sister Social History Tobacco [...] on file Legal Sex Female 2:03 AM HEAVY MOBILE EQUIPMENT REPAIRER Gender Identity Not on file Sexual Orientation Not on file Obstetrics History Last Filed Vital Signs Vital Sign Reading Time Taken Comments Blood Pressure 149/64 11/16/2024 2:25 PM HEAVY MOBILE EQUIPMENT REPAIRER Pulse 95 11/16/2024 2:25 PM HEAVY MOBILE EQUIPMENT REPAIRER Temperature 36.3 C (97.3 F) 11/16/2024 2:25 PM HEAVY MOBILE EQUIPMENT REPAIRER Respiratory Rate 18 11/16/2024 2:25 PM HEAVY MOBILE EQUIPMENT REPAIRER Oxygen Saturation 99% 11/16/2024 2:25 PM HEAVY MOBILE EQUIPMENT REPAIRER Inhaled Oxygen Concentration - - Weight 66.2 kg (146 lb) 11/16/2024 2:25 PM HEAVY MOBILE EQUIPMENT REPAIRER Height 145.4 cm (4' 9.25 ) 06/15/2024 [...] DIFFERENTIAL AUTO Routine 11/16/2024 2:2 0 PM HEAVY MOBILE EQUIPMENT REPAIRER Iron deficiency anemia due to chronic blood loss CBC WITH AUTO DIFFERENTIAL Routine 11/16/2024 2:20 PM HEAVY MOBILE EQUIPMENT REPAIRER Iron deficiency anemia due to chronic blood loss IRON PROFILE W/ IBC Routine 11/16/2024 2 :20 PM HEAVY MOBILE EQUIPMENT REPAIRER Iron deficiency anemia due to chronic blood loss FERRITIN Routine 11/16/2024 2:20 PM HEAVY MOBILE EQUIPMENT REPAIRER Iron deficiency anemia due to chronic blood loss COLONOSCOPY 06/15/2024 11:58 AM CDT from Last 3 Months or Most Recently Relevant to Health Maintenance Results * (ABNORMAL) Differential, auto (11/16/2024 2:20 PM HEAVY MOBILE EQUIPMENT REPAIRER) Neutrophil abs 6.6(H) 1.5 - 6.5 K/cumm Imm gran abs 0.0 0.0 - 0.1 K/cumm [facility] Lymphocyte abs 1.5 0.8 - 3.3 K/cumm [facility] Monocyte abs 0.8 0.2 - 0.8 K/cumm [facility] Eosinophil abs 0.3 0.0 - 0.5 K/cumm [facility] Basophil abs 0.1 0.0 - 0.1 K/cumm [facility] Neutrophil pct 71.1 % [facility] Comment: Interpretive Data Percent cell count reference ranges are not reported, since discordance with absolute values may lead to misinterpretation of CBC data. Current Interpretive Data was last revised on 2018. Imm gran pct 0.3 % [facility] Comment: Interpretive Data Percent cell count reference ranges are not reported, since discordance with absolute values may lead to misinterpretation of CBC data. Current Interpretive Data was last revised on 2018. Lymphocyte pct 15.8 % [facility] Comment: Interpretive Data Percent cell count reference ranges are not reported, since discordance with absolute values may lead to misinterpretation of CBC data. Current Interpretive Data was last revised on 2018. Monocyte pct 8.8 % [facility] Comment: Interpretive Data Percent cell count reference ranges are not reported, since discordance with absolute values may lead to misinterpretation of CBC data. Current Interpretive Data was last revised on 2018. Eosinophil pct 2.9 % [facility] Comment: Interpretive Data Percent cell count reference ranges are not reported, since discordance with absolute values may lead to misinterpretation of CBC data. Current Interpretive Data was last revised on 2018. Basophil pct 1.1 % [facility] Comment: Interpretive Data Percent cell count reference ranges are not reported, since discordance with absolute values may lead to misinterpretation of CBC data. Current Interpretive Data was last revised on 2018. Blood 11/16/2024 2:20 PM HEAVY MOBILE EQUIPMENT REPAIRER 11/16/2024 2:22 PM HEAVY MOBILE EQUIPMENT REPAIRER Toshia Price MD LAB BLOOD ORDERABLES Fin al Result Performing Organization Address [facility] Co de Phone Number [facility] [address] [employer] of [employer] [place], [place] [id number] * (ABNORMAL) Iron profile w/ IBC (11/16/2024 2:20 PM HEAVY MOBILE EQUIPMENT REPAIRER) Pathologist [facility] Iron 48 35 - 145 mcg/dL TIBC 271 250 - 400 mcg/dL [facility] Transferrin saturation 18(L) 20 - 50 % [facility] Blood 11/16/2024 2:20 PM HEAVY MOBILE EQUIPMENT REPAIRER 11/16/2024 2:52 PM HEAVY MOBILE EQUIPMENT REPAIRER Toshia Price MD LAB BLOOD ORDERABLES Fin al Result Performing Organization Address [facility] de Phone Number [facility] [address] [place] [address] * CBC with auto differential (11/16/2024 2:20 PM HEAVY MOBILE EQUIPMENT REPAIRER) Pathologist [facility] WBC 9.3 3.8 - 9.9 K/cumm Hgb 14.3 11.9 - 15.5 g/dL [facility] Hct 42.3 35.6 - 45.5 % [facility] Plt 223 150 - 400 K/cumm [facility] MPV 9.4 9.1 - 12.3 fL [facility] RBC 4.75 3.90 - 5.20 M/cumm [facility] MCV 89.1 81.3 - 96.4 fL [facility] MCH 30.1 27.1 - 33.3 pg [facility] MCHC 33.8 32.3 - 35.7 g/dL [facility] RDW CV 14.6 11.1 - 14.9 % [facility] RDW SD 47.9 35.7 - 48.1 fL [facility] NRBC abs 0.00 0.00 - 0.01 K/cumm [facility] Blood 11/16/2024 2:20 PM HEAVY MOBILE EQUIPMENT REPAIRER 11/16/2024 2:22 PM HEAVY MOBILE EQUIPMENT REPAIRER Toshia Price MD LAB BLOOD ORDERABLES Fin al Result Performing Organization Address City/[facility]/ZIP Co de Phone Number [facility] [address] [facility] [employer] [place], [place] [id number] * (ABNORMAL) Ferritin (11/16/2024 2:20 PM HEAVY MOBILE EQUIPMENT REPAIRER) Ferritin 368(H) 15 - 150 ng/mL Blood 11/16/2024 2:20 PM HEAVY MOBILE EQUIPMENT REPAIRER 11/16/2024 2:52 PM HEAVY MOBILE EQUIPMENT REPAIRER Toshia Price MD LAB BLOOD ORDERABLES Fin al Result Performing Organization Address [facility] de Phone Number [facility] [address] [place] [address] * Colonoscopy (06/15/2024 11:58 AM CDT) Anatomical Region Laterality Modality Other Narrative Procedure Note Vincent Peter MD - 06/15/2024 11:58 AM CDT ENDOSCOPY LAB Patient Name: Vanesa Awad Procedure Date: 06/15/2024 11:58 AM Admit Type: Outpatient Room: [facility] 2 Date of : 1960 Instrument Name: NIESHA Gender: Female Note Status: Finalized Procedure: Colonoscopy [...] the bowel preparation was evaluatedusing the BBPS (Meridian Bowel Preparation Scale) withscores of: Right Colon [...] Most Recently Relevant to Health Maintenance Insurance [facility] Advance Directives For more information, please contact: [phone] * Full Code (Latest Code Status on File) Date Activated Date Inactivated Comments 06/15/2024 12:07 PM 06/15/2024 6:45 PM * Full Code Date Activated Date Inactivated Comments 05/24/2023 7:46 AM 05/24/2023 1:54 PM * Full Code Date Activated Date Inactivated Comments 02/08/2019 11:03 AM 02/08/2019 5:19 PM * Full Code Date Activated Date Inactivated Comments 06/01/2018 11:13 AM 06/01/2018 2:52 PM Care Teams Environmental Coordinator Relationship Specialty Start Date End Date UnajanetIrma DO [address] [place] [address] PCP - General Family Medicine 12/10/22 Toshia Price MD [address] [place] [address] Medical Oncologist/Produce Associate Hematology and Oncology 08/28/22
--- OUTSIDE RECORDS SUMMARY | 2025-01-25 08:16 | XMS_ITS | Clinical Summary ---
Author Organization [facility] Address [address] [place] [address] Phone Care Team Providers Care Nipple Threader Name Role Phone Dimas Vale MD Primary Care Provider [phone] Allergies Active Allergy Reactions Criticality Noted Date [...] Dimas Vale [address] [place] [address] Other: Problem Noted Date Diagnosed Date Asthma [...] on file Legal Sex Female 5:55 AM RUBBER CHEMIST Gender Identity Not on file Sexual Orientation [...] OR WO CAD Routine 09/15/2010 10:04 AM RUBBER CHEMIST Lump or mass in breast from Last 3 Months or Most Recently Relevant to Health Maintenance Results * MAMMO DIGITAL DIAG BILAT (09/15/2010 10:04 AM RUBBER CHEMIST) Anatomical Region Laterality Modality Breast Bilateral Mammography Narrative 09/15/2010 5:15 PM RUBBER CHEMIST BILATERAL DIAGNOSTIC DIGITAL MAMMOGRAMS WITH COMPUTER ASSISTED [...] Recently Relevant to Health Maintenance Care Teams Nipple Threader Relationship Specialty Start Date End Date Dimas Vale MD [address] [place] [address] PCP - General Family Practice 06/19/10
--- OUTSIDE RECORDS SUMMARY | 2025-01-25 08:16 | XMS_ITS | Encounter Summary ---
Author Organization [facility] Address [address] [place] [address] Care Team Providers Care Mfts Name Role Phone Irma Koehler DO Primary Care Provider [phone] Reason for Visit * Reason Comments Lab (SCAN) Encounter Details Date Type Department Care Team (Latest Contact Info) Description 01/20/2025 Scan HEALTH INFO [facility] Scanned, [facility] Lab (SCAN) Social History Tobacco Use Types Packs/Day Years [...] Travel History Travel Start Travel End [place] 12/22/2024 12/25/2024 documented as of this encounter Plan of Treatment Upcoming Encounters Date Type Department Care Team (Late st Contact Info) Description 08/02/2025 8:00 AM CDT Office Visit [facility] - [address] [place] [address] Ariel Valera MD [address] [place] [address] [address] [place] [address] documented as of this encounter Procedures Procedure Name Priority Date/Time Associated Diagnosis Comments OUTSIDE LAB (SCAN ORDER) 01/20/2025 documented in this encounter Results * OUTSIDE LAB (SCAN ORDER) (01/20/2025) 01/20/2025 us [facility] Scanned SCANNING Final Resu lt documented in this encounter Visit Diagnoses Not on filedocumented in this encounter Additional Health Concerns Assessment Noted Time PHQ-9 Depression Total Score: 0 04/21/20 21 9:09 AM CDT documented as of this encounter Care Teams Mfts Relationship Specialty Start Date End Date Irma Koehler DO [address] [place] [address] PCP - General FAMILY PRACTICE 03/22/20 documented as of this encounter
--- OUTSIDE RECORDS SUMMARY | 2025-01-25 08:16 | XMS_ITS | Referral Summary ---
Author Organization [facility] Address [facility] [place] [address] Care Team Providers Care Erp Specialist Name Role Phone Toshia Price MD Unavailable [phone] Irma Koehler DO Primary Care Provider [phone] Encounters Date Type Department Care Team Description 11/16/2024 2:00 PM HAND SEWER Lab [facility] Lab [address] [place] [phone] Iron deficiency anemia due to chronic blood loss 11/16/2024 2:15 PM HAND SEWER Office Visit [facility] [address] [place] [phone] Toshia Price MD Iron deficiency anemia due to chronic blood loss (Primary Dx) from Last 3 Months Allergies [...] have recommended voice therapy here at the [facility] in order to improve the biomechanics of the patient's voice, which will improve the patient's associated symptoms. Gastroesophageal reflux disease without esophagi tis 01/30/2019 Overview (01/30/2019): Added automatically from request for surgery [id number] Assessment & Plan (07/15/2020 1:35 PM CDT): [...] (05/06/2018): Added automatically from request for surgery [id number] Assessment & Plan (12/10/2022 2:19 PM HAND SEWER): Due for colonoscopy. Last exam May 2019. [...] disease) Assessment & Plan (12/10/2022 2:18 PM HAND SEWER): Has significant laryngeal reflux. We discussed that [...] on file Legal Sex Female 2:03 AM HAND SEWER Gender Identity Not on file Sexual Orientation Not on file Last Filed Vital Signs Vital Sign Reading Time Taken Comments Blood Pressure 149/64 11/16/2024 2:25 PM HAND SEWER Pulse 95 11/16/2024 2:25 PM HAND SEWER Temperature 36.3 C (97.3 F) 11/16/2024 2:25 PM HAND SEWER Respiratory Rate 18 11/16/2024 2:25 PM HAND SEWER Oxygen Saturation 99% 11/16/2024 2:25 PM HAND SEWER Inhaled Oxygen Concentration - - Weight 66.2 kg (146 lb) 11/16/2024 2:25 PM HAND SEWER Height 145.4 cm (4' 9.25 ) 06/15/2024 12:04 PM C DT Body Mass Index 31.32 06/15/2024 12:04 PM CDT Plan of Treatment Not on file Procedures Procedure Name Priority Date/Time Associated Diagnosis Comments DIFFERENTIAL AUTO Routine 11/16/2024 2:2 0 PM HAND SEWER Iron deficiency anemia due to chronic blood loss CBC WITH AUTO DIFFERENTIAL Routine 11/16/2024 2:20 PM HAND SEWER Iron deficiency anemia due to chronic blood loss IRON PROFILE W/ IBC Routine 11/16/2024 2 :20 PM HAND SEWER Iron deficiency anemia due to chronic blood loss FERRITIN Routine 11/16/2024 2:20 PM HAND SEWER Iron deficiency anemia due to chronic blood loss COLONOSCOPY 06/15/2024 11:58 AM CDT from Last 3 Months or Most Recently Relevant to Health Maintenance Results * (ABNORMAL) Differential, auto (11/16/2024 2:20 PM HAND SEWER) Neutrophil abs 6.6(H) 1.5 - 6.5 K/cumm Imm gran abs 0.0 0.0 - 0.1 K/cumm [facility] Lymphocyte abs 1.5 0.8 - 3.3 K/cumm [facility] Monocyte abs 0.8 0.2 - 0.8 K/cumm [facility] Eosinophil abs 0.3 0.0 - 0.5 K/cumm [facility] Basophil abs 0.1 0.0 - 0.1 K/cumm [facility] Neutrophil pct 71.1 % [facility] Comment: Interpretive Data Percent cell count reference ranges are not reported, since discordance with absolute values may lead to misinterpretation of CBC data. Current Interpretive Data was last revised on 2018. Imm gran pct 0.3 % [facility] Comment: Interpretive Data Percent cell count reference ranges are not reported, since discordance with absolute values may lead to misinterpretation of CBC data. Current Interpretive Data was last revised on 2018. Lymphocyte pct 15.8 % [facility] Comment: Interpretive Data Percent cell count reference ranges are not reported, since discordance with absolute values may lead to misinterpretation of CBC data. Current Interpretive Data was last revised on 2018. Monocyte pct 8.8 % [facility] Comment: Interpretive Data Percent cell count reference ranges are not reported, since discordance with absolute values may lead to misinterpretation of CBC data. Current Interpretive Data was last revised on 2018. Eosinophil pct 2.9 % [facility] Comment: Interpretive Data Percent cell count reference ranges are not reported, since discordance with absolute values may lead to misinterpretation of CBC data. Current Interpretive Data was last revised on 2018. Basophil pct 1.1 % [facility] Comment: Interpretive Data Percent cell count reference ranges are not reported, since discordance with absolute values may lead to misinterpretation of CBC data. Current Interpretive Data was last revised on 2018. Blood 11/16/2024 2:20 PM HAND SEWER 11/16/2024 2:22 PM HAND SEWER Toshia Price MD LAB BLOOD ORDERABLES Fin al Result Performing Organization Address City/[facility]/ZIP Co de Phone Number [facility] [address] [place] [address] * (ABNORMAL) Iron profile w/ IBC (11/16/2024 2:20 PM HAND SEWER) Pathologist [facility] Iron 48 35 - 145 mcg/dL TIBC 271 250 - 400 mcg/dL [facility] Transferrin saturation 18(L) 20 - 50 % [facility] Blood 11/16/2024 2:20 PM HAND SEWER 11/16/2024 2:52 PM HAND SEWER Toshia Price MD LAB BLOOD ORDERABLES Fin al Result [facility] [address] Department of [place] [place], [place] [id number] * CBC with auto differential (11/16/2024 2:20 PM HAND SEWER) Pathologist [facility] WBC 9.3 3.8 - 9.9 K/cumm Hgb 14.3 11.9 - 15.5 g/dL [facility] Hct 42.3 35.6 - 45.5 % [facility] Plt 223 150 - 400 K/cumm [facility] MPV 9.4 9.1 - 12.3 fL [facility] RBC 4.75 3.90 - 5.20 M/cumm [facility] MCV 89.1 81.3 - 96.4 fL [facility] MCH 30.1 27.1 - 33.3 pg [facility] MCHC 33.8 32.3 - 35.7 g/dL [facility] RDW CV 14.6 11.1 - 14.9 % [facility] RDW SD 47.9 35.7 - 48.1 fL [facility] NRBC abs 0.00 0.00 - 0.01 K/cumm [facility] Blood 11/16/2024 2:20 PM HAND SEWER 11/16/2024 2:22 PM HAND SEWER Toshia Price MD LAB BLOOD ORDERABLES Fin al Result [facility] [address] [employer] [place], [place] [id number] * (ABNORMAL) Ferritin (11/16/2024 2:20 PM HAND SEWER) [facility] Ferritin 368(H) 15 - 150 ng/mL Blood 11/16/2024 2:20 PM HAND SEWER 11/16/2024 2:52 PM HAND SEWER Toshia Price MD LAB BLOOD ORDERABLES Fin al Result [facility] [address] [place] [address] * Colonoscopy (06/15/2024 11:58 AM CDT) Anatomical Region Laterality Modality Other Narrative Procedure Note Vincent Peter MD - 06/15/2024 11:58 AM CDT ENDOSCOPY LAB Patient Name: Vanesa Awad Procedure Date: 06/15/2024 11:58 AM Admit Type: Outpatient Room: [facility] Date of : 1960 Instrument [...] the bowel preparation was evaluatedusing the BBPS ([place] Bowel Preparation Scale) withscores of: Right Colon [...] Most Recently Relevant to Health Maintenance Insurance [facility] HMO/PPO Address: [place] [address] [facility] HMO/PPO Address: [place] [address] [facility] HMO/PPO Address: [address] [address] Advance Directives For more information, please contact: [phone] * Full Code (Latest Code Status on File) Date Activated Date Inactivated Comments 06/15/2024 12:07 PM 06/15/2024 6:45 PM * Full Code Date Activated Date Inactivated Comments 05/24/2023 7:46 AM 05/24/2023 1:54 PM * Full Code Date Activated Date Inactivated Comments 02/08/2019 11:03 AM 02/08/2019 5:19 PM * Full Code Date Activated Date Inactivated Comments 06/01/2018 11:13 AM 06/01/2018 2:52 PM Care Teams Erp Specialist Relationship Specialty Start Date End Date Irma Koehler DO [address] [place] [address] PCP - General Family Medicine 12/10/22 Toshia Price MD [address] [place] [address] Medical Oncologist/Boilermaker Pipe Fitter Hematology and Oncology 08/28/22
--- OUTSIDE RECORDS SUMMARY | 2025-01-25 08:16 | XMS_ITS | Clinical Summary ---
Author Organization [facility] Address [address] [place] [address] Care Team Providers Care Precision Machining Instructor Name Role Phone Irma Koehler Primary Care Provider [phone] Allergies Active Allergy Reactions Criticality Noted Date [...] inhalerIndicat ions:Chronic bronchitis, unspecified chronic bronchitis type ([facility]) Inhale 1 puff by mouth once daily 60 each 01/16/20 25 Active BREO ELLIPTA 200-25 MCG/ACT inhalerIndicat ions:Chronic bronchitis, unspecified chronic bronchitis type ([facility]) Inhale 1 puff by mouth once daily 60 each 2 10/30/19 25 025 Discontinued Active Problems Problem Noted Date Diagnosed Date Chronic bronchitis, unspecif ied chronic bronchitis type ([facility]) 03/18/2020 ANGEL (mycobacterium avium-intracellulare) ([facility]) 03/18/2020 Pulmonary embolism, other, u nspecified chronicity, unspecified whether acute cor pulmonale present ([facility]) 03/18/2020 Gastroesophageal reflux dise ase, esophagitis presence not specified 03/18/2020 Vocal cord polyp 03/18/2020 Diastolic dysfunction 03/18/2020 FSGS (focal segmental glomerulosclerosis) 2019 Abnormal finding on lung imaging 03/18/2020 Encounters Date Type Department Care Team Description 01/20/2025 Scan [employer] SRVCS Scanned, [facility] Lab (SCAN) 01/19/2025 Telephone [facility] - [address] [address] Ariel Valera MD Orders 01/17/2025 8:00 AM CDT Office Visit [facility] - [address] [place] [address] Ariel Valera MD Follow Up 01/17/2025 Travel 01/02/2025 Scan [facility] Scanned, [facility] PFT (SCAN) from Last 3 Months Immunizations Immunization Administration Dates Next Due Influenza (Generic) 07/15/2020,,05/24/2012,2010,07/04/2010,07/02/2009,08/11/2007,1 10/24/2005 PFIZER COVID-19 (ORIGINAL FORMULATION, PURPLE CAP) mRNA, [...] file Travel History Travel Start Travel End [place] 12/22/2024 12/25/2024 Last Filed Vital Signs Vital Sign Reading Time Taken Comments Blood Pressure 114/76 01/17/2025 7:56 AM CDT Pulse 82 01/17/2025 7:56 AM CDT Temperature 36.3 C (97.4 F) 08/19/2023 7:57 AM DATA QUALITY CONSULTANT Respiratory Rate 16 01/17/2025 7:56 AM CDT [...] Description 08/02/2025 8:00 AM CDT Office Visit [facility] [address] [facility] [place] [id number] Ariel Valera MD [address] [facility] [address] [place] [address] Health Maintenance Due Date Last Done Comments Colorectal Cancer Screening Colonoscopy (10 Years) 1960 Annual Physical 1963 Hepatitis C 1978 Pneumococcal Vaccine: 50+ Years (1 of 2 - PCV) 1979 Mammogram Screening 2000 Zoster Vaccines (1 of 2) 2010 RSV Immunization or 60+ Years (1 - Risk 60-74 years 1-dose series) 2020 DTaP, Tdap and Td Vaccines ( 2 - Td or Tdap) 07/14/2021 07/14/2011 COVID-19 Vaccine (3 - 2023-2 5 season) 2024 10/18/2020, 09/27/2020 PHQ-2 (Physician [place]) 10/11/2024 08/19/2023 Meningococcal B Vaccine Aged Out [...] Diagnosis Comments OUTSIDE LAB (SCAN ORDER) 01/20/2025 PFT GENERIC (SCAN ORDER) 01/02/2025 PFT GENERIC (SCAN ORDER) 01/02/2025 from Last 3 Months Results * OUTSIDE LAB (SCAN ORDER) (01/20/2025) 01/20/2025 [facility] Scanned SCANNING Final Resu lt * PFT GENERIC (SCAN ORDER) (01/02/2025) 01/02/2025 [facility] Scanned SCANNING Final Resu lt * PFT GENERIC (SCAN ORDER) (01/02/2025) 01/02/2025 [facility] Scanned SCANNING Final Resu lt from Last 3 Months Insurance R Member Subscriber Plan / Payer (Ef fective 2024-Present) Name:Vanesa Awad Relation to Subscriber:Self Name:Vanesa Awad Payer ID:[id number] (NAIC) Type:Not on file Address: [place] [id number] Care Teams Precision Machining Instructor Relationship Specialty Start Date End Date Irma Koehler DO [address] [place], [place] [phone] PCP - General FAMILY PRACTICE 03/22/20
--- NOTE | 2025-01-25 13:01 | WPDSIXMINUTE ---
Six Minute Walk Procedure Procedure Performed Pulmonary Stress Test (6 min walk) Six Minute Walk Six Minute Walk: This is a 6 minute walk test. The test was performed and interpreted in accordance with the 2014 ERS/ATS task force guidelines. Findings: The patient's resting room air oxygen saturation measured by pulse oximetry was 96%, the heart rate was 68 bpm, and the modified Logan dyspnea score was 0. Patient ambulated for 305 meters and oxygen saturation remained 96 to 98%. At the end of the study the heart rate was 88 bpm and the modified Logan dyspnea score was 2. The patient did not qualify for supplemental oxygen at rest or with ambulation. There are no prior studies for comparison.
== END 2025-01-25 08:10 | disposition home or self-care (01) ==
LOC: ANHPFT 08:10
PROVIDERS: PCP Nurse Practitioner; Visit Provider Student in an Organized Health Care Education/Training Program
DX: J42 Unspecified chronic bronchitis (principal)
CPT/HCPCS: 94618

== ENCOUNTER 2025-01-26 14:59 | Outpatient (CLI) | payer OTHER, SELFPAY ==
--- NOTE | ~2025-01-26 | CT_ITS ---
CT Scan of the Chest without Contrast: Clinical Indication: Abnormal findings on imaging, mycobacterial infection Technique: Contiguous sections were acquired throughout the chest without intravenous contrast. Dose reduction technique was used on this scan by utilizing automated exposure control and iterative recon struction technique. The dose-length product (DLP) was 169.56 mGy-cm. Findings: There is no evidence of any significant mediastinal, hilar or axillary lymphadenopathy. Coronary suzi ry calcifications are present. There is no evidence of pleural or pericardial effusion. Calcified right apical granuloma present. Lungs are otherwise clear. Images through the upper abdomen reveal no abnormalities. There is degenerative spondylosis of the th oracic spine. Impression: No significant pulmonary abnormality seen. Reviewed, dictated and finalized at [facility]. Impression: No significant pulmonary abnormality seen.
== END 2025-01-26 15:00 | disposition home or self-care (01) ==
LOC: MICIMG 15:01
PROVIDERS: PCP Family Medicine; Visit Provider Student in an Organized Health Care Education/Training Program
DX: A31.0 Pulmonary mycobacterial infection (principal); J47.9 Bronchiectasis, uncomplicated; R91.8 Other nonspecific abnormal finding of lung field
CPT/HCPCS: 71250

== ENCOUNTER 2025-03-09 12:49 | Outpatient (CLI) | payer OTHER, SELFPAY ==
--- NOTE | ~2025-03-09 | XR_ITS ---
XR hip BI 2V w AP pelvis 03/09/2025 14:34 Indication: Hip pain Procedure: AP pelvis and 2 views each hip Comparison: No prior studies for comparison. Findings: Pelvic rings intact. Mild osteoarthritis of the hips. No fracture, subluxation or dislocati on. 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 Impression: 1: Mild osteoarthritis of the hips. Reviewed, dictated and finalized at location A. Impression: 1: Mild osteoarthritis of the hips.
--- OUTSIDE RECORDS SUMMARY | 2025-03-09 13:56 | XMS_ITS | Clinical Summary ---
Author Organization [facility] Address [address] [place] [phone] Phone Care Team Providers Care Burn Center Nurse Name Role Phone Dimas Vale MD Primary Care Provider [phone] Medications amitriptyline (ELAVIL) 25 MG tablet TAKE [...] Comments Blood Pressure 124/70 10/09/2019 3:38 PM CREW MESS ATTENDANT Pulse 76 06/24/2018 12:01 AM CDT Temperature - - Respiratory Rate - - Oxygen Saturation - - Inhaled Oxygen Concentration - - Weight 67.6 kg (149 lb) 10/09/2019 3:38 PM CREW MESS ATTENDANT Height 144.8 cm (4' 9) 10/09/2019 3:38 PM CREW MESS ATTENDANT Body Mass Index 32.24 10/09/2019 3:38 PM CREW MESS ATTENDANT Plan of Treatment Health Maintenance Due Date Last Done Comments Pneumococcal PPSV23 Highest Risk Adult (1 of 3 - PCV13 ) 1979 Influenza Vaccine (Season Ended) [address] [facility] Care Teams Burn Center Nurse Relationship Specialty Start Date End Date Dimas Vale MD [address] [place] [address] PCP - General Family Medicine 10/09/19
--- OUTSIDE RECORDS SUMMARY | 2025-03-09 13:57 | XMS_ITS | Clinical Summary ---
Author Organization [facility] Address [address] [place] [address] Care Team Providers Care Community Planner Name Role Phone Toshia Price MD Unavailable [phone] Irma Koehler DO Primary Care Provider [phone] Allergies Active Allergy Reactions Criticality Noted Date [...] (two) times a day 180 capsule 3 12/27/2024 Active Active Problems Problem Noted Date Diagnosed [...] recommended voice therapy here at the [facility] in order to improve the biomechanics of the patient's voice, which will improve the patient's associated symptoms. Gastroesophageal reflux disease without esophagi tis 01/30/2019 Overview (01/30/2019): Added automatically from request for surgery [id number] Assessment & Plan (07/15/2020 1:35 PM CDT): [...] (05/06/2018): Added automatically from request for surgery [id number] Assessment & Plan (12/10/2022 2:19 PM WAIT STAFF): Due for colonoscopy. Last exam May 2019. [...] disease) Assessment & Plan (12/10/2022 2:18 PM WAIT STAFF): Has significant laryngeal reflux. We discussed that [...] repeat examination by myself for upper endoscopy. Surgical History Surgery Date Site/Laterality Comments HYSTERECTOMY [...] (HCC) 2003 FSGS (focal segmental glomerulosclerosis) Remission 2017 [...] Added au tomatically from request for surgery [id number] Hiatal hernia 12/28/2018 Gastroesophageal reflux dise ase without esophagitis 01/30/2019 Added automatically from req uest for surgery [id number] Gastroesophageal reflux disease 08/22/2012 GERD (gastroesophageal reflux [...] ICD9, p otential mismatch. ANGEL (mycobacterium avium-intracellulare) ([facility]) 03/18/2020 Paresthesia 08/18/2017 Anesthesia of skin 12/17/2017 Abnormal finding on lung imaging 03/18/2020 Abnormal levels of other ser um enzymes 02/28/2015 Converted unresolved ICD9, p otential mismatch. Family History Medical History Relation Name Comments [facility]; Cancer Father [facility] Colon polyps [facility] Heart attack [facility] Liver disease [facility] Liver disease; Lung cancer [facility] Cancer, lung; Other [facility] hypercoagulable ; Asthma Mother [facility] Asthma; COPD Mother [facility] COPD; Diabetes type II Mother [facility] Diabetes me llitus type 2; Osteoporosis Mother [facility] Thyroid disease Mother [facility] Thyroid dise ase; Colon cancer Mother's Sister Relation Name Status Comments Father [facility] Heart Attack Mother [facility] Mother's Sister Social History Tobacco Use [...] on file Legal Sex Female 2:03 AM WAIT STAFF Gender Identity Not on file Sexual Orientation Not on file Obstetrics History Last Filed Vital Signs Vital Sign Reading Time Taken Comments Blood Pressure 149/64 11/16/2024 2:25 PM WAIT STAFF Pulse 95 11/16/2024 2:25 PM WAIT STAFF Temperature 36.3 C (97.3 F) 11/16/2024 2:25 PM WAIT STAFF Respiratory Rate 18 11/16/2024 2:25 PM WAIT STAFF Oxygen Saturation 99% 11/16/2024 2:25 PM WAIT STAFF Inhaled Oxygen Concentration - - Weight 66.2 kg (146 lb) 11/16/2024 2:25 PM WAIT STAFF Height 145.4 cm (4' 9.25) 06/15/2024 12:04 PM C DT Body Mass [...] season) 2024 07/25/2021, 10/18/2020, 09/27/2020 Influenza Vaccine (Season Ended) 2025 07/15/2020, 07/23/2015, 05/24/2012, Additional history exists Colon Cancer [...] Procedure Name Priority Date/Time Associated Diagnosis Comments COLONOSCOPY 06/15/2024 11:58 AM CDT from Last 3 Months or Most Recently Relevant to Health Maintenance Results * Colonoscopy (06/15/2024 11:58 AM CDT) Anatomical Region Laterality Modality Other Narrative Procedure Note Vincent Peter MD - 06/15/2024 11:58 AM CDT ENDOSCOPY LAB Patient Name: Vanesa Awad Procedure Date: 06/15/2024 11:58 AM Admit Type: Outpatient Room: [facility] Date of : 1960 Instrument Name: [...] the bowel preparation was evaluatedusing the BBPS ([place] Bowel Preparation Scale) withscores of: Right Colon [...] Most Recently Relevant to Health Maintenance Insurance [facility] Advance Directives For more information, please contact: [phone] * Full Code (Latest Code Status on File) Date Activated Date Inactivated Comments 06/15/2024 12:07 PM 06/15/2024 6:45 PM * Full Code Date Activated Date Inactivated Comments 05/24/2023 7:46 AM 05/24/2023 1:54 PM * Full Code Date Activated Date Inactivated Comments 02/08/2019 11:03 AM 02/08/2019 5:19 PM * Full Code Date Activated Date Inactivated Comments 06/01/2018 11:13 AM 06/01/2018 2:52 PM Care Teams Community Planner Relationship Specialty Start Date End Date Irma Koehler DO [address] [place] [address] PCP - General Family Medicine 12/10/22 Toshia Price MD [address] [place] [address] Medical Oncologist/Store Clerk Checker Hematology and Oncology 08/28/22
--- OUTSIDE RECORDS SUMMARY | 2025-03-09 13:57 | XMS_ITS | Clinical Summary ---
Author Organization [facility] Address [address] [place] [address] Phone Care Team Providers Care Crop Setting Out Machine Operator Name Role Phone Dimas Vale MD Primary Care Provider [phone] Allergies Active Allergy Reactions Criticality Noted Date [...] Dimas Vale [address] [place] [address] Other: Problem Noted Date Diagnosed Date Asthma [...] on file Legal Sex Female 5:55 AM MANAGER THERAPY Gender Identity Not on file Sexual Orientation Not on file Last Filed Vital Signs Vital Sign Reading Time Taken Comments Blood Pressure 108/80 06/19/2010 9:50 AM CDT Pulse - - Temperature - - Respiratory Rate - - Oxygen Saturation - - Inhaled Oxygen Concentration - - Weight 73 kg (161 lb) 06/19/2010 9:50 AM CDT Height 148.6 cm (4' 10.5) 06/19/2010 9:50 AM CD T Body Mass [...] OR WO CAD Routine 09/15/2010 10:04 AM MANAGER THERAPY Lump or mass in breast from Last 3 Months or Most Recently Relevant to Health Maintenance Results * MAMMO DIGITAL DIAG BILAT (09/15/2010 10:04 AM MANAGER THERAPY) Anatomical Region Laterality Modality Breast Bilateral Mammography Narrative 09/15/2010 5:15 PM MANAGER THERAPY BILATERAL DIAGNOSTIC DIGITAL MAMMOGRAMS WITH COMPUTER ASSISTED [...] Recently Relevant to Health Maintenance Care Teams Crop Setting Out Machine Operator Relationship Specialty Start Date End Date Dimas Vale MD [address] [place] [address] PCP - General Family Practice 06/19/10
--- OUTSIDE RECORDS SUMMARY | 2025-03-09 13:57 | XMS_ITS | Referral Summary ---
Author Organization [facility] Address [address] [place] [address] Care Team Providers Care Process Helper Name Role Phone Toshia Price MD Unavailable [phone] Irma Koehler DO Primary Care Provider [phone] Allergies Active Allergy Reactions Criticality Noted Date [...] have recommended voice therapy here at the [facility] in order to improve the biomechanics of the patient's voice, which will improve the patient's associated symptoms. Gastroesophageal reflux disease without esophagi tis 01/30/2019 Overview (01/30/2019): Added automatically from request for surgery [id number] Assessment & Plan (07/15/2020 1:35 PM CDT): [...] (05/06/2018): Added automatically from request for surgery [id number] Assessment & Plan (12/10/2022 2:19 PM RESEARCH AND DEVELOPMENT RESEARCHER): Due for colonoscopy. Last exam May 2019. [...] disease) Assessment & Plan (12/10/2022 2:18 PM RESEARCH AND DEVELOPMENT RESEARCHER): Has significant laryngeal reflux. We discussed that [...] on file Legal Sex Female 2:03 AM RESEARCH AND DEVELOPMENT RESEARCHER Gender Identity Not on file Sexual Orientation Not on file Last Filed Vital Signs Vital Sign Reading Time Taken Comments Blood Pressure 149/64 11/16/2024 2:25 PM RESEARCH AND DEVELOPMENT RESEARCHER Pulse 95 11/16/2024 2:25 PM RESEARCH AND DEVELOPMENT RESEARCHER Temperature 36.3 C (97.3 F) 11/16/2024 2:25 PM RESEARCH AND DEVELOPMENT RESEARCHER Respiratory Rate 18 11/16/2024 2:25 PM RESEARCH AND DEVELOPMENT RESEARCHER Oxygen Saturation 99% 11/16/2024 2:25 PM RESEARCH AND DEVELOPMENT RESEARCHER Inhaled Oxygen Concentration - - Weight 66.2 kg (146 lb) 11/16/2024 2:25 PM RESEARCH AND DEVELOPMENT RESEARCHER Height 145.4 cm (4' 9.25) 06/15/2024 12:04 [...] 11:58 AM Admit Type: Outpatient Room: [facility] Date of : 1960 Instrument Name: [...] the bowel preparation was evaluatedusing the BBPS ([place] Bowel Preparation Scale) withscores of: Right Colon [...] Most Recently Relevant to Health Maintenance Insurance [facility] Advance Directives For more information, please contact: [phone] * Full Code (Latest Code Status on File) Date Activated Date Inactivated Comments 06/15/2024 12:07 PM 06/15/2024 6:45 PM * Full Code Date Activated Date Inactivated Comments 05/24/2023 7:46 AM 05/24/2023 1:54 PM * Full Code Date Activated Date Inactivated Comments 02/08/2019 11:03 AM 02/08/2019 5:19 PM * Full Code Date Activated Date Inactivated Comments 06/01/2018 11:13 AM 06/01/2018 2:52 PM Care Teams Process Helper Relationship Specialty Start Date End Date Irma Koehler DO [address] [place] [address] PCP - General Family Medicine 12/10/22 Toshia Price MD [address] [place] [address] Medical Oncologist/Electricity Trader Hematology and Oncology 08/28/22
[2025-03-09 14:58] LABS: Alanine Aminotransferase 33 U/L (6-35); Albumin Level 4.2 g/dL (3.5-5.1); Alkaline Phosphatase 94 U/L (38-126); Aspartate Amino Transferase 31 U/L (14-36); Bilirubin,Total 0.4 mg/dL (0.2-1.3); CRP < 0.5 mg/dL (<1.0); Rheumatoid Factor < 12.0 IU/ML (<12)
[2025-03-09 15:12] LABS: Erythrocyte Sedimentation Rate 14 mm/hr (0-20)
[2025-03-12 16:33] LABS: Anti Cyclic Citrullinated Pept <16 UNITS
[2025-03-14 17:09] LABS: Mitochondrial (M2) Ab (IgG) <20.0 U
[2025-03-16 03:43] LABS: ANA Cascade Screen NEGATIVE (NEGATIVE)
--- OUTSIDE RECORDS SUMMARY | 2025-03-22 13:18 | XMS_ITS | Clinical Summary ---
Author Organization [facility] Address [address] [place] [address] Care Team Providers Care Short Story Writer Name Role Phone Toshia Price MD Unavailable [phone] Irma Koehler DO Primary Care Provider [phone] Allergies Active Allergy Reactions Criticality Noted Date [...] voice therapy here at the [facility] in order to improve the biomechanics of the patient's voice, which will improve the patient's associated symptoms. Gastroesophageal reflux disease without esophagi tis 01/30/2019 Overview (01/30/2019): Added automatically from request for surgery [id number] Assessment & Plan (07/15/2020 1:35 PM CDT): [...] (05/06/2018): Added automatically from request for surgery [id number] Assessment & Plan (12/10/2022 2:19 PM BROTH SETTER): Due for colonoscopy. Last exam May 2019. [...] disease) Assessment & Plan (12/10/2022 2:18 PM BROTH SETTER): Has significant laryngeal reflux. We discussed that [...] Added au tomatically from request for surgery [id number] Hiatal hernia 12/28/2018 Gastroesophageal reflux dise ase without esophagitis 01/30/2019 Added automatically from req uest for surgery [id number] Gastroesophageal reflux disease 08/22/2012 GERD (gastroesophageal reflux [...] otential mismatch. ANGEL (mycobacterium avium-intracellulare) ([facility]) 03/18/2020 Paresthesia 08/18/2017 Anesthesia of skin 12/17/2017 Abnormal finding on lung imaging 03/18/2020 Abnormal levels of other ser um enzymes 02/28/2015 Converted unresolved ICD9, p otential mismatch. Family History Medical History Relation Name Comments COPD Father [facility] COPD; Cancer Father [facility] Colon polyps [facility] Early [facility] Heart attack Father [facility] Liver disease Father [facility] Liver disease; Lung cancer [facility] Cancer, lung; Other Father [facility] hypercoagulable ; Asthma Mother [facility] Asthma; COPD Mother [facility] COPD; Diabetes type II Mother [facility] Diabetes me llitus type 2; Osteoporosis Mother [facility] Thyroid disease Mother [facility] Thyroid dise ase; Colon cancer Mother's Sister Relation Name Status Comments Father [facility] Heart Attack Mother [facility] Mother's Sister Social History Tobacco Use [...] on file Legal Sex Female 2:03 AM BROTH SETTER Gender Identity Not on file Sexual Orientation Not on file Obstetrics History Last Filed Vital Signs Vital Sign Reading Time Taken Comments Blood Pressure 149/64 11/16/2024 2:25 PM BROTH SETTER Pulse 95 11/16/2024 2:25 PM BROTH SETTER Temperature 36.3 C (97.3 F) 11/16/2024 2:25 PM BROTH SETTER Respiratory Rate 18 11/16/2024 2:25 PM BROTH SETTER Oxygen Saturation 99% 11/16/2024 2:25 PM BROTH SETTER Inhaled Oxygen Concentration - - Weight 66.2 kg (146 lb) 11/16/2024 2:25 PM BROTH SETTER Height 145.4 cm (4' 9.25) 06/15/2024 12:04 [...] 06/15/2024 11:58 AM Admit Type: Outpatient Room: [facility] Date of : 1960 [...] the bowel preparation was evaluatedusing the BBPS ([place] Bowel Preparation Scale) withscores of: Right Colon [...] Most Recently Relevant to Health Maintenance Insurance [facility] Advance Directives For more information, please contact: [phone] * Full Code (Latest Code Status on File) Date Activated Date Inactivated Comments 06/15/2024 12:07 PM 06/15/2024 6:45 PM * Full Code Date Activated Date Inactivated Comments 05/24/2023 7:46 AM 05/24/2023 1:54 PM * Full Code Date Activated Date Inactivated Comments 02/08/2019 11:03 AM 02/08/2019 5:19 PM * Full Code Date Activated Date Inactivated Comments 06/01/2018 11:13 AM 06/01/2018 2:52 PM Care Teams Short Story Writer Relationship Specialty Start Date End Date Irma Koehler DO [address] [place] [address] PCP - General Family Medicine 12/10/22 Toshia Price MD [address] [place] [address] Medical Oncologist/Food And Beverage Associate Hematology and Oncology 08/28/22
--- OUTSIDE RECORDS SUMMARY | 2025-03-22 13:18 | XMS_ITS | Referral Summary ---
Author Organization [facility] Address [address] [place] [address] Care Team Providers Care Sales Account Specialist Name Role Phone Toshia Price MD Unavailable [phone] Irma Koehler DO Primary Care Provider [phone] Allergies Active Allergy Reactions Criticality Noted Date [...] have recommended voice therapy here at the [facility] in order to improve the biomechanics of the patient's voice, which will improve the patient's associated symptoms. Gastroesophageal reflux disease without esophagi tis 01/30/2019 Overview (01/30/2019): Added automatically from request for surgery [id number] Assessment & Plan (07/15/2020 1:35 PM CDT): [...] (05/06/2018): Added automatically from request for surgery [id number] Assessment & Plan (12/10/2022 2:19 PM ASSISTANT SUPERINTENDENT FOR CURRICULUM): Due for colonoscopy. Last exam May 2019. [...] disease) Assessment & Plan (12/10/2022 2:18 PM ASSISTANT SUPERINTENDENT FOR CURRICULUM): Has significant laryngeal reflux. We discussed that [...] on file Legal Sex Female 2:03 AM ASSISTANT SUPERINTENDENT FOR CURRICULUM Gender Identity Not on file Sexual Orientation Not on file Last Filed Vital Signs Vital Sign Reading Time Taken Comments Blood Pressure 149/64 11/16/2024 2:25 PM ASSISTANT SUPERINTENDENT FOR CURRICULUM Pulse 95 11/16/2024 2:25 PM ASSISTANT SUPERINTENDENT FOR CURRICULUM Temperature 36.3 C (97.3 F) 11/16/2024 2:25 PM ASSISTANT SUPERINTENDENT FOR CURRICULUM Respiratory Rate 18 11/16/2024 2:25 PM ASSISTANT SUPERINTENDENT FOR CURRICULUM Oxygen Saturation 99% 11/16/2024 2:25 PM ASSISTANT SUPERINTENDENT FOR CURRICULUM Inhaled Oxygen Concentration - - Weight 66.2 kg (146 lb) 11/16/2024 2:25 PM ASSISTANT SUPERINTENDENT FOR CURRICULUM Height 145.4 cm (4' 9.25) 06/15/2024 12:04 [...] 06/15/2024 11:58 AM Admit Type: Outpatient Room: [facility] Date of : 1960 Instrument [...] the bowel preparation was evaluatedusing the BBPS ([place] Bowel Preparation Scale) withscores of: Right Colon [...] Most Recently Relevant to Health Maintenance Insurance [facility] Advance Directives For more information, please contact: [phone] * Full Code (Latest Code Status on File) Date Activated Date Inactivated Comments 06/15/2024 12:07 PM 06/15/2024 6:45 PM * Full Code Date Activated Date Inactivated Comments 05/24/2023 7:46 AM 05/24/2023 1:54 PM * Full Code Date Activated Date Inactivated Comments 02/08/2019 11:03 AM 02/08/2019 5:19 PM * Full Code Date Activated Date Inactivated Comments 06/01/2018 11:13 AM 06/01/2018 2:52 PM Care Teams Sales Account Specialist Relationship Specialty Start Date End Date Irma Koehler DO [address] [place] [address] PCP - General Family Medicine 12/10/22 Toshia Price MD [address] [place] [address] Medical Oncologist/Brick Handler Hematology and Oncology 08/28/22
--- OUTSIDE RECORDS SUMMARY | 2025-03-22 13:18 | XMS_ITS | Clinical Summary ---
Author Organization [facility] Address [address] [place] [address] Phone Care Team Providers Care Treasury Analyst Name Role Phone Dimas Vale MD Primary Care Provider [phone] Allergies Active Allergy Reactions Criticality Noted Date [...] CALCIUM ORAL Take by mouth. Ac tive fluticasone-mtich meterol (ADVAIR DISKUS) 250-50 mcg/Dose Inhalation DsDv [...] Dimas Vale [address] [place] [address] Other: Problem Noted Date Diagnosed Date Asthma [...] on file Legal Sex Female 5:55 AM LIGHTING FIXTURE INSTALLER Gender Identity Not on file Sexual Orientation [...] OR WO CAD Routine 09/15/2010 10:04 AM LIGHTING FIXTURE INSTALLER Lump or mass in breast from Last 3 Months or Most Recently Relevant to Health Maintenance Results * MAMMO DIGITAL DIAG BILAT (09/15/2010 10:04 AM LIGHTING FIXTURE INSTALLER) Anatomical Region Laterality Modality Breast Bilateral Mammography Narrative 09/15/2010 5:15 PM LIGHTING FIXTURE INSTALLER BILATERAL DIAGNOSTIC DIGITAL MAMMOGRAMS WITH COMPUTER ASSISTED [...] Recently Relevant to Health Maintenance Care Teams Treasury Analyst Relationship Specialty Start Date End Date Dimas Vale MD [address] [place] [address] PCP - General Family Practice 06/19/10
--- OUTSIDE RECORDS SUMMARY | 2025-03-22 13:18 | XMS_ITS | Clinical Summary ---
Author Organization [facility] Address [address] [place] [address] Phone Care Team Providers Care Diversity Manager Name Role Phone Dimas Vale MD Primary Care Provider [phone] Medications amitriptyline (ELAVIL) 25 MG tablet TAKE [...] Comments Blood Pressure 124/70 10/09/2019 3:38 PM LUNG PULLER Pulse 76 06/24/2018 12:01 AM CDT Temperature - - Respiratory Rate - - Oxygen Saturation - - Inhaled Oxygen Concentration - - Weight 67.6 kg (149 lb) 10/09/2019 3:38 PM LUNG PULLER Height 144.8 cm (4' 9) 10/09/2019 3:38 PM LUNG PULLER Body Mass Index 32.24 10/09/2019 3:38 PM LUNG PULLER Plan of Treatment Health Maintenance Due Date Last Done Comments Pneumococcal PPSV23 Highest Risk Adult (1 of 3 - PCV13 ) 1979 Influenza Vaccine (Season Ended) 2025 Insurance [facility] Care Teams Diversity Manager Relationship Specialty Start Date End Date Dimas Vale MD [address] [place] [address] PCP - General Family Medicine 10/09/19
== END 2025-03-09 12:50 | disposition home or self-care (01) ==
LOC: ANHLAB 03-22 12:49
PROVIDERS: PCP Family Medicine; Visit Provider Family Medicine
DX: M16.0 Bilateral primary osteoarthritis of hip (principal); Z79.899 Other long term (current) drug therapy; Z83.2 Family history of diseases of the blood and blood-forming organs and certain disorders involving the immune mechanism
CPT/HCPCS: 36415; 73521; 80076; 83520; 85652; 86038; 86140; 86200; 86225; 86235; 86364; 86430

== ENCOUNTER 2025-04-17 15:19 | Outpatient (CLI) | payer OTHER, SELFPAY ==
--- NOTE | ~2025-04-17 | MM_ITS ---
EXAMINATION: MM screening [facility] BI w [place] HISTORY: Screening TECHNIQUE: Craniocaudal and mediolateral oblique 3-D tomosynthesis images were obtained and synthetic 2-D images were generated. CAD analysis was submitted and interpreted. COMPARISON: Comparison to multiple prior studies sequentially, with oldest reviewed study dated 01/03. BREAST PARENCHYMAL COMPOSITION: Not dense: There are scattered areas of fibroglandular density. FINDINGS: There is no evidence of suspicious mass, calcification, or architectural distortion to sugg est malignancy in either breast. There has been no suspicious interval change. IMPRESSION: 1. No mammographic evidence of malignancy. 2. Recommend routine screening mammography in one year. BI-RADS Category 1: Negative Reviewed, dictated and finalized at location A.
--- OUTSIDE RECORDS SUMMARY | 2025-04-17 15:23 | XMS_ITS | Clinical Summary ---
Author Organization [facility] Address [address] [place] [address] Care Team Providers Care Kindergarten Teacher Name Role Phone Toshia Price MD Unavailable [phone] Irma Koehler DO Primary Care Provider [phone] Allergies Active Allergy Reactions Criticality Noted Date [...] have recommended voice therapy here at the [facility] in order to improve the biomechanics of the patient's voice, which will improve the patient's associated symptoms. Gastroesophageal reflux disease without esophagi tis 01/30/2019 Overview (01/30/2019): Added automatically from request for surgery [id number] Assessment & Plan (07/15/2020 1:35 PM CDT): [...] (05/06/2018): Added automatically from request for surgery [id number] Assessment & Plan (12/10/2022 2:19 PM DEPARTMENT HEAD COLLEGE OR UNIVERSITY): Due for colonoscopy. Last exam May 2019. [...] disease) Assessment & Plan (12/10/2022 2:18 PM DEPARTMENT HEAD COLLEGE OR UNIVERSITY): Has significant laryngeal reflux. We discussed that [...] Added au tomatically from request for surgery [id number] Hiatal hernia 12/28/2018 Gastroesophageal reflux dise ase without esophagitis 01/30/2019 Added automatically from req uest for surgery [id number] Gastroesophageal reflux disease 08/22/2012 GERD (gastroesophageal reflux [...] ICD9, p otential mismatch. ANGEL (mycobacterium avium-intracellulare) ([facility]) 03/18/2020 Paresthesia 08/18/2017 Anesthesia of skin 12/17/2017 Abnormal finding on lung imaging 03/18/2020 Abnormal levels of other ser um enzymes 02/28/2015 Converted unresolved ICD9, p otential mismatch. Family History Medical History Relation Name Comments COPD Father [facility] COPD; Cancer Father [facility] Colon polyps [facility] Early [facility] Heart attack Father [facility] Liver disease Father [facility] Liver disease; Lung cancer [facility] Cancer, lung; Other Father [facility] hypercoagulable ; Asthma Mother [facility] Asthma; COPD Mother [facility] COPD; Diabetes type II Mother [facility] Diabetes me llitus type 2; Osteoporosis Mother [facility] Thyroid disease Mother [facility] Thyroid dise ase; Colon cancer Mother's Sister Relation Name Status Comments Father [facility] Heart Attack Mother [facility] Mother's Sister Social History Tobacco Use Types [...] on file Legal Sex Female 2:03 AM DEPARTMENT HEAD COLLEGE OR UNIVERSITY Gender Identity Not on file Sexual Orientation Not on file Obstetrics History Last Filed Vital Signs Vital Sign Reading Time Taken Comments Blood Pressure 149/64 11/16/2024 2:25 PM DEPARTMENT HEAD COLLEGE OR UNIVERSITY Pulse 95 11/16/2024 2:25 PM DEPARTMENT HEAD COLLEGE OR UNIVERSITY Temperature 36.3 C (97.3 F) 11/16/2024 2:25 PM DEPARTMENT HEAD COLLEGE OR UNIVERSITY Respiratory Rate 18 11/16/2024 2:25 PM DEPARTMENT HEAD COLLEGE OR UNIVERSITY Oxygen Saturation 99% 11/16/2024 2:25 PM DEPARTMENT HEAD COLLEGE OR UNIVERSITY Inhaled Oxygen Concentration - - Weight 66.2 kg (146 lb) 11/16/2024 2:25 PM DEPARTMENT HEAD COLLEGE OR UNIVERSITY Height 145.4 cm (4' 9.25) 06/15/2024 12:04 [...] 06/15/2024 11:58 AM Admit Type: Outpatient Room: [facility] Date of : 1960 Instrument [...] the bowel preparation was evaluatedusing the BBPS ([place] Bowel Preparation Scale) withscores of: Right Colon [...] Most Recently Relevant to Health Maintenance Insurance [facility] H[facility]/PPO Address: [facility] [address] [place] [address] [facility] HMO/PPO Address: [address] [place] [id number] [facility] HMO/PPO Address: [place] [address] Advance Directives For more information, please contact: [phone] * Full Code (Latest Code Status on File) Date Activated Date Inactivated Comments 06/15/2024 12:07 PM 06/15/2024 6:45 PM * Full Code Date Activated Date Inactivated Comments 05/24/2023 7:46 AM 05/24/2023 1:54 PM * Full Code Date Activated Date Inactivated Comments 02/08/2019 11:03 AM 02/08/2019 5:19 PM * Full Code Date Activated Date Inactivated Comments 06/01/2018 11:13 AM 06/01/2018 2:52 PM Care Teams Kindergarten Teacher Relationship Specialty Start Date End Date Irma Koehler DO [address] [place] [address] PCP - General Family Medicine 12/10/22 Toshia Price MD [address] [place] [address] Medical Oncologist/Field Superintendent Hematology and Oncology 08/28/22
--- OUTSIDE RECORDS SUMMARY | 2025-04-17 15:23 | XMS_ITS | Clinical Summary ---
Author Organization [facility] [place] Address [address] [place] [address] Phone Care Team Providers Care Print Line Tailer Name Role Phone Dimas Vale MD Primary Care Provider [phone] Allergies Active Allergy Reactions Criticality Noted Date [...] Dimas Vale [address] [place] [address] Other: Problem Noted Date Diagnosed Date Asthma [...] on file Legal Sex Female 5:55 AM CANARY RAISER Gender Identity Not on file Sexual Orientation [...] CANCER SCREENING 09/15/2011 09/15/2010 INFLUENZA VACCINE (#1) 2025 RSV VACCINE (60+ or ) (1 - 1-dose 75+ series) 2035 Procedures Procedure Name Priority Date/Time Associated Diagnosis Comments MAMMO DIAGNOSTIC BILATERAL W OR WO CAD Routine 09/15/2010 10:04 AM CANARY RAISER Lump or mass in breast from Last 3 Months or Most Recently Relevant to Health Maintenance Results * MAMMO DIGITAL DIAG BILAT (09/15/2010 10:04 AM CANARY RAISER) Anatomical Region Laterality Modality Breast Bilateral Mammography Narrative 09/15/2010 5:15 PM CANARY RAISER BILATERAL DIAGNOSTIC DIGITAL MAMMOGRAMS WITH COMPUTER ASSISTED [...] Recently Relevant to Health Maintenance Care Teams Print Line Tailer Relationship Specialty Start Date End Date Dimas Vale MD [address] [place] [address] PCP - General Family Practice 06/19/10
--- OUTSIDE RECORDS SUMMARY | 2025-04-17 15:23 | XMS_ITS | Referral Summary ---
Author Organization [facility] Address [address] [place] [address] Care Team Providers Care Financial Analysis Advisor Name Role Phone Toshia Price MD Unavailable [phone] Irma Koehler DO Primary Care Provider [phone] Allergies Active Allergy Reactions Criticality Noted Date [...] recommended voice therapy here at the [facility] in order to improve the biomechanics of the patient's voice, which will improve the patient's associated symptoms. Gastroesophageal reflux disease without esophagi tis 01/30/2019 Overview (01/30/2019): Added automatically from request for surgery [id number] Assessment & Plan (07/15/2020 1:35 PM CDT): [...] (05/06/2018): Added automatically from request for surgery [id number] Assessment & Plan (12/10/2022 2:19 PM TRAPPER BIRD): Due for colonoscopy. Last exam May 2019. [...] disease) Assessment & Plan (12/10/2022 2:18 PM TRAPPER BIRD): Has significant laryngeal reflux. We discussed that [...] on file Legal Sex Female 2:03 AM TRAPPER BIRD Gender Identity Not on file Sexual Orientation Not on file Last Filed Vital Signs Vital Sign Reading Time Taken Comments Blood Pressure 149/64 11/16/2024 2:25 PM TRAPPER BIRD Pulse 95 11/16/2024 2:25 PM TRAPPER BIRD Temperature 36.3 C (97.3 F) 11/16/2024 2:25 PM TRAPPER BIRD Respiratory Rate 18 11/16/2024 2:25 PM TRAPPER BIRD Oxygen Saturation 99% 11/16/2024 2:25 PM TRAPPER BIRD Inhaled Oxygen Concentration - - Weight 66.2 kg (146 lb) 11/16/2024 2:25 PM TRAPPER BIRD Height 145.4 cm (4' 9.25) 06/15/2024 12:04 [...] 06/15/2024 11:58 AM Admit Type: Outpatient Room: [facility] Date of : 1960 Instrument [...] the bowel preparation was evaluatedusing the BBPS ([place] Bowel Preparation Scale) withscores of: Right Colon [...] Most Recently Relevant to Health Maintenance Insurance [facility] Advance Directives For more information, please contact: [phone] * Full Code (Latest Code Status on File) Date Activated Date Inactivated Comments 06/15/2024 12:07 PM 06/15/2024 6:45 PM * Full Code Date Activated Date Inactivated Comments 05/24/2023 7:46 AM 05/24/2023 1:54 PM * Full Code Date Activated Date Inactivated Comments 02/08/2019 11:03 AM 02/08/2019 5:19 PM * Full Code Date Activated Date Inactivated Comments 06/01/2018 11:13 AM 06/01/2018 2:52 PM Care Teams Financial Analysis Advisor Relationship Specialty Start Date End Date Irma Koehler DO [address] [place] [address] PCP - General Family Medicine 12/10/22 Toshia Price MD [address] [place] [address] Medical Oncologist/Order Department Supervisor Hematology and Oncology 08/28/22
--- OUTSIDE RECORDS SUMMARY | 2025-04-17 15:23 | XMS_ITS | Clinical Summary ---
Author Organization [facility] Address [address] [place] [address] Phone Care Team Providers Care Medical Director/Head Team Physician Name Role Phone Dimas Vale MD Primary Care Provider [phone] Medications amitriptyline (ELAVIL) 25 MG tablet TAKE [...] Comments Blood Pressure 124/70 10/09/2019 3:38 PM RESISTANCE MACHINE WELDER SETTER Pulse 76 06/24/2018 12:01 AM CDT Temperature - - Respiratory Rate - - Oxygen Saturation - - Inhaled Oxygen Concentration - - Weight 67.6 kg (149 lb) 10/09/2019 3:38 PM RESISTANCE MACHINE WELDER SETTER Height 144.8 cm (4' 9) 10/09/2019 3:38 PM RESISTANCE MACHINE WELDER SETTER Body Mass Index 32.24 10/09/2019 3:38 PM RESISTANCE MACHINE WELDER SETTER Plan of Treatment Health Maintenance Due Date Last Done Comments Pneumococcal PPSV23 Highest Risk Adult (1 of 3 - PCV13 ) 1979 Influenza Vaccine (#1) [address] [facility] Care Teams Medical Director/Head Team Physician Relationship Specialty Start Date End Date Dimas Vale MD [address] [place] [address] PCP - General Family Medicine 10/09/19
== END 2025-04-17 15:20 | disposition home or self-care (01) ==
PROVIDERS: PCP Family Medicine; Visit Provider Family Medicine
DX: Z12.31 Encounter for screening mammogram for malignant neoplasm of breast (principal)
CPT/HCPCS: 77063; 77067

== ENCOUNTER 2025-05-07 11:50 | Outpatient (CLI) | payer OTHER, SELFPAY ==
--- OUTSIDE RECORDS SUMMARY | 2025-05-07 12:02 | XMS_ITS | Clinical Summary ---
Author Organization [facility] Address [address] [place] [address] Care Team Providers Care Rubber Goods Assembler Name Role Phone Toshia Price MD Unavailable [phone] Irma Koehlre DO Primary Care Provider [phone] Allergies Active Allergy Reactions Criticality Noted Date [...] 06/15/2024 AVM (arteriovenous malformation) of colon 2023 CHOLÉ (iron deficiency anemia) 05/15/2024 Assessment & Plan [...] have recommended voice therapy here at the [facility] in order to improve the biomechanics of the patient's voice, which will improve the patient's associated symptoms. Gastroesophageal reflux disease without esophagi tis 01/30/2019 Overview (01/30/2019): Added automatically from request for surgery [id number] Assessment & Plan (07/15/2020 1:35 PM CDT): [...] (05/06/2018): Added automatically from request for surgery [id number] Assessment & Plan (12/10/2022 2:19 PM REWRITER): Due for colonoscopy. Last exam May 2019. [...] disease) Assessment & Plan (12/10/2022 2:18 PM REWRITER): Has significant laryngeal reflux. We discussed that [...] Added au tomatically from request for surgery [id number] Hiatal hernia 12/28/2018 Gastroesophageal reflux dise ase without esophagitis 01/30/2019 Added automatically from req uest for surgery [id number] Gastroesophageal reflux disease 08/22/2012 GERD (gastroesophageal reflux [...] ICD9, p otential mismatch. ANGEL (mycobacterium avium-intracellulare) ([facility]) 03/18/2020 Paresthesia 08/18/2017 Anesthesia of skin 12/17/2017 Abnormal finding on lung imaging 03/18/2020 Abnormal levels of other ser um enzymes 02/28/2015 Converted unresolved ICD9, p otential mismatch. Family History Medical History Relation Name Comments COPD [facility]; Cancer Father [facility] Colon polyps [facility] Heart attack [facility] Liver disease [facility] Liver disease; Lung cancer [facility] Cancer, lung; Other [facility] hypercoagulable ; Asthma Mother [facility] Asthma; COPD Mother [facility] COPD; Diabetes type II Mother [facility] Diabetes me llitus type 2; Osteoporosis Mother [facility] Thyroid disease Mother [facility] Thyroid dise ase; Colon cancer Mother's Sister Relation Name Status Comments Father [facility] Heart Attack Mother [facility] Mother's Sister Social History Tobacco Use [...] on file Legal Sex Female 2:03 AM REWRITER Gender Identity Not on file Sexual Orientation Not on file Obstetrics History Last Filed Vital Signs Vital Sign Reading Time Taken Comments Blood Pressure 149/64 11/16/2024 2:25 PM REWRITER Pulse 95 11/16/2024 2:25 PM REWRITER Temperature 36.3 C (97.3 F) 11/16/2024 2:25 PM REWRITER Respiratory Rate 18 11/16/2024 2:25 PM REWRITER Oxygen Saturation 99% 11/16/2024 2:25 PM REWRITER Inhaled Oxygen Concentration - - Weight 66.2 kg (146 lb) 11/16/2024 2:25 PM REWRITER Height 145.4 cm (4' 9.25) 06/15/2024 12:04 [...] 2024 07/25/2021, 10/18/2020, 09/27/2020 Influenza Vaccine (#1) 2025 , 07/23/2015, 05/24/2012, Additional history exists Colon [...] 06/15/2024 11:58 AM Admit Type: Outpatient Room: [facility] Date of : 1960 Instrument Name: [id number] [...] the bowel preparation was evaluatedusing the BBPS ([place] Bowel Preparation Scale) withscores of: Right Colon [...] Most Recently Relevant to Health Maintenance Insurance [facility] Advance Directives For more information, please contact: [phone] * Full Code (Latest Code Status on File) Date Activated Date Inactivated Comments 06/15/2024 12:07 PM 06/15/2024 6:45 PM * Full Code Date Activated Date Inactivated Comments 05/24/2023 7:46 AM 05/24/2023 1:54 PM * Full Code Date Activated Date Inactivated Comments 02/08/2019 11:03 AM 02/08/2019 5:19 PM * Full Code Date Activated Date Inactivated Comments 06/01/2018 11:13 AM 06/01/2018 2:52 PM Care Teams Rubber Goods Assembler Relationship Specialty Start Date End Date Irma Koehler DO [address] [place] [address] PCP - General Family Medicine 12/10/22 Toshia Price MD [address] [place] [address] Medical Oncologist/Certified Ethical Hacker Hematology and Oncology 08/28/22
--- OUTSIDE RECORDS SUMMARY | 2025-05-07 12:02 | XMS_ITS | Clinical Summary ---
Author Organization [facility] [place] Address [address] [place] [address] Phone Care Team Providers Care Welder Experimental Name Role Phone Dimas Vale MD Primary Care Provider [phone] Allergies Active Allergy Reactions Criticality Noted Date [...] Vale [address] [place] [address] Other: Problem Noted Date Diagnosed Date Asthma [...] on file Legal Sex Female 5:55 AM PRESSURE CONTROLLER Gender Identity Not on file Sexual Orientation [...] OR WO CAD Routine 09/15/2010 10:04 AM PRESSURE CONTROLLER Lump or mass in breast from Last 3 Months or Most Recently Relevant to Health Maintenance Results * MAMMO DIGITAL DIAG BILAT (09/15/2010 10:04 AM PRESSURE CONTROLLER) Anatomical Region Laterality Modality Breast Bilateral Mammography Narrative 09/15/2010 5:15 PM PRESSURE CONTROLLER BILATERAL DIAGNOSTIC DIGITAL MAMMOGRAMS WITH COMPUTER ASSISTED [...] Recently Relevant to Health Maintenance Care Teams Welder Experimental Relationship Specialty Start Date End Date Dimas Vale MD [address] [place] [place] [address] PCP - General Family Practice 06/19/10
--- OUTSIDE RECORDS SUMMARY | 2025-05-07 12:02 | XMS_ITS | Referral Summary ---
Author Organization [facility] Address [address] [place] [address] Care Team Providers Care Ground Products Director Name Role Phone Toshia Price MD Unavailable [phone] Irma Koehler DO Primary Care Provider [phone] Allergies Active Allergy Reactions Criticality Noted Date [...] have recommended voice therapy here at the [facility] in order to improve the biomechanics of the patient's voice, which will improve the patient's associated symptoms. Gastroesophageal reflux disease without esophagi tis 01/30/2019 Overview (01/30/2019): Added automatically from request for surgery [id number] Assessment & Plan (07/15/2020 1:35 PM CDT): [...] (05/06/2018): Added automatically from request for surgery [id number] Assessment & Plan (12/10/2022 2:19 PM TOASTER ELEMENT REPAIRER): Due for colonoscopy. Last exam May [...] disease) Assessment & Plan (12/10/2022 2:18 PM TOASTER ELEMENT REPAIRER): Has significant laryngeal reflux. We discussed [...] on file Legal Sex Female 2:03 AM TOASTER ELEMENT REPAIRER Gender Identity Not on file Sexual Orientation Not on file Last Filed Vital Signs Vital Sign Reading Time Taken Comments Blood Pressure 149/64 11/16/2024 2:25 PM TOASTER ELEMENT REPAIRER Pulse 95 11/16/2024 2:25 PM TOASTER ELEMENT REPAIRER Temperature 36.3 C (97.3 F) 11/16/2024 2:25 PM TOASTER ELEMENT REPAIRER Respiratory Rate 18 11/16/2024 2:25 PM TOASTER ELEMENT REPAIRER Oxygen Saturation 99% 11/16/2024 2:25 PM TOASTER ELEMENT REPAIRER Inhaled Oxygen Concentration - - Weight 66.2 kg (146 lb) 11/16/2024 2:25 PM TOASTER ELEMENT REPAIRER Height 145.4 cm (4' 9.25) 06/15/2024 12:04 [...] 06/15/2024 11:58 AM Admit Type: Outpatient Room: [facility] Date of : 1960 Instrument Name: [id number] [...] the bowel preparation was evaluatedusing the BBPS ([place] Bowel Preparation Scale) withscores of: Right Colon [...] Most Recently Relevant to Health Maintenance Insurance [facility] Advance Directives For more information, please contact: [phone] * Full Code (Latest Code Status on File) Date Activated Date Inactivated Comments 06/15/2024 12:07 PM 06/15/2024 6:45 PM * Full Code Date Activated Date Inactivated Comments 05/24/2023 7:46 AM 05/24/2023 1:54 PM * Full Code Date Activated Date Inactivated Comments 02/08/2019 11:03 AM 02/08/2019 5:19 PM * Full Code Date Activated Date Inactivated Comments 06/01/2018 11:13 AM 06/01/2018 2:52 PM Care Teams Ground Products Director Relationship Specialty Start Date End Date Irma Koehler DO [address] [place] [address] PCP - General Family Medicine 12/10/22 Toshia Price MD [address] [place] [address] Medical Oncologist/Power Generation Plant Operator Hematology and Oncology 08/28/22
--- OUTSIDE RECORDS SUMMARY | 2025-05-07 12:02 | XMS_ITS | Clinical Summary ---
Author Organization [facility] Address [address] [place] [address] Phone Care Team Providers Care Court Bailiff Or Sheriff Name Role Phone Dimas Vale MD Primary Care Provider [phone] Medications amitriptyline (ELAVIL) 25 MG tablet TAKE [...] Comments Blood Pressure 124/70 10/09/2019 3:38 PM SAMPLER TESTER Pulse 76 06/24/2018 12:01 AM CDT Temperature - - Respiratory Rate - - Oxygen Saturation - - Inhaled Oxygen Concentration - - Weight 67.6 kg (149 lb) 10/09/2019 3:38 PM SAMPLER TESTER Height 144.8 cm (4' 9) 10/09/2019 3:38 PM SAMPLER TESTER Body Mass Index 32.24 10/09/2019 3:38 PM SAMPLER TESTER Plan of Treatment Health Maintenance Due Date Last Done Comments Pneumococcal PPSV23 Highest Risk Adult (1 of 3 - PCV13 ) 1979 Influenza Vaccine (#1) 2025 Insurance [facility] [place] [address] Bailiff Or Sheriff Relationship Specialty Start Date End Date Dimas Vale MD [address] [place] [address] PCP - General Family Medicine 10/09/19
[2025-05-07 14:05] LABS: Urine Eos QC 2nd Tech Confirmed
== END 2025-05-07 11:51 | disposition home or self-care (01) ==
LOC: ANHLAB 11:55
PROVIDERS: PCP Family Medicine; Visit Provider Student in an Organized Health Care Education/Training Program
DX: J42 Unspecified chronic bronchitis (principal); J47.9 Bronchiectasis, uncomplicated; A31.0 Pulmonary mycobacterial infection; J45.41 Moderate persistent asthma with (acute) exacerbation
CPT/HCPCS: 85999

== ENCOUNTER 2025-05-09 07:24 | Outpatient (CLI) | payer OTHER, SELFPAY ==
--- OUTSIDE RECORDS SUMMARY | 2025-05-09 07:28 | XMS_ITS | Clinical Summary ---
Author Organization [facility] Address [address] [place] [address] Phone Care Team Providers Care Tech Brazer Tester Name Role Phone Dimas Vale MD Primary Care Provider [phone] Medications amitriptyline (ELAVIL) 25 MG tablet TAKE [...] Comments Blood Pressure 124/70 10/09/2019 3:38 PM JOINT FILLER Pulse 76 06/24/2018 12:01 AM CDT Temperature - - Respiratory Rate - - Oxygen Saturation - - Inhaled Oxygen Concentration - - Weight 67.6 kg (149 lb) 10/09/2019 3:38 PM JOINT FILLER Height 144.8 cm (4' 9) 10/09/2019 3:38 PM JOINT FILLER Body Mass Index 32.24 10/09/2019 3:38 PM JOINT FILLER Plan of Treatment Health Maintenance Due Date Last Done Comments Pneumococcal PPSV23 Highest Risk Adult (1 of 3 - PCV13 ) 1979 Influenza Vaccine (#1) 2025 Insurance [facility] Care Teams Tech Brazer Tester Relationship Specialty Start Date End Date Dimas Vale MD [address] [place] [address] PCP - General Family Medicine 10/09/19
--- OUTSIDE RECORDS SUMMARY | 2025-05-09 07:28 | XMS_ITS | Clinical Summary ---
Author Organization [facility] [place] Address [address] [place] [address] Phone Care Team Providers Care Health Care Liaison Name Role Phone Dimas Vale MD Primary Care Provider [phone] Allergies Active Allergy Reactions Criticality Noted Date [...] Dimas Vale [address] [place] [address] Other: Problem Noted Date Diagnosed Date Asthma [...] on file Legal Sex Female 5:55 AM BIOINFORMATICS TECHNICIAN Gender Identity Not on file Sexual Orientation [...] OR WO CAD Routine 09/15/2010 10:04 AM BIOINFORMATICS TECHNICIAN Lump or mass in breast from Last 3 Months or Most Recently Relevant to Health Maintenance Results * MAMMO DIGITAL DIAG BILAT (09/15/2010 10:04 AM BIOINFORMATICS TECHNICIAN) Anatomical Region Laterality Modality Breast Bilateral Mammography Narrative 09/15/2010 5:15 PM BIOINFORMATICS TECHNICIAN BILATERAL DIAGNOSTIC DIGITAL MAMMOGRAMS WITH COMPUTER ASSISTED [...] Relevant to Health Maintenance Care Teams Health Care Liaison Relationship Specialty Start Date End Date Dimas Vale MD [address] [place] [address] PCP - General Family Practice 06/19/10
--- OUTSIDE RECORDS SUMMARY | 2025-05-09 07:28 | XMS_ITS | Referral Summary ---
Author Organization [facility] Address [address] [place] [address] Care Team Providers Care Vice President Of Software Engineering Name Role Phone Toshia Price MD Unavailable [phone] Irma Koehler DO Primary Care Provider [phone] Allergies Active Allergy Reactions Criticality Noted Date [...] recommended voice therapy here at the [facility] in order to improve the biomechanics of the patient's voice, which will improve the patient's associated symptoms. Gastroesophageal reflux disease without esophagi tis 01/30/2019 Overview (01/30/2019): Added automatically from request for surgery [id number] Assessment & Plan (07/15/2020 1:35 PM CDT): [...] (05/06/2018): Added automatically from request for surgery [id number] Assessment & Plan (12/10/2022 2:19 PM HOME OFFICE CLAIM SPECIALIST): Due for colonoscopy. Last exam May 2019. [...] disease) Assessment & Plan (12/10/2022 2:18 PM HOME OFFICE CLAIM SPECIALIST): Has significant laryngeal reflux. We discussed that [...] on file Legal Sex Female 2:03 AM HOME OFFICE CLAIM SPECIALIST Gender Identity Not on file Sexual Orientation Not on file Last Filed Vital Signs Vital Sign Reading Time Taken Comments Blood Pressure 149/64 11/16/2024 2:25 PM HOME OFFICE CLAIM SPECIALIST Pulse 95 11/16/2024 2:25 PM HOME OFFICE CLAIM SPECIALIST Temperature 36.3 C (97.3 F) 11/16/2024 2:25 PM HOME OFFICE CLAIM SPECIALIST Respiratory Rate 18 11/16/2024 2:25 PM HOME OFFICE CLAIM SPECIALIST Oxygen Saturation 99% 11/16/2024 2:25 PM HOME OFFICE CLAIM SPECIALIST Inhaled Oxygen Concentration - - Weight 66.2 kg (146 lb) 11/16/2024 2:25 PM HOME OFFICE CLAIM SPECIALIST Height 145.4 cm (4' 9.25) 06/15/2024 12:04 [...] the bowel preparation was evaluatedusing the BBPS ([place] Bowel Preparation Scale) withscores of: Right Colon [...] Recently Relevant to Health Maintenance Insurance [facility] Advance Directives For more information, please contact: [phone] * Full Code (Latest Code Status on File) Date Activated Date Inactivated Comments 06/15/2024 12:07 PM 06/15/2024 6:45 PM * Full Code Date Activated Date Inactivated Comments 05/24/2023 7:46 AM 05/24/2023 1:54 PM * Full Code Date Activated Date Inactivated Comments 02/08/2019 11:03 AM 02/08/2019 5:19 PM * Full Code Date Activated Date Inactivated Comments 06/01/2018 11:13 AM 06/01/2018 2:52 PM Care Teams Vice President Of Software Engineering Relationship Specialty Start Date End Date Irma Koehler DO [address] [place] [address] PCP - General Family Medicine 12/10/22 Toshia Price MD [address] [place] [address] Medical Oncologist/Bicycle Ii Assembler Hematology and Oncology 08/28/22
--- OUTSIDE RECORDS SUMMARY | 2025-05-09 07:28 | XMS_ITS | Clinical Summary ---
Author Organization [facility] Address [address] [place] [address] Care Team Providers Care Fire Information Officer Name Role Phone Toshia Price MD Unavailable [phone] Irma Koehler DO Primary Care Provider [phone] Allergies Active Allergy Reactions Criticality Noted Date [...] (01/30/2019): Added automatically from request for surgery [id number] Assessment & Plan (07/15/2020 1:35 PM CDT): [...] (05/06/2018): Added automatically from request for surgery [id number] Assessment & Plan (12/10/2022 2:19 PM APPLE PEELER OPERATOR): Due for colonoscopy. Last exam May [...] disease) Assessment & Plan (12/10/2022 2:18 PM APPLE PEELER OPERATOR): Has significant laryngeal reflux. We discussed [...] Added au tomatically from request for surgery [id number] Hiatal hernia 12/28/2018 Gastroesophageal reflux dise ase without esophagitis 01/30/2019 Added automatically from req uest for surgery [id number] Gastroesophageal reflux disease 08/22/2012 GERD (gastroesophageal reflux [...] ICD9, p otential mismatch. ANGEL (mycobacterium avium-intracellulare) ([facility]) 03/18/2020 Paresthesia 08/18/2017 Anesthesia of skin 12/17/2017 Abnormal finding on lung imaging 03/18/2020 Abnormal levels of other ser um enzymes 02/28/2015 Converted unresolved ICD9, p otential mismatch. Family History Medical History Relation Name Comments COPD [facility]; Cancer Father [facility] Colon [facility]ps [facility] Heart attack [facility] Liver disease [facility] Liver disease; Lung cancer [facility] Cancer, lung; Other [facility] hypercoagulable ; Asthma Mother [facility] Asthma; COPD Mother [facility] COPD; Diabetes type II Mother [facility] Diabetes me llitus type 2; Osteoporosis Mother [facility] Thyroid disease Mother [facility] Thyroid dise ase; Colon cancer Mother's Sister Relation Name Status Comments Father [facility] Heart Attack Mother [facility] Mother's Sister Social History Tobacco Use Types [...] on file Legal Sex Female 2:03 AM APPLE PEELER OPERATOR Gender Identity Not on file Sexual Orientation Not on file Obstetrics History Last Filed Vital Signs Vital Sign Reading Time Taken Comments Blood Pressure 149/64 11/16/2024 2:25 PM APPLE PEELER OPERATOR Pulse 95 11/16/2024 2:25 PM APPLE PEELER OPERATOR Temperature 36.3 C (97.3 F) 11/16/2024 2:25 PM APPLE PEELER OPERATOR Respiratory Rate 18 11/16/2024 2:25 PM APPLE PEELER OPERATOR Oxygen Saturation 99% 11/16/2024 2:25 PM APPLE PEELER OPERATOR Inhaled Oxygen Concentration - - Weight 66.2 kg (146 lb) 11/16/2024 2:25 PM APPLE PEELER OPERATOR Height 145.4 cm (4' 9.25) 06/15/2024 12:04 [...] 06/15/2024 11:58 AM Admit Type: Outpatient Room: [facility] Date of : 1960 Instrument Name: [...] the bowel preparation was evaluatedusing the BBPS ([place] Bowel Preparation Scale) withscores of: Right Colon [...] Maintenance Insurance [facility]/PPO Address: [facility] [address] [place] [id number] [facility]/PPO Address: [address] [address] [facility]/PPO Address: [place] [address] Advance Directives For more information, please contact: [phone] * Full Code (Latest Code Status on File) Date Activated Date Inactivated Comments 06/15/2024 12:07 PM 06/15/2024 6:45 PM * Full Code Date Activated Date Inactivated Comments 05/24/2023 7:46 AM 05/24/2023 1:54 PM * Full Code Date Activated Date Inactivated Comments 02/08/2019 11:03 AM 02/08/2019 5:19 PM * Full Code Date Activated Date Inactivated Comments 06/01/2018 11:13 AM 06/01/2018 2:52 PM Care Teams Fire Information Officer Relationship Specialty Start Date End Date Irma Koehler DO [address] [place] [address] PCP - General Family Medicine 12/10/22 Toshia Price MD [address] [place] [address] Medical Oncologist/Automotive Service Assistant Hematology and Oncology 08/28/22
--- OUTSIDE RECORDS SUMMARY | 2025-05-09 07:28 | XMS_ITS | Clinical Summary ---
Author Organization [facility] Address [facility] [place] [address] Care Team Providers Care Tap Builder Name Role Phone Irma Koehler Primary Care Provider [phone] Allergies Active Allergy Reactions Criticality Noted Date Comments Morphine Nausea Only 03/18/2020 Mycophenolate Unknown 10/02/2014 Penicillins Headache 06/19/2010 Prednisone Unknown 03/18/2020 Sulfa Antibiotics Rash Low 06/19/2010 Medications atorvastatin 20 MG tablet Take 1 tablet (20 mg total) by mouth daily. 10/26/19 20 Active hydroCHLOROthiaz margarita 12.5 MG tablet Take 1 tablet (12.5 mg total) by mouth daily. 10/13/19 20 Active omeprazole 40 MG capsule Take 1 capsule (40 mg total) by mouth 2 (two) times daily. 11/04/19 20 Active XARELTO 20 MG Tab tablet Take 1 tablet (20 mg total) by mouth daily. 11/04/19 20 Active cetirizine (ZYRTEC) 10 MG tablet 08/22/20 12 Active Cholecalciferol (VITAMIN D) 50 MCG (1999) Tab 05/14/20 14 Active Respiratory Therapy Supplies (NEBULIZER/TUBIN G/MOUTHPIECE) KitIndications:C hronic bronchitis, unspecified chronic bronchitis type ([facility]) Use with Nebulizer machine for Treatments 1 kit 03/29/20 Active NEBULIZER DEVICE, DME,Indications: Chronic bronchitis, unspecified chronic bronchitis type ([facility]) Use with Nebulizer treatments 1 Device 03/29/20 Active albuterol sulfate HFA 108 (90 Base) MCG/ACT inhalerIndicatio ns:Chronic bronchitis, unspecified chronic bronchitis type (CMS/HCC HHS/HCC) Inhale 2 puffs into the lungs every 4 (four) hours as needed for Wheezing. 18 g 3 08/19/20 23 Active Fluticasone-Umec lidin-Vilant (TRELEGY ELLIPTA) 200-62.5-25 MCG/ACT AEROSOL POWDER, BREATH ACTIVATEDIndicat ions:Chronic bronchitis, unspecified chronic bronchitis type (CMS/HCC HHS/HCC),Bronchi ectasis without complication (CMS/HCC HHS/HCC) Inhale 1 puff into the lungs daily. 60 each 3 04/05/20 25 Active azithromycin (ZITHROMAX Z-RANDOLPH) 250 MG tabletIndication s:Moderate persistent asthma with exacerbation (HHS/HCC) Take 2 tablets by mouth on day one then 1 daily for four days. 6 tablet 05/07/20 25 025 Active predniSONE (DELTASONE) 20 MG tabletIndication s:Moderate persistent asthma with exacerbation (HHS/HCC) Take 2 tablets (40 mg total) by mouth daily for 5 days, THEN 1 tablet (20 mg total) daily for 5 days. 15 tablet 05/07/20 25 025 Active albuterol (PROVENTIL) (2.5 MG/3ML) 0.083% nebulizer solutionIndicati ons:Chronic bronchitis, unspecified chronic bronchitis type (CMS/HCC HHS/HCC) Take 3 mLs (2.5 mg total) by nebulization every 6 (six) hours as needed for Wheezing. Use with Nebulizer machine/supplies 360 mL 2 05/07/20 25 Active amitriptyline 25 MG tablet Take 25 mg by mouth nightly at bedtime. at bedtime. 10/29/19 025 Discontinu ed(Other- Please enter comment in Notes field) famotidine 20 MG tablet Take 20 mg by mouth 2 (two) times daily. 07/13/20 19 025 Discontinu ed(Other- Please enter comment in Notes field) sucralfate 1 G tablet TAKE 1 TABLET BY MOUTH 4 TIMES DAILY ON AN EMPTY STOMACH 1 HOUR BEFORE MEALS AND AT BEDTIME 07/13/20 19 025 Discontinu ed(Other- Please enter comment in Notes field) vitamin C 250 MG tablet 05/14/20 14 025 Discontinu ed(Other- Please enter comment in Notes field) Calcium Citrate 150 MG Cap 05/14/20 14 025 Discontinu ed(Other- Please enter comment in Notes field) escitalopram 10 MG tablet Take 10 mg by mouth daily. Discontinu ed(Other- Please enter comment in Notes field) Isometheptene-di chloralphenazone -acetaminophen 65-100-325 mg 65-100-325 MG capsule as needed 07/05/20 18 Discontinu ed(Other- Please enter comment in Notes field) lansoprazole 30 MG capsule 05/14/20 14 025 Discontinu ed(Other- Please enter comment in Notes field) zolpidem (AMBIEN) 5 MG tablet 09/14/20 13 Discontinu ed(Other- Please enter comment in Notes field) albuterol (2.5 MG/3ML) 0.083% nebulizer solutionIndicati ons:Chronic bronchitis, unspecified chronic bronchitis type (CMS/HCC HHS/HCC) Take 3 mLs (2.5 mg total) by nebulization every 6 (six) hours as needed for Wheezing. Use with Nebulizer machine/supplies 360 mL 2 03/29/20 20 Discontinu ed(Reorder ) AZITHROMYCIN 500 MG tabletIndication s:Chronic bronchitis, unspecified chronic bronchitis type (CMS/HCC HHS/HCC) TAKE ONE TABLET BY MOUTH THREE TIMES A WEEK ON WEDNESDAY, WEDNESDAY, AND WEDNESDAY 12 tablet 03/31/20 21 025 Discontinu ed(Other- Please enter comment in Notes field) RIFAMPIN 300 MG capsuleIndicatio ns:Chronic bronchitis, unspecified chronic bronchitis type (CMS/HCC HHS/HCC) TAKE TWO CAPSULES BY MOUTH THREE TIMES PER WEEK ON WEDNESDAY, WEDNESDAY, AND WEDNESDAY 24 capsule 03/31/20 21 025 Discontinu ed(Other- Please enter comment in Notes field) ETHAMBUTOL 400 MG tabletIndication s:Chronic bronchitis, unspecified chronic bronchitis type (CMS/HCC HHS/HCC) TAKE 4 TABLETS BY MOUTH THREE TIMES PER WEEK ON WEDNESDAY, WEDNESDAY, AND WEDNESDAY 48 tablet 03/31/20 21 025 Discontinu ed(Other- Please enter comment in Notes field) BREO ELLIPTA 200-25 MCG/ACT inhalerIndicatio ns:Chronic bronchitis, unspecified chronic bronchitis type ([facility]) Inhale 1 puff by mouth once daily 60 each 03/21/20 25 025 Discontinu ed(Other- Please enter comment in Notes field) Active Problems Problem Noted Date Diagnosed Date Chronic bronchitis, unspecif ied chronic bronchitis type ([facility]) 03/18/2020 ANGEL (mycobacterium avium-intracellulare) ([facility]) 03/18/2020 Pulmonary embolism, other, u nspecified chronicity, unspecified whether acute cor pulmonale present ([facility]) 03/18/2020 Gastroesophageal reflux dise ase, esophagitis presence not specified 03/18/2020 Vocal cord polyp 03/18/2020 Diastolic dysfunction 03/18/2020 FSGS (focal segmental glomerulosclerosis) 2019 Abnormal finding on lung imaging 03/18/2020 Encounters Date Type Department Care Team Description 05/07/2025 8:20 AM CDT Office Visit [facility] Medical [facility] Multispecialty Care - [address], [address] [place] [address] Ariel Valera MD Follow Up 05/07/2025 Travel 04/27/2025 Scan HEALTH INFO SRVCS Scanned, Doc Med Group 04/27/2025 Telephone [facility] [address] [address] Ariel Valera MD Medication 04/05/2025 Scan [facility] HEALTH INFO SRVCS Scanned, Doc Med Group 04/05/2025 Telephone [facility] Pulmonology Specialty [address] [address] Ariel Valera MD Question from Last 3 Months Immunizations Immunization Administration Dates Next Due Influenza (Generic) 07/15/2020, 5,05/24/2012,2010,07/04/2010,07/02/2009,08/11/2007,1 10/24/2005 PFIZER COVID-19 (ORIGINAL FORMULATION, PURPLE CAP) [...] Yes Alcohol Use Standard Drinks/Week Comments Yes 1.7 (1 standard drink = 0.6 oz p ure alcohol) Occassional AUDIT-C Answer Date Recorded Frequency of Alcohol Consumption Monthly or less 03/18/2020 Average Number of Drinks Not on file 020 Frequency of Binge Drinking Not on file 05/2020 PHQ-2 Answer Date Recorded Patient Health Questionnaire-2 Score 0 05/07/2025 Comments No Sex and Gender Information Value Date Recorded Sex Assigned at Not on file Legal Sex Female 7:54 PM CDT Gender Identity Not on file Sexual Orientation Not on file Last Filed Vital Signs Vital Sign Reading Time Taken Comments Blood Pressure 135/74 05/07/2025 8:20 AM CDT Pulse 89 05/07/2025 8:20 AM CDT Temperature 36.3 C (97.4 F) 08/19/2023 7:57 AM ORDER BUILDER LOADER Respiratory Rate 16 05/07/2025 8:20 AM CDT Oxygen Saturation 98% 05/07/2025 8:20 AM CDT ra Inhaled Oxygen Concentration - - Weight 65.8 kg (145 lb) 05/07/2025 8:20 AM CDT Height 147.3 cm (4' 10) 05/07/2025 8:20 AM CDT Body Mass Index 30.31 05/07/2025 8:20 AM CDT Plan of Treatment Upcoming Encounters Date Type Department Care Team (Late st Contact Info) Description 08/02/2025 8:00 AM CDT Office Visit [facility] Medical [facility] Multispecialty Care - [address] [place] [address] Ariel Valera MD [address] [place] [address] Health Maintenance Due Date Last Done Comments [...] 5 season) 2024 10/18/2020, 09/27/2020 PHQ-2 (Physician [place]) Completed 05/07/2025 Meningococcal B Vaccine Aged Out No l onger eligible based on patient's age to complete this topic Meningococcal Vaccine Aged Out No jo carla eligible based on patient's age to complete this topic RSV Immunizations Under 20 Months Aged Out No longer eligible b ased on patient's age to complete this topic Insurance [facility] Care Teams Tap Builder Relationship Specialty Start Date End Date Irma Koehler DO [address] [place] [address] PCP - General FAMILY PRACTICE 03/22/20
== END 2025-05-09 07:25 | disposition home or self-care (01) ==
LOC: ANHLAB 07:25
PROVIDERS: PCP Family Medicine; Visit Provider Student in an Organized Health Care Education/Training Program
DX: J47.9 Bronchiectasis, uncomplicated (principal); A31.0 Pulmonary mycobacterial infection
CPT/HCPCS: 87070; 87116; 87205; 87206

== ENCOUNTER 2025-05-10 06:52 | Outpatient (CLI) | payer OTHER, SELFPAY ==
--- OUTSIDE RECORDS SUMMARY | 2025-05-10 06:54 | XMS_ITS | Clinical Summary ---
Author Organization [facility] Address [facility] [place] [address] Care Team Providers Care Clerical Administrative Assistant Name Role Phone Irma Koehler Primary Care Provider [phone] Allergies Active Allergy Reactions Criticality Noted Date [...] KitIndications:C hronic bronchitis, unspecified chronic bronchitis type ([facility]) Use with Nebulizer machine for Treatments 1 kit 03/29/20 Active NEBULIZER DEVICE, DME,Indications: Chronic bronchitis, unspecified chronic bronchitis type ([facility]) Use with Nebulizer treatments 1 Device 03/29/20 [...] inhalerIndicatio ns:Chronic bronchitis, unspecified chronic bronchitis type ([facility]) Inhale 1 puff by mouth once daily 60 each 03/21/20 25 025 Discontinu ed(Other- Please enter comment in Notes field) Active Problems Problem Noted Date Diagnosed Date Chronic bronchitis, unspecif ied chronic bronchitis type ([facility]) 03/18/2020 ANGEL (mycobacterium avium-intracellulare) ([facility]/ [facility]) 03/18/2020 Pulmonary embolism, other, u nspecified chronicity, unspecified whether acute cor pulmonale present ([facility]) 03/18/2020 Gastroesophageal reflux dise ase, esophagitis presence not specified 03/18/2020 Vocal cord polyp 03/18/2020 Diastolic dysfunction 03/18/2020 FSGS (focal segmental glomerulosclerosis) 2019 Abnormal finding on lung imaging 03/18/2020 Encounters Date Type Department Care Team Description 05/07/2025 8:20 AM CDT Office Visit [facility] Multispecialty Care - [address], [address] [place] [address] Ariel Valera MD Follow Up 05/07/2025 Travel 04/27/2025 Scan HEALTH INFO SRVCS Scanned, Doc Med Group 04/27/2025 Telephone [facility] [address] [address] Ariel Valera MD Medication 04/05/2025 Scan MG HEALTH INFO SRVCS Scanned, Doc Med Group 04/05/2025 Telephone [facility]monology Specialty [address] [address] Ariel Valera MD Question from [...] 36.3 C (97.4 F) 08/19/2023 7:57 AM TREADLE CUT OFF SAW OPERATOR Respiratory Rate 16 05/07/2025 8:20 AM CDT [...] Description 08/02/2025 8:00 AM CDT Office Visit [facility] Medical Group Multispecialty Care - [address] [place] [address] Ariel Valera MD [address] [place] [address] Health Maintenance Due Date Last Done Comments [...] 5 season) 2024 10/18/2020, 09/27/2020 PHQ-2 (Physician [place]) Completed 05/07/2025 Meningococcal B Vaccine Aged Out No l onger eligible based on patient's age to complete this topic Meningococcal Vaccine Aged Out No jo carla eligible based on patient's age to complete this topic RSV Immunizations Under 20 Months Aged Out No longer eligible b ased on patient's age to complete this topic Insurance [facility] Care Teams Clerical Administrative Assistant Relationship Specialty Start Date End Date Irma Koehler DO [address] [place] [address] PCP - General FAMILY PRACTICE 03/22/20
--- OUTSIDE RECORDS SUMMARY | 2025-05-10 06:54 | XMS_ITS | Clinical Summary ---
Author Organization [facility] Address [address] [place] [address] Phone Care Team Providers Care Lithographic Photographer Apprentice Name Role Phone Dimas Vale MD Primary Care Provider [phone] Medications amitriptyline (ELAVIL) 25 MG tablet TAKE [...] Comments Blood Pressure 124/70 10/09/2019 3:38 PM SUPERVISOR CHANNEL PROCESS Pulse 76 06/24/2018 12:01 AM CDT Temperature - - Respiratory Rate - - Oxygen Saturation - - Inhaled Oxygen Concentration - - Weight 67.6 kg (149 lb) 10/09/2019 3:38 PM SUPERVISOR CHANNEL PROCESS Height 144.8 cm (4' 9) 10/09/2019 3:38 PM SUPERVISOR CHANNEL PROCESS Body Mass Index 32.24 10/09/2019 3:38 PM SUPERVISOR CHANNEL PROCESS Plan of Treatment Health Maintenance Due Date Last Done Comments Pneumococcal PPSV23 Highest Risk Adult (1 of 3 - PCV13 ) 1979 Influenza Vaccine (#1) 2025 Insurance [facility] Care Teams Lithographic Photographer Apprentice Relationship Specialty Start Date End Date Dimas Vale MD [address] [place] [address] PCP - General Family Medicine 10/09/19
--- OUTSIDE RECORDS SUMMARY | 2025-05-10 06:54 | XMS_ITS | Clinical Summary ---
Author Organization [facility] Address [address] [place] [address] Phone Care Team Providers Care Pantomimist Name Role Phone Dimas Vale MD Primary Care Provider [phone] Allergies Active Allergy Reactions Criticality Noted Date [...] Dimas Vale [address] [place] [address] Other: Problem Noted Date Diagnosed Date Asthma [...] on file Legal Sex Female 5:55 AM DISTRICT SALES LEADER Gender Identity Not on file Sexual Orientation [...] OR WO CAD Routine 09/15/2010 10:04 AM DISTRICT SALES LEADER Lump or mass in breast from Last 3 Months or Most Recently Relevant to Health Maintenance Results * MAMMO DIGITAL DIAG BILAT (09/15/2010 10:04 AM DISTRICT SALES LEADER) Anatomical Region Laterality Modality Breast Bilateral Mammography Narrative 09/15/2010 5:15 PM DISTRICT SALES LEADER BILATERAL DIAGNOSTIC DIGITAL MAMMOGRAMS WITH COMPUTER ASSISTED [...] Recently Relevant to Health Maintenance Care Teams Pantomimist Relationship Specialty Start Date End Date Dimas Vale MD [address] [place] [address] PCP - General Family Practice 06/19/10
--- OUTSIDE RECORDS SUMMARY | 2025-05-10 06:55 | XMS_ITS | Clinical Summary ---
Author Organization [facility] Address [address] [place] [address] Care Team Providers Care Tire Mechanic Name Role Phone Toshia Price MD Unavailable Irma Koehler DO Primary Care Provider [phone] Allergies Active Allergy Reactions Criticality Noted Date [...] (01/30/2019): Added automatically from request for surgery [id number] Assessment & Plan (07/15/2020 1:35 PM CDT): [...] (05/06/2018): Added automatically from request for surgery [id number] Assessment & Plan (12/10/2022 2:19 PM FAMILY PROTECTION SPECIALIST): Due for colonoscopy. Last exam May [...] disease) Assessment & Plan (12/10/2022 2:18 PM FAMILY PROTECTION SPECIALIST): Has significant laryngeal reflux. We discussed [...] Added au tomatically from request for surgery [id number] Hiatal hernia 12/28/2018 Gastroesophageal reflux dise ase without esophagitis 01/30/2019 Added automatically from req uest for surgery [id number] Gastroesophageal reflux disease 08/22/2012 GERD (gastroesophageal reflux [...] p otential mismatch. ANGEL (mycobacterium avium-intracellulare) ([facility]) 03/18/2020 Paresthesia 08/18/2017 Anesthesia of skin 12/17/2017 Abnormal finding on lung imaging 03/18/2020 Abnormal levels of other ser um enzymes 02/28/2015 Converted unresolved ICD9, p otential mismatch. Family History Medical History Relation Name Comments COPD [facility]; Cancer Father [facility] Colon polyps [facility] Early [facility] Heart attack [facility] Liver disease Father [facility] Liver disease; Lung cancer [facility] Cancer, lung; Other Father [facility] hypercoagulable ; Asthma Mother [facility] Asthma; COPD Mother [facility] COPD; Diabetes type II Mother [facility] Diabetes me llitus type 2; Osteoporosis Mother [facility] Thyroid disease Mother [facility] Thyroid dise ase; Colon cancer Mother's Sister Relation Name Status Comments Father [facility] Heart Attack Mother [facility] [...] on file Legal Sex Female 2:03 AM FAMILY PROTECTION SPECIALIST Gender Identity Not on file Sexual Orientation Not on file Obstetrics History Last Filed Vital Signs Vital Sign Reading Time Taken Comments Blood Pressure 149/64 11/16/2024 2:25 PM FAMILY PROTECTION SPECIALIST Pulse 95 11/16/2024 2:25 PM FAMILY PROTECTION SPECIALIST Temperature 36.3 C (97.3 F) 11/16/2024 2:25 PM FAMILY PROTECTION SPECIALIST Respiratory Rate 18 11/16/2024 2:25 PM FAMILY PROTECTION SPECIALIST Oxygen Saturation 99% 11/16/2024 2:25 PM FAMILY PROTECTION SPECIALIST Inhaled Oxygen Concentration - - Weight 66.2 kg (146 lb) 11/16/2024 2:25 PM FAMILY PROTECTION SPECIALIST Height 145.4 cm (4' 9.25) 06/15/2024 [...] 06/15/2024 11:58 AM Admit Type: Outpatient Room: [facility] Date of : 1960 Instrument Name: [...] the bowel preparation was evaluatedusing the BBPS ([place] Bowel Preparation Scale) withscores of: Right Colon [...] Most Recently Relevant to Health Maintenance Insurance [facility] H[facility]/PPO Address: [facility] [address] [place] [id number] [facility] H[facility]/PPO Address: [address] [address] [facility] H[facility]/PPO Address: [place] [address] Advance Directives For more information, please contact: [phone] * Full Code (Latest Code Status on File) Date Activated Date Inactivated Comments 06/15/2024 12:07 PM 06/15/2024 6:45 PM * Full Code Date Activated Date Inactivated Comments 05/24/2023 7:46 AM 05/24/2023 1:54 PM * Full Code Date Activated Date Inactivated Comments 02/08/2019 11:03 AM 02/08/2019 5:19 PM * Full Code Date Activated Date Inactivated Comments 06/01/2018 11:13 AM 06/01/2018 2:52 PM Care Teams Tire Mechanic Relationship Specialty Start Date End Date Irma Koehler DO [address] [place] [address] PCP - General Family Medicine 12/10/22 Toshia Price MD [address] [place] [address] Medical Oncologist/Stamping Press Operator Hematology and Oncology 08/28/22
--- OUTSIDE RECORDS SUMMARY | 2025-05-10 06:55 | XMS_ITS | Referral Summary ---
Author Organization [facility] Address [address] [place] [address] Care Team Providers Care Tower Helper Name Role Phone Toshia Price MD Unavailable [phone] Irma Koehler DO Primary Care Provider [phone] Allergies Active Allergy Reactions Criticality Noted Date [...] recommended voice therapy here at the [facility] in order to improve the biomechanics of the patient's voice, which will improve the patient's associated symptoms. Gastroesophageal reflux disease without esophagi tis 01/30/2019 Overview (01/30/2019): Added automatically from request for surgery [id number] Assessment & Plan (07/15/2020 1:35 PM CDT): [...] (05/06/2018): Added automatically from request for surgery [id number] Assessment & Plan (12/10/2022 2:19 PM ELECTRIC TRIPPER MACHINE OPERATOR): Due for colonoscopy. Last exam May [...] disease) Assessment & Plan (12/10/2022 2:18 PM ELECTRIC TRIPPER MACHINE OPERATOR): Has significant laryngeal reflux. We discussed [...] on file Legal Sex Female 2:03 AM ELECTRIC TRIPPER MACHINE OPERATOR Gender Identity Not on file Sexual Orientation Not on file Last Filed Vital Signs Vital Sign Reading Time Taken Comments Blood Pressure 149/64 11/16/2024 2:25 PM ELECTRIC TRIPPER MACHINE OPERATOR Pulse 95 11/16/2024 2:25 PM ELECTRIC TRIPPER MACHINE OPERATOR Temperature 36.3 C (97.3 F) 11/16/2024 2:25 PM ELECTRIC TRIPPER MACHINE OPERATOR Respiratory Rate 18 11/16/2024 2:25 PM ELECTRIC TRIPPER MACHINE OPERATOR Oxygen Saturation 99% 11/16/2024 2:25 PM ELECTRIC TRIPPER MACHINE OPERATOR Inhaled Oxygen Concentration - - Weight 66.2 kg (146 lb) 11/16/2024 2:25 PM ELECTRIC TRIPPER MACHINE OPERATOR Height 145.4 cm (4' 9.25) 06/15/2024 [...] 06/15/2024 11:58 AM Admit Type: Outpatient Room: [facility] Date of : 1960 Instrument Name: [...] the bowel preparation was evaluatedusing the BBPS ([place] Bowel Preparation Scale) withscores of: Right Colon [...] Most Recently Relevant to Health Maintenance Insurance [facility] H[facility]/PPO Address: [place] [address] [facility] H[facility]/PPO Address: [place] [address] [facility] HMO/PPO Address: [place] [address] Advance Directives For more information, please contact: [phone] * Full Code (Latest Code Status on File) Date Activated Date Inactivated Comments 06/15/2024 12:07 PM 06/15/2024 6:45 PM * Full Code Date Activated Date Inactivated Comments 05/24/2023 7:46 AM 05/24/2023 1:54 PM * Full Code Date Activated Date Inactivated Comments 02/08/2019 11:03 AM 02/08/2019 5:19 PM * Full Code Date Activated Date Inactivated Comments 06/01/2018 11:13 AM 06/01/2018 2:52 PM Care Teams Tower Helper Relationship Specialty Start Date End Date Irma Koehler DO [address] [place] [address] PCP - General Family Medicine 12/10/22 Toshia Price MD [address] [place] [address] Medical Oncologist/Tableau Report Developer Hematology and Oncology 08/28/22
[2025-05-10 07:18] LABS: Hematocrit 38.5 % (37.0-47.0); Hemoglobin 12.7 g/dL (12.0-15.0); Mean Corpuscular HGB Conc 33.0 g/dl (32-36); Mean Corpuscular Hemoglobin 30.0 pg (26-34); Mean Corpuscular Volume 90.8 fl (80-100); Platelet Count Result 196 k/mm3 (150-375); Red Blood Count 4.24 M/mm3 (4.2-5.4); White Blood Count 7.8 K/mm3 (4.5-10.0)
[2025-05-10 07:38] LABS: Alanine Aminotransferase 27 U/L (6-35); Albumin Level 4.1 g/dL (3.5-5.1); Alkaline Phosphatase 72 U/L (38-126); Anion Gap 5 mmol/L (4-12); Aspartate Amino Transferase 28 U/L (14-36); Bilirubin,Total 0.3 mg/dL (0.2-1.3); Blood Urea Nitrogen 18 mg/dL (7-17); Calcium 9.7 mg/dL (8.4-10.2); Carbon Dioxide 30 mmol/L (22-30); Chloride 104 mmol/L (98-107); Cholesterol 170 mg/dL (0-200); Estimated Glomerular Filt Rate > 60; Glucose 93 mg/dL (65-110); HDL Direct 62 mg/dL; Potassium 3.3 mmol/L (3.4-5.0); Sodium 139 mmol/L (137-145); Total Protein 7.1 g/dL (6.3-8.2); Triglycerides 135 mg/dL (<150)
[2025-05-10 07:54] LABS: Free T4 Free Thyroxine 0.98 ng/dL (0.78-2.19)
[2025-05-10 08:13] LABS: Thyroid Stimulating Hormone 2.130 uIU/mL (0.465-4.680)
[2025-05-16 09:08] LABS: 1,25-Dihydroxy, Vitamin D-2 14 pg/mL (.); 1,25-Dihydroxy, Vitamin D-3 67 pg/mL (.); Total 1,25-Dihydroxy,Vitamin D 81 pg/mL (.)
== END 2025-05-10 06:53 | disposition home or self-care (01) ==
LOC: ANHLAB 06:53
PROVIDERS: PCP Family Medicine; Visit Provider Family Medicine
DX: R79.89 Other specified abnormal findings of blood chemistry (principal); Z79.899 Other long term (current) drug therapy; I10 Essential (primary) hypertension; E78.2 Mixed hyperlipidemia; E55.9 Vitamin D deficiency, unspecified
CPT/HCPCS: 36415; 80053; 80061; 82652; 84439; 84443; 85027

== ENCOUNTER 2025-05-16 08:14 | Outpatient (CLI) | payer OTHER, SELFPAY ==
--- OUTSIDE RECORDS SUMMARY | 2025-05-16 08:21 | XMS_ITS | Clinical Summary ---
Author Organization [facility] Address [address] [place] [address] Phone Care Team Providers Care Railway Track Worker Name Role Phone Dimas Vale MD Primary Care Provider [phone] Allergies Active Allergy Reactions Criticality Noted Date [...] Dimas Vale [address] [place] [address] Other: Problem Noted Date Diagnosed Date Asthma [...] on file Legal Sex Female 5:55 AM PLANNING COORDINATOR Gender Identity Not on file Sexual [...] OR WO CAD Routine 09/15/2010 10:04 AM PLANNING COORDINATOR Lump or mass in breast from Last 3 Months or Most Recently Relevant to Health Maintenance Results * MAMMO DIGITAL DIAG BILAT (09/15/2010 10:04 AM PLANNING COORDINATOR) Anatomical Region Laterality Modality Breast Bilateral Mammography Narrative 09/15/2010 5:15 PM PLANNING COORDINATOR BILATERAL DIAGNOSTIC DIGITAL MAMMOGRAMS WITH COMPUTER ASSISTED [...] Recently Relevant to Health Maintenance Care Teams Railway Track Worker Relationship Specialty Start Date End Date Dimas Vale MD [address] [place] [place] [address] PCP - General Family Practice 06/19/10
--- OUTSIDE RECORDS SUMMARY | 2025-05-16 08:21 | XMS_ITS | Clinical Summary ---
Author Organization [facility] Address [address] [place] [address] Care Team Providers Care Printer Machine Name Role Phone Toshia Price MD Unavailable [phone] Irma Koehler DO Primary Care Provider [phone] Allergies Active Allergy Reactions Criticality Noted Date [...] have recommended voice therapy here at the [facility] in order to improve the biomechanics of the patient's voice, which will improve the patient's associated symptoms. Gastroesophageal reflux disease without esophagi tis 01/30/2019 Overview (01/30/2019): Added automatically from request for surgery [id number] Assessment & Plan (07/15/2020 1:35 PM CDT): [...] (05/06/2018): Added automatically from request for surgery [id number] Assessment & Plan (12/10/2022 2:19 PM INSPECTOR BULLET SLUGS): Due for colonoscopy. Last exam May 2019. [...] disease) Assessment & Plan (12/10/2022 2:18 PM INSPECTOR BULLET SLUGS): Has significant laryngeal reflux. We discussed that [...] n procedure 1996 bladder suspension Pulmonary embolism 2002 Protein C /Pr otein S Deficiency GERD (gastroesophageal reflu x disease) Chronic diarrhea Diverticulosis Chronic bronchitis (HCC) Focal segmental glomerulosclerosis Arthritis Hypertension Pulmonary embolism 2003 FSGS (focal segmental glomerulosclerosis) Remission 2017 [...] Added au tomatically from request for surgery [id number] Hiatal hernia 12/28/2018 Gastroesophageal reflux dise ase without esophagitis 01/30/2019 Added automatically from req uest for surgery [id number] Gastroesophageal reflux disease 08/22/2012 GERD (gastroesophageal reflux [...] otential mismatch. ANGEL (mycobacterium avium-intracellulare) ([facility]) 03/18/2020 Paresthesia 08/18/2017 Anesthesia of skin 12/17/2017 Abnormal finding on lung imaging 03/18/2020 Abnormal levels of other ser um enzymes 02/28/2015 Converted unresolved ICD9, p otential mismatch. Family History Medical History Relation Name Comments COPD [facility]; Cancer Father [facility] Colon polyps [facility] Early [facility] Heart attack [facility] Liver disease [facility] Liver disease; Lung cancer Father [facility] Cancer, lung; Other Father [facility] hypercoagulable ; Asthma Mother [facility] Asthma; COPD Mother [facility] COPD; Diabetes type II Mother [facility] Diabetes me llitus type 2; Osteoporosis Mother [facility] Thyroid disease Mother [facility] Thyroid dise ase; Colon cancer Mother's Sister Relation Name Status Comments Father [facility] Heart Attack Mother [facility] Mother's Sister Social History Tobacco [...] on file Legal Sex Female 2:03 AM INSPECTOR BULLET SLUGS Gender Identity Not on file Sexual Orientation Not on file Obstetrics History Last Filed Vital Signs Vital Sign Reading Time Taken Comments Blood Pressure 149/64 11/16/2024 2:25 PM INSPECTOR BULLET SLUGS Pulse 95 11/16/2024 2:25 PM INSPECTOR BULLET SLUGS Temperature 36.3 C (97.3 F) 11/16/2024 2:25 PM INSPECTOR BULLET SLUGS Respiratory Rate 18 11/16/2024 2:25 PM INSPECTOR BULLET SLUGS Oxygen Saturation 99% 11/16/2024 2:25 PM INSPECTOR BULLET SLUGS Inhaled Oxygen Concentration - - Weight 66.2 kg (146 lb) 11/16/2024 2:25 PM INSPECTOR BULLET SLUGS Height 145.4 cm (4' 9.25) 06/15/2024 12:04 [...] 06/15/2024 11:58 AM Admit Type: Outpatient Room: [facility] Date of : 1960 Instrument [...] the bowel preparation was evaluatedusing the BBPS ([place] Bowel Preparation Scale) withscores of: Right Colon [...] Most Recently Relevant to Health Maintenance Insurance [facility] [place] [id number] [facility] Advance Directives For more information, please contact: [phone] * Full Code (Latest Code Status on File) Date Activated Date Inactivated Comments 06/15/2024 12:07 PM 06/15/2024 6:45 PM * Full Code Date Activated Date Inactivated Comments 05/24/2023 7:46 AM 05/24/2023 1:54 PM * Full Code Date Activated Date Inactivated Comments 02/08/2019 11:03 AM 02/08/2019 5:19 PM * Full Code Date Activated Date Inactivated Comments 06/01/2018 11:13 AM 06/01/2018 2:52 PM Care Teams Printer Machine Relationship Specialty Start Date End Date Irma Koehler DO [address] [place] [address] PCP - General Family Medicine 12/10/22 Toshia Price MD [address] [place] [address] Medical Oncologist/Wharf Tender Hematology and Oncology 08/28/22
--- OUTSIDE RECORDS SUMMARY | 2025-05-16 08:21 | XMS_ITS | Clinical Summary ---
Author Organization [facility] Address [address] [place] [phone] Phone Care Team Providers Care Tobacco Curer Name Role Phone Dimas Vale MD Primary Care Provider [phone] Medications amitriptyline (ELAVIL) 25 MG tablet TAKE [...] Comments Blood Pressure 124/70 10/09/2019 3:38 PM IMAGING SYSTEM ADMINISTRATOR Pulse 76 06/24/2018 12:01 AM CDT Temperature - - Respiratory Rate - - Oxygen Saturation - - Inhaled Oxygen Concentration - - Weight 67.6 kg (149 lb) 10/09/2019 3:38 PM IMAGING SYSTEM ADMINISTRATOR Height 144.8 cm (4' 9) 10/09/2019 3:38 PM IMAGING SYSTEM ADMINISTRATOR Body Mass Index 32.24 10/09/2019 3:38 PM IMAGING SYSTEM ADMINISTRATOR Plan of Treatment Health Maintenance Due Date Last Done Comments Pneumococcal PPSV23 Highest Risk Adult (1 of 3 - PCV13 ) 1979 Influenza Vaccine (#1) 2025 Insurance [facility] Care Teams Tobacco Curer Relationship Specialty Start Date End Date Dimas Vale MD [address] [place] [address] PCP - General Family Medicine 10/09/19
[2025-05-16 09:07] LABS: Potassium 3.7 mmol/L (3.4-5.0)
[2025-05-16 09:10] LABS: Iron 92 ug/dL (37-170)
[2025-05-16 09:20] LABS: Percent Iron Saturation 34 % (20-50)
[2025-05-16 09:51] LABS: Ferritin 130.00 ng/mL (11.1-264)
== END 2025-05-16 08:15 | disposition home or self-care (01) ==
LOC: ANHLAB 08:15
PROVIDERS: PCP Family Medicine; Visit Provider Family Medicine
DX: D64.9 Anemia, unspecified (principal); E87.6 Hypokalemia
CPT/HCPCS: 36415; 82728; 83540; 83550; 84132; 85048

== ENCOUNTER 2025-06-01 06:35 | Outpatient (CLI) | payer OTHER, SELFPAY ==
--- NOTE | ~2025-06-01 | CT_ITS ---
CT Scan of the Chest without Contrast: Clinical Indication: Bronchiectasis Technique: Contiguous sections were acquired throughout the chest without intravenous contrast. Dose reduction technique was used on this scan by utilizing automated exposure control and iterative reconstruction technique. The dose-length product (DLP) was 152.08 mGy-cm. COMPARISON: 01/26/2025 Findings: There is no evidence of any significant mediastinal, hilar or axillary lymphadenopathy. Coronary artery calcifications are present. There is no evidence of pleural or pericardial effusion. Calcified right apical granuloma present. No bronchiectasis evident. Images through the upper abdomen reveal cholecystectomy clips. Impression: No bronchiectasis. Calcified right apical granuloma. Reviewed, dictated and finalized at location . Impression: No bronchiectasis. Calcified right apical granuloma.
== END 2025-06-01 06:36 | disposition home or self-care (01) ==
LOC: ANHIMG 06:40
PROVIDERS: PCP Family Medicine; Visit Provider Student in an Organized Health Care Education/Training Program
DX: J47.9 Bronchiectasis, uncomplicated (principal); A31.0 Pulmonary mycobacterial infection; R91.8 Other nonspecific abnormal finding of lung field
CPT/HCPCS: 71250

== ENCOUNTER 2025-06-27 07:27 | Outpatient (CLI) | payer OTHER, SELFPAY ==
--- OUTSIDE RECORDS SUMMARY | 2025-06-27 07:48 | XMS_ITS | Clinical Summary ---
Author Organization [facility] Address [facility] [place] [address] Care Team Providers Care Watch Repair Person Name Role Phone Irma Koehler Primary Care Provider [phone] Allergies Active Allergy Reactions Criticality Noted Date Comments Morphine Nausea Only 03/18/2020 Mycophenolate Unknown 10/02/2014 Penicillins Headache 06/19/2010 Prednisone Unknown 03/18/2020 Sulfa Antibiotics Rash Low 06/19/2010 Medications atorvastatin 20 MG tablet Take 1 tablet (20 mg total) by mouth daily. 0 Active hydroCHLOROthiaz margarita 12.5 MG tablet Take 1 tablet (12.5 mg total) by mouth daily. 0 Active omeprazole 40 MG capsule Take 1 capsule (40 mg total) by mouth 2 (two) times daily. 0 Active XARELTO 20 MG Tab tablet Take 1 tablet (20 mg total) by mouth daily. 0 Active cetirizine (ZYRTEC) 10 MG tablet 2 Active Cholecalciferol (VITAMIN D) 50 MCG (1999) Tab 4 Active Respiratory Therapy Supplies (NEBULIZER/TUBIN G/MOUTHPIECE) KitIndications:C hronic bronchitis, unspecified chronic bronchitis type ([facility]) Use with Nebulizer machine for Treatments 1 kit 0 Active NEBULIZER DEVICE, DME,Indications: Chronic bronchitis, unspecified chronic bronchitis type ([facility]) Use with Nebulizer treatments 1 Device 0 Active albuterol sulfate HFA 108 (90 Base) MCG/ACT inhalerIndicatio ns:Chronic bronchitis, unspecified chronic bronchitis type ([facility]) Inhale 2 puffs into the lungs every 4 (four) hours as needed for Wheezing. 18 g 3 3 Active Fluticasone-Umec lidin-Vilant (TRELEGY ELLIPTA) 200-62.5-25 MCG/ACT AEROSOL POWDER, BREATH ACTIVATEDIndicat ions:Chronic bronchitis, unspecified chronic bronchitis type ([facility]),Bronchi ectasis without complication ([facility]) Inhale 1 puff into the lungs daily. 60 each 3 5 Active albuterol (PROVENTIL) (2.5 MG/3ML) 0.083% nebulizer solutionIndicati ons:Chronic bronchitis, unspecified chronic bronchitis type ([facility]) Take 3 mLs (2.5 mg total) by nebulization every 6 (six) hours as needed for Wheezing. 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 Diastolic dysfunction 03/18/2020 FSGS (focal segmental glomerulosclerosis) 2019 Abnormal finding on lung imaging 03/18/2020 Encounters Date Type Department Care Team Description 06/04/2025 Telephone [facility] - [place] [address] [place] [address] Ariel Valera MD Results 06/01/2025 Scan [employer] INFO SRVCS Scanned, Doc [facility] CT (SCAN) 2025 11:40 AM CDT Telemedicine [facility] - [address] [place] [address] Ariel Valera MD Follow Up 05/17/2025 Scan [facility] INFO SRVCS Scanned, Doc [facility] (SCAN) 05/16/2025 Scan [facility] INFO SRVCS Scanned, Doc [facility] (SCAN) 05/16/2025 Telephone [facility]ty [address] [address] Ariel Valera MD Cough 05/11/2025 [facility] [address] [place] [address] Ariel Valera MD Results 05/10/2025 Scan [facility] INFO SRVCS Scanned, Doc [facility] (SCAN) 05/09/2025 Scan [facility] INFO SRVCS Scanned, Doc [facility] (SCAN) 05/07/2025 8:20 AM CDT [facility] - [address] [place] [address] Ariel Valera MD Follow Up 05/07/2025 Scan [facility] INFO [facility]VCS Scanned, Doc [facility] (SCAN) 05/07/2025 Travel 04/27/2025 Scan [facility] INFO SRVCS Scanned, Doc [facility] 04/27/2025 Telephone [facility] [address] [phone] Ariel Valera MD Medication 04/05/2025 Scan [facility] INFO SRVCS Scanned, Doc [facility] 04/05/2025 Telephone [facility] [address] [phone] Ariel Valera MD Question from Last 3 [...] 36.3 C (97.4 F) 08/19/2023 7:57 AM BATCH ATTENDANT Respiratory Rate 16 05/07/2025 8:20 AM CDT [...] Description 08/02/2025 8:00 AM CDT Office Visit [facility] Multispecialty Care - [address] [place] [id number] Ariel Valera MD [address] [facility] [address] [place] [address] Health Maintenance Due Date Last Done Comments Colorectal Cancer Screening Colonoscopy (10 Years) 1960 Hepatitis C 1978 Pneumococcal Vaccine: 50+ Years (1 of 2 - PCV) 1979 Mammogram Screening 2000 Zoster Vaccines (1 of 2) 2010 RSV Immunization or 60+ Years (1 - Risk 60-74 years 1-dose series) 2020 DTaP, Tdap and Td Vaccines ( 2 - Td or Tdap) 07/14/2021 07/14/2011 COVID-19 Vaccine (3 - 2024-2 6 season) 2025 10/18/2020, 09/27/2020 Dexa Scan (General) Completed 07/22/2020, 07/22/2020, 12/28/2018 PHQ-2 (Physician [place]) Completed 05/07/2025 Meningococcal B Vaccine Aged Out No l onger eligible based on patient's age to complete this topic Meningococcal Vaccine Aged Out No jo carla eligible based on patient's age to complete this topic RSV Immunizations Under 20 Months Aged Out No longer eligible b ased on patient's age to complete this topic Procedures Procedure Name Priority Date/Time Associated Diagnosis Comments CT GENERIC 06/01/2025 OUTSIDE LAB (SCAN ORDER) 05/17/2025 OUTSIDE LAB (SCAN ORDER) 05/16/2025 OUTSIDE LAB (SCAN ORDER) 05/16/2025 OUTSIDE LAB (SCAN ORDER) 05/10/2025 OUTSIDE LAB (SCAN ORDER) 05/10/2025 OUTSIDE LAB (SCAN ORDER) 05/10/2025 OUTSIDE LAB (SCAN ORDER) 05/10/2025 OUTSIDE LAB (SCAN ORDER) 05/10/2025 OUTSIDE LAB (SCAN ORDER) 05/10/2025 OUTSIDE LAB (SCAN ORDER) 05/09/2025 OUTSIDE LAB (SCAN ORDER) 05/09/2025 OUTSIDE LAB (SCAN ORDER) 05/09/2025 OUTSIDE LAB (SCAN ORDER) 05/09/2025 OUTSIDE LAB (SCAN ORDER) 05/07/2025 from Last 3 Months Results * CT GENERIC (06/01/2025) Anatomical Region Laterality Modality Other 06/01/2025 [employer] [facility] Scanned SCANNING Final Resu lt * OUTSIDE LAB (SCAN ORDER) (05/17/2025) Only the most recent of14 resultswithin the time period is included. 05/17/2025 [employer] [facility] Scanned SCANNING Final Resu lt from Last 3 Months Insurance [facility] Care Teams Watch Repair Person Relationship Specialty Start Date End Date Irma Koehler DO [address] [place] [address] PCP - General FAMILY PRACTICE 03/22/20
--- OUTSIDE RECORDS SUMMARY | 2025-06-27 07:48 | XMS_ITS | Clinical Summary ---
Author Organization [facility] Address [address] [place] [phone] Phone Care Team Providers Care Public School Teacher Name Role Phone Dimas Vale MD Primary Care Provider [phone] Medications amitriptyline (ELAVIL) 25 MG tablet TAKE [...] Comments Blood Pressure 124/70 10/09/2019 3:38 PM BINDER CUTTER Pulse 76 06/24/2018 12:01 AM CDT Temperature - - Respiratory Rate - - Oxygen Saturation - - Inhaled Oxygen Concentration - - Weight 67.6 kg (149 lb) 10/09/2019 3:38 PM BINDER CUTTER Height 144.8 cm (4' 9) 10/09/2019 3:38 PM BINDER CUTTER Body Mass Index 32.24 10/09/2019 3:38 PM BINDER CUTTER Plan of Treatment Health Maintenance Due Date Last Done Comments Pneumococcal PPSV23/PCV13 65 + Years / High and Highest Risk (1 of 5 - PCV) 1979 Influenza Vaccine (#1) 2025 Insurance [facility] Care Teams Public School Teacher Relationship Specialty Start Date End Date Dimas Vale MD [address] [place] [address] PCP - General Family Medicine 10/09/19
[2025-06-27 07:49] LABS: Hematocrit 38.3 % (37.0-47.0); Hemoglobin 12.5 g/dL (12.0-15.0)
--- OUTSIDE RECORDS SUMMARY | 2025-06-27 07:49 | XMS_ITS | Clinical Summary ---
Author Organization [facility] Address [address] [place] [address] Phone Care Team Providers Care Barrel Assembler Helper Name Role Phone Dimas Vale MD Primary Care Provider [phone] Allergies Active Allergy Reactions Criticality Noted Date [...] Dimas Vale [address] [place] [address] Other: Problem Noted Date Diagnosed Date Asthma [...] on file Legal Sex Female 5:55 AM JEWEL SORTER Gender Identity Not on file Sexual Orientation [...] Comments DTAP/TDAP/TD VACCINES (1 - Tdap) 1979 COLORECTAL SCREENING 2005 Colorectal Cancer Screening 2005 FIT-DNA Q 3 years 2005 FIT/FOBT Q 1 year 2005 Flex Sig/CT Colonography Q 5 years 2005 PNEUMOCOCCAL VACCINE 50+ YEARS (1 of 1 - PCV) 05/18/20 10 ZOSTER VACCINE (1 of 2) 2010 BREAST CANCER SCREENING 09/15/2011 09/15/2010 INFLUENZA VACCINE (#1) 2025 OSTEOPOROSIS SCREENING 2025 RSV VACCINE (60+ or ) (1 - 1-dose 75+ series) 2035 Procedures Procedure Name Priority Date/Time Associated Diagnosis Comments MAMMO DIAGNOSTIC BILATERAL W OR WO CAD Routine 09/15/2010 10:04 AM JEWEL SORTER Lump or mass in breast from Last 3 Months or Most Recently Relevant to Health Maintenance Results * MAMMO DIGITAL DIAG BILAT (09/15/2010 10:04 AM JEWEL SORTER) Anatomical Region Laterality Modality Breast Bilateral Mammography Narrative 09/15/2010 5:15 PM JEWEL SORTER BILATERAL DIAGNOSTIC DIGITAL MAMMOGRAMS WITH COMPUTER ASSISTED [...] Recently Relevant to Health Maintenance Care Teams Barrel Assembler Helper Relationship Specialty Start Date End Date Dimas Vale MD [address] [place] [address] PCP - General Family Practice 06/19/10
--- OUTSIDE RECORDS SUMMARY | 2025-06-27 07:50 | XMS_ITS | Clinical Summary ---
Author Organization [facility] Address [address] [place] [address] Care Team Providers Care Shop Lead Name Role Phone Toshia Price MD Unavailable [phone] Irma Koehler DO Primary Care Provider [phone] Allergies Active Allergy Reactions Criticality Noted Date Comments Morphine Vomiting Low Mycophenolate Mofetil Other (See comments) Low 10/02/2014 Causes patient to adrinene Penicillins Headache Low Prednisone Other (See comments) [...] nausea or vomiting 12 tablet 4 Active SUMAtriptan (IMITREX) 50 mg tablet 4 Active omeprazole (PriLOSEC) 40 mg capsule Take 1 capsule (40 mg total) by mouth 2 (two) times a day 180 capsule 3 5 Active Xarelto 20 mg tablet Take 1 tablet by mouth once daily 90 tablet 5 Active rivaroxaban (Xarelto) 20 mg tablet Take 1 tablet by mouth once daily 90 tablet 3 4 025 Discontinued Active Problems Problem Noted Date [...] have recommended voice therapy here at the [facility] in order to improve the biomechanics of the patient's voice, which will improve the patient's associated symptoms. Gastroesophageal reflux disease without esophagi tis 01/30/2019 Overview (01/30/2019): Added automatically from request for surgery [id number] Assessment & Plan (07/15/2020 1:35 PM CDT): [...] (05/06/2018): Added automatically from request for surgery [id number] Assessment & Plan (12/10/2022 2:19 PM ANIMAL KEEPER): Due for colonoscopy. Last exam May 2019. [...] disease) Assessment & Plan (12/10/2022 2:18 PM ANIMAL KEEPER): Has significant laryngeal reflux. We discussed that [...] Added au tomatically from request for surgery [id number] Hiatal hernia 12/28/2018 Gastroesophageal reflux dise ase without esophagitis 01/30/2019 Added automatically from req uest for surgery [id number] Gastroesophageal reflux disease 08/22/2012 GERD (gastroesophageal reflux [...] ICD9, p otential mismatch. ANGEL (mycobacterium avium-intracellulare) ([facility]) 03/18/2020 Paresthesia 08/18/2017 Anesthesia of skin 12/17/2017 Abnormal finding on lung imaging 03/18/2020 Abnormal levels of other ser um enzymes 02/28/2015 Converted unresolved ICD9, p otential mismatch. Family History Medical History Relation Name Comments COPD Father [facility] COPD; Cancer Father [facility] Colon polyps Father [facility] Early Father [facility] Heart attack Father [facility] Liver disease Father [facility] Liver disease; Lung cancer [facility] Cancer, lung; Other Father [facility] hypercoagulable ; Asthma Mother [facility] Asthma; COPD Mother [facility] COPD; Diabetes type II Mother [facility] Diabetes me llitus type 2; Osteoporosis Mother [facility] Thyroid disease Mother Jessie Herbert Thyroid dise ase; Colon cancer Mother's Sister Relation Name Status Comments Father Heath Herbert Heart Attack Mother Jessie Herbert Mother's Sister Social History Tobacco Use Types [...] on file Legal Sex Female 2:03 AM ANIMAL KEEPER Gender Identity Not on file Sexual Orientation Not on file Obstetrics History Last Filed Vital Signs Vital Sign Reading Time Taken Comments Blood Pressure 149/64 11/16/2024 2:25 PM ANIMAL KEEPER Pulse 95 11/16/2024 2:25 PM ANIMAL KEEPER Temperature 36.3 C (97.3 F) 11/16/2024 2:25 PM ANIMAL KEEPER Respiratory Rate 18 11/16/2024 2:25 PM ANIMAL KEEPER Oxygen Saturation 99% 11/16/2024 2:25 PM ANIMAL KEEPER Inhaled Oxygen Concentration - - Weight 66.2 kg (146 lb) 11/16/2024 2:25 PM ANIMAL KEEPER Height 145.4 cm (4' 9.25) 06/15/2024 12:04 PM C DT Body Mass Index 31.32 06/15/2024 12:04 PM CDT Plan of Treatment Health Maintenance Due Date Last Done Comments Breast Cancer Screening-Mammogram 1960 Depression Screening 1960 Hepatitis C Screening 1960 Hepatitis B Screening 1978 Pneumococcal vaccine 65+ (1 of 2 - PCV) 1979 Zoster Vaccine (1 of 2) 2010 DTaP/Tdap/Td Vaccine (2 - Td or Tdap) 07/14/2021 07/14/2011 Osteoporosis Screening-Bone Density Scan 07/22/2022 07/22/2020, 12/28/2018, 03/02/2017, Additional history exists Well Visit 65+ 2025 Covid-19 Vaccine (2024-2 6 season) 2025 07/25/2021, 10/18/2020, 09/27/2020 Influenza Vaccine (#1) 2025 , 07/23/2015, 05/24/2012, Additional history exists Fall Risk Assessment 06/15/2025 06/15/2024 Colon Cancer Screening-Colonoscopy 06/15/2034 06/15/2024, 05/24/2023, 06/01/2018, [...] Diagnosis Comments COLONOSCOPY 06/15/2024 11:58 AM CDT DEXA AXIAL SKELETON BONE DENSITY 1 OR MORE SITES Schedule Routine, Read Routine (OP Routine) 07/22/2020 8:21 AM CDT Age-related osteoporosis without current pathological fracture from Last 3 Months or Most Recently Relevant to Health Maintenance Results * Colonoscopy (06/15/2024 11:58 AM CDT) Anatomical Region Laterality Modality Other Narrative Procedure Note Vincent Peter MD - 06/15/2024 11:58 AM CDT ENDOSCOPY LAB Patient Name: Vanesa Awad Procedure Date: 06/15/2024 11:58 AM Admit Type: Outpatient Room: [facility] Date of : 1960 Instrument [...] the bowel preparation was evaluatedusing the BBPS ([place] Bowel Preparation Scale) withscores of: Right Colon [...] Vincent Peter MD ENDOSCOPY PROCEDURES Final Result * Dexa Axial Skeleton Bone Density 1 or 2 Site (07/22/2020 8:21 AM CDT) Anatomical Region Laterality Modality Body N/A Radiographic Sarah ging Narrative 07/23/2020 5:27 AM CDT Patient Name: Vanesa Awad Date of : 1960 Date of scan: 07/22/2020 Bone mineral density was performed on a HoloCredit Benchmark Discovery Densitometer. Machine Cross-calibration and Precision studies have been performed with a least significant change of 0.024 g/cm at the spine, 0.020 g/cm at the total proximal femur, and 0.014g/cm at the forearm. HISTORY: This is a 60 y.o. postmenopausal female with a history of asthma, osteoporosis and vitamin D deficiency. Currently on treatment with anticoagulants, calcium and vitamin D. Previously treated with Forteo, glucocorticoids, hormone replacement therapy and Reclast. With a current complaint of back, neck and arm pain. History of tobacco use: Social History Tobacco Use Smoking Status Never Smoker INDICATIONS: Menopause status, history of glucocorticoids use, vitamin D deficiency and history of osteoporosis. FINDINGS: BONE MINERAL DENSITY OF THE LUMBAR SPINE Bone Mineral Density (BMD) of the lumbar spine was measured from L1-L4 and the average density was calculated to be 0.953 gm/cm. This corresponds to a T-score standard deviations from the mean of young adults of -0.9. When compared to the previous study of 12/28/2018 there has been a measured 0.041 gm/cm 4.5 % increase which is considered significant. BONE MINERAL DENSITY OF THE PROXIMAL FEMUR Bone Mineral Density (BMD) of the left hip total was found to be 0.959 gm/cm2. This corresponds to a T-score standard deviations from the mean of young adults of 0.1. Femoral neck is 0.811 gm/cm2 with a T-score of -0.3. When compared to the previous study of 12/28/2018 there has been no significant change noted. SUMMARY: Bone mineral density is near the young adult normal mean with no increased risk for fracture. There has been a significant increase in bone mineral density since the previous measurement. ADDITIONAL COMMENTS: If the patient has a history of a fragility fracture, a fracture that occurred with trauma equivalent to a fall from a standing position or less, then the diagnosis is osteoporosis. The risk of osteoporotic fracture increases approximately 2-fold for each 1.0 SD decrease in T-score. However, low bone density is not the only risk factor for fracture. Other factors include patient s age, previous osteoporotic fracture or prior fracture as an adult, loss of height of greater than 2 inches, corticosteroid use, risk of falling, risk of injury, and family history of osteoporosis. Not everyone with low bone mineral density has osteoporosis. Osteomalacia and other metabolic bone disorders should also be considered where indicated. Patients who have osteoporosis should be evaluated for specific diseases and conditions (secondary causes) that may cause or contribute to bone loss. Consider repeating this study in 1-2 years to assess the patient s response to treatment, if applicable. It is recommended that any follow up exam be performed on the same machine if possible for better accuracy. DEFINITIONS: Osteoporosis: BMD at or below -2.5 T-score Osteopenia (low bone mass): BMD between -1.0 and-2.5 T-score. The Bone Health Program adopts the following WHO definitions: Osteoporosis: BMD below -2.5 S.D. as compared to the BMD of young normal adults. Osteopenia or Low Bone Mass: BMD between -1.0 and -2.5 S.D. below the BMD of young normal adults. Normal Bone Density: BMD equal to or greater than -1.0 S.D. as compared to the BMD of young normal adults. References: 1) Van, Annals of Internal Medicine 114(11): 919-923 (1990) 2) Iniguez, Lancet 341 : 72-75 (1992) 3) Black, Journal Bone and Mineral Research 7(6): 633-8 (1991) 4) Alfred, Journal Bone and Mineral Research 8(10):1227-33 (1992) The history and data sections of the bone mineral density scan were prepared by Jeannette Yap) REX who is accredited by the International Society of Clinical Densitometry. The overall patient assessment and scan interpretation were performed by Rosy Cr M.D. who is certified by the International Society of Clinical Densitometry. [id number] Rosy Cr MD IMG DXA PROCEDURES Final Re sult from Last 3 Months or Most Recently Relevant to Health Maintenance Insurance [facility]/PPO Address: [place] [address] [facility]/PPO Address: [place] [address] [facility]/PPO Address: [place] [address] Advance Directives For more information, please contact: [phone] * Full Code (Latest Code Status on File) Date Activated Date Inactivated Comments 06/15/2024 12:07 PM 06/15/2024 6:45 PM * Full Code Date Activated Date Inactivated Comments 05/24/2023 7:46 AM 05/24/2023 1:54 PM * Full Code Date Activated Date Inactivated Comments 02/08/2019 11:03 AM 02/08/2019 5:19 PM * Full Code Date Activated Date Inactivated Comments 06/01/2018 11:13 AM 06/01/2018 2:52 PM Care Teams Shop Lead Relationship Specialty Start Date End Date Irma Koehler DO [address] [place] [address] PCP - General Family Medicine 12/10/22 Toshia Price MD [address] [place] [address] Medical Oncologist/Seed Packer Hematology and Oncology 08/28/22
[2025-06-27 08:37] LABS: Free T4 Free Thyroxine 1.13 ng/dL (0.78-2.19)
[2025-06-27 08:51] LABS: Thyroid Stimulating Hormone 2.950 uIU/mL (0.465-4.680)
== END 2025-06-27 07:28 | disposition home or self-care (01) ==
LOC: ANHLAB 07:29
PROVIDERS: PCP Family Medicine; Visit Provider Family Medicine
DX: E78.5 Hyperlipidemia, unspecified (principal); R79.89 Other specified abnormal findings of blood chemistry; D64.9 Anemia, unspecified; Z79.899 Other long term (current) drug therapy
CPT/HCPCS: 36415; 82306; 84439; 84443; 85014; 85018

== ENCOUNTER 2025-07-04 07:02 | Outpatient (CLI) | payer OTHER, SELFPAY | END 2025-07-04 07:03 | disposition home or self-care (01) | LOC: ANHLAB 07:04 | PROVIDERS: PCP Family Medicine; Visit Provider Family Medicine | DX: N39.0 Urinary tract infection, site not specified (principal) | CPT/HCPCS: 87086 ==

== ENCOUNTER 2025-10-03 06:49 | Outpatient (CLI) | payer OTHER, SELFPAY ==
--- OUTSIDE RECORDS SUMMARY | 2025-10-03 06:53 | XMS_ITS | Clinical Summary ---
Author Organization [facility] Address [address] [place] [address] Care Team Providers Care Scrap Crane Operator Name Role Phone Toshia Price MD Unavailable [phone] Irma Koehler DO Primary Care Provider [phone] Allergies Active Allergy Reactions Criticality Noted Date [...] nausea or vomiting 12 tablet 2024 Active SUMAtriptan (IMITREX) 50 mg tablet 06/27/2024 Active omeprazole (PriLOSEC) 40 mg capsule Take 1 capsule (40 mg total) by mouth 2 (two) times a day 180 capsule 3 05/23/2025 Active rivaroxaban (Xarelto) 20 mg tablet Take 1 tablet by mouth once daily 90 tablet 2 08/23/2025 Active Active Problems Problem Noted Date Diagnosed [...] have recommended voice therapy here at the [facility] in order to improve the biomechanics of the patient's voice, which will improve the patient's associated symptoms. Gastroesophageal reflux disease without esophagi tis 01/30/2019 Overview (01/30/2019): Added automatically from request for surgery [id number] Assessment & Plan (07/15/2020 1:35 PM CDT): [...] (05/06/2018): Added automatically from request for surgery [id number] Assessment & Plan (12/10/2022 2:19 PM COMMERCIAL FOOD INSTRUCTOR): Due for colonoscopy. Last exam May 2019. [...] disease) Assessment & Plan (12/10/2022 2:18 PM COMMERCIAL FOOD INSTRUCTOR): Has significant laryngeal reflux. We discussed that [...] Encounters Date Type Department Care Team Description 09/10/2025 Telephone [facility] Medicine Ophthalmology [address] [address] Derek Olson MD 09/09/2025 4:57 PM COMMERCIAL FOOD INSTRUCTOR - 09/09/2025 9:01 PM COMMERCIAL FOOD INSTRUCTOR Emergency [facility] [address] [place] [address] Myles Man MD Floaters in visual field, left (Primary Dx); Blurry vision, left eye Discharge Disposition: Discharge to home or self care 09/09/2025 Ophth Exam [facility] Medicine Ophthalmology [address] [address] Derek Olson MD from Last 3 Months Surgical History Surgery [...] Added au tomatically from request for surgery [id number] Hiatal hernia 12/28/2018 Gastroesophageal reflux dise ase without esophagitis 01/30/2019 Added automatically from req uest for surgery [id number] Gastroesophageal reflux disease 08/22/2012 GERD (gastroesophageal reflux [...] ICD9, p otential mismatch. ANGEL (mycobacterium avium-intracellulare) ([facility]) 03/18/2020 Paresthesia 08/18/2017 Anesthesia of skin 12/17/2017 Abnormal finding on lung imaging 03/18/2020 Abnormal levels of other ser um enzymes 02/28/2015 Converted unresolved ICD9, p otential mismatch. Family History Medical History Relation Name Comments COPD Father [facility] COPD; Cancer Father [facility] Colon polyps Father [facility] Early Father [facility] Heart attack Father [facility] Liver disease Father [facility] Liver disease; Lung cancer Father [facility] Cancer, lung; Other Father [facility] hypercoagulable ; Asthma Mother [facility] Asthma; COPD Mother [facility] COPD; Diabetes type II Mother [facility] Diabetes me llitus type 2; Osteoporosis Mother [facility] Thyroid disease Mother [facility] Thyroid dise ase; Colon cancer Mother's Sister Relation Name Status Comments Father [facility] Heart Attack Mother [facility] Mother's Sister Social History Tobacco Use [...] making you feel afraid or unsafe? Denies 09/09/2025 Comments No Sex and Gender Information Value Date Recorded Sex Assigned at Not on file Legal Sex Female 2:03 AM COMMERCIAL FOOD INSTRUCTOR Gender Identity Not on file Sexual Orientation Not on file Last Filed Vital Signs Vital Sign Reading Time Taken Comments Blood Pressure 144/81 09/09/2025 3:02 PM COMMERCIAL FOOD INSTRUCTOR Pulse 76 09/09/2025 3:02 PM COMMERCIAL FOOD INSTRUCTOR Temperature 36.9 C (98.5 F) 09/09/2025 3:02 PM COMMERCIAL FOOD INSTRUCTOR Respiratory Rate 20 09/09/2025 3:02 PM COMMERCIAL FOOD INSTRUCTOR Oxygen Saturation 97% 09/09/2025 3:02 PM COMMERCIAL FOOD INSTRUCTOR Inhaled Oxygen Concentration - - Weight 66.7 kg (147 lb) 09/09/2025 3:02 PM COMMERCIAL FOOD INSTRUCTOR Height 145.4 cm (4' 9.24) 09/09/2025 3:02 PM CS T Body Mass Index 31.54 09/09/2025 3:02 PM COMMERCIAL FOOD INSTRUCTOR Plan of Treatment Health Maintenance Due Date Last Done Comments Breast Cancer Screening-Mammogram 1960 Depression Screening 1960 Hepatitis C Screening 1960 Hepatitis B Screening 1978 Pneumococcal vaccine 65+ (1 of 2 - PCV) 1979 Zoster Vaccine (2 of 3) 01/23/2022 11/28/2021, 09/27 Osteoporosis Screening-Bone Density Scan 07/22/2022 07/22/2020, 12/28/2018, 03/02/2017, Additional history exists Well Visit 65+ 2025 Covid-19 Vaccine (4 - 2024-2 6 season) 2025 07/25/2021, 10/18/2020, 09/27/2020 Influenza Vaccine (#1) 2025 2, 07/23/2021, 07/15/2020, Additional history exists Fall Risk Assessment 06/15/2025 06/15/2024 DTaP/Tdap/Td Vaccine (3 - Td or Tdap) 12/30/2031 12/29/2021, 07/14/2011 Colon Cancer Screening-Colonoscopy 06/15/2034 06/15/2024, 05/24/2023, 06/01/2018, [...] 11:58 AM Admit Type: Outpatient Room: [facility] Date of : 1960 Instrument [...] the bowel preparation was evaluatedusing the BBPS ([place] Bowel Preparation Scale) withscores of: Right Colon [...] Bone mineral density was performed on a HoloCO-Value Discovery Densitometer. Machine Cross-calibration and Precision studies [...] Iniguez, Lancet 341 : 72-75 (1992) 3) Hieu, Journal Bone and Mineral Research 7(6): 633-8 (1991) 4) Alfred, Journal Bone and Mineral Research 8(10):8647-33 (1992) The history and data sections of the bone mineral density scan were prepared by Jeannette Yap) MILADIST who is accredited by the International Society of Clinical Densitometry. The overall patient assessment and scan interpretation were performed by Rosy Cr M.D. who is certified by the International Society of Clinical Densitometry. [id number] Rosy Cr MD IMG DXA PROCEDURES Final Re sult from Last 3 Months or Most Recently Relevant to Health Maintenance Insurance [facility] Advance Directives For more information, please contact: [phone] * Full Code (Latest Code Status on File) Date Activated Date Inactivated Comments 06/15/2024 12:07 PM 06/15/2024 6:45 PM * Full Code Date Activated Date Inactivated Comments 05/24/2023 7:46 AM 05/24/2023 1:54 PM * Full Code Date Activated Date Inactivated Comments 02/08/2019 11:03 AM 02/08/2019 5:19 PM * Full Code Date Activated Date Inactivated Comments 06/01/2018 11:13 AM 06/01/2018 2:52 PM Care Teams Scrap Crane Operator Relationship Specialty Start Date End Date Irma Koehler DO [address] [place] [address] PCP - General Family Medicine 12/10/22 Toshia Price MD [address] [place] [address] Medical Oncologist/Color Paste Mixer Hematology and Oncology 08/28/22
--- OUTSIDE RECORDS SUMMARY | 2025-10-03 06:53 | XMS_ITS | Clinical Summary ---
Author Organization [facility] Address [address] [place] [address] Phone Care Team Providers Care Community Arts Worker Name Role Phone Dimas Vale MD Primary Care Provider [phone] Allergies Active Allergy Reactions Criticality Noted Date [...] Dimas Vale [address] [place] [address] Other: Problem Noted Date Diagnosed Date Asthma [...] on file Legal Sex Female 5:55 AM SEPTIC TANK INSTALLER Gender Identity Not on file Sexual [...] OR WO CAD Routine 09/15/2010 10:04 AM SEPTIC TANK INSTALLER Lump or mass in breast from Last 3 Months or Most Recently Relevant to Health Maintenance Results * MAMMO DIGITAL DIAG BILAT (09/15/2010 10:04 AM SEPTIC TANK INSTALLER) Anatomical Region Laterality Modality Breast Bilateral Mammography Narrative 09/15/2010 5:15 PM SEPTIC TANK INSTALLER BILATERAL DIAGNOSTIC DIGITAL MAMMOGRAMS WITH COMPUTER [...] Recently Relevant to Health Maintenance Care Teams Community Arts Worker Relationship Specialty Start Date End Date Dimas Vale MD [address] [place] [address] PCP - General Family Practice 06/19/10
[2025-10-03 07:23] LABS: Hematocrit 41.1 % (37.0-47.0); Hemoglobin 13.7 g/dL (12.0-15.0); Mean Corpuscular HGB Conc 33.3 g/dl (32-36); Mean Corpuscular Hemoglobin 30.0 pg (26-34); Mean Corpuscular Volume 90.1 fl (80-100); Platelet Count Result 215 k/mm3 (150-375); Red Blood Count 4.56 M/mm3 (4.2-5.4); White Blood Count 4.6 K/mm3 (4.5-10.0)
[2025-10-03 07:38] LABS: Iron 90 ug/dL (37-170)
[2025-10-03 07:43] LABS: Alanine Aminotransferase 30 U/L (6-35); Albumin Level 4.0 g/dL (3.5-5.1); Alkaline Phosphatase 83 U/L (38-126); Anion Gap 6 mmol/L (4-12); Aspartate Amino Transferase 34 U/L (14-36); Bilirubin,Total 0.7 mg/dL (0.2-1.3); Blood Urea Nitrogen 12 mg/dL (7-17); Calcium 9.4 mg/dL (8.4-10.2); Carbon Dioxide 30 mmol/L (22-30); Chloride 103 mmol/L (98-107); Cholesterol 170 mg/dL (0-200); Estimated Glomerular Filt Rate > 60; Glucose 98 mg/dL (65-110); HDL Direct 49 mg/dL; Potassium 3.4 mmol/L (3.4-5.0); Sodium 139 mmol/L (137-145); Total Protein 7.0 g/dL (6.3-8.2); Triglycerides 213 mg/dL (<150)
[2025-10-03 07:47] LABS: Percent Iron Saturation 36 % (20-50)
[2025-10-03 08:18] LABS: Thyroid Stimulating Hormone 4.980 uIU/mL (0.465-4.680)
[2025-10-03 08:19] LABS: Ferritin 126.00 ng/mL (11.1-264)
== END 2025-10-03 06:50 | disposition home or self-care (01) ==
PROVIDERS: PCP Family Medicine; Visit Provider Family Medicine
DX: E78.5 Hyperlipidemia, unspecified (principal); Z79.899 Other long term (current) drug therapy; I10 Essential (primary) hypertension; E78.2 Mixed hyperlipidemia; R79.89 Other specified abnormal findings of blood chemistry; D64.9 Anemia, unspecified; E55.9 Vitamin D deficiency, unspecified
CPT/HCPCS: 36415; 80053; 80061; 82306; 82728; 83540; 83550; 84443; 85027